=== PATIENT | male | born 1950 | race Caucasian/White ===

== ENCOUNTER 2021-11-26 10:48 | Outpatient (CLI) | payer MEDICARE, SELFPAY ==
--- NOTE | 2021-11-26 11:42 | XR_ITS ---
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 Findings: No fractures or dislocations are seen. Right hip shows a small acetabular spur. No narrowing, erosion , sclerosis or fragmentation of the right femoral head is seen.. The soft tissues are not remarkable. The adjacent pelvis is normal. There is calcification of the common femoral and superficial femoral artery saleh. XR/XR hip RT 2-3V wo/w pel* [id number] Impression: Minimal osteoarthritis of the right hip. Tonnis classification: grade 1: sclerosis of femoral head and acetabulum or sli ght joint space narrowing or slight lipping at joint margins
[2021-11-26 12:22] LABS: Hematocrit 50.4 % (42.0-52.0); Hemoglobin 16.6 g/dL (11.7-16.6); Mean Corpuscular HGB Conc 32.9 g/dL (30.0-36.0); Mean Corpuscular Hemoglobin 29.5 pg (28.0-34.0); Mean Corpuscular Volume 89.5 fl (80-94); Mean Platelet Volume 11.4 fL (7.4-10.4); Platelet Count 155 10^3/cmm (130-400); Red Blood Count 5.63 10^6/uL (4.1-5.3); Red Cell Distribution Width 14.3 % (12.1-15.1); White Blood Count 7.5 10^3/uL (4.0-10.0)
[2021-11-26 12:56] LABS: Absolute Eosinophils 0.1 10^3/cmm (0.0-0.7); Absolute Neutrophil 4.1 10^3/cmm (1.4-6.5); Band Neutrophils Absolute 0.1 10^3/cmm (0.0-1.2); Eosinophils 2 %; Lymphocytes 22 %; Lymphocytes Absolute 2.3 10^3/cmm (1.2-3.4); Monocytes Absolute 1.1 10^3/cmm (0.1-0.6); Platelet Estimate Normal (Normal); Segmented Neutrophils 53 %; Total Cells Counted 100 (0-100)
[2021-11-26 13:04] LABS: Alanine Aminotransferase 16 U/L (0-41); Albumin Level 4.2 g/dL (3.5-5.2); Alkaline Phosphatase 143 IU/L (40-130); Blood Urea Nitrogen 15 mg/dL (8-23); Calcium 8.5 mg/dL (8.5-10.5); Carbon Dioxide 24 mmol/L (22-29); Chloride 99 mmol/L (98-107); Chol HDL Ratio 1.87 mg/dL (1.0-5.00); Cholesterol 114 mg/dL (0-200); Globulin 3.6 g/dL (1.3-4.6); Glucose 171 mg/dL (65-115); HDL Cholesterol 61 mg/dL (60-100); LDL Cholesterol 50 (0-100); LDL Cholesterol Calculated 39 mg/dL (50-129); LDL HDL Ratio 0.64 RATIO (0.00-3.22); Osmolality Calculated 281 mOsm/kg (285-295); Sodium 133 mmol/L (136-145); Thyroid Stimulating Hormone 1.35 uIU/mL (0.27-4.20); Total Bilirubin 2.5 mg/dL (0.15-1.2); Total Protein 7.8 g/dL (6.6-8.7); Triglycerides 68 mg/dL (0-150)
[2021-11-26 13:13] LABS: Creatinine Urine, Random 31 mg/dL (39-259); Microalbumin Random Urine 2 ug/dL (0-20)
[2021-11-26 13:20] LABS: Anion Gap 14.4 (5-19); Potassium 4.4 mmol/L (3.5-5.1)
[2021-11-26 13:21] LABS: Aspartate Amino Transferase 27 U/L (0-40)
[2021-11-26 13:26] LABS: Microalbum Creatinine Ratio Ur 65 mg/dL (0-20)
[2021-11-26 15:26] LABS: Estmated Average Glucose 186; Hemoglobin A1C 8.1 % (4.0-6.0)
== END 2021-11-26 10:49 | disposition home or self-care (01) ==
PROVIDERS: PCP Nurse Practitioner Family; Visit Provider Nurse Practitioner Family
DX: I10 Essential (primary) hypertension (principal); E11.40 Type 2 diabetes mellitus with diabetic neuropathy, unspecified; M16.11 Unilateral primary osteoarthritis, right hip
CPT/HCPCS: 36415; 73502; 80053; 80061; 82044; 83036; 84439; 84443; 85007; 85027

== ENCOUNTER 2021-12-06 13:48 | Outpatient (CLI) | payer MEDICARE, SELFPAY ==
--- NOTE | 2021-12-06 13:59 | USCV_ITS ---
Taran Higuera Age: 71 Gender: M : 1950 Exam Date: 12/06/2021 14:35 Ordering Phys: Martha Norris NP Technologist: HEBER Exam Location: [facility] [place] Indication: CLADICATION Risk Factors: Previous Vascular Surgery: RIGHT LEFT BP: 126.0 / BP: 112.0/ 0 0 Waveform Velocity (cm/s) Velocity (cm/s) Waveform Triphasic 69.6 Iliac Prox 61.8 Triphasic Triphasic 80.7 Iliac Mid 61.8 Triphasic Triphasic Iliac Distal Triphasic 99.6 59.3 Triphasic 108.1 VERIFY REP 72.6 Triphasic Triphasic 85.4 SFA Prox 69.1 Triphasic Triphasic 82.3 SFA Mid 80.8 Biphasic Biphasic 85.4 SFA Dist 112.4 Biphasic Biphasic 61.9 POP 63.1 Biphasic Biphasic 61.1 MANAGER LANDSCAPE 61.0 Biphasic Biphasic 40.0 DPA 40.1 Biphasic 1.2 BRAYAN 1.0 FINDINGS Bilateral Ca++ seen Mild to moderate diffuse plaques in the iliac and femoral arteries bilaterally. Near normal Doppler waveforms bilaterally. Normal resting ABIs bilaterally. CONCLUSIONS Mild to moderate diffuse plaques in the iliac and femoral arteries bilaterally. No significant arterial obstruction, based on the above findings. No similar previous studies are available for comparison Dr Natasha Gonzalez MD [facility] (Electronically Signed) Final Date: 07 Dec 2021 21:44 S
== END 2021-12-06 13:49 | disposition home or self-care (01) ==
PROVIDERS: PCP Nurse Practitioner Family; Visit Provider Nurse Practitioner Family
DX: E11.59 Type 2 diabetes mellitus with other circulatory complications (principal)
CPT/HCPCS: 93925

== ENCOUNTER 2021-12-27 10:15 | Outpatient (CLI) | payer MEDICARE, SELFPAY ==
--- NOTE | 2021-12-27 10:45 | XR_ITS ---
WS: [id number] Exam: XR cervical spine min 6V [id number] Date/Time of Exam: 12/27/2021 10:45 AM Reason For Exam: CERVICAL PAIN No acute fracture or dislocation. There is straightening. Degenerative disc narrowing at C3-4, C5-6 a nd C6-7 with mild spondylosis. Facet DJD at all levels. The odontoid is intact. Slight narrowing of t he left neural foramen at C5-6 and C6-7. Slight narrowing of the C5-6 neural foramen on the right. Pr ominent bilateral carotid artery calcifications. XR/XR cervical spine min 6V [id number] IMPRESSION: 1. No fracture or malalignment. Straightening. 2. Degenerative changes as detailed above. 3. Prominent bilateral carotid artery calcifications.
== END 2021-12-27 10:16 | disposition home or self-care (01) ==
PROVIDERS: PCP Nurse Practitioner Family; Visit Provider Nurse Practitioner Family
DX: M54.2 Cervicalgia (principal); M47.812 Spondylosis without myelopathy or radiculopathy, cervical region; I65.23 Occlusion and stenosis of bilateral carotid arteries
CPT/HCPCS: 72052

== ENCOUNTER 2022-01-31 16:38 | Outpatient (CLI) | payer MEDICARE, SELFPAY ==
--- NOTE | 2022-01-31 17:00 | USR_ITS ---
PROCEDURE INFORMATION: Exam: US Duplex Bilateral Extracranial Arteries, Carotid Arteries Exam date and time: 01/31/2022 5:50 PM Age: 71 years old Clinical indication: Dizziness; Additional info: Calcification of both carotid arteries TECHNIQUE: Imaging protocol: Real-time Duplex ultrasound scan of the bilateral carotid and vertebral arteries combining mckeon scale, color Doppler and spectral waveform analysis. Bilateral exam. Exam focused on the carotid arteries. COMPARISON: CT Cervical Spine w cont [id number] 01/15/2016 10:56 AM FINDINGS: Right common carotid artery: [id number] diffuse intimal thickening. No occlusion or stenosis. Waveforms are normal. Right internal carotid artery: [id number] diffuse intimal thickening. There is a calcified plaque at the carotid bulb/proximal ICA measuring about 9 mm in length and 3 mm in thickness with peak velocity of 67/17 cm/s. No occlusion or stenosis. Waveforms are normal. Right ICA/CCA ratio: Within normal limits. Right external carotid artery: No stenosis in the origin. Right vertebral artery: Unremarkable. Antegrade flow. Left common carotid artery: Egcu-uh-[id number] diffuse intimal thickening. No occlusion or stenosis. Waveforms are normal. Left internal carotid artery: Moqv-ei-[id number] diffuse intimal thickening. Heterogeneous heavily calcified plaque at the right carotid bulb/proximal ICA measuring about 14 mm in length and 3 mm in thickness and peak velocities of up to 65/16 cm/s in the more distal left ICA. Extensive acoustic shadowing from calcification in the left bowel/ICA origin resulting in difficulty in Doppler assessment and velocity measurements however by grayscale plaque estimate, there is probable stenosis of 50% or greater. This is based on seen a series 9 No occlusion or stenosis. Waveforms are normal. Left ICA/CCA ratio: Within normal limits. Left external carotid artery: No stenosis in the origin. Left vertebral artery: Unremarkable. Antegrade flow. Other findings: Incidentally noted are frequent arrhythmias. US/CV carotid duplex BI* [id number] IMPRESSION: 1. Wvdp-jy-mlqavrgz diffuse intimal thickening and calcified bilateral plaques as described, associated with mild, less than 50% stenosis on the right. Extensive acoustic shadowing at the left bowel and proximal ICA limits Doppler velocity measurement however grayscale plate estimate suggest that stenosis is probably about 50% or greater.. Otherwise no obvious occlusion. Correlation with CTA or MRA should be considered. 2. Frequent arrhythmias is incidentally observed.. REFERENCES: SRU CRITERIA. The degree of internal carotid artery stenosis is based on criteria defined by the Society of Radiologists in Ultrasound (SRU). Normal is no stenosis. Mild is less than 50% stenosis. Moderate is 50-69% stenosis. Severe is greater than 69% stenosis to near occlusion. Near occlusion is a markedly narrowed lumen. Total occlusion is no detectable patent lumen.
== END 2022-01-31 16:39 | disposition home or self-care (01) ==
PROVIDERS: PCP Nurse Practitioner Family; Visit Provider Nurse Practitioner Family
DX: I65.23 Occlusion and stenosis of bilateral carotid arteries (principal)
CPT/HCPCS: 93880

== ENCOUNTER → 2022-04-04 12:15 | Outpatient (BNVA) | payer MEDICARE, SELFPAY | PROVIDERS: PCP Family Medicine; Visit Provider Family Medicine | DX: E11.9 Type 2 diabetes mellitus without complications (principal); I10 Essential (primary) hypertension; I73.9 Peripheral vascular disease, unspecified | CPT/HCPCS: 80053; 80061; 83036 ==

== ENCOUNTER 2022-07-30 18:59 | Emergency (ER) | payer MEDICARE, SELFPAY ==
[2022-07-30 19:05] VITALS: BP 150/92; PULSE 84; RESP 16; TEMP 36.7; O2SAT 96
--- NOTE | 2022-07-30 19:43 | W.ED.WOUNDLC ---
HPI - Wound/Laceration General: Chief Complaint: Wound/Laceration Stated Complaint: right leg infection Time Seen by Provider: 07/30/22 19:34 History of Present Illness: 72-year-old male patient comes in today with area a wound that is approximately 3 weeks old with signs of infection. Patient has already been through 1 round of Bactrim DS, was seen by primary care today and was started on clindamycin. Primary care recommended that if he seemed like it got worse he was to come into the emergency department. Patient appears chronically ill. Patient has a history of peripheral vascular disease, coronary artery disease, CHF, diabetes mellitus type 2, atrial flutter, chronic anticoagulation, and hyperlipidemia. Associated symptoms: Denies chills Review of Systems Const: Denies: chills Card: Denies: chest pain Resp: Reports: dyspnea (Chronic) Musc: Reports: extremity pain and extremity swelling Skin/Breast: Reports: erythema [facility] ED PFSH: Medical History (Updated 07/30/22 @ 20:54 by LONI Cline) Aortic stenosis Atrial fibrillation Atrial flutter Bilateral lower extremity edema CAD (coronary artery disease) Cardiac LV ejection fraction 30-35% Cellulitis of right lower leg CHF (congestive heart failure) Chronic anticoagulation Degenerative disc disease Diabetes mellitus HTN (hypertension) Hyperlipidemia Microalbuminuria due to type 2 diabetes mellitus Neuropathy PVD (peripheral vascular disease) Shortness of breath Statin intolerance Surgical History (Updated 07/28/22 @ 11:21 by Fabian Rodriguez MD) History of hand surgery (~2013) S/P arterial stent (~2002) S/P CABG (coronary artery bypass graft) (~2000) S/P hernia repair Family History Father Cancer Sister Cancer Brother Cancer Lung CA Mother COPD (chronic obstructive pulmonary disease) Social History (Updated 04/04/22 @ 12:50 by Mildred Grewal MD) Smoking and tobacco status: former smoker Alcohol intake: never Lives independently: Yes Household members: spouse Marital status: Physical Exam Const: COMMON NORMALS: alert HENMT: COMMON NORMALS: normocephalic HEAD & SCALP: normocephalic Neck/C-Spine: COMMON NORMALS: full ROM Resp: COMMON NORMALS: normal respiratory effort and clear to auscultation bilaterally AUSCULTATION: clear to auscultation bilaterally Cardio: COMMON NORMALS: regular rate RATE: regular rate RHYTHM: abnormal rhythm GI: COMMON NORMALS: Soft to palpation PALPATION: Yes Soft to palpation Extremity: RIGHT LOWER EXTREMITY: Yes lower leg (Dry lesion approximately 1 cm circular, with surrounding erythema) Right lower leg: Yes inspection, Yes palpation and Yes neurovascular exam Neuro: SENSORIUM/ORIENTATION: Yes alert Skin: LESIONS: lesion noted (Right lower leg with surrounding erythema and swelling) Course Vital Signs: Vital signs: Vital Signs Temperature 98.1 F 07/30/22 19:05 Pulse Rate 84 07/30/22 19:05 Respiratory Rate 16 07/30/22 19:05 Blood Pressure 150/92 07/30/22 19:05 Pulse Oximetry 96 07/30/22 19:05 Oxygen Delivery Me thod 07/30/22 19:05 MDM - Wound/Laceration Medical Decision Making 72-year-old male patient comes in today for complaints of redness and tenderness to the anterior right lower leg. On exam patient has some significant erythema that is distal to the lesion. Vital signs are normal. Differential diagnosis includes but not limited to cellulitis, DVT, stasis ulcer. Laboratory values were unremarkable. No signs of serious illness was noted. Patient was given 1 g of ceftriaxone and will continue with clindamycin. Recommend follow-up with primary care next week. Return to ED for worsening symptoms such as high fever, severe pain, or new concerns. Lab Data 07/30/22 20:00 07/30/22 20:00 Laboratory Results WBC 6.9 10^3/uL (4.0-10.0) 07/30/22 20:00 RBC 5.40 10^6/uL (4.1-5.3) H 07/30/22 20:00 Hgb 16.2 g/dL (11.7-16.6) 07/30/22 20:00 Hct 49.3 % (42.0-52.0) 07/30/22 20:00 MCV 91.3 fl (80-94) 07/30/22 20:00 MCH 30.0 pg (28.0-34.0) 07/30/22 20:00 MCHC 32.9 g/dL (30.0-36.0) 07/30/22 20:00 RDW 14.4 % (12.1-15.1) 07/30/22 20:00 Plt Count 156 10^3/cmm (130-400) 07/30/22 20:00 MPV 11.5 fL (7.4-10.4) H 07/30/22 20:00 Neut % (Auto) 51.5 % 07/30/22 20:00 Lymph % (Auto) 24.2 % 07/30/22 20:00 [place] % (Auto) 17.8 % 07/30/22 20:00 Eos % (Auto) 3.2 % 07/30/22 20:00 Baso % (Auto) 2.6 % 07/30/22 20:00 Neut # (Auto) 3.54 10^3/uL (1.8-7.7) 07/30/22 20:00 Lymph # (Auto) 1.7 10^3/uL (0.8-4.8) 07/30/22 20:00 [place] # (Auto) 1.2 10^3/uL (0.2-0.9) H 07/30/22 20:00 Eos # (Auto) 0.2 10^3/uL (0.0-0.8) 07/30/22 20:00 Baso # (Auto) 0.2 10^3/uL (0.0-0.1) H 07/30/22 20:00 Nucleated RBC % (auto) 0 % 07/30/22 20:00 Nucleated RBCs # 0.0 /100WBC 07/30/22 20:00 Sodium 133 mmol/L (136-145) L 07/30/22 20:00 Potassium 4.3 mmol/L (3.5-5.1) 07/30/22 20:00 Chloride 99 mmol/L (98-107) 07/30/22 20:00 Carbon Dioxide 26 mmol/L (22-29) 07/30/22 20:00 Anion Gap 12.3 (5-19) 07/30/22 20:00 BUN 20 mg/dL (8-23) 07/30/22 20:00 Creatinine 0.9 mg/dL (0.7-1.2) 07/30/22 20:00 GFR Calculation Not Reportable 07/30/22 20:00 Glucose 186 mg/dL (65-115) H 07/30/22 20:00 Calculated Osmolality 283 mOsm/kg (285-295) L 07/30/22 20:00 Lactic Acid 1.6 mmol/L (0.5-2.2) 07/30/22 20:00 Calcium 9.0 mg/dL (8.5-10.5) 07/30/22 20:00 Total Bilirubin 1.9 mg/dL (0.15-1.2) H 07/30/22 20:00 AST 31 U/L (0-40) 07/30/22 20:00 ALT 14 U/L (0-41) 07/30/22 20:00 Alkaline Phosphatase 161 U/L (40-130) H 07/30/22 20:00 C-Reactive Protein 5.2 mg/L (0.0-4.9) H 07/30/22 20:00 Total Protein 8.1 g/dL (6.6-8.7) 07/30/22 20:00 Albumin 4.1 g/dL (3.5-5.2) 07/30/22 20:00 Globulin 4.0 g/dL (1.3-4.6) 07/30/22 20:00 Discharge Plan Discharge Patient Disposition: Home Clinical Impression: Cellulitis of right lower leg, PVD (peripheral vascular disease) Condition: Stable Prescriptions: New hydrocodone-acetaminophen 5-325 mg tablet 1 tab PO Q8H PRN (Reason: pain (scale score 7-10)) Qty: 10 0RF No Action aspirin [Adult Low Dose Aspirin] 81 mg tablet,delayed release (DR/EC) 81 mg PO DAILY fluticasone propionate [Flonase Allergy Relief] 50 mcg/actuation spray,suspension 1 spray intranasal DAILY Rx Instructions: administer into each nostril acetaminophen 500 mg tablet 500 mg PO Q6H PRN cetirizine [Zyrtec] 10 mg tablet 10 mg PO DAILY PRN clindamycin HCl 300 mg capsule 300 mg PO Q8H 7 Days Qty: 21 0RF Eliquis 5 mg tablet 5 mg PO BID Qty: 180 0RF Repatha SureClick 140 mg/mL pen injector 140 mg SUBCUT .every 2 weeks Qty: 6 0RF glimepiride 4 mg tablet 4 mg PO DAILY Qty: 90 0RF hydrochlorothiazide 12.5 mg tablet 12.5 mg PO DAILY Qty: 90 0RF nitroglycerin [Nitrostat] 0.4 mg tablet, sublingual 0.4 mg sublingual Q5M PRN (Reason: chest pain) Qty: 25 3RF Rx Instructions: do not exceed 3 doses per episode hydrochlorothiazide 50 mg tablet 50 mg PO QAM Qty: 10 0RF Rx Instructions: Stop the 12.5 mg daily until off of the hydrochlorothiazide 50 mg daily potassium chloride 20 mEq tablet extended release 20 meq PO DAILY Qty: 10 0RF Rx Instructions: take with HCTZ 50 mg insulin glargine [Lantus U-100 Insulin] 100 unit/mL solution 10 unit SUBCUT ONCE Qty: 10 2RF metoprolol succinate 50 mg tablet extended release 24 hr See Rx Instructions .ROUTE .COMPLEX Qty: 90 0RF Dose Instruction: Take 1 tablet by mouth once daily Rx Instructions: Take 1 tablet by mouth once daily Discharge Orders: Discharge ED (Routine); Ordered 07/30/22 Ordered By: Shahriar Khanna Referrals: Mildred Grewal MD [Primary Care Provider] - Discharge Diet: Usual diet Discharge Activity: Increase activity as tolerated Patient Instructions: Cellulitis (ED) Activity Restrictions/Additional Instructions: Home and rest. Follow-up with primary care in 3 to 5 days. Take antibiotics as directed. Return to emergency department for severe pain, fever greater than 100.4, inability to hold fluids down, or new concerns. Coding Level of Care Code ED Fish Bailer for Devin Peoples Exam Comprehensive
[2022-07-30 20:14] LABS: Basophils # 0.2 10^3/uL (0.0-0.1); Basophils % 2.6 %; Eosinophils # 0.2 10^3/uL (0.0-0.8); Eosinophils % 3.2 %; Hematocrit 49.3 % (42.0-52.0); Hemoglobin 16.2 g/dL (11.7-16.6); Lymphocytes # 1.7 10^3/uL (0.8-4.8); Lymphocytes % 24.2 %; Mean Corpuscular HGB Conc 32.9 g/dL (30.0-36.0); Mean Corpuscular Volume 91.3 fl (80-94); Mean Platelet Volume 11.5 fL (7.4-10.4); Monocytes # 1.2 10^3/uL (0.2-0.9); Monocytes % 17.8 %; Neutrophils # 3.54 10^3/uL (1.8-7.7); Neutrophils % 51.5 %; Nucleated Red Blood Cells % 0 %; Platelet Count 156 10^3/cmm (130-400); Red Cell Distribution Width 14.4 % (12.1-15.1); White Blood Count 6.9 10^3/uL (4.0-10.0)
[2022-07-30 20:35] LABS: Alanine Aminotransferase 14 U/L (0-41); Albumin Level 4.1 g/dL (3.5-5.2); Alkaline Phosphatase 161 U/L (40-130); Anion Gap 12.3 (5-19); Aspartate Amino Transferase 31 U/L (0-40); Blood Urea Nitrogen 20 mg/dL (8-23); C Reactive Protein 5.2 mg/L (0.0-4.9); Carbon Dioxide 26 mmol/L (22-29); Chloride 99 mmol/L (98-107); Glucose 186 mg/dL (65-115); Lactic Sepsis W/Reflex 1.6 mmol/L (0.5-2.2); Osmolality Calculated 283 mOsm/kg (285-295); Potassium 4.3 mmol/L (3.5-5.1); Sodium 133 mmol/L (136-145); Total Bilirubin 1.9 mg/dL (0.15-1.2); Total Protein 8.1 g/dL (6.6-8.7)
[2022-07-30] MEDS: cefTRIAXone 1,000 MG in sodium chloride 0.9% (plus) 50 ML 100 MG IV (21:32)
[2022-07-30] MEDS: HYDROcodone-acetaminophen 5-325 mg Tablet 1 TAB PO (21:33)
[2022-07-30 21:41] VITALS: BP 94/66; PULSE 82; RESP 16; O2SAT 97
== END 2022-07-30 21:44 | disposition home or self-care (01) ==
PROVIDERS: Emergency Medicine; Emergency Provider Nurse Practitioner Family; PCP Family Medicine
DX: L03.115 Cellulitis of right lower limb (principal); I73.9 Peripheral vascular disease, unspecified; Z79.01 Long term (current) use of anticoagulants; Z79.84 Long term (current) use of oral hypoglycemic drugs; Z79.82 Long term (current) use of aspirin; Z79.4 Long term (current) use of insulin; Z87.891 Personal history of nicotine dependence; I25.10 Atherosclerotic heart disease of native coronary artery without angina pectoris; I11.0 Hypertensive heart disease with heart failure; I50.9 Heart failure, unspecified; E11.9 Type 2 diabetes mellitus without complications; E78.5 Hyperlipidemia, unspecified; Z95.1 Presence of aortocoronary bypass graft
CPT/HCPCS: 80053; 83605; 85025; 86140; 87040; 96374; 99284; J0696

== ENCOUNTER → 2022-08-19 10:46 | Outpatient (BNVA) | payer MEDICARE, SELFPAY | PROVIDERS: PCP Family Medicine; Visit Provider Podiatrist Foot & Ankle Surgery | DX: E11.8 Type 2 diabetes mellitus with unspecified complications (principal); I73.9 Peripheral vascular disease, unspecified; M20.41 Other hammer toe(s) (acquired), right foot; M20.42 Other hammer toe(s) (acquired), left foot; E11.42 Type 2 diabetes mellitus with diabetic polyneuropathy; L60.3 Nail dystrophy; M21.41 Flat foot [pes planus] (acquired), right foot; M21.42 Flat foot [pes planus] (acquired), left foot | CPT/HCPCS: 11721; 99204 ==

== ENCOUNTER → 2022-10-17 10:16 | Outpatient (BNVA) | payer MEDICARE, SELFPAY | PROVIDERS: PCP Family Medicine; Visit Provider Family Medicine | DX: R60.0 Localized edema (principal); I50.32 Chronic diastolic (congestive) heart failure; E11.9 Type 2 diabetes mellitus without complications; E78.5 Hyperlipidemia, unspecified; I10 Essential (primary) hypertension; I50.9 Heart failure, unspecified; E11.29 Type 2 diabetes mellitus with other diabetic kidney complication; R80.9 Proteinuria, unspecified; R21 Rash and other nonspecific skin eruption | CPT/HCPCS: 80053; 80061; 83036; 83880 ==

== ENCOUNTER → 2022-10-30 09:49 | Outpatient (BNVA) | payer MEDICARE, SELFPAY | PROVIDERS: PCP Family Medicine; Visit Provider Family Medicine | DX: R60.0 Localized edema (principal); I50.32 Chronic diastolic (congestive) heart failure; L03.90 Cellulitis, unspecified | CPT/HCPCS: 80053; 83880; 85025 ==

== ENCOUNTER 2022-11-03 10:02 | Emergency (ER) | payer MEDICARE, MEDICAID, SELFPAY ==
[2022-11-03 10:18] VITALS: BP 133/81; PULSE 82; RESP 16; TEMP 36.5; O2SAT 98; BMI 31.2
[2022-11-03 13:19] VITALS: BP 131/86; PULSE 79; RESP 18; O2SAT 97
--- NOTE | 2022-11-03 13:21 | PC.NURSE ---
rounded on pt. pedal pulses present. pitting edema noted to BLE. erythema noted to RLE.
[2022-11-03 14:27] LABS: Basophils # 0.3 10^3/uL (0.0-0.1); Basophils % 3.2 %; Eosinophils # 0.3 10^3/uL (0.0-0.8); Eosinophils % 3.6 %; Hematocrit 52.1 % (42.0-52.0); Lymphocytes % 23.8 %; Mean Corpuscular HGB Conc 32.6 g/dL (30.0-36.0); Mean Corpuscular Hemoglobin 29.5 pg (28.0-34.0); Mean Corpuscular Volume 90.5 fl (80-94); Mean Platelet Volume 11.3 fL (7.4-10.4); Monocytes # 1.4 10^3/uL (0.2-0.9); Monocytes % 16.6 %; Neutrophils # 4.41 10^3/uL (1.8-7.7); Neutrophils % 52.2 %; Nucleated Red Blood Cells % 0 %; Platelet Count 148 10^3/cmm (130-400); Red Blood Count 5.76 10^6/uL (4.1-5.3); Red Cell Distribution Width 14.6 % (12.1-15.1); White Blood Count 8.4 10^3/uL (4.0-10.0)
[2022-11-03 14:41] LABS: Lactic Sepsis W/Reflex 1.5 mmol/L (0.5-2.2)
[2022-11-03 14:52] LABS: Alanine Aminotransferase 17 U/L (0-41); Albumin Level 3.9 g/dL (3.5-5.2); Alkaline Phosphatase 152 U/L (40-130); Anion Gap 15.2 (5-19); Aspartate Amino Transferase 31 U/L (0-40); Blood Urea Nitrogen 23 mg/dL (8-23); Calcium 9.3 mg/dL (8.5-10.5); Carbon Dioxide 25 mmol/L (22-29); Chloride 95 mmol/L (98-107); Globulin 4.5 g/dL (1.3-4.6); Glucose 214 mg/dL (65-115); NT Pro B Type Natriuretic Pept 818 pg/mL (0-125); Osmolality Calculated 282 mOsm/kg (285-295); Potassium 4.2 mmol/L (3.5-5.1); Sodium 131 mmol/L (136-145); Total Bilirubin 2.4 mg/dL (0.15-1.2); Total Protein 8.4 g/dL (6.6-8.7)
--- NOTE | 2022-11-03 16:16 | ED_ITS ---
HPI - Extremity Problem General: Chief complaint: Extremity Injury, Lower Stated complaint: bilateral ankle problems, possible infection Time Seen by Provider: 11/03/22 15:25 Source: patient and family Mode of arrival: ambulatory Limitations: no limitations History of Present Illness: Patient presents emergency department today for evaluation treatment of continued right ankle and foot swelling with continued redness. Patient reports a chronic history of bilateral ankle and foot swelling but, was seen by his primary care recently for concerns of a spreading redness in the ankle and foot. Patient reports a throbbing/pressure pain in this area since it started. He denies any known injuries. Patient had 2+ pitting edema noted on the physical examination at that time and remains today. They did add furosemide to his hydrochlorothiazide to help with the extra fluid. Patient notes that he has had increased urination and has had occasional dizziness upon standing but has not had any issues with syncopal episodes. He continues to deny any shortness of breath or chest pains. Patient denies fevers. He was started on Keflex but, instructions indicate he is to take 500 mg twice a day. He has not noticed improvement of the redness. There is also mention of him being referred back to cardiology if he is not noticing improvement in the lower extremity swelling. Review of Systems General: Reports: 10 or more systems reviewed and unremarkable except in HPI and below Musc: Reports: extremity swelling and joint stiffness Skin/Breast: Reports: erythema PFSH ED PFSH: Medical History Aortic stenosis Atrial fibrillation Atrial flutter Bilateral lower extremity edema CAD (coronary artery disease) Cardiac LV ejection fraction 30-35% Cellulitis of right lower leg CHF (congestive heart failure) Chronic anticoagulation Degenerative disc disease Diabetes mellitus HTN (hypertension) Hyperlipidemia Microalbuminuria due to type 2 diabetes mellitus Neuropathy PVD (peripheral vascular disease) Shortness of breath Statin intolerance Surgical History History of hand surgery (~2013) S/P arterial stent (~2002) S/P CABG (coronary artery bypass graft) (~2000) S/P hernia repair Family History Father Cancer Sister Cancer Brother Cancer Lung CA Mother COPD (chronic obstructive pulmonary disease) Social History Smoking and tobacco status: former smoker Alcohol intake: never Lives independently: Yes Household members: spouse Marital status: Physical Exam Const: COMMON NORMALS: no acute distress, patient oriented x3 and alert HENMT: COMMON NORMALS: normocephalic, atraumatic and hearing grossly normal bilaterally HEAD & SCALP: normocephalic and atraumatic Eye: COMMON NORMALS: Equal, round and reactive pupils present, EOMs intact bilaterally and conjunctivae normal CONJUNCTIVA: Yes conjunctivae normal PUPIL: Yes Equal, round and reactive pupils present Neck/C-Spine: COMMON NORMALS: full ROM and no JVD Lymph: LYMPHATIC: no lymphadenopathy noted Resp: COMMON NORMALS: normal respiratory effort, No retractions and No use of accessory muscles Cardio: COMMON NORMALS: no JVD and regular rate RATE: regular rate Extremity: NARRATIVE EXTREMITY EXAM: Patient has 2+ pitting edema noted to the mid right bravo extending down to the ankle and the foot. Patient has dark erythema circumferentially starting at the distal right bravo affecting the ankle and the proximal portion of the foot. Patient still has mobility of the extremity but has pain on ambulation. Neuro: COMMON NORMALS: patient oriented x3 SENSORIUM/ORIENTATION: Yes alert Psych: COMMON NORMALS: mental status grossly normal, Normal thought process present, cooperative and normal affect THOUGHT PROCESS: Normal thought process present Skin: GENERAL SKIN EXAM: dry skin and erythema NAILS: yellow and thickened Course Vital Signs: Vital signs: Vital Signs Temperature 97.7 F 11/03/22 10:18 Pulse Rate 79 11/03/22 13:19 Respiratory Rate 18 11/03/22 13:19 Blood Pressure 131/86 11/03/22 13:19 Pulse Oximetry 97 11/03/22 13:19 Oxygen Delivery Me thod 11/03/22 13:19 MDM - Extremity (Nontraumatic) Medical Decision Making AndPatient presents today with continued lower extremity continued redness to the right ankle and foot. I do think this is a complication of several things including his diabetic neuropathy, type 2 diabetes, peripheral vascular disease, and CHF. Unfortunately, I do not think the Keflex is working well for him and I am going to switch him over to doxycycline. Lab work is generally unremarkable. He shows no signs of sepsis and BNP numbers are actually improved. We are also putting him in a compressive bandage to help with the swelling and encouraged him to keep his foot up and elevated for the next few days. He is to follow-up with his primary care doctor in the next 48 to 72 hours for a recheck of both the redness and the swelling however, strict return precautions were given to him regarding any change or worsening in his condition. Differential Diagnosis Likely gout, cellulitis, superficial thrombophlebitis and lower extremity edema Lab Data 11/03/22 14:15 11/03/22 14:15 Laboratory Results WBC 8.4 10^3/uL (4.0-10.0) 11/03/22 14:15 RBC 5.76 10^6/uL (4.1-5.3) H 11/03/22 14:15 Hgb 17.0 g/dL (11.7-16.6) H 11/03/22 14:15 Hct 52.1 % (42.0-52.0) H 11/03/22 14:15 MCV 90.5 fl (80-94) 11/03/22 14:15 MCH 29.5 pg (28.0-34.0) 11/03/22 14:15 MCHC 32.6 g/dL (30.0-36.0) 11/03/22 14:15 RDW 14.6 % (12.1-15.1) 11/03/22 14:15 Plt Count 148 10^3/cmm (130-400) 11/03/22 14:15 MPV 11.3 fL (7.4-10.4) H 11/03/22 14:15 Neut % (Auto) 52.2 % 11/03/22 14:15 Lymph % (Auto) 23.8 % 11/03/22 14:15 [place] % (Auto) 16.6 % 11/03/22 14:15 Eos % (Auto) 3.6 % 11/03/22 14:15 Baso % (Auto) 3.2 % 11/03/22 14:15 Neut # (Auto) 4.41 10^3/uL (1.8-7.7) 11/03/22 14:15 Lymph # (Auto) 2.0 10^3/uL (0.8-4.8) 11/03/22 14:15 [place] # (Auto) 1.4 10^3/uL (0.2-0.9) H 11/03/22 14:15 Eos # (Auto) 0.3 10^3/uL (0.0-0.8) 11/03/22 14:15 Baso # (Auto) 0.3 10^3/uL (0.0-0.1) H 11/03/22 14:15 Nucleated RBC % (auto) 0 % 11/03/22 14:15 Nucleated RBCs # 0.0 /100WBC 11/03/22 14:15 Sodium 131 mmol/L (136-145) L 11/03/22 14:15 Potassium 4.2 mmol/L (3.5-5.1) 11/03/22 14:15 Chloride 95 mmol/L (98-107) L 11/03/22 14:15 Carbon Dioxide 25 mmol/L (22-29) 11/03/22 14:15 Anion Gap 15.2 (5-19) 11/03/22 14:15 BUN 23 mg/dL (8-23) 11/03/22 14:15 Creatinine 0.8 mg/dL (0.7-1.2) 11/03/22 14:15 GFR Calculation Not Reportable 11/03/22 14:15 Glucose 214 mg/dL (65-115) H 11/03/22 14:15 Calculated Osmolality 282 mOsm/kg (285-295) L 11/03/22 14:15 Lactic Acid 1.5 mmol/L (0.5-2.2) 11/03/22 14:15 Calcium 9.3 mg/dL (8.5-10.5) 11/03/22 14:15 Total Bilirubin 2.4 mg/dL (0.15-1.2) H 11/03/22 14:15 AST 31 U/L (0-40) 11/03/22 14:15 ALT 17 U/L (0-41) 11/03/22 14:15 Alkaline Phosphatase 152 U/L (40-130) H 11/03/22 14:15 NT-Pro-B Natriuret Pep 818 pg/mL (0-125) H 11/03/22 14:15 Total Protein 8.4 g/dL (6.6-8.7) 11/03/22 14:15 Albumin 3.9 g/dL (3.5-5.2) 11/03/22 14:15 Globulin 4.5 g/dL (1.3-4.6) 11/03/22 14:15 Discharge Plan Discharge Patient Disposition: Home Clinical Impression: Pitting edema, Cellulitis Condition: Stable Prescriptions: New doxycycline hyclate 100 mg tablet 100 mg PO BID 10 Days Qty: 20 0RF No Action aspirin [Adult Low Dose Aspirin] 81 mg tablet,delayed release (DR/EC) 81 mg PO DAILY fluticasone propionate [Flonase Allergy Relief] 50 mcg/actuation spray,suspension 1 spray intranasal DAILY Rx Instructions: administer into each nostril acetaminophen 500 mg tablet 500 mg PO Q6H PRN cetirizine [Zyrtec] 10 mg tablet 10 mg PO DAILY PRN Eliquis 5 mg tablet 5 mg PO BID Qty: 180 0RF Repatha SureClick 140 mg/mL pen injector 140 mg SUBCUT .every 2 weeks Qty: 6 0RF glimepiride 4 mg tablet 4 mg PO DAILY Qty: 90 0RF nitroglycerin [Nitrostat] 0.4 mg tablet, sublingual 0.4 mg sublingual Q5M PRN (Reason: chest pain) Qty: 25 3RF Rx Instructions: do not exceed 3 doses per episode cephalexin 500 mg tablet 500 mg PO Q12H Qty: 14 0RF furosemide 40 mg tablet 40 mg PO DAILY Qty: 30 0RF potassium chloride 20 mEq tablet extended release 20 meq PO DAILY Qty: 30 0RF Rx Instructions: take with lasix gabapentin 600 mg tablet 600 mg PO BID Qty: 180 0RF insulin glargine [Lantus U-100 Insulin] 100 unit/mL solution 10 unit SUBCUT ONCE Qty: 10 2RF hydrochlorothiazide 12.5 mg tablet See Rx Instructions .ROUTE .COMPLEX Qty: 90 0RF Dose Instruction: Take 1 tablet by mouth once daily Rx Instructions: Take 1 tablet by mouth once daily metoprolol succinate 50 mg tablet extended release 24 hr See Rx Instructions .ROUTE .COMPLEX Qty: 90 1RF Dose Instruction: Take 1 tablet by mouth once daily Rx Instructions: Take 1 tablet by mouth once daily Discharge Orders: Discharge ED (Routine); Ordered 11/03/22 Ordered By: Adriana Mcmanus Referrals: Mildred Grewal MD [Primary Care Provider] - Discharge Diet: As Directed Discharge Activity: Limit activity as instructed Patient Instructions: Cellulitis (ED) Activity Restrictions/Additional Instructions: Lab work today is generally unremarkable. I see no signs of a systemic infection concerning for sepsis. Also, lab work to check acute exacerbation of your CHF shows you are actually having improved numbers from the last few weeks. Continue taking the furosemide and hydrochlorothiazide as prescribed. We are going to switch your antibiotic over to doxycycline. You may stop taking the cephalexin. I would like you to have a follow-up appoint with your primary care doctor in approximately 48 hours. You can discuss changing your diuretic dosing as it needs to be closely monitored since you are occasionally feeling lightheaded already. Also, you should notice improvement-though not full resolution, of the redness with your new antibiotics on board. We have wrapped your foot and ankle to give you some compression. I would like you to keep some compression on this area for the next several days. Is much as possible, keep your foot up and elevated. If for any reason you develop chest pain, shortness of breath, or develop fever/sudden worsening of any of your symptoms you need to be seen and reevaluated again sooner. Coding Level of Care Code ED Museum Specialist for Devin Peoples
== END 2022-11-03 16:35 | disposition home or self-care (01) ==
PROVIDERS: Emergency Medicine; Emergency Provider Physician Assistant; PCP Family Medicine
DX: R60.0 Localized edema (principal); L03.115 Cellulitis of right lower limb; Z79.82 Long term (current) use of aspirin; Z79.01 Long term (current) use of anticoagulants; Z79.84 Long term (current) use of oral hypoglycemic drugs; Z79.4 Long term (current) use of insulin; Z87.891 Personal history of nicotine dependence; Z95.1 Presence of aortocoronary bypass graft; I25.10 Atherosclerotic heart disease of native coronary artery without angina pectoris; I11.0 Hypertensive heart disease with heart failure; I50.9 Heart failure, unspecified; E11.9 Type 2 diabetes mellitus without complications; E78.5 Hyperlipidemia, unspecified
CPT/HCPCS: 36415; 80053; 83605; 83880; 85025; 99283

== ENCOUNTER → 2022-11-19 10:54 | Outpatient (BNVA) | payer MEDICARE, SELFPAY | PROVIDERS: PCP Family Medicine; Visit Provider Podiatrist Foot & Ankle Surgery | DX: I73.9 Peripheral vascular disease, unspecified (principal); M20.41 Other hammer toe(s) (acquired), right foot; M20.42 Other hammer toe(s) (acquired), left foot; E11.42 Type 2 diabetes mellitus with diabetic polyneuropathy; L60.3 Nail dystrophy; M21.41 Flat foot [pes planus] (acquired), right foot; M21.42 Flat foot [pes planus] (acquired), left foot; Z79.4 Long term (current) use of insulin | CPT/HCPCS: 11721 ==

== ENCOUNTER → 2023-02-17 12:51 | Outpatient (BNVA) | payer MEDICARE, SELFPAY | PROVIDERS: PCP Family Medicine; Visit Provider Podiatrist Foot & Ankle Surgery | DX: I73.9 Peripheral vascular disease, unspecified (principal); L60.3 Nail dystrophy; M20.41 Other hammer toe(s) (acquired), right foot; M20.42 Other hammer toe(s) (acquired), left foot; E11.42 Type 2 diabetes mellitus with diabetic polyneuropathy; M21.41 Flat foot [pes planus] (acquired), right foot; M21.42 Flat foot [pes planus] (acquired), left foot; I87.2 Venous insufficiency (chronic) (peripheral); S80.821A Blister (nonthermal), right lower leg, initial encounter; X58.XXXA Exposure to other specified factors, initial encounter | CPT/HCPCS: 11721; 29580 ==

== ENCOUNTER → 2023-02-19 15:45 | Outpatient (BNVA) | payer MEDICARE, SELFPAY | PROVIDERS: PCP Family Medicine; Visit Provider Podiatrist Foot & Ankle Surgery | DX: I73.9 Peripheral vascular disease, unspecified (principal); E11.622 Type 2 diabetes mellitus with other skin ulcer; L97.811 Non-pressure chronic ulcer of other part of right lower leg limited to breakdown of skin; M20.41 Other hammer toe(s) (acquired), right foot; M20.42 Other hammer toe(s) (acquired), left foot; E11.42 Type 2 diabetes mellitus with diabetic polyneuropathy; M21.41 Flat foot [pes planus] (acquired), right foot; M21.42 Flat foot [pes planus] (acquired), left foot; I87.2 Venous insufficiency (chronic) (peripheral); Z79.4 Long term (current) use of insulin | CPT/HCPCS: 99213 ==

== ENCOUNTER → 2023-02-25 08:41 | Outpatient (BNVA) | payer MEDICARE, SELFPAY | PROVIDERS: PCP Family Medicine; Visit Provider Nurse Practitioner Family | DX: E11.52 Type 2 diabetes mellitus with diabetic peripheral angiopathy with gangrene (principal); L97.812 Non-pressure chronic ulcer of other part of right lower leg with fat layer exposed | CPT/HCPCS: 97597; 99213; A6021; A6252 ==

== ENCOUNTER → 2023-02-27 08:20 | Outpatient (BNVA) | payer MEDICARE, SELFPAY | PROVIDERS: PCP Family Medicine; Visit Provider Thoracic Surgery (Cardiothoracic Vascular Surgery) | DX: E11.52 Type 2 diabetes mellitus with diabetic peripheral angiopathy with gangrene (principal); L97.812 Non-pressure chronic ulcer of other part of right lower leg with fat layer exposed | CPT/HCPCS: 29581; A6021; A6252 ==

== ENCOUNTER → 2023-03-04 10:01 | Outpatient (BNVA) | payer MEDICARE, SELFPAY | PROVIDERS: PCP Family Medicine; Visit Provider Thoracic Surgery (Cardiothoracic Vascular Surgery) | DX: E11.52 Type 2 diabetes mellitus with diabetic peripheral angiopathy with gangrene (principal); L97.812 Non-pressure chronic ulcer of other part of right lower leg with fat layer exposed | CPT/HCPCS: 97597; 97598; A6021; A6212 ==

== ENCOUNTER 2023-03-06 06:00 | Outpatient (CLI) | payer MEDICARE, MEDICAID, SELFPAY ==
--- NOTE | 2023-03-06 07:26 | USCV_ITS ---
LE Venous Duplex RIGHT Taran Higuera Age: 72 Gender: M : 1950 Exam Date: 03/06/2023 06:20 Ordering Phys: Shahriar Cazares MD (Andy) ([email or web address]) Technologist: HEBER [place] [facility] [place]: RLE PAIN AND WOUND HISTORY: Lower extremity pain. PROCEDURES: Venous duplex imaging was performed in only the right lower extremity. The following venous structures were evaluated: common femoral vein, profunda vein, proximal portion of the greater saphenous vein, superficial femoral vein, and the popliteal vein. In addition, the posterior tibial and peroneal trunk were evaluated. Serial compression, augmentation maneuvers, and spectral Doppler flow evaluation were performed. FINDINGS: Normal 2-D Doppler and augmentation and compressibility throughout the lower extremity venous structures. Additional imaging through the proximal calf veins also reveals no thrombus. Limited evaluation of the greater saphenous vein is patent with no thrombus. CONCLUSIONS No DVT right lower extremity. Dr. Minda Dolan DO (Electronically Signed) Final Date: 06 March 2023 08:05 S
== END 2023-03-06 06:01 | disposition home or self-care (01) ==
PROVIDERS: PCP Family Medicine; Visit Provider Thoracic Surgery (Cardiothoracic Vascular Surgery)
DX: I73.9 Peripheral vascular disease, unspecified (principal); M79.604 Pain in right leg
CPT/HCPCS: 93971; 97597; 97598; A6021; A6212

== ENCOUNTER → 2023-03-09 09:37 | Outpatient (BNVA) | payer MEDICARE, SELFPAY | PROVIDERS: PCP Family Medicine; Visit Provider Family Medicine | DX: R60.0 Localized edema (principal); I50.32 Chronic diastolic (congestive) heart failure; E11.9 Type 2 diabetes mellitus without complications; I48.3 Typical atrial flutter; I25.810 Atherosclerosis of coronary artery bypass graft(s) without angina pectoris; I10 Essential (primary) hypertension | CPT/HCPCS: 80053; 80061; 83036 ==

== ENCOUNTER → 2023-03-11 10:50 | Outpatient (BNVA) | payer MEDICARE, SELFPAY | PROVIDERS: PCP Family Medicine; Visit Provider Thoracic Surgery (Cardiothoracic Vascular Surgery) | DX: E11.52 Type 2 diabetes mellitus with diabetic peripheral angiopathy with gangrene (principal); L97.812 Non-pressure chronic ulcer of other part of right lower leg with fat layer exposed; Z09 Encounter for follow-up examination after completed treatment for conditions other than malignant neoplasm | CPT/HCPCS: 99212 ==

== ENCOUNTER 2023-03-17 09:52 | Outpatient (CLI) | payer MEDICARE, MEDICAID, SELFPAY ==
--- NOTE | 2023-03-17 10:15 | USCV_ITS ---
Taran Higuera Age: 72 Gender: M : 1950 Exam Date: 03/17/2023 10:24 Ordering Phys: Shahriar Cazares MD (Andy) ([email or web address] [place] Technologist: HEBER Exam Location: [facility] – [place] Indication: HISTORY: Lower extremity edema. PROCEDURES: Venous duplex imaging was performed in only the right lower extremity. The following venous structures were evaluated: common femoral vein, profunda vein, proximal portion of the greater saphenous vein, superficial femoral vein, and the popliteal vein. Serial compression, augmentation maneuvers, and spectral Doppler flow evaluation were performed. An evaluation for venous insufficiency was also completed. FINDINGS: No evidence of DVT seen in any vessel visualized at this time. The veins were found to be easily compressible with spontaneous blood flow. Non pulsatile flow pattern. Significant venous reflux of greater than 500 ms were noted at the right saphenofemoral junction. The reflux time was 2.76 seconds. Significant venous reflux also was noted at the proximal segment of the small saphenous vein on the right side. The reflux time was 2.77 seconds and the venous segment was 0.94 cm from the surface CONCLUSIONS 1. No evidence of DVT in the above-mentioned identifiable veins. 2. Significant venous reflux was noted at the right saphenofemoral junction, anterior depth of 1.96 cm from the surface 3. Significant venous reflux of greater than 500 ms was noted at the proximal segment of the small saphenous vein measuring 0.3 cm in diameter and at a depth of 0.74 cm. 4. The venous dimensions, reflux time and depth from the surface are as mentioned above 5. The left lower extremity was not examined Dr Natasha Gonzalez MD [facility] (Electronically Signed) Final Date: 17 March 2023 23:08 S
== END 2023-03-17 09:53 | disposition home or self-care (01) ==
PROVIDERS: PCP Family Medicine; Visit Provider Thoracic Surgery (Cardiothoracic Vascular Surgery)
DX: I73.9 Peripheral vascular disease, unspecified (principal)
CPT/HCPCS: 93971

== ENCOUNTER → 2023-04-27 09:10 | Outpatient (BNVA) | payer MEDICARE, MEDICAID, SELFPAY | PROVIDERS: PCP Family Medicine; Visit Provider Podiatrist Foot & Ankle Surgery | DX: I73.9 Peripheral vascular disease, unspecified; L60.3 Nail dystrophy; E11.8 Type 2 diabetes mellitus with unspecified complications; M20.41 Other hammer toe(s) (acquired), right foot; M20.42 Other hammer toe(s) (acquired), left foot; E11.42 Type 2 diabetes mellitus with diabetic polyneuropathy; M21.41 Flat foot [pes planus] (acquired), right foot; M21.42 Flat foot [pes planus] (acquired), left foot; I87.2 Venous insufficiency (chronic) (peripheral); M65.871 Other synovitis and tenosynovitis, right ankle and foot | CPT/HCPCS: 11721; 73610; 99213 ==

== ENCOUNTER → 2023-05-18 14:20 | Outpatient (BNVA) | payer MEDICARE, MEDICAID, SELFPAY | PROVIDERS: PCP Family Medicine; Visit Provider Family Medicine | DX: E11.9 Type 2 diabetes mellitus without complications (principal); N64.4 Mastodynia; I48.3 Typical atrial flutter; I25.810 Atherosclerosis of coronary artery bypass graft(s) without angina pectoris; I10 Essential (primary) hypertension | CPT/HCPCS: 83036 ==

== ENCOUNTER 2023-07-02 13:46 | Outpatient (CLI) | payer MEDICARE, MEDICAID, SELFPAY ==
--- NOTE | 2023-07-02 13:55 | MM_ITS ---
WS: [id number] BILATERAL 3D TOMOSYNTHESIS DIGITAL DIAGNOSTIC MAMMOGRAPHY WITH CAD CLINICAL INFORMATION: left breast pain HISTORY: LEFT breast pain COMPARISON: None. TECHNIQUE: Bilateral CC, MLO, and ML views. FINDINGS: Scattered fibroglandular densities bilaterally. Parenchymal tissue deep to both areola LEFT greater t remy RIGHT in the areas of the palpable markers. No other suspicious abnormalities. Ultrasound is pend ing. ULTRASOUND BREAST BILATERAL TECHNIQUE: Ultrasound bilateral breast focused area of concern. CLINICAL INFORMATION: left breast pain FINDINGS: No suspicious cystic or solid lesions. No lesions to target for biopsy. RIGHT BREAST: Ultrasound RIGHT areola. Shadowing hypoechoic subareolar tissue compatible with gynecom astia. LEFT BREAST: Ultrasound LEFT areola. Hypoechoic shadowing subareolar tissue compatible with gynecomas tia IMPRESSION: MM/[place] [id number] BI-RADS: 2-Benign FOLLOW UP: See Report
== END 2023-07-02 13:47 | disposition home or self-care (01) ==
LOC: RAD 13:46
PROVIDERS: PCP Family Medicine; Visit Provider Family Medicine
DX: N64.4 Mastodynia (principal)
CPT/HCPCS: 76642; 77062; G0279

== ENCOUNTER → 2023-08-04 09:19 | Outpatient (BNVA) | payer MEDICARE, SELFPAY | PROVIDERS: PCP Family Medicine; Visit Provider Podiatrist Foot & Ankle Surgery | DX: I73.9 Peripheral vascular disease, unspecified; L60.3 Nail dystrophy; M20.41 Other hammer toe(s) (acquired), right foot; M20.42 Other hammer toe(s) (acquired), left foot; E11.42 Type 2 diabetes mellitus with diabetic polyneuropathy; M21.41 Flat foot [pes planus] (acquired), right foot; M21.42 Flat foot [pes planus] (acquired), left foot; I87.2 Venous insufficiency (chronic) (peripheral); M65.871 Other synovitis and tenosynovitis, right ankle and foot | CPT/HCPCS: 11721; 73610; 99213 ==

== ENCOUNTER → 2024-01-06 07:52 | Outpatient (BNVA) | payer MEDICARE, SELFPAY | PROVIDERS: PCP Family Medicine; Visit Provider Family Medicine | DX: E11.9 Type 2 diabetes mellitus without complications (principal); R60.0 Localized edema; I50.32 Chronic diastolic (congestive) heart failure; N62 Hypertrophy of breast; Z79.899 Other long term (current) drug therapy | CPT/HCPCS: 80053; 80061; 83036; 84146; 84443; 85025 ==

== ENCOUNTER 2024-03-08 14:54 | Outpatient (CLI) | payer MEDICARE, SELFPAY ==
--- NOTE | 2024-03-08 14:45 | USCV_ITS ---
Taran Higuera Age: 73 Gender: M : 1950 Exam Date: 03/08/2024 15:08 Ordering Phys: Mildred Grewal MD Technologist: CT Exam Location: [facility] – [place] Indication: lt leg pain and swelling PROCEDURES: Venous duplex imaging was performed in only the left lower extremity. The following venous structures were evaluated: common femoral vein, profunda vein, proximal portion of the greater saphenous vein, superficial femoral vein, and the popliteal vein. In addition, the posterior tibial and peroneal trunk were evaluated. FINDINGS: Normal 2-D Doppler and augmentation and compressibility throughout the lower extremity venous structures. Additional imaging through the proximal calf veins also reveals no thrombus. Limited evaluation of the greater saphenous vein is patent with no thrombus. CONCLUSIONS No DVT left lower extremity. Dr. Minda Dolan DO (Electronically Signed) Final Date: 08 March 2024 15:52 S
== END 2024-03-08 14:55 | disposition home or self-care (01) ==
PROVIDERS: PCP Family Medicine; Visit Provider Family Medicine
DX: M79.89 Other specified soft tissue disorders (principal)
CPT/HCPCS: 93971

== ENCOUNTER → 2024-04-20 10:15 | Outpatient (BNVA) | payer MEDICARE, SELFPAY | PROVIDERS: PCP Family Medicine; Referring Provider Family Medicine; Visit Provider Internal Medicine | DX: E11.9 Type 2 diabetes mellitus without complications (principal); E78.5 Hyperlipidemia, unspecified; R79.89 Other specified abnormal findings of blood chemistry; N62 Hypertrophy of breast; I50.32 Chronic diastolic (congestive) heart failure; E11.29 Type 2 diabetes mellitus with other diabetic kidney complication; R80.9 Proteinuria, unspecified | CPT/HCPCS: 36415; 80053; 80061; 82044; 82670; 83001; 83002; 83036; 84146; 84403; 86376; 86800 ==

== ENCOUNTER 2024-05-05 13:29 | Emergency (ER) | payer MEDICARE, SELFPAY ==
[2024-05-05 13:50] VITALS: BP 115/68; PULSE 75; RESP 17; TEMP 36.7; O2SAT 96; BMI 32.5
--- NOTE | 2024-05-05 14:13 | ED_ITS ---
HPI - Extremity Problem 2 General: Chief complaint: Extremity Problem,Nontraumatic Stated complaint: swollen legs Time Seen by Provider: 05/05/24 14:13 History of Present Illness: 73-year-old male patient comes in today with bilateral lower extremity swelling. Patient also reports a base weight of 217 but now reports being up to 227 on his scales at home. Patient reports no increase shortness of breath or chest pain. Patient is on furosemide 40 mg twice a day, and hydrochlorothiazide 12- 1/2 mg twice a day. Patient's blood pressure is 115/68. Patient appears nontoxic. Patient with reports some significant swelling to lower extremities not allowing him to wear socks with his shoes due to the swelling and some abdominal distention. Related Data Home Medications Medication Instructions Recorded Confirmed acetaminophen 500 mg tablet 500 mg PO Q6H PRN 09/25/20 04/20/24 aspirin 81 mg tablet,delayed 81 mg PO DAILY 09/25/20 04/20/24 release (Adult Low Dose Aspirin) fluticasone propionate 50 1 spray intranasal DAILY 09/25/20 04/20/24 mcg/actuation nasal spray,suspension (Flonase Allergy Relief) Previous Rx's Medication Instructions Recorded insulin glargine 100 unit/mL 10 unit (0.1 mL) SUBCUT ONCE #10 mL 06/13/22 subcutaneous solution (Lantus U-100 Insulin) hydrochlorothiazide 12.5 mg tablet See Rx Instructions .Route 10/16/22 .COMPLEX #90 tabs gabapentin 600 mg tablet 600 mg PO BID #180 tabs 10/30/22 Diabetic Shoes with 3 Pairs of #1 ea 11/19/22 Inserts ketoconazole 2 % topical cream 1 applic topical DAILY #30 grams 11/21/22 mupirocin 2 % topical ointment 1 applic topical BID 2 weeks #22 02/19/23 grams blood-glucose meter (OneTouch #1 ea 02/27/23 Ultra2 Meter) cetirizine 10 mg tablet (Zyrtec) 10 mg PO DAILY PRN allergy 05/18/23 symptoms #30 tabs apixaban 5 mg tablet (Eliquis) 5 mg PO BID #180 tabs 01/06/24 dapagliflozin propanediol 5 mg 5 mg PO DAILY #30 tabs 01/06/24 tablet (Farxiga) evolocumab 140 mg/mL subcutaneous See Rx Instructions .Route 01/06/24 pen injector (Repleigh Thomasick) .COMPLEX #6 mL metoprolol succinate 25 mg 25 mg PO DAILY #90 tabs 01/06/24 tablet,extended release 24 hr hydrocodone 5 mg-acetaminophen 325 1 tab PO Q8H PRN pain 3 days #9 03/08/24 mg tablet tabs cephalexin 500 mg tablet 500 mg PO BID #14 tabs 03/10/24 nitroglycerin 0.4 mg sublingual See Rx Instructions .Route 03/24/24 tablet .COMPLEX #25 tabs blood sugar diagnostic (OneTouch #100 ea 03/29/24 Ultra Test strips) potassium chloride 20 mEq See Rx Instructions .Route 03/30/24 tablet,extended .COMPLEX #60 tabs release(part/cryst) (Klor-Con M) furosemide 40 mg tablet See Rx Instructions .Route 04/06/24 .COMPLEX #60 tabs sitagliptin phosphate 100 mg 100 mg PO DAILY #90 tabs 04/20/24 tablet (Januvia) cabergoline 0.5 mg tablet 0.25 mg (1/2 x 0.5 mg) PO Q7D 30 05/04/24 days #3 tabs Allergies Allergy/AdvReac Type Severity Reaction Status Date / Time atorvastatin [From Lipitor] Allergy Unknown Unknown Verified 04/20/24 07:45 diclofenac [From Arthrotec] Allergy Unknown Unknown Verified 04/20/24 07:45 misoprostol [From Arthrotec] Allergy Unknown Unknown Verified 04/20/24 07:45 pravastatin Allergy Unknown Unknown Verified 04/20/24 07:45 risedronate sodium Allergy Unknown Unknown Verified 04/20/24 07:45 [From Actonel] rosuvastatin [From Crestor] Allergy Unknown Unknown Verified 04/20/24 07:45 semaglutide [From Ozempic] Allergy Unknown Unknown Verified 04/20/24 07:45 fosinopril AdvReac Mild Cough Verified 04/20/24 07:45 lovastatin [From Mevacor] AdvReac Mild Myalgia Verified 04/20/24 07:45 Review of Systems 2 General: Reports: 10 or more systems reviewed and unremarkable except in HPI and below PFSH ED 2 PFSH: Medical History Cellulitis of right lower leg Aortic stenosis Neuropathy Bilateral lower extremity edema Hyperlipidemia Degenerative disc disease Statin intolerance Chronic anticoagulation Microalbuminuria due to type 2 diabetes mellitus Cardiac LV ejection fraction 30-35% Diabetes mellitus Atrial flutter Shortness of breath Atrial fibrillation CAD (coronary artery disease) HTN (hypertension) PVD (peripheral vascular disease) CHF (congestive heart failure) Surgical History S/P hernia repair S/P arterial stent (~2002) History of hand surgery (~2013) S/P CABG (coronary artery bypass graft) (~2000) Family History Father Cancer Sister Cancer Brother Cancer Lung CA Mother COPD (chronic obstructive pulmonary disease) Social History Smoking and tobacco/nicotine status: former use of tobacco/nicotine Alcohol intake: never Substance/Drug Use: never Lives independently: Yes Household members: spouse Marital status: Physical Exam 2 Const: COMMON NORMALS: alert HENMT: COMMON NORMALS: normocephalic HEAD & SCALP: normocephalic Neck/C-Spine: COMMON NORMALS: full ROM Resp: COMMON NORMALS: normal respiratory effort and clear to auscultation bilaterally AUSCULTATION: clear to auscultation bilaterally Cardio: COMMON NORMALS: regular rate RATE: regular rate HEART SOUNDS: M urmur heart sound present GI: COMMON NORMALS: Soft to palpation and non-tender PALPATION: Yes Soft to palpation Back/Pelvis: COMMON NORMALS: thoracic and lumbar spine normal to inspection Extremity: NARRATIVE EXTREMITY EXAM: +2 pitting bilateral lower extremity samantha ma Neuro: SENSORIUM/ORIENTATION: Yes alert Skin: NARRATIVE SKIN EXAM: Chronic skin color change bilateral lower legs Course 2 Vital Signs: Vital signs: Vital Signs Temperature 98.1 F 05/05/24 13:50 Pulse Rate 71 05/05/24 15:30 Respiratory Rate 18 05/05/24 15:30 Blood Pressure 140/76 05/05/24 15:30 Pulse Oximetry 97 05/05/24 15:30 Oxygen Delivery Me thod Room Air 05/05/24 15:30 MDM - Extremity (Nontraumatic) Medical Decision Making 73-year-old male patient comes in today for complaints of bilateral lower extremity swelling. Patient also reports 10 pound weight gain. Patient appears nontoxic. Patient appears in no acute distress. Patient is presently on Lasix 40 mg twice a day along with hydrochlorothiazide. Lung sounds are have some diminished air movement in the bases. Patient has a grade 2 pansystolic murmur. Vital signs are normal. Differential diagnosis exacerbation of CHF, lymphedema, and peripheral vascular disease. CBC and CMP were unremarkable. Patient's BNP was 600 which is better than the last 1 done which was 800. Chest x-ray showed no pulmonary congestion. Vital signs have been normal. Reviewed exam with Dr. Kenney who agreed with plan for 80 mg of furosemide IM and have him follow-up with primary care or cardiology. Discussed this with patient who agreed with plan. Lab Data 05/05/24 14:25 05/05/24 14:25 Radiology Impressions Chest X-Ray 05/05/24 14: IMPRESSION: 1. Mild cardiac enlargement. No acute process noted. Laboratory Results WBC 6.44 10^3/uL (3.29-11.43) 05/05/24 14:25 RBC 4.51 10^6/uL (3.85-5.65) 05/05/24 14:25 Hgb 13.60 g/dL (11.27-16.99) 05/05/24 14:25 Hct 41.4 % (37-53) 05/05/24 14:25 MCV 91.8 fl (82-101) 05/05/24 14:25 MCH 30.2 pg (27-33) 05/05/24 14:25 MCHC 32.9 g/dL (30-55) 05/05/24 14:25 RDW 15.0 % (12.1-15.1) 05/05/24 14:25 Plt Count 121 10^3/cmm (157-399) L 05/05/24 14:25 MPV 11.8 fL (7.4-10.4) H 05/05/24 14:25 Neut % (Auto) 58.8 % 05/05/24 14:25 Lymph % (Auto) 18.3 % 05/05/24 14:25 [place] % (Auto) 17.7 % 05/05/24 14:25 Eos % (Auto) 2.3 % 05/05/24 14:25 Baso % (Auto) 2.6 % 05/05/24 14:25 Neut # (Auto) 3.78 10^3/uL (1.8-7.7) 05/05/24 14:25 Lymph # (Auto) 1.2 10^3/uL (0.8-4.8) 05/05/24 14:25 [place] # (Auto) 1.1 10^3/uL (0.2-0.9) H 05/05/24 14:25 Eos # (Auto) 0.2 10^3/uL (0.0-0.8) 05/05/24 14:25 Baso # (Auto) 0.2 10^3/uL (0.0-0.1) H 05/05/24 14:25 Nucleated RBC % (auto) 0 % 05/05/24 14:25 Nucleated RBCs # 0.0 /100WBC 05/05/24 14:25 PT 19.70 SECONDS (12.1-14.9) H 05/05/24 14:25 INR 1.61 (0.8-1.2) H 05/05/24 14:25 Sodium 137 mmol/L (136-145) 05/05/24 14:25 Potassium 4.3 mmol/L (3.5-5.1) 05/05/24 14:25 Chloride 103 mmol/L (98-107) 05/05/24 14:25 Carbon Dioxide 26 mmol/L (22-29) 05/05/24 14:25 Anion Gap 12.3 (5-19) 05/05/24 14:25 BUN 22 mg/dL (8-23) 05/05/24 14:25 Creatinine 0.9 mg/dL (0.7-1.2) 05/05/24 14:25 GFR Calculation Not Reportable 05/05/24 14:25 Glucose 198 mg/dL (65-115) H 05/05/24 14:25 Calculated Osmolality 293 mOsm/kg (285-295) 05/05/24 14:25 Calcium 8.6 mg/dL (8.5-10.5) 05/05/24 14:25 Total Bilirubin 2.8 mg/dL (0.15-1.2) H 05/05/24 14:25 AST 30 U/L (0-40) 05/05/24 14:25 ALT 11 U/L (0-41) 05/05/24 14:25 Alkaline Phosphatase 197 U/L (40-130) H 05/05/24 14:25 NT-Pro-B Natriuret Pep 606 pg/mL (0-450) H 05/05/24 14:25 Total Protein 7.5 g/dL (6.6-8.7) 05/05/24 14:25 Albumin 3.6 g/dL (3.5-5.2) 05/05/24 14:25 Globulin 3.9 g/dL (1.3-4.6) 05/05/24 14:25 All radiology interpretation(s) finalized by discharge EKG Data EKG 1: I personally reviewed and interpreted this EKG as follows: EKG interpretation date: 05/05/24 EKG interpretation time: 15:53 Interpretation: EKG shows atrial fibrillation with a controlled rate at 70 bpm. There is 1 PVC noted on the EKG. No ST elevation or other abnormalities noted. Artifact is present on the EKG. Computer generated interpretation: Atrial fibrillation with aberrant conduction or ventricular premature complex, right bundle branch block, abnormal EKG, unconfirmed report. Discharge Plan Discharge Patient Disposition: Home Clinical Impression: CHF (congestive heart failure) Qualifiers: Heart failure type: diastolic Heart failure chronicity: chronic Qualified Code(s): I50.32 - Chronic diastolic (congestive) heart failure Condition: Stable Prescriptions: No Action aspirin [Adult Low Dose Aspirin] 81 mg tablet,delayed release (DR/EC) 81 mg PO DAILY fluticasone propionate [Flonase Allergy Relief] 50 mcg/actuation spray,suspension 1 spray intranasal DAILY Rx Instructions: administer into each nostril acetaminophen 500 mg tablet 500 mg PO Q6H PRN (DME) Diabetic Shoes with 3 Pairs of Inserts See Rx Instructions .Route .MEDSUPPLY Qty: 1 0RF Rx Instructions: As directed by HOME mupirocin 2 % ointment 1 applic topical BID 14 Days Qty: 22 2RF metoprolol succinate 25 mg tablet extended release 24 hr 25 mg PO DAILY Qty: 90 0RF Eliquis 5 mg tablet 5 mg PO BID Qty: 180 0RF dapagliflozin propanediol [Farxiga] 5 mg tablet 5 mg PO DAILY Qty: 30 0RF Repatha SureClick 140 mg/mL pen injector See Rx Instructions .ROUTE .COMPLEX Qty: 6 0RF Dose Instruction: INJECT 1 PEN SUBCUTANEOUSLY EVERY TWO WEEKS Rx Instructions: INJECT 1 PEN SUBCUTANEOUSLY EVERY TWO WEEKS gabapentin 600 mg tablet 600 mg PO BID Qty: 180 0RF ketoconazole 2 % cream 1 applic topical DAILY Qty: 30 0RF cetirizine [Zyrtec] 10 mg tablet 10 mg PO DAILY PRN (Reason: allergy symptoms) Qty: 30 0RF Januvia 100 mg tablet 100 mg PO DAILY Qty: 90 1RF insulin glargine [Lantus U-100 Insulin] 100 unit/mL solution 10 unit SUBCUT ONCE Qty: 10 2RF hydrochlorothiazide 12.5 mg tablet See Rx Instructions .ROUTE .COMPLEX Qty: 90 0RF Dose Instruction: Take 1 tablet by mouth once daily Rx Instructions: Take 1 tablet by mouth once daily (DME) blood-glucose meter [OneTouch Ultra2 Meter] [facility] [place] See Rx Instructions .Route Qty: 1 0RF Rx Instructions: As directed hydrocodone-acetaminophen 5-325 mg tablet 1 tab PO Q8H PRN (Reason: pain) 3 Days Qty: 9 0RF cephalexin 500 mg tablet 500 mg PO BID Qty: 14 0RF nitroglycerin 0.4 mg tablet, sublingual See Rx Instructions .ROUTE .COMPLEX Qty: 25 0RF Dose Instruction: DISSOLVE ONE TABLET UNDER THE TONGUE EVERY 5 MINUTES NEEDED FOR CHEST PAIN. DO NOT EXCEED A TOTAL OF 3 DOSES IN 15 MINUTES Rx Instructions: DISSOLVE ONE TABLET UNDER THE TONGUE EVERY 5 MINUTES NEEDED FOR CHEST PAIN. DO NOT EXCEED A TOTAL OF 3 DOSES IN 15 MINUTES (DME) OneTouch Ultra Test Strip See Rx Instructions .ROUTE .COMPLEX Qty: 100 0RF Dose Instruction: USE 1 TEST STRIP TO TEST BLOOD GLUCOSE ONCE DAILY AND NEEDED Rx Instructions: USE 1 TEST STRIP TO TEST BLOOD GLUCOSE ONCE DAILY AND NEEDED potassium chloride [Klor-Con M20] 20 mEq tablet,ER particles/crystals See Rx Instructions .ROUTE .COMPLEX Qty: 60 0RF Dose Instruction: Take 1 tablet by mouth twice daily Rx Instructions: Take 1 tablet by mouth twice daily furosemide 40 mg tablet See Rx Instructions .ROUTE .COMPLEX Qty: 60 0RF Dose Instruction: Take 1 tablet by mouth twice daily Rx Instructions: Take 1 tablet by mouth twice daily cabergoline 0.5 mg tablet 0.25 mg PO Q7D 30 Days Qty: 3 1RF Rx Instructions: Take 0.25 mg tablet every 7 days. Discharge Orders: Discharge ED (Routine); Ordered 05/05/24 Ordered By: Shahriar Khanna Referrals: Mildred Grewal MD [Primary Care Provider] - Discharge Diet: Usual diet Discharge Activity: Increase activity as tolerated Patient Instructions: Heart Failure (ED) Activity Restrictions/Additional Instructions: Home and rest. Activity as tolerated. Continue with routine medications as prescribed. We have given you an extra dose of furosemide through an injection which should increase urine output. Follow-up with primary care in 2 to 3 days for recheck. Return to ED for worsening symptoms such as chest pain, severe shortness of breath, or new concerns. Coding Level of Care Code ED Hand I Tube Bender for Devin Peoples
[2024-05-05 14:24] VITALS: BP 125/72; PULSE 70; O2SAT 97
--- NOTE | 2024-05-05 14:24 | ECG_ITS ---
[facility] Test Date: 2024-05-05 Pat Name: Taran Higuera Department: Room: Gender: Male Medical Support Specialist: : 1950 Requested By: Shahriar Corona Order Number: [id number] Spence MD: Narinder Pinon M.D. Measurements Intervals [place] Rate: 70 P: 0 [place]: 0 QRS: 83 QRSD: 154 T: -19 QT: 472 QTc: 511 Interpretive Statements ATRIAL FIBRILLATION WITH ABERRANT CONDUCTION OR VENTRICULAR PREMATURE COMPLEXES RIGHT BUNDLE BRANCH BLOCK [120+ ms QRS DURATION, UPRIGHT V1, 40+ ms S IN I/aVL/V4/V5/V6] No previous ECG available for comparison Electronically Signed On 05-05-2024 18:08:58 CDT by Narinder Pinon M.D. [id number]
--- NOTE | 2024-05-05 14:24 | XR_ITS ---
WS: [email or web address] Exam: XR chest 1V portable [id number] Date/Time of Exam: 05/05/2024 2:24 PM Reason For Exam: chf Comparison 11/25/2017. The lungs are hyperinflated and clear. Mild cardiac enlargement. No pleural effusions. The mediastinu m is normal in contour for technique. Status post CABG surgery. DJD of both shoulders. XR/XR chest 1V portable [id number] IMPRESSION: 1. Mild cardiac enlargement. No acute process noted.
[2024-05-05 15:06] LABS: Basophils # 0.2 10^3/uL (0.0-0.1); Basophils % 2.6 %; Eosinophils # 0.2 10^3/uL (0.0-0.8); Eosinophils % 2.3 %; Hematocrit 41.4 % (37-53); Lymphocytes # 1.2 10^3/uL (0.8-4.8); Lymphocytes % 18.3 %; Mean Corpuscular HGB Conc 32.9 g/dL (30-55); Mean Corpuscular Hemoglobin 30.2 pg (27-33); Mean Corpuscular Volume 91.8 fl (82-101); Mean Platelet Volume 11.8 fL (7.4-10.4); Monocytes # 1.1 10^3/uL (0.2-0.9); Monocytes % 17.7 %; Neutrophils # 3.78 10^3/uL (1.8-7.7); Neutrophils % 58.8 %; Nucleated Red Blood Cells % 0 %; Platelet Count 121 10^3/cmm (157-399); Red Blood Count 4.51 10^6/uL (3.85-5.65); White Blood Count 6.44 10^3/uL (3.29-11.43)
[2024-05-05 15:21] LABS: INR 1.61 (0.8-1.2)
[2024-05-05 15:30] VITALS: BP 140/76; PULSE 71; RESP 18; O2SAT 97
[2024-05-05 15:40] LABS: Alanine Aminotransferase 11 U/L (0-41); Albumin Level 3.6 g/dL (3.5-5.2); Alkaline Phosphatase 197 U/L (40-130); Anion Gap 12.3 (5-19); Aspartate Amino Transferase 30 U/L (0-40); Blood Urea Nitrogen 22 mg/dL (8-23); Calcium 8.6 mg/dL (8.5-10.5); Carbon Dioxide 26 mmol/L (22-29); Chloride 103 mmol/L (98-107); Creatinine Clr Calc Pharmacy 85.2483; Globulin 3.9 g/dL (1.3-4.6); Glucose 198 mg/dL (65-115); NT Pro B Type Natriuretic Pept 606 pg/mL (0-450); Osmolality Calculated 293 mOsm/kg (285-295); Potassium 4.3 mmol/L (3.5-5.1); Sodium 137 mmol/L (136-145); Total Bilirubin 2.8 mg/dL (0.15-1.2); Total Protein 7.5 g/dL (6.6-8.7)
[2024-05-05] MEDS: FUROsemide 10 mg/mL SDV 10mL 80 MG XX (16:07)
[2024-05-05 16:11] VITALS: BP 140/76; PULSE 71; O2SAT 97
== END 2024-05-05 16:11 | disposition home or self-care (01) ==
PROVIDERS: Emergency Medicine; Emergency Provider Nurse Practitioner Family; PCP Family Medicine
DX: I11.0 Hypertensive heart disease with heart failure (principal); I50.32 Chronic diastolic (congestive) heart failure; I48.91 Unspecified atrial fibrillation; I45.10 Unspecified right bundle-branch block; Z79.82 Long term (current) use of aspirin; Z79.01 Long term (current) use of anticoagulants; Z79.4 Long term (current) use of insulin; Z87.891 Personal history of nicotine dependence; Z95.1 Presence of aortocoronary bypass graft; E78.5 Hyperlipidemia, unspecified; E11.9 Type 2 diabetes mellitus without complications; I25.10 Atherosclerotic heart disease of native coronary artery without angina pectoris
CPT/HCPCS: 36415; 71045; 80053; 83880; 85025; 85610; 93005; 96374; 99285; J1940

== ENCOUNTER → 2024-05-27 12:44 | Outpatient (BNVA) | payer MEDICARE, SELFPAY | PROVIDERS: PCP Family Medicine; Visit Provider Family Medicine | DX: I50.32 Chronic diastolic (congestive) heart failure (principal) | CPT/HCPCS: 80053; 83880; 84146; 85025 ==

== ENCOUNTER 2024-06-22 13:47 | Emergency (ER) | payer MEDICARE, MEDICAID, SELFPAY ==
[2024-06-22] VITALS (11 sets, daily range): BP systolic 91–133; BP diastolic 52–87; PULSE 51–55; RESP 22; TEMP 36.4; O2SAT 96–100
--- NOTE | 2024-06-22 13:51 | XR_ITS ---
WS: [email or web address] Exam: XR chest 1V portable [id number] Date/Time of Exam: 06/22/2024 2:03 PM Reason For Exam: sob Comparison 05/05/2024. The lungs are hyperinflated and clear. Mild cardiac enlargement unchanged. No pleural effusion. Signs of previous CABG surgery. The mediastinum is normal in contour for technique. Moderate DJD of both s ilnee. XR/XR chest 1V portable [id number] IMPRESSION: 1. Pulmonary hyperinflation. No acute process. Mild stable cardiomegaly.
--- NOTE | 2024-06-22 13:51 | ECG_ITS ---
[facility] Test Date: 2024-06-22 Pat Name: Taran Higuera Department: Room: Gender: Male Hand Slitter: : 1950 Requested By: Syed Kenney Order Number: [id number] Reading MD: CHARLINE CHAUDHRY Measurements Intervals [place] Rate: 55 P: 0 [place]: 0 QRS: 87 QRSD: 150 T: 29 QT: 542 QTc: 519 Interpretive Statements ATRIAL FIBRILLATION WITH SLOW VENTRICULAR RESPONSE RIGHT BUNDLE BRANCH BLOCK [120+ ms QRS DURATION, UPRIGHT V1, 40+ ms S IN I/aVL/V4/V5/V6] Compared to ECG 05/05/2024 15:44:37 Ventricular premature complex(es) no longer present Aberrant conduction of supraventricular beat(s) no longer present Electronically Signed On 06-22-2024 17:19:25 MANAGEMENT PSYCHOLOGIST by CHARLINE CHAUDHRY [id number]
--- NOTE | 2024-06-22 15:15 | ED_ITS ---
Documented by User: Zachary Martinez, DO 06/24/24 05:52 HPI - SOB/Dyspnea 2 General: Chief Complaint: Shortness of Breath/Dyspnea Stated Complaint: fluid on legs, SOB Time Seen by Provider: 06/22/24 15:01 History of Present Illness: HPI Narrative: 73-year-old male presents emergency room with fluid in the legs complaining of shortness of breath. He is noticed increasing fluid and some fluid blisters that began draining and weeping. Denies chest pain no abdominal pain. Increasing orthopnea dyspnea with exertion. Recently had his diuretic changed from Lasix to Bumex. Associated symptoms: Reports orthopnea; Deny abdominal pain, chest pain or fever(s) Related Data Home Medications Medication Instructions Recorded Confirmed acetaminophen 500 mg tablet 500 mg PO Q6H PRN Pain 09/25/20 06/22/24 aspirin 81 mg tablet,delayed 81 mg PO DAILY 09/25/20 06/22/24 release (Adult Low Dose Aspirin) glimepiride 4 mg tablet 4 mg PO DAILY 06/21/24 06/22/24 potassium chloride 20 mEq 20 meq PO BID 06/22/24 06/22/24 tablet,extended release(part/cryst) (Klor-Con M) Previous Rx's Medication Instructions Recorded Diabetic Shoes with 3 Pairs of #1 ea 11/19/22 Inserts blood-glucose meter (OneTouch #1 ea 02/27/23 Ultra2 Meter) apixaban 5 mg tablet (Eliquis) 5 mg PO BID #180 tabs 01/06/24 metoprolol succinate 25 mg 25 mg PO DAILY #90 tabs 01/06/24 tablet,extended release 24 hr nitroglycerin 0.4 mg sublingual See Rx Instructions .Route 03/24/24 tablet .COMPLEX #25 tabs blood sugar diagnostic (OneTouch #100 ea 03/29/24 Ultra Test strips) cabergoline 0.5 mg tablet 0.25 mg (1/2 x 0.5 mg) PO Q7D 30 05/04/24 days #3 tabs evolocumab 140 mg/mL subcutaneous See Rx Instructions .Route 05/23/24 pen injector (Repatha SureClick) .COMPLEX #6 mL bumetanide 2 mg tablet 2 mg PO DAILY #30 tabs 06/20/24 Allergies Allergy/AdvReac Type Severity Reaction Status Date / Time atorvastatin [From Lipitor] Allergy Unknown Unknown Verified 05/27/24 11:54 diclofenac [From Arthrotec] Allergy Unknown Unknown Verified 05/27/24 11:54 misoprostol [From Arthrotec] Allergy Unknown Unknown Verified 05/27/24 11:54 pravastatin Allergy Unknown Unknown Verified 05/27/24 11:54 risedronate sodium Allergy Unknown Unknown Verified 05/27/24 11:54 [From Actonel] rosuvastatin [From Crestor] Allergy Unknown Unknown Verified 05/27/24 11:54 semaglutide [From Ozempic] Allergy Unknown Unknown Verified 05/27/24 11:54 fosinopril AdvReac Mild Cough Verified 05/27/24 11:54 lovastatin [From Mevacor] AdvReac Mild Myalgia Verified 05/27/24 11:54 Review of Systems 2 Const: Denies: fever(s) or chills Card: Reports: edema, swelling of feet/ankles, dyspnea on exertion and orthopnea; Denies: chest pain Resp: Reports: dyspnea GI: Denies: abdominal pain : Denies: dysuria, urinary frequency or urinary urgency Musc: Denies: neck pain or back pain Skin/Breast: Denies: rash PFSH ED 2 PFSH: Medical History Cellulitis of right lower leg Aortic stenosis Neuropathy Bilateral lower extremity edema Hyperlipidemia Degenerative disc disease Statin intolerance Chronic anticoagulation Microalbuminuria due to type 2 diabetes mellitus Cardiac LV ejection fraction 30-35% Diabetes mellitus Atrial flutter Shortness of breath Atrial fibrillation CAD (coronary artery disease) HTN (hypertension) PVD (peripheral vascular disease) CHF (congestive heart failure) Surgical History S/P hernia repair S/P arterial stent (~2002) History of hand surgery (~2013) S/P CABG (coronary artery bypass graft) (~2000) Family History Father Cancer Sister Cancer Brother Cancer Lung CA Mother COPD (chronic obstructive pulmonary disease) Social History Smoking and tobacco/nicotine status: former use of tobacco/nicotine Alcohol intake: never Substance/Drug Use: never Lives independently: Yes Household members: spouse Marital status: Physical Exam 2 Const: GENERAL APPEARANCE: cooperative ORIENTATION/CONSCIOUSNESS: Yes awake, Yes oriented to person, Yes oriented to place and Yes oriented to time HENMT: COMMON NORMALS: normocephalic, atraumatic and hearing grossly normal bilaterally HEAD & SCALP: normocephalic and atraumatic Resp: COMMON NORMALS: normal respiratory effort, No retractions, No use of accessory muscles and clear to auscultation bilaterally AUSCULTATION: clear to auscultation bilaterally Cardio: COMMON NORMALS: regular rate, regular rhythm and No murmurs present (Cardio) RATE: regular rate RHYTHM: regular rhythm GI: COMMON NORMALS: Soft to palpation and No hepatosplenomegaly present A USCULTATION: Yes normoactive bowel sounds PALPATION: Yes Soft to palpation, No Tenderness to palpation present (GI), No Guarding due to palpation present (GI) and Yes No hepatosplenomegaly present Extremity: OTHER: Significant discoloration from chronic venous stasis edema there are some blistering legs with some fluid drainage bilaterally. No signs of acute cellulitis. Neuro: SENSORIUM/ORIENTATION: Yes oriented to person, Yes oriented to place and Yes oriented to time Skin: COMMON NORMALS: no rashes or lesions noted GENERAL SKIN EXAM: no rashes or lesions noted Course 2 Vital Signs: Vital signs: Vital Signs Temperature 97.5 F L 06/22/24 13:57 Pulse Rate 52 L 06/22/24 20:10 Respiratory Rate 22 H 06/22/24 13:57 Blood Pressure 114/87 06/22/24 20:10 Pulse Oximetry 96 06/22/24 20:10 Oxygen Delivery Me thod Room Air 06/22/24 20:00 MDM - SOB/Dyspnea Medical Decision Making Care signed out to Dr. Tom at change of shift. See final notes for diagnosis and disposition. Care transferred over myself at shift change, waiting for lab work come back and chest x-ray, ultrasound, all of which was essentially negative. Bilirubin slightly elevated 2.9 over patient runs high, initial troponin was 31, 2-hour troponin was 28 for delta of approximately -3, BNP was 639, these results was discussed with the patient and family. Patient will go back on his Lasix as well as his Bumex for the next 5 days and see how he diuresis. Patient will follow-up with his PCP during the next 7 to 10 days for further evaluation. Lab Data 06/22/24 15:32 06/22/24 15:32 Labs/Radiology: Radiology Impressions Chest X-Ray 06/22/24 13:51 IMPRESSION: 1. Pulmonary hyperinflation. No acute process. Mild stable cardiomegaly. Venous Duplex 06/22/24 15:55 IMPRESSION: No sonographic evidence of deep venous thrombosis. Laboratory Results WBC 6.53 10^3/uL (3.29-11.43) 06/22/24 15:32 RBC 4.43 10^6/uL (3.85-5.65) 06/22/24 15:32 Hgb 13.10 g/dL (11.27-16.99) 06/22/24 15:32 Hct 40.2 % (37-53) 06/22/24 15:32 MCV 90.7 fl (82-101) 06/22/24 15:32 MCH 29.6 pg (27-33) 06/22/24 15:32 MCHC 32.6 g/dL (30-55) 06/22/24 15:32 RDW 14.3 % (12.1-15.1) 06/22/24 15:32 Plt Count 130 10^3/cmm (157-399) L 06/22/24 15:32 MPV 11.9 fL (7.4-10.4) H 06/22/24 15:32 Neut % (Auto) 54.1 % 06/22/24 15:32 Lymph % (Auto) 19.4 % 06/22/24 15:32 Holmes % (Auto) 21.4 % 06/22/24 15:32 Eos % (Auto) 2.3 % 06/22/24 15:32 Baso % (Auto) 2.5 % 06/22/24 15:32 Neut # (Auto) 3.53 10^3/uL (1.8-7.7) 06/22/24 15:32 Lymph # (Auto) 1.3 10^3/uL (0.8-4.8) 06/22/24 15:32 Holmes # (Auto) 1.4 10^3/uL (0.2-0.9) H 06/22/24 15:32 Eos # (Auto) 0.2 10^3/uL (0.0-0.8) 06/22/24 15:32 Baso # (Auto) 0.2 10^3/uL (0.0-0.1) H 06/22/24 15:32 Nucleated RBC % (auto) 0 % 06/22/24 15:32 Nucleated RBCs # 0.0 /100WBC 06/22/24 15:32 Sodium 134 mmol/L (136-145) L 06/22/24 15:32 Potassium 4.4 mmol/L (3.5-5.1) 06/22/24 15:32 Chloride 98 mmol/L (98-107) 06/22/24 15:32 Carbon Dioxide 27 mmol/L (22-29) 06/22/24 15:32 Anion Gap 13.4 (5-19) 06/22/24 15:32 BUN 32 mg/dL (8-23) H 06/22/24 15:32 Creatinine 1.1 mg/dL (0.7-1.2) 06/22/24 15:32 GFR Calculation Not Reportable 06/22/24 15:32 Glucose 167 mg/dL (65-115) H 06/22/24 15:32 Calculated Osmolality 289 mOsm/kg (285-295) 06/22/24 15:32 Calcium 8.7 mg/dL (8.5-10.5) 06/22/24 15:32 Total Bilirubin 2.9 mg/dL (0.15-1.2) H 06/22/24 15:32 AST 32 U/L (0-40) 06/22/24 15:32 ALT 13 U/L (0-41) 06/22/24 15:32 Alkaline Phosphatase 183 U/L (40-130) H 06/22/24 15:32 Troponin T Baseline 31 ng/L (0-15) H 06/22/24 15:32 Troponin T 120 Minute 28.58 ng/L (0-15) H 06/22/24 18:10 Delta Troponin T -2.42 ABS# (0-10) L 06/22/24 18:10 NT-Pro-B Natriuret Pep 639 pg/mL (0-450) H 11/20/24 15:32 Total Protein 7.9 g/dL (6.6-8.7) 06/22/24 15:32 Albumin 3.5 g/dL (3.5-5.2) 06/22/24 15:32 Globulin 4.4 g/dL (1.3-4.6) 06/22/24 15:32 Discharge Plan Discharge Patient Disposition: Home Clinical Impression: Edema Qualifiers: Edema type: localized Qualified Code(s): R60.0 - Localized edema Condition: Stable Prescriptions: No Action aspirin [Adult Low Dose Aspirin] 81 mg tablet,delayed release (DR/EC) 81 mg PO DAILY acetaminophen 500 mg tablet 500 mg PO Q6H PRN (Reason: Pain) (DME) Diabetic Shoes with 3 Pairs of Inserts See Rx Instructions .Route .MEDSUPPLY Qty: 1 0RF Rx Instructions: As directed by HOME metoprolol succinate 25 mg tablet extended release 24 hr 25 mg PO DAILY Qty: 90 0RF Eliquis 5 mg tablet 5 mg PO BID Qty: 180 0RF (DME) blood-glucose meter [OneTouch Ultra2 Meter] [facility] See Rx Instructions .Route Qty: 1 0RF Rx Instructions: As directed nitroglycerin 0.4 mg tablet, sublingual See Rx Instructions .ROUTE .COMPLEX Qty: 25 0RF Dose Instruction: DISSOLVE ONE TABLET UNDER THE TONGUE EVERY 5 MINUTES NEEDED FOR CHEST PAIN. DO NOT EXCEED A TOTAL OF 3 DOSES IN 15 MINUTES Rx Instructions: DISSOLVE ONE TABLET UNDER THE TONGUE EVERY 5 MINUTES NEEDED FOR CHEST PAIN. DO NOT EXCEED A TOTAL OF 3 DOSES IN 15 MINUTES (DME) OneTouch Ultra Test Strip See Rx Instructions .ROUTE .COMPLEX Qty: 100 0RF Dose Instruction: USE 1 TEST STRIP TO TEST BLOOD GLUCOSE ONCE DAILY AND NEEDED Rx Instructions: USE 1 TEST STRIP TO TEST BLOOD GLUCOSE ONCE DAILY AND NEEDED cabergoline 0.5 mg tablet 0.25 mg PO Q7D 30 Days Qty: 3 1RF Rx Instructions: Take 0.25 mg tablet every 7 days. Repatha SureClick 140 mg/mL pen injector See Rx Instructions .ROUTE .COMPLEX Qty: 6 0RF Dose Instruction: INJECT 1 PEN SUBCUTANEOUSLY EVERY TWO WEEKS Rx Instructions: INJECT 1 PEN SUBCUTANEOUSLY EVERY TWO WEEKS bumetanide 2 mg tablet 2 mg PO DAILY Qty: 30 0RF glimepiride 4 mg tablet 4 mg PO DAILY potassium chloride [Klor-Con M20] 20 mEq tablet,ER particles/crystals 20 meq PO BID Discharge Orders: Discharge ED (Routine); Ordered 06/22/24 Ordered By: Domenico Tom Referrals: Mildred Grewal MD [Primary Care Provider] - 1 week Patient Instructions: Dependent Edema Activity Restrictions/Additional Instructions: Please restart your Lasix at 1 pill a day along with the Bumex. Please reevaluate your swelling after 3 days. If your swelling is improved continue the Lasix and Bumex combination for a total of 5 days. If your swelling has not improved please increase the Lasix to 2 pills a day along with the Bumex for a total of 5 days. Please follow-up with your family practice physician within the next 7 to 10 days for further evaluation treatment and possible medicine changes. 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 [employer] Documented by User: Domenico Tom DO 06/23/24 00:02 HPI - SOB/Dyspnea 2 General: Chief Complaint: Shortness of Breath/Dyspnea Stated Complaint: fluid on legs, SOB Time Seen by Provider: 06/22/24 15:01 Related Data Home Medications Medication Instructions Recorded Confirmed acetaminophen 500 mg tablet 500 mg PO Q6H PRN Pain 09/25/20 06/22/24 aspirin 81 mg tablet,delayed 81 mg PO DAILY 09/25/20 06/22/24 release (Adult Low Dose Aspirin) glimepiride 4 mg tablet 4 mg PO DAILY 06/21/24 06/22/24 potassium chloride 20 mEq 20 meq PO BID 06/22/24 06/22/24 tablet,extended release(part/cryst) (Klor-Con M) Previous Rx's Medication Instructions Recorded Diabetic Shoes with 3 Pairs of #1 ea 11/19/22 Inserts blood-glucose meter (OneTouch #1 ea 02/27/23 Ultra2 Meter) apixaban 5 mg tablet (Eliquis) 5 mg PO BID #180 tabs 01/06/24 metoprolol succinate 25 mg 25 mg PO DAILY #90 tabs 01/06/24 tablet,extended release 24 hr nitroglycerin 0.4 mg sublingual See Rx Instructions .Route 03/24/24 tablet .COMPLEX #25 tabs blood sugar diagnostic (OneTouch #100 ea 03/29/24 Ultra Test strips) cabergoline 0.5 mg tablet 0.25 mg (1/2 x 0.5 mg) PO Q7D 30 05/04/24 days #3 tabs evolocumab 140 mg/mL subcutaneous See Rx Instructions .Route 05/23/24 pen injector (Repatha [employer]) .COMPLEX #6 mL bumetanide 2 mg tablet 2 mg PO DAILY #30 tabs 06/20/24 Allergies Allergy/AdvReac Type Severity Reaction Status Date / Time atorvastatin [From Lipitor] Allergy Unknown Unknown Verified 05/27/24 11:54 diclofenac [From Arthrotec] Allergy Unknown Unknown Verified 05/27/24 11:54 misoprostol [From Arthrotec] Allergy Unknown Unknown Verified 05/27/24 11:54 pravastatin Allergy Unknown Unknown Verified 05/27/24 11:54 risedronate sodium Allergy Unknown Unknown Verified 05/27/24 11:54 [From Actonel] rosuvastatin [From Crestor] Allergy Unknown Unknown Verified 05/27/24 11:54 semaglutide [From Ozempic] Allergy Unknown Unknown Verified 05/27/24 11:54 fosinopril AdvReac Mild Cough Verified 05/27/24 11:54 lovastatin [From Mevacor] AdvReac Mild Myalgia Verified 05/27/24 11:54 PFS ED 2 PFSH: Medical History Cellulitis of right lower leg Aortic stenosis Neuropathy Bilateral lower extremity edema Hyperlipidemia Degenerative disc disease Statin intolerance Chronic anticoagulation Microalbuminuria due to type 2 diabetes mellitus Cardiac LV ejection fraction 30-35% Diabetes mellitus Atrial flutter Shortness of breath Atrial fibrillation CAD (coronary artery disease) HTN (hypertension) PVD (peripheral vascular disease) CHF (congestive heart failure) Surgical History S/P hernia repair S/P arterial stent (~2002) History of hand surgery (~2013) S/P CABG (coronary artery bypass graft) (~2000) Family History Father Cancer Sister Cancer Brother Cancer Lung CA Mother COPD (chronic obstructive pulmonary disease) Social History Smoking and tobacco/nicotine status: former use of tobacco/nicotine Alcohol intake: never Substance/Drug Use: never Lives independently: Yes Household members: spouse Marital status: Course 2 Vital Signs: Vital signs: Vital Signs Temperature 97.5 F L 06/22/24 13:57 Pulse Rate 52 L 06/22/24 20:10 Respiratory Rate 22 H 06/22/24 13:57 Blood Pressure 114/87 06/22/24 20:10 Pulse Oximetry 96 06/22/24 20:10 Oxygen Delivery Me thod Room Air 06/22/24 20:00 MDM - SOB/Dyspnea Medical Decision Making Care transferred over myself at shift change, waiting for lab work come back and chest x-ray, ultrasound, all of which was essentially negative. Bilirubin slightly elevated 2.9 over patient runs high, initial troponin was 31, 2-hour troponin was 28 for delta of approximately -3, BNP was 639, these results was discussed with the patient and family. Patient will go back on his Lasix as well as his Bumex for the next 5 days and see how he diuresis. Patient will follow-up with his PCP during the next 7 to 10 days for further evaluation. Lab Data 06/22/24 15:32 06/22/24 15:32 Labs/Radiology: Radiology Impressions Chest X-Ray 06/22/24 13:51 IMPRESSION: 1. Pulmonary hyperinflation. No acute process. Mild stable cardiomegaly. Venous Duplex 06/22/24 15:55 IMPRESSION: No sonographic evidence of deep venous thrombosis. Laboratory Results WBC 6.53 10^3/uL (3.29-11.43) 06/22/24 15:32 RBC 4.43 10^6/uL (3.85-5.65) 06/22/24 15:32 Hgb 13.10 g/dL (11.27-16.99) 06/22/24 15:32 Hct 40.2 % (37-53) 06/22/24 15:32 MCV 90.7 fl (82-101) 06/22/24 15:32 MCH 29.6 pg (27-33) 06/22/24 15:32 MCHC 32.6 g/dL (30-55) 06/22/24 15:32 RDW 14.3 % (12.1-15.1) 06/22/24 15:32 Plt Count 130 10^3/cmm (157-399) L 06/22/24 15:32 MPV 11.9 fL (7.4-10.4) H 06/22/24 15:32 Neut % (Auto) 54.1 % 06/22/24 15:32 Lymph % (Auto) 19.4 % 06/22/24 15:32 Holmes % (Auto) 21.4 % 06/22/24 15:32 Eos % (Auto) 2.3 % 06/22/24 15:32 Baso % (Auto) 2.5 % 06/22/24 15:32 Neut # (Auto) 3.53 10^3/uL (1.8-7.7) 06/22/24 15:32 Lymph # (Auto) 1.3 10^3/uL (0.8-4.8) 06/22/24 15:32 Holmes # (Auto) 1.4 10^3/uL (0.2-0.9) H 06/22/24 15:32 Eos # (Auto) 0.2 10^3/uL (0.0-0.8) 06/22/24 15:32 Baso # (Auto) 0.2 10^3/uL (0.0-0.1) H 06/22/24 15:32 Nucleated RBC % (auto) 0 % 06/22/24 15:32 Nucleated RBCs # 0.0 /100WBC 06/22/24 15:32 Sodium 134 mmol/L (136-145) L 06/22/24 15:32 Potassium 4.4 mmol/L (3.5-5.1) 06/22/24 15:32 Chloride 98 mmol/L (98-107) 06/22/24 15:32 Carbon Dioxide 27 mmol/L (22-29) 06/22/24 15:32 Anion Gap 13.4 (5-19) 06/22/24 15:32 BUN 32 mg/dL (8-23) H 06/22/24 15:32 Creatinine 1.1 mg/dL (0.7-1.2) 06/22/24 15:32 GFR Calculation Not Reportable 06/22/24 15:32 Glucose 167 mg/dL (65-115) H 06/22/24 15:32 Calculated Osmolality 289 mOsm/kg (285-295) 06/22/24 15:32 Calcium 8.7 mg/dL (8.5-10.5) 06/22/24 15:32 Total Bilirubin 2.9 mg/dL (0.15-1.2) H 06/22/24 15:32 AST 32 U/L (0-40) 06/22/24 15:32 ALT 13 U/L (0-41) 06/22/24 15:32 Alkaline Phosphatase 183 U/L (40-130) H 06/22/24 15:32 Troponin T Baseline 31 ng/L (0-15) H 06/22/24 15:32 Troponin T 120 Minute 28.58 ng/L (0-15) H 06/22/24 18:10 Delta Troponin T -2.42 ABS# (0-10) L 06/22/24 18:10 NT-Pro-B Natriuret Pep 639 pg/mL (0-450) H 06/22/24 15:32 Total Protein 7.9 g/dL (6.6-8.7) 06/22/24 15:32 Albumin 3.5 g/dL (3.5-5.2) 06/22/24 15:32 Globulin 4.4 g/dL (1.3-4.6) 06/22/24 15:32 All radiology interpretation(s) finalized by discharge Discharge Plan Discharge Patient Disposition: Home Clinical Impression: Edema Qualifiers: Edema type: localized Qualified Code(s): R60.0 - Localized edema Condition: Stable Prescriptions: No Action aspirin [Adult Low Dose Aspirin] 81 mg tablet,delayed release (DR/EC) 81 mg PO DAILY acetaminophen 500 mg tablet 500 mg PO Q6H PRN (Reason: Pain) (DME) Diabetic Shoes with 3 Pairs of Inserts See Rx Instructions .Route .MEDSUPPLY Qty: 1 0RF Rx Instructions: As directed by HOME metoprolol succinate 25 mg tablet extended release 24 hr 25 mg PO DAILY Qty: 90 0RF Eliquis 5 mg tablet 5 mg PO BID Qty: 180 0RF (DME) blood-glucose meter [OneTouch Ultra2 Meter] [facility] [place] See Rx Instructions .Route Qty: 1 0RF Rx Instructions: As directed nitroglycerin 0.4 mg tablet, sublingual See Rx Instructions .ROUTE .COMPLEX Qty: 25 0RF Dose Instruction: DISSOLVE ONE TABLET UNDER THE TONGUE EVERY 5 MINUTES NEEDED FOR CHEST PAIN. DO NOT EXCEED A TOTAL OF 3 DOSES IN 15 MINUTES Rx Instructions: DISSOLVE ONE TABLET UNDER THE TONGUE EVERY 5 MINUTES NEEDED FOR CHEST PAIN. DO NOT EXCEED A TOTAL OF 3 DOSES IN 15 MINUTES (DME) OneTouch Ultra Test Strip See Rx Instructions .ROUTE .COMPLEX Qty: 100 0RF Dose Instruction: USE 1 TEST STRIP TO TEST BLOOD GLUCOSE ONCE DAILY AND NEEDED Rx Instructions: USE 1 TEST STRIP TO TEST BLOOD GLUCOSE ONCE DAILY AND NEEDED cabergoline 0.5 mg tablet 0.25 mg PO Q7D 30 Days Qty: 3 1RF Rx Instructions: Take 0.25 mg tablet every 7 days. Repatha SureClick 140 mg/mL pen injector See Rx Instructions .ROUTE .COMPLEX Qty: 6 0RF Dose Instruction: INJECT 1 PEN SUBCUTANEOUSLY EVERY TWO WEEKS Rx Instructions: INJECT 1 PEN SUBCUTANEOUSLY EVERY TWO WEEKS bumetanide 2 mg tablet 2 mg PO DAILY Qty: 30 0RF glimepiride 4 mg tablet 4 mg PO DAILY potassium chloride [Klor-Con M20] 20 mEq tablet,ER particles/crystals 20 meq PO BID Discharge Orders: Discharge ED (Routine); Ordered 06/22/24 Ordered By: Domenico Tom Referrals: Mildred Grewal MD [Primary Care Provider] - 1 week Patient Instructions: Dependent Edema Activity Restrictions/Additional Instructions: Please restart your Lasix at 1 pill a day along with the Bumex. Please reevaluate your swelling after 3 days. If your swelling is improved continue the Lasix and Bumex combination for a total of 5 days. If your swelling has not improved please increase the Lasix to 2 pills a day along with the Bumex for a total of 5 days. Please follow-up with your family practice physician within the next 7 to 10 days for further evaluation treatment and possible medicine changes. 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
[2024-06-22 15:45] LABS: Basophils # 0.2 10^3/uL (0.0-0.1); Basophils % 2.5 %; Eosinophils # 0.2 10^3/uL (0.0-0.8); Eosinophils % 2.3 %; Hematocrit 40.2 % (37-53); Lymphocytes # 1.3 10^3/uL (0.8-4.8); Lymphocytes % 19.4 %; Mean Corpuscular HGB Conc 32.6 g/dL (30-55); Mean Corpuscular Hemoglobin 29.6 pg (27-33); Mean Corpuscular Volume 90.7 fl (82-101); Mean Platelet Volume 11.9 fL (7.4-10.4); Monocytes # 1.4 10^3/uL (0.2-0.9); Monocytes % 21.4 %; Neutrophils # 3.53 10^3/uL (1.8-7.7); Neutrophils % 54.1 %; Nucleated Red Blood Cells % 0 %; Platelet Count 130 10^3/cmm (157-399); Red Blood Count 4.43 10^6/uL (3.85-5.65); Red Cell Distribution Width 14.3 % (12.1-15.1); White Blood Count 6.53 10^3/uL (3.29-11.43)
--- NOTE | 2024-06-22 15:55 | USR_ITS ---
PROCEDURE INFORMATION: Exam: US Duplex Lower Extremity Veins, Bilateral Exam date and time: 06/22/2024 4:07 PM Age: 73 years old Clinical indication: Edema, localized and swelling (edema) of limb; Lower extremity, bilateral; Prior surgery; Surgery date: 6+ months; Surgery type: Left le gsv removed below knee to mid thigh; Additional info: Leg swelling TECHNIQUE: Imaging protocol: Real-time duplex ultrasound of the bilateral extremities with 2-D mckeon scale, color Doppler flow and spectral waveform analysis including responses to compression and other maneuvers (when performed) with image documentation. Complete exam focused on the lower extremity veins. COMPARISON: US renal BI* [id number] 11/18/2017 3:41 PM FINDINGS: Right deep veins: Unremarkable. The common femoral, femoral, proximal profunda femoral and popliteal veins are patent without thrombus. Normal Doppler waveforms. Normal compressibility and/or augmentation response. Left deep veins: Unremarkable. The common femoral, femoral, proximal profunda femoral and popliteal veins are patent without thrombus. Normal Doppler waveforms. Normal compressibility and/or augmentation response. Superficial veins: Greater saphenous veins at the saphenofemoral junctions are patent bilaterally without thrombus. Soft tissues: Unremarkable. US/[place] [id number] IMPRESSION: No sonographic evidence of deep venous thrombosis.
[2024-06-22 16:06] LABS: Alanine Aminotransferase 13 U/L (0-41); Albumin Level 3.5 g/dL (3.5-5.2); Alkaline Phosphatase 183 U/L (40-130); Anion Gap 13.4 (5-19); Aspartate Amino Transferase 32 U/L (0-40); Blood Urea Nitrogen 32 mg/dL (8-23); Calcium 8.7 mg/dL (8.5-10.5); Carbon Dioxide 27 mmol/L (22-29); Chloride 98 mmol/L (98-107); Creatinine Clr Calc Pharmacy 69.1531; Globulin 4.4 g/dL (1.3-4.6); Glucose 167 mg/dL (65-115); NT Pro B Type Natriuretic Pept 639 pg/mL (0-450); Osmolality Calculated 289 mOsm/kg (285-295); Potassium 4.4 mmol/L (3.5-5.1); Sodium 134 mmol/L (136-145); Total Bilirubin 2.9 mg/dL (0.15-1.2); Total Protein 7.9 g/dL (6.6-8.7)
[2024-06-22 16:55] LABS: Troponin(5th) Baseline 31 ng/L (0-15)
[2024-06-22 18:39] LABS: Troponin 5 2HR 28.58 ng/L (0-15)
[2024-06-22] MEDS: FUROsemide 10 mg/mL SDV 4mL 40 MG IVP (18:40)
[2024-06-22 18:46] LABS: Troponin 5 2HR Delta -2.42 ABS# (0-10)
== END 2024-06-22 20:12 | disposition home or self-care (01) ==
PROVIDERS: Emergency Medicine; Family Medicine; Emergency Provider Emergency Medicine; PCP Family Medicine
DX: R60.0 Localized edema (principal); Z79.01 Long term (current) use of anticoagulants; Z79.82 Long term (current) use of aspirin; Z87.891 Personal history of nicotine dependence; E11.9 Type 2 diabetes mellitus without complications; I11.0 Hypertensive heart disease with heart failure; I50.9 Heart failure, unspecified; I25.10 Atherosclerotic heart disease of native coronary artery without angina pectoris; E78.5 Hyperlipidemia, unspecified
CPT/HCPCS: 36415; 71045; 80053; 83880; 84484; 85025; 93005; 93970; 96374; 99285; J1940

== ENCOUNTER → 2024-07-06 12:45 | Outpatient (BNVA) | payer MEDICARE, MEDICAID, SELFPAY | PROVIDERS: PCP Family Medicine; Visit Provider Internal Medicine Cardiovascular Disease | DX: R07.9 Chest pain, unspecified (principal) | CPT/HCPCS: 93005 ==

== ENCOUNTER 2024-07-06 15:03 | Inpatient (IN) | payer MEDICARE, MEDICAID, SELFPAY ==
[2024-07-06 15:37] VITALS: BMI 32.6
[2024-07-06 17:36] LABS: Alanine Aminotransferase 12 U/L (0-41); Albumin Level 3.4 g/dL (3.5-5.2); Alkaline Phosphatase 166 U/L (40-130); Anion Gap 12.7 (5-19); Aspartate Amino Transferase 30 U/L (0-40); Blood Urea Nitrogen 35 mg/dL (8-23); Calcium 8.5 mg/dL (8.5-10.5); Carbon Dioxide 29 mmol/L (22-29); Chloride 96 mmol/L (98-107); Creatinine Clr Calc Pharmacy 64.0069; Globulin 4.3 g/dL (1.3-4.6); Glucose 178 mg/dL (65-115); Osmolality Calculated 290 mOsm/kg (285-295); Potassium 3.7 mmol/L (3.5-5.1); Sodium 134 mmol/L (136-145); Total Bilirubin 2.9 mg/dL (0.15-1.2); Total Protein 7.7 g/dL (6.6-8.7)
[2024-07-06] MEDS: FUROsemide 10 mg/mL SDV 10mL 60 MG IVP (18:35)
[2024-07-06] MEDS: metOLazone 5 MG Tablet 2.5 MG PO (18:35)
[2024-07-07] VITALS (122 sets, daily range): BP systolic 83–142; BP diastolic 48–93; PULSE 51–108; RESP 11–25; TEMP 36.8–37.1; O2SAT 78–100
--- NOTE | 2024-07-07 07:44 | P.HP_ITS ---
Providers/Chief Complaint 2 Admitting Physician: Anson Gambino MD Primary Care Provider: Mildred Grewal MD Chief Complaint: CHS and Unstable Angina History of Present Illness Taran Higuera is a 73 year old male past medical history significant for coronary artery disease systolic heart failure severe LV dysfunction with ejection fraction documented at 30 to 35% diabetes mellitus history of atrial flutter presented to my clinic not able to breathe or sit. Patient appeared to be full of fluid with abdominal distention and lower extremity edema and has told me that he has been suffering from shortness of breath PND orthopnea and chest pain on even mild exertion he has been taking nitroglycerin. He is managed at home with Bumex which is not working at all. He thinks he cannot stay like this. He has been to emergency room and he was discharged after increasing his diuretic dose. He definitely is not able to lay flat on the bed. He has increased abdominal girth with 2+ edema with scrotal swelling. Medications/Allergies Home Medications Medication Instructions Recorded Confirmed Last Taken Type acetaminophen 500 mg tablet 500 mg PO Q6H PRN Pain 09/25/20 07/06/24 07/06/24 02:00 History aspirin 81 mg tablet,delayed 81 mg PO DAILY 09/25/20 07/06/24 07/06/24 08:00 History release (Adult Low Dose Aspirin) Diabetic Shoes with 3 Pairs of #1 ea 11/19/22 07/07/24 Unknown Rx Inserts blood-glucose meter (OneTouch #1 ea 02/27/23 07/06/24 Unknown Rx Ultra2 Meter) apixaban 5 mg tablet (Eliquis) 5 mg PO BID #180 tabs 01/06/24 07/06/24 07/06/24 08:00 Rx metoprolol succinate 25 mg 25 mg PO DAILY #90 tabs 01/06/24 07/06/24 07/06/24 08:00 Rx tablet,extended release 24 hr nitroglycerin 0.4 mg sublingual See Rx Instructions .Route 03/24/24 07/06/24 07/06/24 12:25 Rx tablet .COMPLEX #25 tabs blood sugar diagnostic (OneTouch #100 ea 03/29/24 07/06/24 Unknown Rx Ultra Test strips) cabergoline 0.5 mg tablet 0.25 mg (1/2 x 0.5 mg) PO Q7D 30 05/04/24 07/06/24 07/02/24 08:00 Rx days #3 tabs evolocumab 140 mg/mL subcutaneous See Rx Instructions .Route 05/23/24 07/06/24 06/25/24 08:00 Rx pen injector (Mare Boogie) .COMPLEX #6 mL bumetanide 2 mg tablet 2 mg PO DAILY #30 tabs 06/20/24 07/06/24 07/06/24 08:00 Rx glimepiride 4 mg tablet 4 mg PO DAILY 06/21/24 07/06/24 07/06/24 08:00 History potassium chloride 20 mEq 20 meq PO BID 06/22/24 07/06/24 07/05/24 21:00 History tablet,extended release(part/cryst) (Klor-Con M) furosemide 40 mg tablet 40 mg PO DAILY 07/06/24 07/06/24 07/05/24 21:00 History Allergies Allergy/AdvReac Type Severity Reaction Status Date / Time atorvastatin [From Lipitor] Allergy Unknown Unknown Verified 07/06/24 12:38 diclofenac [From Arthrotec] Allergy Unknown Unknown Verified 07/06/24 12:38 misoprostol [From Arthrotec] Allergy Unknown Unknown Verified 07/06/24 12:38 pravastatin Allergy Unknown Unknown Verified 07/06/24 12:38 risedronate sodium Allergy Unknown Unknown Verified 07/06/24 12:38 [From Actonel] rosuvastatin [From Crestor] Allergy Unknown Unknown Verified 07/06/24 12:38 semaglutide [From Ozempic] Allergy Unknown Unknown Verified 07/06/24 12:38 fosinopril AdvReac Mild Cough Verified 07/06/24 12:38 lovastatin [From Mevacor] AdvReac Mild Myalgia Verified 07/06/24 12:38 PFSH Acute 2 PFSH: Medical History Cellulitis of right lower leg Aortic stenosis Neuropathy Bilateral lower extremity edema Hyperlipidemia Degenerative disc disease Statin intolerance Chronic anticoagulation Microalbuminuria due to type 2 diabetes mellitus Cardiac LV ejection fraction 30-35% Diabetes mellitus Atrial flutter Shortness of breath Atrial fibrillation CAD (coronary artery disease) HTN (hypertension) PVD (peripheral vascular disease) CHF (congestive heart failure) Surgical History S/P hernia repair S/P arterial stent (~2002) History of hand surgery (~2013) S/P CABG (coronary artery bypass graft) (~2000) Family History Father Cancer Sister Cancer Brother Cancer Lung CA Mother COPD (chronic obstructive pulmonary disease) Social History Smoking and tobacco/nicotine status: former use of tobacco/nicotine Alcohol intake: never Substance/Drug Use: never Lives independently: Yes Household members: spouse Marital status: Vitals/I&O/Wt Last Vital Signs Temp 98.2 F 07/07/24 00:05 Pulse 54 L 07/07/24 07:15 Resp 13 07/07/24 07:15 BP 89/58 07/07/24 07:15 Pulse Ox 95 07/07/24 07:15 O2 Del Method Room Air 07/06/24 15:37 07/06/24 07/07/24 07/07/24 22:59 06:59 14:59 Intake Total 960 / 960 120 / 1080 Output Total 1000 / 1000 1600 / 2600 Balance -40 / -40 -1480 / -1520 Weight last 48 hrs Weight 225 lb Weight 227 lb 8.273 oz Weight 227 lb 8.273 oz Physical Exam 2 Const: OTHER: GENERAL: Patient is alert, awake and oriented x3. HEART: Regular S1 and S2. No murmur, rub or gallop. Abdomen distended with abdominal wall edema no tenderness LUNGS: Inspiratory crackles bilateral. CENTRAL NERVOUS SYSTEM: Grossly nonfocal. GENERAL: Patient is alert, awake and oriented x3. EXTREMITIES: Lower extremities with 2+ abdominal and lower extremity edema bilaterally. Data 07/06/24 17:03 A&P Assessment and plan (1) CHF (congestive heart failure), NYHA class IV: Patient appeared to be in decompensated systolic heart failure. He cannot be managed at home as it has been tried in the near past. He is getting worse and almost every day he is experiencing chest pain at rest and upon mild exertion. Oral diuretics help. Working most likely due to gut edema. We therefore we will directly admit the patient as an inpatient for IV diuresis optimization of medicine, we will reassess left ventricle ejection fraction with echocardiogram. I will start patient on IV Lasix 60 mg twice daily along with 2.5 mg of metolazone twice a day. Goal is 1-1.5 L negative per 24 hours. Electrolyte will be assessed and replenished Qualifiers: Congestive heart failure chronicity: acute on chronic Congestive heart failure type: systolic Qualified Code(s): I50.23 - Acute on chronic systolic (congestive) heart failure (2) Chest pain: Patient has history of coronary artery disease, no with worsening of shortness of breath chest pain upon mild exertion would like to rule him out for acute coronary syndrome/angina and obstructive lesion, once diuresed and euvolemic may will assess with stress test versus left heart cath depending upon his clinical assessment. Echo will be obtained to assess LV function. EKG will be obtained. Qualifiers: Chest pain type: precordial pain Qualified Code(s): R07.2 - Precordial pain (3) HTN (hypertension): Blood pressure is on the lower side. Will hold antihypertensive medicine. Qualifiers: Hypertension type: essential hypertension Qualified Code(s): I10 - Essential (primary) hypertension (4) Atrial flutter: Patient has history of atrial flutter. Will obtain EKG appeared to be rate controlled. Will discontinue apixaban and switch him to Lovenox for now. Qualifiers: Atrial flutter type: typical Qualified Code(s): I48.3 - Typical atrial flutter Plan As above Attestations 2 Medical Necessity Statement*: I am expecting his stay to cross more than 2 midnights. Coding Level of Care Code Acute Code for [facility] Fwd Diagnoses Acute on chronic systolic congestive heart failure, NYHA class 4 I50.23 Congestive heart failure chronicity: acute on chronic Congestive heart failure type: systolic Precordial pain R07.2 Chest pain type: precordial pain Essential hypertension I10 Hypertension type: essential hypertension Typical atrial flutter I48.3 Atrial flutter type: typical
[2024-07-07] MEDS: FUROsemide 10 mg/mL SDV 10mL 60 MG IVP ×2 (08:12→17:05)
--- NOTE | 2024-07-07 08:14 | USCV_ITS ---
Taran Higuera Age: 73 Gender: M : 1950 Exam Date: 07/07/2024 09:36 Ordering Phys: Anson Gambino MD ([email or web address]) Technologist: [place] [facility] [place]: chf BP: 100 / 56 HR: 61 Rhythm: Sinus Technical Quality: Adequate MEASUREMENTS (Male / Female) Normal Values 2D ECHO LVOT Diameter 2.0 cm LV Ejection Fraction MOD 4C 43.8 % LV Ejection Fraction MOD 2C 49.6 % LV Ejection Fraction 2C AL 51.6 % LA Diameter 5.7 cm RA Systolic Volume 4C AL 182.0 ml RA Systolic Volume 4C MOD 180.6 ml LA Sys Volume AL 122.1 cm cubed LA Sys Volume Index AL 52.7 cm cubed/m squared Aorta at Sinotubular Diameter 2.3 cm M-MODE LA Ao Ratio MM 2.3 AV Cusp Separation MM 1.0 cm DOPPLER AV Peak Velocity 296.0 cm/s LVOT Peak Velocity 84.0 cm/s AV Area Cont Eq vti 0.9 cm squared AV Area Cont Eq pk 0.9 cm squared MV Peak Velocity 107.0 cm/s MV Area PHT 3.4 cm squared Mitral E to A Ratio 71.0 TR Peak Velocity 178.5 cm/s TR Peak Gradient 12.7 mmHg TR Mean Velocity 116.0 cm/s TR Mean Gradient 6.2 mmHg TR Velocity Time Integral 43.5 cm TV Peak E Velocity 93.0 cm/s PV Peak Velocity 88.5 cm/s FINDINGS Left Ventricle Normal left ventricular size, moderately decreased left ventricular systolic function. Left ventricular ejection fraction is estimated at 40 %. Global hypokinesis with falttening of septum,flattened septum in systole consistent with right ventricle pressure overload. Flattened septum in diastole consistent with right ventricle volume overload. Right Ventricle Normal right ventricular size. Right Atrium Severely increased right atrial size. Left Atrium Moderately increased left atrial size. Mitral Valve Mildly thickened mitral valve. No mitral valve stenosis. Mild mitral valve regurgitation. Aortic Valve Moderate to severe aortic valve calcification. Moderate aortic valve stenosis, mean gradient 18.4 mmHg, STEVEN 0.88 cm squared. Mild aortic valve regurgitation. Tricuspid Valve Severe tricuspid valve regurgitation. Pulmonic Valve Pulmonic valve not well visualized. Pericardium Normal pericardium without effusion. Aorta Normal ascending aorta dimension. IVC Dilated IVC. CONCLUSIONS Normal left ventricular size, moderately decreased left ventricular systolic function. Left ventricular ejection fraction is estimated at 40 %. Global hypokinesis with falttening of septum,flattened septum in systole consistent with right ventricle pressure overload. Flattened septum in diastole consistent with right ventricle volume overload. Severely increased right atrial size. Moderately increased left atrial size. Mildly thickened mitral valve. No mitral valve stenosis. Mild mitral valve regurgitation. Moderate to severe aortic valve calcification. Moderate aortic valve stenosis, mean gradient 18.4 mmHg, STEVEN 0.88 cm squared. Mild aortic valve regurgitation. Severe tricuspid valve regurgitation. There is no pericardial effusion. Right atrial pressure is around 20 mm of mercury. Anson Gambino MD (Electronically Signed) Final Date: 10 July 2024 22:54 S
[2024-07-07] MEDS: metOLazone 5 MG Tablet 2.5 MG PO ×2 (08:15→17:04)
[2024-07-07] MEDS: aspirin 81 mg EC Tablet PO (08:19)
--- NOTE | 2024-07-07 10:02 | ECG_ITS ---
[facility] Test Date: 2024-07-07 Pat Name: Taran Higuera Department: Room: [facility]05 Gender: Male Regulatory Affairs Intern: : 1950 Requested By: Anson Gambino Order Number: [id number] Bebe MD: Narinder Pinon M.D. Measurements Intervals [place] Rate: 54 P: 55 TN: 144 QRS: 102 QRSD: 164 T: -35 QT: 547 QTc: 519 Interpretive Statements ATRIAL FLUTTER WITH SLOW VENTRICULAR RATE RIGHT BUNDLE BRANCH BLOCK [120+ ms QRS DURATION, UPRIGHT V1, 40+ ms S IN I/aVL/V4/V5/V6] Compared to ECG 07/06/2024 12:47:59 Right-axis deviation now present Ectopic atrial rhythm no longer present First degree AV block no longer present Left posterior fascicular block no longer present Myocardial infarct finding no longer present Electronically Signed On 07-07-2024 14:47:46 MARITIME OFFICER by Narinder Pinon M.D. [id number]
[2024-07-07] MEDS: potassium chloride ER 20 mEq Tablet PO ×2 (17:04→18:40)
--- NOTE | 2024-07-07 18:19 | P.PN_ITS ---
Subjective 2 Subjective: Feeling better diuresed adequately overnight Vitals/I&O/Wt Last Vital Signs Temp 98.2 F 07/07/24 00:05 Pulse 76 07/07/24 18:00 Resp 19 H 07/07/24 18:00 BP 142/70 07/07/24 18:00 Pulse Ox 96 07/07/24 18:00 O2 Del Method Room Air 07/06/24 15:37 07/07/24 07/07/24 07/07/24 06:59 14:59 22:59 Intake Total 120 / 1080 360 / 360 Output Total 1600 / 2600 1250 / 1250 Balance -1480 / -1520 -890 / -890 Weight last 48 hrs Weight 225 lb Weight 227 lb 8.273 oz Weight 227 lb 8.273 oz Physical Exam 2 Const: OTHER: GENERAL: Patient is alert, awake and oriented x3. HEART: Regular S1 and S2. No murmur, rub or gallop. Abdomen distended with abdominal wall edema no tenderness LUNGS: Inspiratory crackles bilateral. CENTRAL NERVOUS SYSTEM: Grossly nonfocal. GENERAL: Patient is alert, awake and oriented x3. EXTREMITIES: Lower extremities with 2+ abdominal and lower extremity edema bilaterally. Data 07/06/24 17:03 A&P Assessment and plan (1) CHF (congestive heart failure), NYHA class IV: Patient appeared to be in decompensated systolic heart failure. He cannot be managed at home as it has been tried in the near past. He is getting worse and almost every day he is experiencing chest pain at rest and upon mild exertion. Oral diuretics help. Working most likely due to gut edema. We therefore we will directly admit the patient as an inpatient for IV diuresis optimization of medicine, we will reassess left ventricle ejection fraction with echocardiogram. I will start patient on IV Lasix 60 mg twice daily along with 2.5 mg of metolazone twice a day. Goal is 1-1.5 L negative per 24 hours. Electrolyte will be assessed and replenished On today's visit dated 07/07/2024 patient feeling better he has diuresed adequately overnight I will continue current IV Lasix. Echocardiogram will be obtained to assess LV function. Further plan be advised as per progress the patient Qualifiers: Congestive heart failure type: systolic Congestive heart failure chronicity: acute on chronic Qualified Code(s): I50.23 - Acute on chronic systolic (congestive) heart failure (2) Chest pain: Patient has history of coronary artery disease, no with worsening of shortness of breath chest pain upon mild exertion would like to rule him out for acute coronary syndrome/angina and obstructive lesion, once diuresed and euvolemic may will assess with stress test versus left heart cath depending upon his clinical assessment. Echo will be obtained to assess LV function. EKG will be obtained. On today's visit dated 07/07/2024 patient is not complaining of chest pain anymore continue IV diuresis. May will ask for stress test if not ruled in for ACS. Qualifiers: Chest pain type: precordial pain Qualified Code(s): R07.2 - Precordial pain (3) HTN (hypertension): Blood pressure is on the lower side. Will hold antihypertensive medicine. Qualifiers: Hypertension type: essential hypertension Qualified Code(s): I10 - Essential (primary) hypertension (4) Atrial flutter: Discontinue apixaban switch to Lovenox Qualifiers: Atrial flutter type: typical Qualified Code(s): I48.3 - Typical atrial flutter Plan As above Attestations 2 Medical Necessity Statement*: I am expecting his stay to cross more than 2 midnight Coding Level of Care Code Acute Code for [facility] Fwd Diagnoses Acute on chronic systolic congestive heart failure, NYHA class 4 I50.23 Congestive heart failure type: systolic Congestive heart failure chronicity: acute on chronic Precordial pain R07.2 Chest pain type: precordial pain Essential hypertension I10 Hypertension type: essential hypertension Typical atrial flutter I48.3 Atrial flutter type: typical
[2024-07-07] MEDS: enoxaparin 100 mg/mL Syringe SUBCUT (18:40)
[2024-07-08] VITALS (24 sets, daily range): BP systolic 89–122; BP diastolic 53–74; PULSE 53–78; RESP 5–34; TEMP 36.3–36.8; O2SAT 92–97
[2024-07-08] MEDS: enoxaparin 100 mg/mL Syringe SUBCUT ×2 (06:42→18:11)
[2024-07-08] MEDS: metOLazone 5 MG Tablet 2.5 MG PO ×2 (08:19→18:11)
[2024-07-08] MEDS: potassium chloride ER 20 mEq Tablet 40 MEQ PO ×2 (08:19→18:10)
[2024-07-08] MEDS: aspirin 81 mg EC Tablet PO (08:19)
[2024-07-08] MEDS: FUROsemide 10 mg/mL SDV 10mL 60 MG IVP ×2 (08:24→18:11)
--- NOTE | 2024-07-08 14:02 | P.PN_ITS ---
Documented by User: Maren Reid NP 07/08/24 14:10 Subjective 2 Subjective: Patient is doing well this morning. Still has some lower extremity edema but this is improved. Has lost 6 pounds overnight. He has good urine output. He is down over 2 L. Medications: Reviewed: Yes Vitals/I&O/Wt Last Vital Signs Temp 97.7 F 07/08/24 12:00 Pulse 77 07/08/24 13:00 Resp 22 H 07/08/24 13:00 BP 109/65 07/08/24 10:00 Pulse Ox 94 07/08/24 13:00 O2 Del Method Room Air 07/08/24 12:00 07/07/24 07/08/24 07/08/24 22:59 06:59 14:59 Intake Total 580 / 940 290 / 1230 360 / 360 Output Total 1350 / 2600 1250 / 3850 1375 / 1375 Balance -770 / -1660 -960 / -2620 -1015 / -1015 Weight last 48 hrs Weight 219 lb 12.814 oz Weight 225 lb Weight 227 lb 8.273 oz Weight 227 lb 8.273 oz Physical Exam 2 Narrative: General: No apparent distress, healthy appearing, well nourished HENMT: normoceophalic Neck: No carotid bruit bilaterally Muskuloskeletal: Full ROM Lymphatic: 1+ edema bilaterally Respiratory: Normal respiratory effort, clear to auscultation bilaterally throughout all lung lacey, no use of accessory muscles Cardio: No JVD, regular rate, regular rhythm, S1 S2 normal, systolic murmur 3/6 aortic space, peripheral pulses 2+ throughout GI: Normal to inspection, nondistended, improved from yesterday Extremities: Full ROM, normal, normal capillary refill, no cyanosis, 1+ edema bilaterally all the way up to his waistline Neuro: Alert and oriented x4, no focal motor deficits Psych: Affect normal, denies suicidal ideation, mental status grossly normal Skin: No rashes or lesions noted, no wounds Data 07/08/24 14:15 07/08/24 14:15 A&P Assessment and plan (1) CHF (congestive heart failure), NYHA class IV: Patient appeared to be in decompensated systolic heart failure but has improved significantly. He has lost over 6 pounds in 1 day. No chest pain at this time. Will recheck labs today. Lungs are clear but still has edema that has improved. Will continue diuresis at this time. He has had almost 3 L out over 24 hours. Will decrease current IV dosage to once daily. Echo has been done. Will see what this shows. Qualifiers: Congestive heart failure chronicity: acute on chronic Congestive heart failure type: systolic Qualified Code(s): I50.23 - Acute on chronic systolic (congestive) heart failure (2) Chest pain: Patient has history of coronary artery disease, now with worsening of shortness of breath chest pain upon mild exertion would like to rule him out for acute coronary syndrome/angina and obstructive lesion, once diuresed and euvolemic may will assess with stress test versus left heart cath depending upon his clinical assessment. Echo will be reviewed. Will order troponin series. Qualifiers: Chest pain type: precordial pain Qualified Code(s): R07.2 - Precordial pain (3) HTN (hypertension): Blood pressure is on the lower side. Will hold antihypertensive medicine. Qualifiers: Hypertension type: essential hypertension Qualified Code(s): I10 - Essential (primary) hypertension (4) Atrial flutter: Discontinue apixaban switch to Lovenox Qualifiers: Atrial flutter type: typical Qualified Code(s): I48.3 - Typical atrial flutter Plan As above Attestations 2 Medical Necessity Statement*: I am expecting his stay to cross more than 2 midnight due to CHF exacerbation with unstable angina Coding Level of Care Code Acute Code for [facility] Fwd Diagnoses Acute on chronic systolic congestive heart failure, NYHA class 4 I50.23 Congestive heart failure chronicity: acute on chronic Congestive heart failure type: systolic Precordial pain R07.2 Chest pain type: precordial pain Essential hypertension I10 Hypertension type: essential hypertension Typical atrial flutter I48.3 Atrial flutter type: typical Documented by User: Anson Gambino MD 07/08/24 23:05 Subjective 2 Subjective: Patient was evaluated and cared for in conjunction with an advanced practice practitioner. I personally examined the patient and reviewed the chart and all pertinent data including imaging, telemetry, and laboratory results. I discussed the patient in detail with the advanced practice practitioner. Please see their note for complete H&P testing result and agreed upon plan of care for the patient. Overall feeling much better Heart rate and is under control Diuresing well GENERAL: Patient is alert, awake and oriented x3. HEART: Regular S1 and S2. No murmur, rub or gallop. LUNGS: Clear to auscultate bilaterally. Abdomen: Soft nontender nondistended abdominal edema has improved CENTRAL NERVOUS SYSTEM: Grossly nonfocal. EXTREMITIES: Lower extremities with 1+ edema bilaterally. Acute decompensated CHF systolic Coronary artery disease Plan Continue IV diuresis Continue electrolyte balance Echocardiogram to follow Once euvolemic will rule out ischemia Start guideline medical therapy and optimize it for heart failure Patient is doing well this morning. Still has some lower extremity edema but this is improved. Has lost 6 pounds overnight. He has good urine output. He is down over 2 L. Data 07/08/24 14:15 07/08/24 14:15 A&P Assessment and plan (1) CHF (congestive heart failure), NYHA class IV: Qualifiers: Congestive heart failure chronicity: acute on chronic Congestive heart failure type: systolic Qualified Code(s): I50.23 - Acute on chronic systolic (congestive) heart failure (2) Chest pain: Qualifiers: Chest pain type: precordial pain Qualified Code(s): R07.2 - Precordial pain (3) HTN (hypertension): Qualifiers: Hypertension type: essential hypertension Qualified Code(s): I10 - Essential (primary) hypertension (4) Atrial flutter: Qualifiers: Atrial flutter type: typical Qualified Code(s): I48.3 - Typical atrial flutter Coding Level of Care Code Acute Code for [facility] Diagnoses Acute on chronic systolic congestive heart failure, NYHA class 4 I50.23 Congestive heart failure chronicity: acute on chronic Congestive heart failure type: systolic Precordial pain R07.2 Chest pain type: precordial pain Essential hypertension I10 Hypertension type: essential hypertension Typical atrial flutter I48.3 Atrial flutter type: typical
[2024-07-08 14:29] LABS: Basophils # 0.1 10^3/uL (0.0-0.1); Basophils % 2.1 %; Eosinophils # 0.1 10^3/uL (0.0-0.8); Eosinophils % 1.7 %; Hematocrit 36.6 % (37-53); Lymphocytes # 1.2 10^3/uL (0.8-4.8); Lymphocytes % 18.2 %; Mean Corpuscular HGB Conc 33.3 g/dL (30-55); Mean Corpuscular Hemoglobin 29.3 pg (27-33); Mean Corpuscular Volume 87.8 fl (82-101); Mean Platelet Volume 11.6 fL (7.4-10.4); Monocytes # 1.4 10^3/uL (0.2-0.9); Monocytes % 20.5 %; Neutrophils % 57.2 %; Nucleated Red Blood Cells % 0 %; Platelet Count 133 10^3/cmm (157-399); Red Blood Count 4.17 10^6/uL (3.85-5.65); Red Cell Distribution Width 14.1 % (12.1-15.1); White Blood Count 6.64 10^3/uL (3.29-11.43)
--- NOTE | 2024-07-08 14:36 | PC.SOCIAL ---
IMM Updated Updated pt on IMM. No questions voiced. Provided pt a copy. Initialed, dated, & timed a copy & placed in chart.
[2024-07-08 14:53] LABS: Blood Urea Nitrogen 37 mg/dL (8-23); Calcium 9.2 mg/dL (8.5-10.5); Carbon Dioxide 29 mmol/L (22-29); Chloride 90 mmol/L (98-107); Creatinine Clr Calc Pharmacy 62.9537; Glucose 291 mg/dL (65-115); NT Pro B Type Natriuretic Pept 575 pg/mL (0-450); Osmolality Calculated 289 mOsm/kg (285-295); Sodium 130 mmol/L (136-145)
[2024-07-08 15:07] LABS: Troponin(5th) Baseline 36 ng/L (0-15)
--- NOTE | 2024-07-08 16:08 | ECG_ITS ---
[facility]24[facility]08 Pat Name: Taran Higuera Department: Room: ICU05 Gender: Male Mental Health Program Director: : 1950 Requested By: Maren Reid Order Number: [id number] Reading MD: CHARLINE CHAUDHRY Measurements Intervals [place] Rate: 77 P: 59 MO: 304 QRS: 85 QRSD: 166 T: -14 QT: 471 QTc: 534 Interpretive Statements SINUS RHYTHM WITH FIRST DEGREE AV BLOCK RIGHT BUNDLE BRANCH BLOCK [120+ ms QRS DURATION, UPRIGHT V1, 40+ ms S IN I/aVL/V4/V5/V6] Compared to ECG 07/08/2024 16:43:04 First degree AV block now present Atrial fibrillation no longer present T-wave abnormality no longer present Possible ischemia no longer present Electronically Signed On 07-11-2024 16:17:34 ACADEMIC VICE PRESIDENT by CHARLINE CHAUDHRY [id number]
[2024-07-08 16:38] LABS: Troponin 5 2HR 33.76 ng/L (0-15)
[2024-07-08 16:39] LABS: Troponin 5 2HR Delta -2.24 ABS# (0-10)
--- NOTE | 2024-07-08 16:43 | ECG_ITS ---
[facility] Test Date: 2024-07-08 Pat Name: Taran Higuera Department: Room: [facility]05 Gender: Male Feather Mixer: : 1950 Requested By: Maren Reid Order Number: [id number] Bebe MD: Natasha Gonzalez M.D. Measurements Intervals [place] Rate: 70 P: 0 LA: 0 QRS: 89 QRSD: 162 T: 0 QT: 486 QTc: 525 Interpretive Statements ATRIAL FIBRILLATION RIGHT BUNDLE BRANCH BLOCK [120+ ms QRS DURATION, UPRIGHT V1, 40+ ms S IN I/aVL/V4/V5/V6] MODERATE T-WAVE ABNORMALITY, CONSIDER LATERAL ISCHEMIA [-0.1+ mV T-WAVE IN I/aVL/V5/V6] Compared to ECG 07/07/2024 10:02:57 T-wave abnormality now present Possible ischemia now present Atrial flutter no longer present Electronically Signed On 07-08-2024 16:51:41 PACKAGE WRAPPER by Natasha Gonzalez M.D. [id number]
--- NOTE | 2024-07-08 19:09 | PC.NURSE ---
SHift SUmmary: Uneventful shift. Patietn rested in bed throgughout the day, but was frequently up to use the restroom. total urine output during day shift wile in ICU: 2,125mL. Transferred to CSU near end of shift. Belongings sent wiht patient included a cellphone, glasses, dentures, shirt, pants, shoes, and a personal bag.
[2024-07-08 20:27] LABS: Troponin 5 6HR 32.53 ng/L (0-15)
[2024-07-08 20:30] LABS: Troponin 5 6HR Delta -3.47 ng/L (0-12)
[2024-07-09] VITALS (7 sets, daily range): BP systolic 97–108; BP diastolic 55–70; PULSE 63–78; RESP 15–24; TEMP 36.6–36.9; O2SAT 94–96
[2024-07-09 02:53] LABS: Basophils # 0.2 10^3/uL (0.0-0.1); Basophils % 2.6 %; Eosinophils # 0.2 10^3/uL (0.0-0.8); Eosinophils % 2.2 %; Hematocrit 35.9 % (37-53); Lymphocytes # 1.5 10^3/uL (0.8-4.8); Lymphocytes % 21.7 %; Mean Corpuscular HGB Conc 32.9 g/dL (30-55); Mean Corpuscular Hemoglobin 29.1 pg (27-33); Mean Corpuscular Volume 88.4 fl (82-101); Monocytes # 1.5 10^3/uL (0.2-0.9); Monocytes % 21.6 %; Neutrophils # 3.51 10^3/uL (1.8-7.7); Neutrophils % 51.6 %; Nucleated Red Blood Cells % 0 %; Platelet Count 103 10^3/cmm (157-399); Red Blood Count 4.06 10^6/uL (3.85-5.65); Red Cell Distribution Width 14.1 % (12.1-15.1); White Blood Count 6.81 10^3/uL (3.29-11.43)
[2024-07-09 03:13] LABS: Anion Gap 11.8 (5-19); Blood Urea Nitrogen 35 mg/dL (8-23); Calcium 9.1 mg/dL (8.5-10.5); Carbon Dioxide 32 mmol/L (22-29); Chloride 91 mmol/L (98-107); Creatinine Clr Calc Pharmacy 68.6768; Glucose 160 mg/dL (65-115); Osmolality Calculated 283 mOsm/kg (285-295); Potassium 3.8 mmol/L (3.5-5.1); Sodium 131 mmol/L (136-145)
[2024-07-09] MEDS: enoxaparin 100 mg/mL Syringe SUBCUT ×2 (06:56→16:47)
[2024-07-09] MEDS: potassium chloride ER 20 mEq Tablet 40 MEQ PO ×2 (09:24→16:47)
[2024-07-09] MEDS: FUROsemide 10 mg/mL SDV 10mL 60 MG IVP ×2 (09:24→16:46)
[2024-07-09] MEDS: metOLazone 5 MG Tablet 2.5 MG PO ×2 (09:24→16:47)
[2024-07-09] MEDS: aspirin 81 mg EC Tablet PO (09:24)
[2024-07-09] MEDS: polyethylene glycol 3350 Pkt 17 gm PO (13:33)
--- NOTE | 2024-07-09 19:24 | P.PN_ITS ---
Subjective 2 Subjective: Overnight no event continues to diurese well, shortness of breath has improved stable abdominal girth and lower extremity edema persist Medications: Reviewed: Yes Vitals/I&O/Wt Last Vital Signs Temp 98.0 F 07/09/24 16:00 Pulse 78 07/09/24 16:00 Resp 24 H 07/09/24 16:00 BP 98/70 07/09/24 16:00 Pulse Ox 95 07/09/24 16:00 O2 Del Method Room Air 07/09/24 16:00 07/09/24 07/09/24 07/09/24 06:59 14:59 22:59 Intake Total 200 / 1000 480 / 480 480 / 960 Output Total 1600 / 5075 1725 / 1725 925 / 2650 Balance -1400 / -4075 -1245 / -1245 -445 / -1690 Weight last 48 hrs Weight 210 lb 11.2 oz Weight 219 lb 12.814 oz Weight 219 lb 12.814 oz Physical Exam 2 Const: OTHER: GENERAL: Patient is alert, awake and oriented x3. HEART: Regular S1 and S2. No murmur, rub or gallop. Lungs decreased breath sound Abdomen mildly distended but improving CENTRAL NERVOUS SYSTEM: Grossly nonfocal. GENERAL: Patient is alert, awake and oriented x3. EXTREMITIES: Lower extremities with 1+ abdominal and lower extremity edema bilaterally. Data 07/09/24 01:45 07/09/24 01:45 A&P Assessment and plan (1) CHF (congestive heart failure), NYHA class IV: Continues to diurese well, continue IV Lasix and potassium chloride replacement Qualifiers: Congestive heart failure type: systolic Congestive heart failure chronicity: acute on chronic Qualified Code(s): I50.23 - Acute on chronic systolic (congestive) heart failure (2) Chest pain: Denies any chest pain, will ask for echocardiogram to assess LV function and wall motion abnormality Qualifiers: Chest pain type: precordial pain Qualified Code(s): R07.2 - Precordial pain (3) HTN (hypertension): Remains on the lower side Qualifiers: Hypertension type: essential hypertension Qualified Code(s): I10 - Essential (primary) hypertension (4) Atrial flutter: Continue anticoagulation heart rate is under control Qualifiers: Atrial flutter type: typical Qualified Code(s): I48.3 - Typical atrial flutter Plan As above Attestations 2 Medical Necessity Statement*: Require continuation hospitalization for IV diuresis and optimization of medicine. Coding Level of Care Code Acute Code for [facility] Diagnoses Acute on chronic systolic congestive heart failure, NYHA class 4 I50.23 Congestive heart failure type: systolic Congestive heart failure chronicity: acute on chronic Precordial pain R07.2 Chest pain type: precordial pain Essential hypertension I10 Hypertension type: essential hypertension Typical atrial flutter I48.3 Atrial flutter type: typical
[2024-07-10] VITALS (9 sets, daily range): BP systolic 97–134; BP diastolic 56–75; PULSE 76–80; RESP 15–22; TEMP 36.1–36.7; O2SAT 95–96
[2024-07-10] MEDS: enoxaparin 100 mg/mL Syringe SUBCUT ×2 (05:44→18:06)
[2024-07-10] MEDS: polyethylene glycol 3350 Pkt 17 gm PO (08:25)
[2024-07-10] MEDS: metOLazone 5 MG Tablet 2.5 MG PO ×2 (08:27→18:07)
[2024-07-10] MEDS: aspirin 81 mg EC Tablet PO (08:27)
[2024-07-10] MEDS: potassium chloride ER 20 mEq Tablet 40 MEQ PO ×3 (08:28→18:12)
[2024-07-10] MEDS: FUROsemide 10 mg/mL SDV 10mL 60 MG IVP ×2 (08:28→18:06)
--- NOTE | 2024-07-10 10:31 | ECG_ITS ---
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1950 Requested By: Anson Gambino Order Number: [id number] Reading MD: ANSON GAMBINO Measurements Intervals [place] Rate: 78 P: 263 AL: 311 QRS: 95 QRSD: 162 T: -46 QT: 482 QTc: 552 Interpretive Statements ECTOPIC ATRIAL RHYTHM WITH FIRST DEGREE AV BLOCK RIGHT BUNDLE BRANCH BLOCK [120+ ms QRS DURATION, UPRIGHT V1, 40+ ms S IN I/aVL/V4/V5/V6] MODERATE T-WAVE ABNORMALITY, CONSIDER LATERAL ISCHEMIA [-0.1+ mV T-WAVE IN I/aVL/V5/V6] MODERATE T-WAVE ABNORMALITY, CONSIDER INFERIOR ISCHEMIA [-0.1+ mV T-WAVE IN II/aVF] Compared to ECG 07/08/2024 18:10:20 Ectopic atrial rhythm now present T-wave abnormality now present Possible ischemia now present Sinus rhythm no longer present Electronically Signed On 07-11-2024 16:09:53 ASSEMBLY LINE ROBOT OPERATOR by ANSON GAMBINO [id number]
[2024-07-10] MEDS: nitroglycerin 0.4 mg sublingual Tablet SUBLINGUAL (10:39)
--- NOTE | 2024-07-10 19:48 | P.PN_ITS ---
Subjective 2 Subjective: Continues to diurese well had episode of chest pain upon mild exertion. Ejection fraction around 45% with moderate tricuspid regurgitation on echocardiogram. Medications: Reviewed: Yes Vitals/I&O/Wt Last Vital Signs Temp 96.9 F L 07/10/24 16:00 Pulse 78 07/10/24 16:00 Resp 20 H 07/10/24 16:00 BP 134/70 07/10/24 16:00 Pulse Ox 96 07/10/24 16:00 O2 Del Method Room Air 07/10/24 16:00 07/10/24 07/10/24 07/10/24 06:59 14:59 22:59 Intake Total 400 / 1360 720 / 720 Output Total 300 / 4250 1300 / 1300 1020 / 2320 Balance 100 / -2890 -580 / -580 -1020 / -1600 Weight last 48 hrs Weight 206 lb 8 oz Weight 210 lb 11.2 oz Weight 219 lb 12.814 oz Physical Exam 2 Const: OTHER: GENERAL: Patient is alert, awake and oriented x3. HEART: Regular S1 and S2. No murmur, rub or gallop. Lungs decreased breath sound Abdomen mildly distended but improving CENTRAL NERVOUS SYSTEM: Grossly nonfocal. GENERAL: Patient is alert, awake and oriented x3. EXTREMITIES: Lower extremities with 1+ abdominal and lower extremity edema bilaterally. Data 07/09/24 01:45 07/09/24 01:45 A&P Assessment and plan (1) CHF (congestive heart failure), NYHA class IV: Continue current regimen continue to diurese with goal of 1 to 1.5 L negative, still more room further diuresis continue to replenish potassium continue IV Lasix and potassium chloride p.o. Qualifiers: Congestive heart failure type: systolic Congestive heart failure chronicity: acute on chronic Qualified Code(s): I50.23 - Acute on chronic systolic (congestive) heart failure (2) Chest pain: Patient has underlying coronary artery disease chest pain along with LV dysfunction may need to be further explored with left heart catheterization once euvolemic we will proceed with left heart catheterization most likely he will be ready by Thursday. Qualifiers: Chest pain type: precordial pain Qualified Code(s): R07.2 - Precordial pain (3) HTN (hypertension): Well-controlled continue meds Qualifiers: Hypertension type: essential hypertension Qualified Code(s): I10 - Essential (primary) hypertension (4) Atrial flutter: Continue anticoagulation heart rate is under control Qualifiers: Atrial flutter type: typical Qualified Code(s): I48.3 - Typical atrial flutter Plan As above Attestations 2 Medical Necessity Statement*: Patient require continuation of hospitalization for evaluation and care Coding Level of Care Code Acute Code for [facility] Fwd Diagnoses Acute on chronic systolic congestive heart failure, NYHA class 4 I50.23 Congestive heart failure type: systolic Congestive heart failure chronicity: acute on chronic Precordial pain R07.2 Chest pain type: precordial pain Essential hypertension I10 Hypertension type: essential hypertension Typical atrial flutter I48.3 Atrial flutter type: typical
[2024-07-11] VITALS (8 sets, daily range): BP systolic 100–123; BP diastolic 58–66; PULSE 78–80; RESP 16–20; TEMP 36.5–37.2; O2SAT 94–96
--- NOTE | 2024-07-11 00:13 | PC.NURSE ---
nurse called in to room to address bruising on his stomach. pt has been receiving shot for dvt prophylaxis, educated pt on side effects. marked bruise to show am nurse and to address with physician in am.
[2024-07-11] MEDS: enoxaparin 100 mg/mL Syringe SUBCUT ×2 (05:53→17:35)
[2024-07-11] MEDS: polyethylene glycol 3350 Pkt 17 gm PO (08:24)
[2024-07-11] MEDS: potassium chloride ER 20 mEq Tablet 40 MEQ PO ×2 (08:25→17:34)
[2024-07-11] MEDS: metOLazone 5 MG Tablet 2.5 MG PO ×2 (08:25→17:34)
[2024-07-11] MEDS: aspirin 81 mg EC Tablet PO (08:25)
[2024-07-11] MEDS: FUROsemide 10 mg/mL SDV 10mL 60 MG IVP (08:25)
--- NOTE | 2024-07-11 10:21 | P.PN_ITS ---
<Statement entered by Anson Gambino MD - 07/11/24 22:25> Patient was evaluated and cared for in conjunction with an advanced practice practitioner. I personally examined the patient and reviewed the chart and all pertinent data including imaging, telemetry, and laboratory results. I discussed the patient in detail with the advanced practice practitioner. Please see their note for complete H&P testing result and agreed upon plan of care for the patient. Subjective 2 Subjective: Patient doing well this morning. Vital signs are stable. He has had a little over 1700 negative balance over 24 hours. Continues to diurese well. He states he is feeling much better. Edema is much improved. Denies any episodes of chest pain Medications: Reviewed: Yes Vitals/I&O/Wt Last Vital Signs Temp 98.1 F 07/11/24 07:16 Pulse 79 07/11/24 07:16 Resp 20 H 07/11/24 07:16 BP 118/66 07/11/24 07:16 Pulse Ox 96 07/11/24 07:16 O2 Del Method Room Air 07/11/24 07:16 07/10/24 07/11/24 07/11/24 22:59 06:59 14:59 Intake Total 350 / 1070 360 / 360 Output Total 1020 / 2320 1425 / 3745 Balance -1020 / -1600 -1075 / -2675 360 / 360 Weight last 48 hrs Weight 203 lb 3.2 oz Weight 206 lb 8 oz Physical Exam 2 Narrative: General: No apparent distress, healthy appearing, well nourished Neck: No carotid bruit bilaterally Muskuloskeletal: Full ROM Lymphatic: no lymphedema noted Respiratory: Normal respiratory effort, clear to auscultation bilaterally throughout all lung lacey, no use of accessory muscles Cardio: No JVD, regular rate, regular rhythm, S1 S2 normal, no murmurs, peripheral pulses 2+ throughout GI: Normal to inspection, nondistended Extremities: Full ROM, normal, normal capillary refill, no cyanosis, trace edema bilaterally Neuro: Alert and oriented x4, no focal motor deficits Psych: Affect normal, denies suicidal ideation, mental status grossly normal Skin: No rashes or lesions noted, no wounds Data 07/09/24 01:45 07/09/24 01:45 A&P Assessment and plan (1) CHF (congestive heart failure), NYHA class IV: Continue current regimen continue to diurese with goal of 1 to 1.5 L negative, we will need to get labs for today to check creatinine and electrolytes. Patient appears euvolemic at this time. Qualifiers: Congestive heart failure type: systolic Congestive heart failure chronicity: acute on chronic Qualified Code(s): I50.23 - Acute on chronic systolic (congestive) heart failure (2) Chest pain: Patient has underlying coronary artery disease chest pain along with LV dysfunction may need to be further explored with left heart catheterization. Plan on doing this tomorrow. Qualifiers: Chest pain type: precordial pain Qualified Code(s): R07.2 - Precordial pain (3) HTN (hypertension): Well-controlled continue meds Qualifiers: Hypertension type: essential hypertension Qualified Code(s): I10 - Essential (primary) hypertension (4) Atrial flutter: Co continue therapeutic Lovenox dose, rate currently well-controlled and patient asymptomatic Qualifiers: Atrial flutter type: typical Qualified Code(s): I48.3 - Typical atrial flutter Plan As above Attestations 2 Medical Necessity Statement*: I am expecting his stay to cross more than 2 midnight due to CHF exacerbation with unstable angina Coding Level of Care Code Acute Code for [facility] Fwd Diagnoses Acute on chronic systolic congestive heart failure, NYHA class 4 I50.23 Congestive heart failure type: systolic Congestive heart failure chronicity: acute on chronic Precordial pain R07.2 Chest pain type: precordial pain Essential hypertension I10 Hypertension type: essential hypertension Typical atrial flutter I48.3 Atrial flutter type: typical
--- NOTE | 2024-07-11 10:40 | PC.SOCIAL ---
IMM Update pg 2 of IMM updated and reviewed w/ patient. Copy provided and copy dated, initialed and placed in chart.
[2024-07-11 11:27] LABS: Blood Urea Nitrogen 29 mg/dL (8-23); Calcium 9.2 mg/dL (8.5-10.5); Carbon Dioxide 34 mmol/L (22-29); Chloride 84 mmol/L (98-107); Creatinine Clr Calc Pharmacy 79.6721; Glucose 320 mg/dL (65-115); Osmolality Calculated 282 mOsm/kg (285-295); Sodium 127 mmol/L (136-145)
[2024-07-11] MEDS: FUROsemide 40 mg Tablet PO (17:34)
[2024-07-12] VITALS (53 sets, daily range): BP systolic 85–121; BP diastolic 50–77; PULSE 78–94; RESP 12–26; TEMP 36.5–37; O2SAT 92–96
[2024-07-12 03:13] LABS: Basophils # 0.2 10^3/uL (0.0-0.1); Basophils % 2.6 %; Eosinophils # 0.1 10^3/uL (0.0-0.8); Eosinophils % 2.2 %; Hematocrit 38.7 % (37-53); Lymphocytes # 1.5 10^3/uL (0.8-4.8); Lymphocytes % 22.7 %; Mean Corpuscular HGB Conc 33.6 g/dL (30-55); Mean Corpuscular Hemoglobin 29.3 pg (27-33); Mean Corpuscular Volume 87.2 fl (82-101); Mean Platelet Volume 11.3 fL (7.4-10.4); Monocytes # 1.4 10^3/uL (0.2-0.9); Monocytes % 22.3 %; Neutrophils # 3.22 10^3/uL (1.8-7.7); Neutrophils % 49.7 %; Nucleated Red Blood Cells % 0 %; Platelet Count 144 10^3/cmm (157-399); Red Blood Count 4.44 10^6/uL (3.85-5.65); Red Cell Distribution Width 13.9 % (12.1-15.1); White Blood Count 6.47 10^3/uL (3.29-11.43)
[2024-07-12 03:29] LABS: Anion Gap 12.7 (5-19); Blood Urea Nitrogen 29 mg/dL (8-23); Calcium 9.4 mg/dL (8.5-10.5); Carbon Dioxide 34 mmol/L (22-29); Chloride 88 mmol/L (98-107); Creatinine Clr Calc Pharmacy 59.7541; Glucose 234 mg/dL (65-115); Osmolality Calculated 283 mOsm/kg (285-295); Potassium 4.7 mmol/L (3.5-5.1); Sodium 130 mmol/L (136-145)
[2024-07-12] MEDS: sodium chloride 0.9% 1,000 ML 50 ML IV (06:16)
[2024-07-12] MEDS: aspirin 325 mg Tablet PO (06:16)
[2024-07-12] MEDS: diphenhydrAMINE 50 mg Capsule PO (06:17)
--- NOTE | 2024-07-12 06:42 | XACV_ITS ---
Exam Room: 2 Ht: 178 cm Wt: 91 kg BSA: 2.14 m2 Gender: Male : 1950 Any Known Allergies: Other Exam Priority: Routine Procedure(s): Procedure Description: Diagnostic procedure Procedure Description: PCI procedure Procedure Description: Left Heart Catheterization Procedure Description: Venous Graft Catheterization Procedure Description: RITCHIE Graft Catheterization Procedure Description: Drug Eluting Coronary Stent Procedure Description: PTCA Procedure Description: Miscellaneous Procedure Description: ACT Procedure Description: Coronary Angiography Maki MA; Diagnostic Cath Status: Elective Diagnostic Findings * Left Main: severe 90% stenosis, KENN: 3 flow. * Proximal Left Anterior Descending: severe 90% stenosis, KENN: 3 flow. * Mid Left Anterior Descending: total occlusion, KENN: 0 flow. * Distal Left Anterior Descending: severe 90% stenosis, chronic total occlusion, moderately calcified, moderate proximal segment tortuosity, KNEN: 2 flow, high/c lesion. * Left Internal Mammary Artery to Distal Left Anterior Descending graft: patent. * Proximal Right Coronary Artery: total occlusion, KENN: 0 flow. * Proximal Circumflex: total occlusion, KENN: 3 flow. * Ascending Aorta to Ramus graft: total occlusion, KENN: 0 flow. * Ascending Aorta to 1st Diagonal graft: total occlusion, KENN: 0 flow. * First Obtuse Marginal Branch Segment: severe 90% stenosis, KENN: 3 flow. * Ascending Aorta to First Obtuse Marginal Branch Segment graft: patent. * Four grafts visualized. * Coronary angiography shows right dominance. PCI Indication: New Onset Angina <= 2 months Interventional Findings * Distal Left Anterior Descendin% stenosis treated with a Balloon, Drug Eluting Stent, and Balloon. 0% residual stenosis, KENN: 3 flow. Successful intervention. Conclusions 1. There is total occlusion coronary artery disease with four vessel disease. 2. Four coronary grafts visualized: two grafts patent, and two grafts occluded. 3. Patient has prior CABG. 4. Distal Left Anterior Descending was treated with a Balloon, Drug Eluting Stent, and Balloon. Recommendations * Continue current medical management and risk factor modification. * 1-Return to inpatient for close monitoring and routine cath care 2-Risk factor modification for secondary prevention 3-Statin with LDL goal <70 mg/dl, aspirin 81 mg life-long 4-Patient was pre-loaded with 180mg of Brillinta. Continue Brillinta 90mg p.o. twice daily for at least one year. We will assess at the end of one year again to continue it further or not 5-Continue and optimize guideline medical therapy for heart failure # LV dysfunction 6-Follow up with Dr. Gambino in four weeks and with your PCP in one week. Diagnostic RX Recommendation: PCI w/o planned CABG Pressures Phase:Rest AO : 98 / 48 ( 66 ) @ 7:57:00 AM 88 / 41 ( 59 ) @ 8:50:00 AM 89 / 40 ( 60 ) @ 8:50:00 AM 89 / 41 ( 57 ) @ 8:56:00 AM 128 / 60 ( 85 ) @ 9:09:00 AM 103 / 51 ( 67 ) @ 9:23:00 AM LV : 117 / -8 / 6 @ 8:50:00 AM 116 / -8 / 6 @ 8:50:00 AM Valves Phase:DefaultPhase AV : 29.0 @ 9:51:29 AM 29.0 @ 9:51:29 AM AV Mean Gradient: 22.0 @ 9:51:29 AM Clinical Evaluation EBL: 5mL-10mL Procedural Details Procedure Consent Obtained. Admit Source: In Patient. Pre-Procedure Time Out. Identified patient by full name and date of as verbalized by the patient/guarantor. Does the consent match the physician's order: Yes. Accurate & Complete Informed Consent: Yes. Inpatient/Outpatient History & Physical on Chart: Yes. If H&P is completed, is and addenduem needed: No; If yes, is the addendum complete: N/A. Visualize and Verify Site with Patient/Guarantor: N/A. Relevant Radiology Images available: N/A. The risks, benefits, and alternatives of sedation and/or procedure were discussed by physician. The patient agrees to continue. Procedure started. [facility] Clinical Fraility Score: 3: Managing Well. Sponge Maker Indications: LV Dysfunction, Worsening Angina. Chest Pain Symptom Assessment: Typical Angina Symptoms. Correct patient, site and procedure confirmed by cath team. Current diagnosis: Unstable angina. PERRLA. Strong, equal hand compacting machine operator/tender bilaterally. Lungs clear x 5 lobes. IV Site on Arrival: 20 gauge in the right forearm. IV Fluids: 0.9% NaCl at KVO. 0 mL infused prior to cardiac catheterization technician. Pre Procedural Pulses: bilateral radial was 1+. Pre Procedural Pulses: bilateral dorsalis pedis was Doppled. Pre Procedural Pulses: bilateral posterior tibial was Doppled. Oxygen started at 2liters/min via nasal canula. bilateral groins was prepped with chloroprep then draped in the usual sterile fashion. Baseline sample Acquired. HR: 91 BPM. Physician notified. Physician arrived. Physician scrubbed in. Immediate Pre-Procedure Time Out. Correct Patient: Yes; Correct Procedure: Yes; Correct Site: Yes; Correct Patient Position: Yes; Correct Supplies: Yes; Dried Flammable Prep: Yes; Blood Products Available: No. Lidocaine 1% infiltrated to the right groin. Arterial access obtained with micropuncture set. A 5 grenadian JL4 catheter in over wire. Multiple views taken of left coronary artery. Catheter removed over the standard wire. A 5 grenadian JR4 catheter in over wire. View taken of right coronary artery. SVG to OM occluded. SVG's to OM visualized and patent. SVG to RCA occluded. Glidewire in through catheter. catheter repositioned. glidewire out. RITCHIE to LAD visualized. Add inventory: Co-captain/airline pilot, Endoflator. Physician scrubbed out and updated family. Dr. Gambino scrubbed in to perform intervention. AP pads applied. Catheter removed over the standard wire. A 5 grenadian Angled Pig catheter in over wire. Catheter removed over the standard wire. standard wire out. A 5 grenadian JR4 catheter in over the standard wire. Standard wire out. Glidewire in through catheter. Wire out. EDP Sample taken: LV 117/-9,6; HR: 79 BPM; SpO2: 99%. Pullback taken: LV 116/-9,6; AO 88/41(59); Mean: 22mmHg, Peak to Peak: 29mmHg, SEP: 22sec/min; HR: 79 BPM; SpO2: 99%. Catheter removed over the standard wire. 6 grenadian IM guide catheter was inserted over the wire. Glidewire in through guide catheter. Catheter repositioned, glidewire out. Runthrough guidewire was advanced through the guide catheter through RITCHIE graft to lesion in the mid LAD. Balloon inserted to lesion in the mid LAD. Inflation number : 1 A MDT NC EUPHORA RX [id number] BALLOON was prepped and advanced across the RITCHIE -> Mid LAD , then inflated to 12 PIPER for 0:14 seconds. Inflation number: 2 The MDT NC EUPHORA RX [id number] BALLOON was reinflated across the RITCHIE -> Mid LAD, to 14 PIPER for 0:13 seconds. Inflation number: 3 The MDT NC EUPHORA RX [id number] BALLOON was reinflated across the RITCHIE -> Mid LAD, to 18 PIPER for 0:14 seconds. Balloon out. Results checked. ACT drawn. Results out of range high results. Therapeutic limits - pre-heparin administration 90-150 seconds and monitoring heparin during a vascular procedure >250 seconds. 6fr guideliner catheter in over runthrough wire. Results checked. Stent inserted to lesion in the mid LAD. Inflation Number : 4 A MDT R ELLIOT 2.5X26 YUMIKO -Lot Number# [id number] EXP 03-25-26 was prepped and advanced across the RITCHIE -> Mid LAD. The stent was deployed at 16 PIPER for 0:21 seconds. Stent balloon out over wire. Balloon inserted to lesion in the mid LAD. Inflation number : 5 A MDT NC EUPHORA RX 3.14H12CP BALLOON was prepped and advanced across the RITCHIE -> Mid LAD , then inflated to 12 PIPER for 0:13 seconds. Inflation number: 6 The MDT NC EUPHORA RX 3.39B14SE BALLOON was reinflated across the RITCHIE -> Mid LAD, to 14 PIPER for 0:11 seconds. Inflation number: 7 The MDT NC EUPHORA RX 3.26L00XQ BALLOON was reinflated across the RITCHIE -> Mid LAD, to 16 PIPER for 0:13 seconds. Inflation number: 8 The MDT NC EUPHORA RX 3.41K31BV BALLOON was reinflated across the RITCHIE -> Mid LAD, to 16 PIPER for 0:15 seconds. Inflation number: 9 The MDT NC EUPHORA RX 3.45Q71XQ BALLOON was reinflated across the RITCHIE -> Mid LAD, to 14 PIPER for 0:09 seconds. Inflation number: 10 The MDT NC EUPHORA RX 3.51L76NM BALLOON was reinflated across the RITCHIE -> Mid LAD, to 16 PIPER for 0:12 seconds. Inflation number: 11 The MDT NC EUPHORA RX 3.64Z66SW BALLOON was reinflated across the RITCHIE -> Mid LAD, to 18 PIEPR for 0:15 seconds. Balloon out. Results checked. Guideliner out. Runthrough wire out. ACT drawn. Results out of range high results. Therapeutic limits - pre-heparin administration 90-150 seconds and monitoring heparin during a vascular procedure >250 seconds. Guide catheter out. A Right femoral angiogram was performed to determine safe placement of closure device. Post Procedure: Pulses reassessed and unchanged. PERRLA. Strong, equal hand compacting machine operator/tender bilaterally. No VTE prophylaxis required. A Suture was successful obtaining hemostatsis at the Right Femoral artery insertion site. Sheath(s) sutured into position with 2-0 silk and sterile 4x4's and Op-site applied over the site. No oozing or signs and symptoms of hematoma noted. Arterial sheath flushed and connected to tranducer and pressure bag with heparinized saline. Medication's Wasted: Lidocaine 1% = 10 mL. Medication's Wasted: Nitro = 49.8 mg. Medication's Wasted: Other = Fentanyl 75mcg. Total IV fluids: 50 mL. Post-op diagnosis: Stent to mid LAD for severe ISR to mid LAD. Complications: None. Estimated blood loss: 5mL-10mL. ACT drawn. Results - out of range high results. Therapeutic limits - pre-heparin administration 90-150 seconds and monitoring heparin during a vascular procedure >250 seconds. Responsiveness - Normal response to verbal stimuli; alert and oriented, PERRLA. Airway - Unaffected, no intervention required; spontaneous ventilation. Circulation: W/N/L, pulses unchanged. Nausea/Vomiting: No. Procedure completed. Patient transferred by bed to 1st floor. Vital chart was stopped. Access Site Site: Right Femoral artery Sheath Size: 6 Fr Hemostasis Method: Suture Hemostasis Success: Successful Procedure Medications Start: 7:42 AM Stop: 7:42 AM Medication: Versed Amount: 1 mg Route: I.V. Start: 7:42 AM Stop: 7:42 AM Medication: Fentanyl Amount: 25 mcg Route: I.V. Start: 7:48 AM Stop: 7:48 AM Medication: Versed Amount: 1 mg Route: I.V. Start: 8:22 AM Stop: 8:22 AM Medication: Versed Amount: 1 mg Route: I.V. Start: 8:53 AM Stop: 8:53 AM Medication: Heparin Amount: 7000 units Route: I.V. Start: 9:03 AM Stop: 9:03 AM Medication: Aggrastat 12.5 mg/250 mL Amount: 46 ml Route: I.V. bolus Start: 9:18 AM Stop: 9:18 AM Medication: Heparin Amount: 2000 units Route: I.V. Start: 9:18 AM Stop: 9:18 AM Medication: Versed Amount: 1 mg Route: I.V. Start: 9:23 AM Stop: 9:23 AM Medication: Nitrogylcerin Amount: 200 mcg Route: I.C. Start: 9:28 AM Stop: 9:28 AM Medication: Aggrastat 12.5 mg/250 mL Amount: 16.6 ml/hr Route: I.V. bolus Start: 9:28 AM Stop: 9:28 AM Medication: Brilinta Amount: 180 mg Route: P.O. I, the attending physician, have reviewed and verified all procedure medications. Yes, all medications given per verbal order History/Risk Factors Hypertension: Yes Dyslipidemia: No Peripheral Arterial Disease (PAD): No Myocardial Infarction (IL): No Obesity: Yes Renal Disease: No Prior Interventions PCI: No CABG: Yes Valve Surgery: No Report Signatures Finalized by Anson Gambino MD on 07/17/2024 06:50 PM
--- NOTE | 2024-07-12 07:43 | W.PM.OPSUD ---
Surgery/Procedure H&P Update DATE OF PROCEDURE: July 12, 2024 DATE H&P PERFORMED: 07/07/24 H&P UPDATE INFORMATION: I have reviewed H&P completed within last 30 days, I have examined patient prior to procedure and No changes to prior documentation PREOP DIAGNOSIS: Unstable angina/worsening of heart failure/LV dysfunction PLANNED PROCEDURE: Operation Date: 07/12/24 07:00 Proposed Procedures p Cardiac Catheterization(Left) - Narinder Pinon M.D PATIENT REASSESSED PRIOR TO SEDATION, WITH NO CHANGE NOTED: Yes PHYSICAL EXAM: alert, oriented x 3, clear to auscultation bilaterally, regular rate & rhythm and operative site marked AIRWAY EVAL/ANESTHESIA PLAN: ASA II, Risks, benefits & alternatives of sedation and/or procedure discussed and Patient agrees to continue as planned
--- NOTE | 2024-07-12 07:43 | PC.NURSE ---
Patient left CSU to environmental laboratory technician at 0715.
--- NOTE | 2024-07-12 10:20 | PC.NURSE ---
Patient transferred from blood bank laboratory technologist to U at 0950, with right groin sheath and agrastat running. Agrastat will run until 1100.
[2024-07-12] MEDS: metOLazone 5 MG Tablet 2.5 MG PO ×2 (11:58→17:39)
[2024-07-12] MEDS: FUROsemide 40 mg Tablet PO ×2 (11:59→17:39)
[2024-07-12] MEDS: aspirin 81 mg EC Tablet PO (11:59)
[2024-07-12] MEDS: potassium chloride ER 20 mEq Tablet 40 MEQ PO ×2 (11:59→17:39)
[2024-07-12 12:34] LABS: Partial Thromboplastin Time > 250.0 SECONDS (23.9-36.7)
--- NOTE | 2024-07-12 16:00 | P.PN_ITS ---
Documented by User: Maren Reid NP 07/12/24 16:02 Subjective 2 Subjective: Patient seen with Dr. Gambino still slightly sedated did discuss with family he received a stent to the mid LAD just distal to previously mid LAD RCA is chronically occluded saphenous vein graft to ramus is closed radial to diagonal is closed saphenous vein graft to OM is open. He is doing well post cath. Medications: Reviewed: Yes Vitals/I&O/Wt Last Vital Signs Temp 98.6 F 07/12/24 03:56 Pulse 79 07/12/24 10:29 Resp 14 07/12/24 09:35 BP 98/58 07/12/24 10:29 Pulse Ox 96 07/12/24 03:56 O2 Del Method Room Air 07/12/24 03:56 07/12/24 07/12/24 07/12/24 06:59 14:59 22:59 Intake Total 360 / 360 Output Total 900 / 2700 950 / 950 Balance -900 / -1780 -590 / -590 Weight last 48 hrs Weight 201 lb 6.4 oz Weight 203 lb 3.2 oz Physical Exam 2 Narrative: Appears well. No acute distress noted Data 07/13/24 02:56 07/13/24 02:56 A&P Assessment and plan (1) CHF (congestive heart failure), NYHA class IV: Continue current regimen. Qualifiers: Congestive heart failure chronicity: acute on chronic Congestive heart failure type: systolic Qualified Code(s): I50.23 - Acute on chronic systolic (congestive) heart failure (2) Chest pain: As stated above patient had a stent placed in the mid LAD just distal to the RITCHIE to LAD Qualifiers: Chest pain type: precordial pain Qualified Code(s): R07.2 - Precordial pain (3) HTN (hypertension): Well-controlled continue meds Qualifiers: Hypertension type: essential hypertension Qualified Code(s): I10 - Essential (primary) hypertension (4) Atrial flutter: Co continue therapeutic Lovenox dose, rate currently well-controlled and patient asymptomatic. Will restart on Eliquis tomorrow. Qualifiers: Atrial flutter type: typical Qualified Code(s): I48.3 - Typical atrial flutter Plan As above Attestations 2 Medical Necessity Statement*: I am expecting his stay to cross more than 2 midnight due to CHF exacerbation with unstable angina Coding Level of Care Code Acute Code for Chg Fwd Diagnoses Acute on chronic systolic congestive heart failure, NYHA class 4 I50.23 Congestive heart failure chronicity: acute on chronic Congestive heart failure type: systolic Precordial pain R07.2 Chest pain type: precordial pain Essential hypertension I10 Hypertension type: essential hypertension Typical atrial flutter I48.3 Atrial flutter type: typical Documented by User: Anson Gambino MD 07/13/24 08:29 Subjective 2 Subjective: Patient was evaluated and cared for in conjunction with an advanced practice practitioner. I personally examined the patient and reviewed the chart and all pertinent data including imaging, telemetry, and laboratory results. I discussed the patient in detail with the advanced practice practitioner. Please see their note for complete H&P testing result and agreed upon plan of care for the patient. 74-year-old male with worsening of heart failure unstable angina LV dysfunction was admitted to the hospital. He was diuresed effectively over next few days. Yesterday he underwent left heart catheterization after achieving euvolemia. He has a history of coronary artery bypass 20 years ago. He was noted to have patent RITCHIE to LAD however distal to the insertion of RITCHIE there was high-grade severe in-stent restenosis 90% which was the culprit lesion it was treated with balloon angioplasty followed by drug-eluting stent placement with excellent angiographic result and achievement of KENN-3 flow. Patient tolerated procedure well and he was transferred back to the room. 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 He was also noted to have patent saphenous venous graft to obtuse marginal. 2 other graft most likely radial to obtuse marginal or diagonal were chronically occluded, I will try to get his records which were not able to obtain. He was noted to have chronically occluded RCA as well. Physical Exam 2 Const: OTHER: GENERAL: Patient appeared to be little sleepy but able to communicate with me denies any chest pain. He was alert awake oriented x 3 HEART: Regular S1 and S2. No murmur, rub or gallop. LUNGS: Clear to auscultate bilaterally. CENTRAL NERVOUS SYSTEM: Grossly nonfocal. EXTREMITIES: Lower extremities with out edema bilaterally. Right groin looks good no hematoma Data 07/13/24 02:56 07/13/24 02:56 A&P Assessment and plan (1) CHF (congestive heart failure), NYHA class IV: Patient is euvolemic. Will switch patient to p.o. Lasix. Will start him on Entresto Qualifiers: Congestive heart failure chronicity: acute on chronic Congestive heart failure type: systolic Qualified Code(s): I50.23 - Acute on chronic systolic (congestive) heart failure (2) Chest pain: Status post PCI to mid LAD with drug-eluting stent for severe in-stent restenosis through left internal mammary artery graft. Continue dual antiplatelet therapy for at least 1 year. Qualifiers: Chest pain type: precordial pain Qualified Code(s): R07.2 - Precordial pain (3) HTN (hypertension): Qualifiers: Hypertension type: essential hypertension Qualified Code(s): I10 - Essential (primary) hypertension (4) Atrial flutter: Qualifiers: Atrial flutter type: typical Qualified Code(s): I48.3 - Typical atrial flutter Attestations 2 Medical Necessity Statement*: Patient will continue his admission for optimization of medicine and post cath PCI care Coding Level of Care Code Acute Code for Chg Fwd Diagnoses Acute on chronic systolic congestive heart failure, NYHA class 4 I50.23 Congestive heart failure chronicity: acute on chronic Congestive heart failure type: systolic Precordial pain R07.2 Chest pain type: precordial pain Essential hypertension I10 Hypertension type: essential hypertension Typical atrial flutter I48.3 Atrial flutter type: typical
[2024-07-12 16:54] LABS: Partial Thromboplastin Time 64.4 SECONDS (23.9-36.7)
[2024-07-12] MEDS: ticagrelor 90 mg Tablet PO (17:39)
[2024-07-12 19:24] LABS: Partial Thromboplastin Time 52.7 SECONDS (23.9-36.7)
[2024-07-12] MEDS: fentaNYL 50 mcg/mL INJ 2mL IVP (21:01)
--- NOTE | 2024-07-12 21:50 | PC.NURSE ---
Patients right groin sheath assessed according to protocol. Patient right groin sheath pulled at 2115. Site oozing during manual pressure until 21:22, after which pressure was held for 20min. No further oozing noted, no hematoma present. Dry dressing applied and PATIENT WAS INFORMED THAT HE IS TO REMAIN ON BEDREST FOR 6HOURS. Patient had no complaints at this time.
[2024-07-13] VITALS (27 sets, daily range): BP systolic 94–120; BP diastolic 51–76; PULSE 74–96; RESP 10–23; TEMP 36.4–36.7; O2SAT 90–100
--- NOTE | 2024-07-13 00:50 | PC.NURSE ---
Patient was noted to have some drainage on dressing during site checks. Drainage spot continued to expand so manual pressure was held again for 15min after which oozing appeared to stop, no new drainage noted on site checks after 23:00. New dressing was applied at 00:50.
--- NOTE | 2024-07-13 02:51 | ECG_ITS ---
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 Measurements Intervals [place] Rate: 101 P: 0 WV: 0 QRS: 88 QRSD: 161 T: -19 QT: 397 QTc: 515 Interpretive Statements ATRIAL FIBRILLATION WITH RAPID VENTRICULAR RESPONSE WITH ABERRANT CONDUCTION OR VENTRICULAR PREMATURE COMPLEXES RIGHT BUNDLE BRANCH BLOCK [120+ ms QRS DURATION, UPRIGHT V1, 40+ ms S IN I/aVL/V4/V5/V6] ST DEVIATION AND MODERATE T-WAVE ABNORMALITY, CONSIDER ANTEROLATERAL ISCHEMIA [-0.1+ mV T-WAVE IN V3-V6] Compared to ECG 07/10/2024 10:31:17 Ventricular premature complex(es) now present Aberrant conduction of supraventricular beat(s) now present T-wave abnormality still present Possible ischemia still present Electronically Signed On 07-15-2024 22:04:56 COMMERCIAL SALES REPRESENTATIVE by Narinder Pinon M.D. [id number]
[2024-07-13] MEDS: HYDROcodone-acetaminophen 5-325 mg Tablet 1 TAB PO (02:59)
[2024-07-13] MEDS: nitroglycerin 0.4 mg sublingual Tablet SUBLINGUAL ×3 (03:01→22:32)
--- NOTE | 2024-07-13 03:35 | PC.NURSE ---
Patient woke up to use urinal and states he started having chest pain at 02:45, sternal 8/10. Nurse obtained EKG and administered prn nitro sublingual and norco. After 15 min the chest pain started to subside and was gone ater 1/2 hr. The patient was advised to alert nurse immediately if chest pain returned. right groin site remains dry and intact.
[2024-07-13 03:56] LABS: Basophils # 0.2 10^3/uL (0.0-0.1); Basophils % 2.3 %; Eosinophils # 0.1 10^3/uL (0.0-0.8); Hematocrit 39.2 % (37-53); Lymphocytes # 1.8 10^3/uL (0.8-4.8); Lymphocytes % 20.5 %; Mean Corpuscular HGB Conc 32.9 g/dL (30-55); Mean Corpuscular Hemoglobin 29.1 pg (27-33); Mean Corpuscular Volume 88.5 fl (82-101); Mean Platelet Volume 11.7 fL (7.4-10.4); Monocytes # 2.3 10^3/uL (0.2-0.9); Monocytes % 25.9 %; Neutrophils # 4.39 10^3/uL (1.8-7.7); Neutrophils % 50.1 %; Nucleated Red Blood Cells % 0 %; Platelet Count 155 10^3/cmm (157-399); Red Blood Count 4.43 10^6/uL (3.85-5.65); Red Cell Distribution Width 14.1 % (12.1-15.1); White Blood Count 8.77 10^3/uL (3.29-11.43)
--- NOTE | 2024-07-13 03:59 | NPU.GN ---
Cardiac Stepdown Group Topic: General Mood of Group
[2024-07-13 04:19] LABS: Anion Gap 15.3 (5-19); Blood Urea Nitrogen 44 mg/dL (8-23); Calcium 9.2 mg/dL (8.5-10.5); Carbon Dioxide 31 mmol/L (22-29); Chloride 90 mmol/L (98-107); Creatinine Clr Calc Pharmacy 64.9225; Glucose 255 mg/dL (65-115); Osmolality Calculated 294 mOsm/kg (285-295); Potassium 4.3 mmol/L (3.5-5.1); Sodium 132 mmol/L (136-145)
--- NOTE | 2024-07-13 06:08 | PC.NURSE ---
Called and spoke with just to make him aware of patients episode of CP last night. Patient also has complaint of some mild angina this morning, 2/10 chest discomfort after getting OOB to have his bed changed. Chest discomfort relieved with rest. No new orders at this time.
[2024-07-13] MEDS: potassium chloride ER 20 mEq Tablet 40 MEQ PO ×2 (07:24→18:08)
[2024-07-13] MEDS: metOLazone 5 MG Tablet 2.5 MG PO ×2 (07:24→18:08)
[2024-07-13] MEDS: polyethylene glycol 3350 Pkt 17 gm PO (07:24)
[2024-07-13] MEDS: FUROsemide 40 mg Tablet PO ×2 (07:25→18:08)
[2024-07-13] MEDS: ticagrelor 90 mg Tablet PO ×2 (07:25→18:08)
[2024-07-13] MEDS: aspirin 81 mg EC Tablet PO (07:25)
--- NOTE | 2024-07-13 08:29 | P.PCN_ITS ---
Procedure Note: Date of procedure: 07/12/24 Pre-procedure diagnosis: Unstable angina worsening of heart failure history of CABG Post-procedure diagnosis: same Procedure: Status post PCI to mid LAD through RITCHIE for high-grade severe in-stent restenosis of previously placed stent with excellent angiographic result and confucianism of KENN-3 flow. Patient was also noted to have patent previously placed saphenous venous graft to OM. SVG to OM 2 or ramus intermedius is chronically occluded. Radial artery to possible diagonal chronically occluded please note that we do not have operative note from 24 years ago we will try to obtain. Full report to follow Plan: Continue dual antiplatelet therapy in the form of Brilinta and aspirin continue statin we will optimize guideline medical therapy for heart failure. Coding Level of Care Code Acute Code for Devin Peoples
--- NOTE | 2024-07-13 08:53 | PC.NURSE ---
Patient c/o chest pain 8. nitro given.
--- NOTE | 2024-07-13 09:01 | ECG_ITS ---
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 Measurements Intervals [place] Rate: 97 P: 0 IA: 0 QRS: 83 QRSD: 158 T: -13 QT: 427 QTc: 544 Interpretive Statements ATRIAL FIBRILLATION RIGHT BUNDLE BRANCH BLOCK [120+ ms QRS DURATION, UPRIGHT V1, 40+ ms S IN I/aVL/V4/V5/V6] INFERIOR MYOCARDIAL INFARCTION , PROBABLY OLD [40+ ms Q WAVE AND/OR ST/T ABNORMALITY IN II/aVF] ST DEVIATION AND MODERATE T-WAVE ABNORMALITY, CONSIDER ANTEROLATERAL ISCHEMIA [-0.1+ mV T-WAVE IN V3-V6] Compared to ECG 07/13/2024 02:53:12 Myocardial infarct finding now present Ventricular premature complex(es) no longer present T-wave abnormality still present Possible ischemia still present Electronically Signed On 07-15-2024 22:04:02 LOCOMOTIVE SWITCH OPERATOR by Narinder Pinon M.D. [id number]
--- NOTE | 2024-07-13 09:17 | XR_ITS ---
WS: [id number] Exam: XR chest 1V portable [id number] Date/Time of Exam: 07/13/2024 9:47 AM Reason For Exam: Chest pain Comparison 06/22/2024. Lungs are hyperinflated and clear. Mild cardiac enlargement unchanged. No pleural effusions. The medi astinum is normal in contour for technique. Signs of previous CABG surgery. Bony structures are intac t. XR/XR chest 1V portable 95000 IMPRESSION: 1. Pulmonary hyperinflation. No acute process noted.
[2024-07-13] MEDS: metoprolol succinate ER (24 HR) 25 mg Tablet 12.5 MG PO (09:43)
[2024-07-13 09:50] LABS: Cholesterol 106 mg/dL (0-200); HDL Cholesterol 39 mg/dL (60-100); Magnesium 2.1 mg/dL (1.7-2.3); Triglycerides 69 mg/dL (0-150)
[2024-07-13 09:51] LABS: Chol HDL Ratio 2.72 mg/dL (1.0-5.00); LDL Cholesterol Calculated 53 mg/dL (50-129); LDL HDL Ratio 1.36 RATIO (0.00-3.22)
--- NOTE | 2024-07-13 11:54 | PC.SOCIAL ---
IMM Update Pg. 2 of IMM updated. Initialed, dated, and timed, copy provided at bedside.
[2024-07-13] MEDS: magnesium hydroxide 30 mL UDC PO (12:56)
--- NOTE | 2024-07-13 14:30 | P.PN_ITS ---
<Statement entered by Anson Gambino MD - 07/14/24 08:00> Patient was evaluated and cared for in conjunction with an advanced practice practitioner. I personally examined the patient and reviewed the chart and all pertinent data including imaging, telemetry, and laboratory results. I discussed the patient in detail with the advanced practice practitioner. Please see their note for complete H&P testing result and agreed upon plan of care for the patient. Patient had mild chest pain with questionable anxiety GENERAL: Patient is alert, awake and oriented x3. HEART: Regular S1 and S2. No murmur, rub or gallop. LUNGS: Clear to auscultate bilaterally. CENTRAL NERVOUS SYSTEM: Grossly nonfocal. EXTREMITIES: Lower extremities with out edema bilaterally. Assessment and plan LV dysfunction Unstable angina Acute on chronic decompensated systolic heart failure Patient is status post PCI to mid LAD stent through RITCHIE, he has chronically occluded saphenous venous graft to either ramus intermedius or obtuse marginal 1 anatomy is not known no notes available, occluded arterial graft to unknown artery. RCA is chronically occluded Continue dual antiplatelet therapy Optimize guideline medical therapy for heart failure Switch to p.o. Lasix Possible discharge tomorrow Subjective 2 Subjective: Patient had some chest pressure this morning. He stated that he has had it throughout the night. He states it is not a pain but more of a pressure at the center of his chest. He states this is a 5 out of 10 on severity. Denies aggravating or relieving factors. Vital signs are stable except for he is still tachycardic with A-fib. This could be contributing to his chest pressure. He states he feels like he has some anxiety from time to time as well. EKG showed no acute changes patient is in A-fib rates above 100 but not in RVR. Medications: Reviewed: Yes Vitals/I&O/Wt Last Vital Signs Temp 97.5 F L 07/13/24 10:52 Pulse 94 07/13/24 10:52 Resp 20 H 07/13/24 10:52 BP 120/58 07/13/24 10:52 Pulse Ox 92 07/13/24 10:52 O2 Del Method Room Air 07/13/24 10:52 07/12/24 07/13/24 07/13/24 22:59 06:59 14:59 Intake Total 1200 / 1560 120 / 120 Output Total 800 / 1750 935 / 2685 Balance -800 / -1390 265 / -1125 120 / 120 Weight last 48 hrs Weight 201 lb 6.4 oz Weight 201 lb 6.4 oz Physical Exam 2 Narrative: Patient states he has chest pressure that is constant Const: OTHER: GENERAL: Patient appeared to be little sleepy but able to communicate with me denies any chest pain. He was alert awake oriented x 3 HEART: Regular S1 and S2. No murmur, rub or gallop. LUNGS: Clear to auscultate bilaterally. CENTRAL NERVOUS SYSTEM: Grossly nonfocal. EXTREMITIES: Lower extremities with out edema bilaterally. Right groin looks good no hematoma Data 07/13/24 02:56 07/13/24 02:56 A&P Assessment and plan (1) CHF (congestive heart failure), NYHA class IV: Patient has slight crackles, Continue PO lasix with metolazone. Will start him on Entresto. Will watch pressures Qualifiers: Congestive heart failure chronicity: acute on chronic Congestive heart failure type: systolic Qualified Code(s): I50.23 - Acute on chronic systolic (congestive) heart failure (2) Chest pain: Status post PCI to mid LAD with drug-eluting stent for severe in-stent restenosis through left internal mammary artery graft. Continue dual antiplatelet therapy with aspirin and Brilinta. We will add Eliquis. He will have triple therapy for 7 days. After the 7 days we will switch him to Brilinta and Eliquis. After 1 year patient will go back on Eliquis and aspirin. Qualifiers: Chest pain type: precordial pain Qualified Code(s): R07.2 - Precordial pain (3) HTN (hypertension): Well-controlled continue meds Qualifiers: Hypertension type: essential hypertension Qualified Code(s): I10 - Essential (primary) hypertension (4) Atrial flutter: Will restart Eliquis. Rate slightly under controlled. Will add metoprolol 12.5 Qualifiers: Atrial flutter type: typical Qualified Code(s): I48.3 - Typical atrial flutter Plan As above Attestations 2 Medical Necessity Statement*: Patient will continue his admission for optimization of medicine and post cath PCI care Coding Level of Care Code Acute Code for [facility] Fwd Diagnoses Acute on chronic systolic congestive heart failure, NYHA class 4 I50.23 Congestive heart failure chronicity: acute on chronic Congestive heart failure type: systolic Precordial pain R07.2 Chest pain type: precordial pain Essential hypertension I10 Hypertension type: essential hypertension Typical atrial flutter I48.3 Atrial flutter type: typical
--- NOTE | 2024-07-13 15:27 | PC.NURSE ---
Patient refused suppository earlier. Patient reports having several small BMs since received MOM as ordered and documented. Maren Reid NP was notified.
[2024-07-13] MEDS: sacubitril/valsartan 24-26 mg Tablet 1 EACH PO (18:08)
[2024-07-13] MEDS: apixaban 5 mg Tablet PO (20:14)
[2024-07-14] VITALS (54 sets, daily range): BP systolic 59–145; BP diastolic 38–63; PULSE 73–105; RESP 3–34; TEMP 36.6–36.8; O2SAT 95–96
--- NOTE | 2024-07-14 02:00 | PC.NURSE ---
pt bp low. physcian called and received orders for 500ml bolus.
[2024-07-14] MEDS: sodium chloride 0.9% 500 ML 999 ML IV (02:33)
[2024-07-14 04:10] LABS: Basophils # 0.2 10^3/uL (0.0-0.1); Basophils % 1.8 %; Eosinophils # 0.2 10^3/uL (0.0-0.8); Eosinophils % 2.3 %; Hematocrit 35.1 % (37-53); Lymphocytes # 1.1 10^3/uL (0.8-4.8); Lymphocytes % 12.9 %; Mean Corpuscular HGB Conc 33.6 g/dL (30-55); Mean Corpuscular Hemoglobin 29.4 pg (27-33); Mean Corpuscular Volume 87.5 fl (82-101); Mean Platelet Volume 10.8 fL (7.4-10.4); Monocytes # 1.7 10^3/uL (0.2-0.9); Monocytes % 19.2 %; Neutrophils # 5.48 10^3/uL (1.8-7.7); Neutrophils % 63.5 %; Nucleated Red Blood Cells % 0 %; Platelet Count 133 10^3/cmm (157-399); Red Blood Count 4.01 10^6/uL (3.85-5.65); Red Cell Distribution Width 14.2 % (12.1-15.1); White Blood Count 8.65 10^3/uL (3.29-11.43)
--- NOTE | 2024-07-14 04:17 | PC.NURSE ---
bp still low even after bolus of 500mls. called physician and received new orders for ns.
[2024-07-14] MEDS: sodium chloride 0.9% 1,000 ML 100 ML IV ×2 (04:26→15:04)
[2024-07-14 04:40] LABS: Anion Gap 13.1 (5-19); Blood Urea Nitrogen 52 mg/dL (8-23); Calcium 8.6 mg/dL (8.5-10.5); Carbon Dioxide 31 mmol/L (22-29); Chloride 89 mmol/L (98-107); Creatinine Clr Calc Pharmacy 51.0105; Glucose 231 mg/dL (65-115); Osmolality Calculated 289 mOsm/kg (285-295); Potassium 4.1 mmol/L (3.5-5.1); Sodium 129 mmol/L (136-145)
[2024-07-14] MEDS: pantoprazole DR 40 mg Tablet PO (10:07)
[2024-07-14] MEDS: potassium chloride ER 20 mEq Tablet 40 MEQ PO ×2 (10:08→17:36)
[2024-07-14] MEDS: polyethylene glycol 3350 Pkt 17 gm PO (10:08)
[2024-07-14] MEDS: ticagrelor 90 mg Tablet PO ×2 (10:08→17:40)
[2024-07-14] MEDS: aspirin 81 mg EC Tablet PO (10:08)
[2024-07-14] MEDS: apixaban 5 mg Tablet PO ×2 (10:09→20:12)
--- NOTE | 2024-07-14 10:15 | P.PN_ITS ---
Subjective 2 Subjective: Patient had hypotension last night. Currently getting a fluid bolus blood pressures have improved. Will hold blood pressure medication including Lasix and metolazone this morning as well as Entresto. He denies any chest pain at this time. That has resolved. Medications: Reviewed: Yes Vitals/I&O/Wt Last Vital Signs Temp 98.3 F 07/14/24 08:00 Pulse 80 07/14/24 08:00 Resp 20 H 07/14/24 08:00 BP 84/52 07/14/24 08:00 Pulse Ox 96 07/14/24 08:00 O2 Del Method Room Air 07/14/24 08:00 07/13/24 07/14/24 07/14/24 22:59 06:59 14:59 Intake Total 590 / 1070 700 / 1770 360 / 360 Output Total 900 / 900 350 / 1250 750 / 750 Balance -310 / 170 350 / 520 -390 / -390 Weight last 48 hrs Weight 201 lb 6.4 oz Weight 201 lb 6.4 oz Physical Exam 2 Narrative: General: No apparent distress, healthy appearing, well nourished HENMT: normoceophalic Eye: PERRL Neck: No carotid bruit bilaterally Muskuloskeletal: Full ROM Lymphatic: no lymphedema noted Respiratory: Normal respiratory effort, clear throughout except for fine crackles bilateral lower lobes, no use of accessory muscles Cardio: No JVD, regular rate, regular rhythm, S1 S2 normal, no murmurs, peripheral pulses 2+ throughout GI: Normal to inspection, nondistended Extremities: Full ROM, normal, normal capillary refill, no cyanosis or edema Neuro: Alert and oriented x4, no focal motor deficits Psych: Affect normal, denies suicidal ideation, mental status grossly normal Skin: Cath site clean dry intact no evidence of hematoma Data 07/14/24 03:59 07/14/24 03:59 A&P Assessment and plan (1) CHF (congestive heart failure), NYHA class IV: Patient has slight crackles, overall euvolemic. Creatinine at 1.4 will hold on diuretics at this time. Will hold Entresto and blood pressure medications this morning. May restart metoprolol if blood pressure improves. Patient is actually sinus rhythm now heart rate controlled. Qualifiers: Congestive heart failure type: systolic Congestive heart failure chronicity: acute on chronic Qualified Code(s): I50.23 - Acute on chronic systolic (congestive) heart failure (2) Chest pain: Status post PCI to mid LAD with drug-eluting stent for severe in-stent restenosis through left internal mammary artery graft. Continue dual antiplatelet therapy with aspirin and Brilinta. We will add Eliquis. He will have triple therapy for 7 days. After the 7 days we will switch him to Brilinta and Eliquis. After 1 year patient will go back on Eliquis and aspirin. Chest pain resolved. Qualifiers: Chest pain type: precordial pain Qualified Code(s): R07.2 - Precordial pain (3) HTN (hypertension): Well-controlled continue meds Qualifiers: Hypertension type: essential hypertension Qualified Code(s): I10 - Essential (primary) hypertension (4) Atrial flutter: Will restart Eliquis. Rate now controlled sinus rhythm. Holding morning dose of metoprolol at this time due to hypotension. Qualifiers: Atrial flutter type: typical Qualified Code(s): I48.3 - Typical atrial flutter Plan As above Attestations 2 Medical Necessity Statement*: Patient will continue his admission for optimization of medicine and post cath PCI care Coding Level of Care Code Acute Code for [facility] Fwd Diagnoses Acute on chronic systolic congestive heart failure, NYHA class 4 I50.23 Congestive heart failure type: systolic Congestive heart failure chronicity: acute on chronic Precordial pain R07.2 Chest pain type: precordial pain Essential hypertension I10 Hypertension type: essential hypertension Typical atrial flutter I48.3 Atrial flutter type: typical
--- NOTE | 2024-07-14 11:48 | PC.NURSE ---
Patients blood pressure has continued to be hypotensive. Maps in the 50's to 60's throughout the night. Manual BP of 70/48. Dr. Gambino and Maren Reid notified. Received orders to start patient on Levophed gtt. Nurse will continue to monitor. Patient is awake, alert, and oriented at this time.
[2024-07-14] MEDS: norepinephrine 4 MG/250 ML BAG 7.5 MG IV (11:55)
--- NOTE | 2024-07-14 16:08 | PC.NURSE ---
Report called to [facility], aware of transfer and is waiting in ICU waiting room. Patient is stable upon departure to ICU.
[2024-07-14 16:24] LABS: Bilirubin Urine Negative (Negative); Blood Urine Negative (Negative); Glucose Urine UA 2+ (Normal); Ketones Urine Negative (Negative); Leukocyte Esterase Urine Negative (Negative); Nitrate Urine Negative (Negative); Protein Urine Negative (Negative); Specific Gravity, Urine 1.019 (1.005-1.030); Urine Appearance Clear (CLEAR); Urine Color Yellow (Yellow); pH Urine 7.5 (5-7)
[2024-07-14 16:34] LABS: Add Urine Microscopic? YES; Bacteria Urine None Seen /hpf; Hyaline Casts Urine 3.71 /lpf; RBC Urine 0-2 /hpf (0-2); Squamous Epithelial Cell Urine 0-5 /hpf (0-5); WBC Urine 0-5 /hpf (0-5)
[2024-07-14 17:36] LABS: Glucose Point of Care 302 mg/dL (70-110)
[2024-07-14] MEDS: insulin lispro 100 unit/1 mL SUBCUT ×2 (17:36→20:12)
[2024-07-14 17:42] LABS: Basophils # 0.2 10^3/uL (0.0-0.1); Basophils % 2.1 %; Eosinophils # 0.2 10^3/uL (0.0-0.8); Eosinophils % 2.5 %; Hematocrit 37.8 % (37-53); Lymphocytes # 1.7 10^3/uL (0.8-4.8); Lymphocytes % 17.8 %; Mean Corpuscular HGB Conc 33.3 g/dL (30-55); Mean Corpuscular Hemoglobin 28.8 pg (27-33); Mean Corpuscular Volume 86.5 fl (82-101); Mean Platelet Volume 11.3 fL (7.4-10.4); Monocytes # 1.8 10^3/uL (0.2-0.9); Monocytes % 18.2 %; Neutrophils # 5.72 10^3/uL (1.8-7.7); Nucleated Red Blood Cells % 0 %; Platelet Count 171 10^3/cmm (157-399); Red Blood Count 4.37 10^6/uL (3.85-5.65); Red Cell Distribution Width 14.2 % (12.1-15.1); White Blood Count 9.68 10^3/uL (3.29-11.43)
[2024-07-14 18:11] LABS: Anion Gap 13.5 (5-19); Blood Urea Nitrogen 48 mg/dL (8-23); Calcium 8.7 mg/dL (8.5-10.5); Carbon Dioxide 27 mmol/L (22-29); Chloride 92 mmol/L (98-107); Creatinine Clr Calc Pharmacy 71.4148; Glucose 302 mg/dL (65-115); Osmolality Calculated 290 mOsm/kg (285-295); Potassium 4.5 mmol/L (3.5-5.1); Sodium 128 mmol/L (136-145)
[2024-07-14 20:31] LABS: Glucose Point of Care 305 mg/dL (70-110)
[2024-07-14] MEDS: norepinephrine 4 MG/250 ML BAG 22.5 MG IV (22:00)
[2024-07-15] VITALS (90 sets, daily range): BP systolic 61–126; BP diastolic 41–82; PULSE 60–108; RESP 5–37; TEMP 36.3–36.7; O2SAT 94–98
[2024-07-15] MEDS: sodium chloride 0.9% 1,000 ML 100 ML IV ×2 (00:45→21:00)
[2024-07-15 03:23] LABS: Basophils # 0.2 10^3/uL (0.0-0.1); Basophils % 1.6 %; Eosinophils # 0.3 10^3/uL (0.0-0.8); Eosinophils % 2.4 %; Hematocrit 36.7 % (37-53); Lymphocytes # 1.3 10^3/uL (0.8-4.8); Lymphocytes % 11.6 %; Mean Corpuscular HGB Conc 32.7 g/dL (30-55); Mean Corpuscular Hemoglobin 28.7 pg (27-33); Mean Corpuscular Volume 87.8 fl (82-101); Mean Platelet Volume 11.7 fL (7.4-10.4); Monocytes # 2.1 10^3/uL (0.2-0.9); Monocytes % 18.7 %; Neutrophils % 65.2 %; Nucleated Red Blood Cells % 0 %; Platelet Count 149 10^3/cmm (157-399); Red Blood Count 4.18 10^6/uL (3.85-5.65); Red Cell Distribution Width 14.2 % (12.1-15.1); White Blood Count 11.04 10^3/uL (3.29-11.43)
[2024-07-15 03:53] LABS: Anion Gap 12.4 (5-19); Blood Urea Nitrogen 41 mg/dL (8-23); Carbon Dioxide 27 mmol/L (22-29); Chloride 97 mmol/L (98-107); Creatinine Clr Calc Pharmacy 71.4148; Glucose 191 mg/dL (65-115); Osmolality Calculated 289 mOsm/kg (285-295); Potassium 4.4 mmol/L (3.5-5.1); Sodium 132 mmol/L (136-145)
[2024-07-15 08:30] LABS: Glucose Point of Care 210 mg/dL (70-110)
[2024-07-15] MEDS: insulin lispro 100 unit/1 mL SUBCUT ×4 (08:40→20:49)
[2024-07-15] MEDS: potassium chloride ER 20 mEq Tablet 40 MEQ PO ×2 (08:41→18:43)
[2024-07-15] MEDS: apixaban 5 mg Tablet PO ×2 (08:41→20:49)
[2024-07-15] MEDS: polyethylene glycol 3350 Pkt 17 gm PO (08:41)
[2024-07-15] MEDS: aspirin 81 mg EC Tablet PO (08:41)
[2024-07-15] MEDS: pantoprazole DR 40 mg Tablet PO (08:41)
[2024-07-15] MEDS: ticagrelor 90 mg Tablet PO ×2 (08:41→18:43)
[2024-07-15 11:25] LABS: Glucose Point of Care 320 mg/dL (70-110)
--- NOTE | 2024-07-15 14:20 | PC.SOCIAL ---
IMM Update pg 2 of IMM Updated and reviewed w/ patient. Copy provided. Copy dated, initialed and placed in chart.
[2024-07-15 18:09] LABS: Glucose Point of Care 249 mg/dL (70-110)
--- NOTE | 2024-07-15 18:44 | ECG_ITS ---
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 Measurements Intervals [place] Rate: 100 P: -77 WV: 188 QRS: 79 QRSD: 165 T: -50 QT: 404 QTc: 523 Interpretive Statements ECTOPIC ATRIAL TACHYCARDIA WITH FREQUENT SUPRAVENTRICULAR PREMATURE COMPLEXES IN A BIGEMINAL PATTERN RIGHT BUNDLE BRANCH BLOCK [120+ ms QRS DURATION, UPRIGHT V1, 40+ ms S IN I/aVL/V4/V5/V6] ST DEVIATION AND MARKED T-WAVE ABNORMALITY, CONSIDER ANTEROLATERAL ISCHEMIA [-0.5+ mV T-WAVE IN I/aVL/V3-V6] Compared to ECG 07/13/2024 09:01:42 Atrial fibrillation no longer present Myocardial infarct finding no longer present T-wave abnormality still present Possible ischemia still present Electronically Signed On 07-15-2024 21:54:23 CRANE ASSEMBLER by Narinder Pinon M.D. [id number]
[2024-07-15] MEDS: nitroglycerin 0.4 mg sublingual Tablet SUBLINGUAL (18:50)
--- NOTE | 2024-07-15 18:55 | PC.NURSE ---
C/O chest pain, EKG performed, prn nitro per OCT, Dr. Tom came to bedside added metoprolol per oct
[2024-07-15] MEDS: metoprolol succinate ER (24 HR) 25 mg Tablet 12.5 MG PO (19:19)
--- NOTE | 2024-07-15 20:07 | P.PN_ITS ---
Subjective 2 Subjective: Blood pressure has improved off Levophed, had episode of chest pain this morning when going to the bathroom heart rate has been creeping up it appeared to me that patient has premature atrial contraction and atrial tachycardia Medications: Reviewed: Yes Vitals/I&O/Wt Last Vital Signs Temp 97.4 F L 07/15/24 04:00 Pulse 96 07/15/24 18:00 Resp 17 07/15/24 18:00 BP 111/53 07/15/24 18:00 Pulse Ox 97 07/15/24 17:00 O2 Del Method Room Air 07/15/24 04:00 07/15/24 07/15/24 07/15/24 06:59 14:59 22:59 Intake Total 1235.375 / 3205.375 420 / 420 250 / 670 Output Total 1101 / 2501 1000 / 1000 Balance 134.375 / 704.375 420 / 420 -750 / -330 Weight last 48 hrs Weight 202 lb 13.204 oz Weight 201 lb 6.4 oz Physical Exam 2 Const: COMMON NORMALS: alert OTHER: GENERAL: Patient is alert, awake and oriented x3. HEART: Regular S1 and S2. No murmur, rub or gallop. LUNGS: Clear to auscultate bilaterally. CENTRAL NERVOUS SYSTEM: Grossly nonfocal. EXTREMITIES: Lower extremities with out edema bilaterally. Resp: COMMON NORMALS: clear to auscultation bilaterally AUSCULTATION: clear to auscultation bilaterally Neuro: SENSORIUM/ORIENTATION: Yes alert Urinary Catheter Management: Ramirse: Cath Placed During This Visit: yes Reason for Continuing Indwelling Catheter: Accurate Measurement of Urinary Output in Critically Ill Patients Urinary Catheter Date of Insertion: 07/14/24 Urinary Catheter Time of Insertion: 15:30 Data 07/15/24 02:20 07/15/24 02:20 A&P Assessment and plan (1) CHF (congestive heart failure), NYHA class IV: Patient has slight crackles, overall euvolemic. Creatinine at 1.4 will hold on diuretics at this time. Will hold Entresto and blood pressure medications this morning. May restart metoprolol if blood pressure improves. Patient is actually sinus rhythm now heart rate controlled. Qualifiers: Congestive heart failure type: systolic Congestive heart failure chronicity: acute on chronic Qualified Code(s): I50.23 - Acute on chronic systolic (congestive) heart failure (2) Chest pain: Patient had episode of chest pain this morning. Will start back on the metoprolol as it is possible patient has been feeling chest pressure when he goes into atrial flutter or tachycardia. Will bring back metoprolol however if he continues to have may chest pains may will take him back to the [facility] on Thursday morning for second look angiogram since he continues to have off-and-on chest pain. Will start back on metoprolol 12.5 mg continue aspirin statin beta- paula and Brilinta Qualifiers: Chest pain type: precordial pain Qualified Code(s): R07.2 - Precordial pain (3) HTN (hypertension): Remains on the lower side but improving Qualifiers: Hypertension type: essential hypertension Qualified Code(s): I10 - Essential (primary) hypertension (4) Atrial flutter: Continue Eliquis at [facility] Qualifiers: Atrial flutter type: typical Qualified Code(s): I48.3 - Typical atrial flutter Plan As above Attestations 2 Medical Necessity Statement*: Patient remains hypotensive continues to have off-and-on chest pain. Patient required optimization of medicine for which he need to stay in the hospital Coding Level [facility] Diagn[facility] Acute on chronic systolic congestive heart failure, NYHA class 4 I50.23 Congestive heart failure type: systolic Congestive heart failure chronicity: acute on chronic Precordial pain R07.2 Chest pain type: precordial pain Essential hypertension I10 Hypertension type: essential hypertension Typical atrial flutter I48.3 Atrial flutter type: typical
[2024-07-15 20:42] LABS: Glucose Point of Care 319 mg/dL (70-110)
[2024-07-16] VITALS (37 sets, daily range): BP systolic 77–113; BP diastolic 41–66; PULSE 71–78; RESP 9–20; TEMP 36.1–36.6
[2024-07-16] MEDS: sodium chloride 0.9% 1,000 ML 100 ML IV ×2 (06:41→17:45)
[2024-07-16 08:09] LABS: Glucose Point of Care 153 mg/dL (70-110)
[2024-07-16] MEDS: polyethylene glycol 3350 Pkt 17 gm PO (08:17)
[2024-07-16] MEDS: insulin lispro 100 unit/1 mL SUBCUT ×4 (08:17→20:19)
[2024-07-16] MEDS: aspirin 81 mg EC Tablet PO (08:18)
[2024-07-16] MEDS: pantoprazole DR 40 mg Tablet PO (08:18)
[2024-07-16] MEDS: metoprolol succinate ER (24 HR) 25 mg Tablet 12.5 MG PO (08:18)
[2024-07-16] MEDS: apixaban 5 mg Tablet PO ×2 (08:18→20:19)
[2024-07-16] MEDS: potassium chloride ER 20 mEq Tablet 40 MEQ PO ×2 (08:18→17:43)
[2024-07-16] MEDS: ticagrelor 90 mg Tablet PO ×2 (08:18→17:43)
[2024-07-16 11:29] LABS: Glucose Point of Care 248 mg/dL (70-110)
--- NOTE | 2024-07-16 16:43 | P.PN_ITS ---
Subjective 2 Subjective: Remained stable but blood pressure still is on the lower side. Patient was started on beta-paula last night since then no more chest pain heart rate into the 70s blood pressure around 90s Medications: Reviewed: Yes Vitals/I&O/Wt Last Vital Signs Temp 97.0 F L 07/16/24 04:00 Pulse 74 07/16/24 16:00 Resp 13 07/16/24 16:00 BP 94/55 07/16/24 16:00 Pulse Ox 97 07/15/24 17:00 O2 Del Method Room Air 07/15/24 04:00 07/16/24 07/16/24 07/16/24 06:59 14:59 22:59 Intake Total 968.333 / 2878.333 200 / 200 Output Total 650 / 2100 Balance 318.333 / 778.333 200 / 200 Weight last 48 hrs Weight 206 lb 2.115 oz Weight 202 lb 13.204 oz Physical Exam 2 Const: COMMON NORMALS: alert OTHER: GENERAL: Patient is alert, awake and oriented x3. HEART: Regular S1 and S2. No murmur, rub or gallop. LUNGS: Clear to auscultate bilaterally. CENTRAL NERVOUS SYSTEM: Grossly nonfocal. EXTREMITIES: Lower extremities with out edema bilaterally. Resp: COMMON NORMALS: clear to auscultation bilaterally AUSCULTATION: clear to auscultation bilaterally Neuro: SENSORIUM/ORIENTATION: Yes alert Urinary Catheter Management: Ramires: Cath Placed During This Visit: yes Reason for Continuing Indwelling Catheter: Accurate Measurement of Urinary Output in Critically Ill Patients Urinary Catheter Date of Insertion: 07/14/24 Urinary Catheter Time of Insertion: 15:30 Data 07/15/24 02:20 07/15/24 02:20 A&P Assessment and plan (1) CHF (congestive heart failure), NYHA class IV: Remained euvolemic, continue to monitor. Hold diuretics because of hypotension, holding guideline medical therapy since patient was not tolerating Entresto Qualifiers: Congestive heart failure type: systolic Congestive heart failure chronicity: acute on chronic Qualified Code(s): I50.23 - Acute on chronic systolic (congestive) heart failure (2) Chest pain: Patient had episode of chest pain this morning. Will start back on the metoprolol as it is possible patient has been feeling chest pressure when he goes into atrial flutter or tachycardia. Will bring back metoprolol however if he continues to have may chest pains may will take him back to the [facility] on Thursday morning for second look angiogram since he continues to have off-and-on chest pain. Will start back on metoprolol 12.5 mg continue aspirin statin beta- paula and Brilinta. Today's visit dated 07/16/2024 patient denies chest pain since metoprolol was started continue metoprolol. Continue to monitor continue dual antiplatelet therapy. Qualifiers: Chest pain type: precordial pain Qualified Code(s): R07.2 - Precordial pain (3) HTN (hypertension): Remains hypotensive, continue to hold Entresto and diuretic Qualifiers: Hypertension type: essential hypertension Qualified Code(s): I10 - Essential (primary) hypertension (4) Atrial flutter: Continue Eliquis and metoprolol Qualifiers: Atrial flutter type: typical Qualified Code(s): I48.3 - Typical atrial flutter Plan As above Attestations 2 Medical Necessity Statement*: Require continuation of hospitalization for above defined care. Coding Level of Care Code Acute Code for [facility] Diagnoses Acute on chronic systolic congestive heart failure, NYHA class 4 I50.23 Congestive heart failure type: systolic Congestive heart failure chronicity: acute on chronic Precordial pain R07.2 Chest pain type: precordial pain Essential hypertension I10 Hypertension type: essential hypertension Typical atrial flutter I48.3 Atrial flutter type: typical
[2024-07-16 17:29] LABS: Glucose Point of Care 183 mg/dL (70-110)
--- NOTE | 2024-07-16 18:18 | PC.NURSE ---
Foly removed per v.o. from Dr. Tom, plan to monitor over weekend due to softer bps
[2024-07-16 20:18] LABS: Glucose Point of Care 218 mg/dL (70-110)
[2024-07-17] VITALS (24 sets, daily range): BP systolic 88–118; BP diastolic 50–65; PULSE 0–82; RESP 9–19; TEMP 36.2–36.7; O2SAT 98–100
[2024-07-17] MEDS: sodium chloride 0.9% 1,000 ML 100 ML IV (03:45)
[2024-07-17 08:21] LABS: Glucose Point of Care 145 mg/dL (70-110)
[2024-07-17] MEDS: insulin lispro 100 unit/1 mL SUBCUT ×4 (08:22→20:30)
[2024-07-17] MEDS: pantoprazole DR 40 mg Tablet PO (08:51)
[2024-07-17] MEDS: aspirin 81 mg EC Tablet PO (08:51)
[2024-07-17] MEDS: ticagrelor 90 mg Tablet PO ×2 (08:51→17:20)
[2024-07-17] MEDS: potassium chloride ER 20 mEq Tablet 40 MEQ PO ×2 (08:51→17:20)
[2024-07-17] MEDS: metoprolol succinate ER (24 HR) 25 mg Tablet 12.5 MG PO (08:51)
[2024-07-17] MEDS: apixaban 5 mg Tablet PO ×2 (08:53→20:28)
[2024-07-17 11:14] LABS: Glucose Point of Care 280 mg/dL (70-110)
[2024-07-17 17:05] LABS: Glucose Point of Care 206 mg/dL (70-110)
--- NOTE | 2024-07-17 17:17 | P.PN_ITS ---
Subjective 2 Subjective: Blood pressure remained on the lower side but he is off the Levophed. Denies any chest pain heart rate remains under control. Medications: Reviewed: Yes Vitals/I&O/Wt Last Vital Signs Temp 97.4 F L 07/17/24 04:00 Pulse 77 07/17/24 12:00 Resp 15 07/17/24 09:00 BP 91/54 07/17/24 11:00 Pulse Ox 97 07/15/24 17:00 O2 Del Method Room Air 07/15/24 04:00 07/17/24 07/17/24 07/17/24 06:59 14:59 22:59 Intake Total 1120 / 2840 650 / 650 Output Total 2 / 802 Balance 1118 / 2038 650 / 650 Weight last 48 hrs Weight 92 lb 8 oz Weight 206 lb 2.115 oz Physical Exam 2 Const: COMMON NORMALS: alert OTHER: GENERAL: Patient is alert, awake and oriented x3. HEART: Regular S1 and S2. No murmur, rub or gallop. LUNGS: Clear to auscultate bilaterally. CENTRAL NERVOUS SYSTEM: Grossly nonfocal. EXTREMITIES: Lower extremities with out edema bilaterally. Resp: COMMON NORMALS: clear to auscultation bilaterally AUSCULTATION: clear to auscultation bilaterally Neuro: SENSORIUM/ORIENTATION: Yes alert Urinary Catheter Management: Ramires: Cath Placed During This Visit: yes Reason for Continuing Indwelling Catheter: Accurate Measurement of Urinary Output in Critically Ill Patients Urinary Catheter Date of Insertion: 07/14/24 Urinary Catheter Time of Insertion: 15:30 Data 07/15/24 02:20 07/15/24 02:20 A&P Assessment and plan (1) CHF (congestive heart failure), NYHA class IV: Remained euvolemic, continue to monitor. Hold diuretics because of hypotension, holding guideline medical therapy since patient was not tolerating Entresto. On today's visit dated 07/17/2024 patient blood pressure remains on the lower side therefore we will keep on holding Entresto keep on holding diuretics since he is euvolemic and making good urine Qualifiers: Congestive heart failure type: systolic Congestive heart failure chronicity: acute on chronic Qualified Code(s): I50.23 - Acute on chronic systolic (congestive) heart failure (2) Chest pain: Patient had episode of chest pain this morning. Will start back on the metoprolol as it is possible patient has been feeling chest pressure when he goes into atrial flutter or tachycardia. Will bring back metoprolol however if he continues to have may chest pains may will take him back to the [facility] on Thursday morning for second look angiogram since he continues to have off-and-on chest pain. Will start back on metoprolol 12.5 mg continue aspirin statin beta- paula and Brilinta. Today's visit dated 07/16/2024 patient denies chest pain since metoprolol was started continue metoprolol. Continue to monitor continue dual antiplatelet therapy. On today's visit dated 07/17/2024 patient denies any more chest pain continue dual antiplatelet. Continue beta-paula Qualifiers: Chest pain type: precordial pain Qualified Code(s): R07.2 - Precordial pain (3) HTN (hypertension): Remains hypotensive, continue to hold Entresto and diuretic Patient was hypotensive I will add midodrine Qualifiers: Hypertension type: essential hypertension Qualified Code(s): I10 - Essential (primary) hypertension (4) Atrial flutter: Will continue beta-paula Qualifiers: Atrial flutter type: typical Qualified Code(s): I48.3 - Typical atrial flutter Plan As above Attestations 2 Medical Necessity Statement*: Patient can move out of the unit after Levophed add midodrine. Patient remains hypotensive requiring continuation of hospitalization for optimization of medicine and guideline medical therapy for heart failure Coding Level of Care Code Acute Code for [facility] Diagnoses Acute on chronic systolic congestive heart failure, NYHA class 4 I50.23 Congestive heart failure type: systolic Congestive heart failure chronicity: acute on chronic Precordial pain R07.2 Chest pain type: precordial pain Essential hypertension I10 Hypertension type: essential hypertension Typical atrial flutter I48.3 Atrial flutter type: typical
[2024-07-17] MEDS: midodrine 5 mg TABLET 10 MG PO (20:28)
[2024-07-17 21:15] LABS: Glucose Point of Care 214 mg/dL (70-110)
[2024-07-18] VITALS (39 sets, daily range): BP systolic 83–122; BP diastolic 41–84; PULSE 59–125; RESP 10–25; TEMP 36.8–38.3; O2SAT 91–100; BMI 29.9
[2024-07-18] MEDS: sodium chloride 0.9% 1,000 ML 100 ML IV ×2 (02:47→21:43)
[2024-07-18 06:43] LABS: Glucose Point of Care 208 mg/dL (70-110)
[2024-07-18 07:53] LABS: Glucose Point of Care 197 mg/dL (70-110)
[2024-07-18 07:56] LABS: Glucose Point of Care 205 mg/dL (70-110)
[2024-07-18] MEDS: insulin lispro 100 unit/1 mL SUBCUT ×4 (08:29→21:23)
[2024-07-18] MEDS: potassium chloride ER 20 mEq Tablet 40 MEQ PO (08:30)
[2024-07-18] MEDS: polyethylene glycol 3350 Pkt 17 gm PO (08:30)
[2024-07-18] MEDS: ticagrelor 90 mg Tablet PO (08:30)
[2024-07-18] MEDS: aspirin 81 mg EC Tablet PO (08:30)
[2024-07-18] MEDS: pantoprazole DR 40 mg Tablet PO (08:30)
[2024-07-18] MEDS: midodrine 5 mg TABLET 10 MG PO (08:30)
--- NOTE | 2024-07-18 08:33 | PC.NURSE ---
Patient AO to self, responses are slow and delayed, weaker motor function, very foul smelling urine, Dr. Tom came to bedside and is to consult hospitalist
--- NOTE | 2024-07-18 08:35 | XRR_ITS ---
PROCEDURE INFORMATION: Exam: XR Chest Exam date and time: 07/18/2024 8:58 AM Age: 74 years old Clinical indication: Fever; Prior surgery; Surgery date: 6+ months; Surgery type: Open heart TECHNIQUE: Imaging protocol: Radiologic exam of the chest. Views: 1 view. COMPARISON: CR XR chest 1V portable [id number] 07/13/2024 9:50 AM FINDINGS: Lungs: Unremarkable. No consolidation. Pleural spaces: Unremarkable. No pleural effusion. No pneumothorax. Heart/Mediastinum: The heart is enlarged. Sternal wires are present from prior cardiac surgery. Is calcified plaque involving the aorta. Bones/joints: Unremarkable. XR/XR chest 1V portable [id number] IMPRESSION: 1. Cardiomegaly.
[2024-07-18] MEDS: apixaban 5 mg Tablet PO (08:37)
[2024-07-18 08:39] LABS: Bilirubin Urine Negative (Negative); Blood Urine 3+ (Negative); Glucose Urine UA Negative (Normal); Ketones Urine Negative (Negative); Leukocyte Esterase Urine 1+ (Negative); Nitrate Urine Positive (Negative); Protein Urine Trace (Negative); Specific Gravity, Urine 1.018 (1.005-1.030); Urine Appearance Cloudy (CLEAR)
[2024-07-18 08:39] LABS: Alanine Aminotransferase 18 U/L (0-41); Albumin Level 2.9 g/dL (3.5-5.2); Alkaline Phosphatase 143 U/L (40-130); Anion Gap 16.4 (5-19); Aspartate Amino Transferase 33 U/L (0-40); Blood Urea Nitrogen 28 mg/dL (8-23); Calcium 8.3 mg/dL (8.5-10.5); Carbon Dioxide 19 mmol/L (22-29); Chloride 102 mmol/L (98-107); Creatinine Clr Calc Pharmacy 65.9394; Globulin 3.7 g/dL (1.3-4.6); Glucose 222 mg/dL (65-115); Osmolality Calculated 288 mOsm/kg (285-295); Potassium 4.4 mmol/L (3.5-5.1); Sodium 133 mmol/L (136-145); Total Bilirubin 3.4 mg/dL (0.15-1.2); Total Protein 6.6 g/dL (6.6-8.7)
[2024-07-18] MEDS: metoprolol succinate ER (24 HR) 25 mg Tablet 12.5 MG PO (08:40)
[2024-07-18 08:43] LABS: Hematocrit 33.7 % (37-53); Mean Corpuscular HGB Conc 32.9 g/dL (30-55); Mean Corpuscular Hemoglobin 29.4 pg (27-33); Mean Corpuscular Volume 89.2 fl (82-101); Mean Platelet Volume 11.9 fL (7.4-10.4); Platelet Count 150 10^3/cmm (157-399); Red Blood Count 3.78 10^6/uL (3.85-5.65); Red Cell Distribution Width 15.1 % (12.1-15.1); White Blood Count 15.71 10^3/uL (3.29-11.43)
[2024-07-18 08:44] LABS: Add Urine Microscopic? YES; Bacteria Urine EXCEEDS /hpf; Hyaline Casts Urine 28.53 /lpf; Squamous Epithelial Cell Urine 0-5 /hpf (0-5); WBC Urine 21-50 /hpf (0-5)
[2024-07-18 08:51] LABS: Absolute Eosinophils 0.3 10^3/cmm (0.0-0.7); Absolute Segmented Neutrophil 11.9 10/cmm (1.6-7.1); Eosinophils 2 %; Lymphocytes 10 %; Monocytes Absolute 1.7 10^3/cmm (0.1-0.6); Segmented Neutrophils 76 %; Total Cells Counted 100 (0-100)
[2024-07-18 08:52] LABS: Absolute Neutrophil 11.9 10^3/cmm (1.4-6.5); Lymphocytes Absolute 1.6 10^3/cmm (1.2-3.4); Platelet Estimate Normal (Normal)
[2024-07-18 09:24] LABS: Add Urine Culture? Yes; UA Slide Review UA Slide Review Perf; Urine Color Orange (Yellow)
[2024-07-18] MEDS: cefTRIAXone 1,000 mg SDV 1000 MG IVP (09:43)
--- NOTE | 2024-07-18 10:09 | ECG_ITS ---
[facility] Test Date: 2024-07-18 Pat Name: Taran Higuera Department: Room: ICU03 Gender: Male [employer]: : 1950 Requested By: Yvan Wiggins Order Number: [id number] Bebe MD: Natasha Gonzalez M.D. Measurements Intervals [place] Rate: 106 P: -80 IL: 180 QRS: 84 QRSD: 171 T: -69 QT: 333 QTc: 443 Interpretive Statements ECTOPIC ATRIAL TACHYCARDIA WITH FREQUENT SUPRAVENTRICULAR PREMATURE COMPLEXES IN A BIGEMINAL PATTERN RIGHT BUNDLE BRANCH BLOCK [120+ ms QRS DURATION, UPRIGHT V1, 40+ ms S IN I/aVL/V4/V5/V6] MARKED ST DEPRESSION, CONSIDER SUBENDOCARDIAL INJURY [0.2+ mV ST DEPRESSION] ACUTE PR Compared to ECG 07/15/2024 18:46:59 ST (T wave) deviation now present T-wave abnormality no longer present Possible ischemia no longer present Electronically Signed On 07-18-2024 19:33:12 STAFF INTERNIST OFFICE BASED ONLY by Natasha Gonzalez M.D. [email or web address]
--- NOTE | 2024-07-18 10:24 | P.CONIM_ITS ---
Providers/Reason For Consult 2 Consulting Physician/Specialty*: Yvan Gudino MD, hospitalist Reason for Consult*: Possible infection Requesting Physician: Dr. Gambino Attending Physician: Anson Gambino MD Primary Care Provider: Mildred Grewal MD History of Present Illness History of Present Illness Taran Higuera is a 74 year old male who presented as an admission on July 07 with atrial flutter. He has a history of cardiomyopathy, ischemic with a previous EF of 30 to 35%, diabetes mellitus, neuropathy, aortic stenosis, DJD, hyperlipidemia with statin intolerance, peripheral vascular disease among other problems. He was diuresed. Once he was compensated on July 12 he underwent an angiogram. He received a mid LAD stent. This was addressed through his [facility]ITCHIE. In the last several days he has had some lower blood pressures, that required Levophed. This is improved but he still has some tachycardia, now temperature of 100.2, and concern of UTI. He is confused this morning, and there is concern of delirium. Nurse relates they had to cath him this morning for urinalysis. He has had midodrine added, for blood pressure support. He did not tolerate Entresto when it was tried for his CHF. Review of Systems 2 General: Reports: 10 or more systems reviewed and unremarkable except in HPI and below Medications/Allergies Home Medications Medication Instructions Recorded Confirmed Last Taken Type acetaminophen 500 mg tablet 500 mg PO Q6H PRN Pain 09/25/20 07/06/24 07/06/24 02:00 History aspirin 81 mg tablet,delayed 81 mg PO DAILY 09/25/20 07/06/24 07/06/24 08:00 History release (Adult Low Dose Aspirin) Diabetic Shoes with 3 Pairs of #1 ea 11/19/22 07/07/24 Unknown Rx Inserts blood-glucose meter (OneTouch #1 ea 02/27/23 07/06/24 Unknown Rx Ultra2 Meter) apixaban 5 mg tablet (Eliquis) 5 mg PO BID #180 tabs 01/06/24 07/06/24 07/06/24 08:00 Rx metoprolol succinate 25 mg 25 mg PO DAILY #90 tabs 01/06/24 07/06/24 07/06/24 08:00 Rx tablet,extended release 24 hr nitroglycerin 0.4 mg sublingual See Rx Instructions .Route 03/24/24 07/06/24 07/06/24 12:25 Rx tablet .COMPLEX #25 tabs blood sugar diagnostic (OneTouch #100 ea 03/29/24 07/06/24 Unknown Rx Ultra Test strips) cabergoline 0.5 mg tablet 0.25 mg (1/2 x 0.5 mg) PO Q7D 30 05/04/24 07/06/24 07/02/24 08:00 Rx days #3 tabs evolocumab 140 mg/mL subcutaneous See Rx Instructions .Route 05/23/24 07/06/24 06/25/24 08:00 Rx pen injector (Mare [place]ogie) .COMPLEX #6 mL bumetanide 2 mg tablet 2 mg PO DAILY #30 tabs 06/20/24 07/06/24 07/06/24 08:00 Rx glimepiride 4 mg tablet 4 mg PO DAILY 06/21/24 07/06/24 07/06/24 08:00 History potassium chloride 20 mEq 20 meq PO BID 06/22/24 07/06/24 07/05/24 21:00 History tablet,extended release(part/cryst) (Klor-Con M) furosemide 40 mg tablet 40 mg PO DAILY 07/06/24 07/06/24 07/05/24 21:00 History Allergies Allergy/AdvReac Type Severity Reaction Status Date / Time atorvastatin [From Lipitor] Allergy Unknown Unknown Verified 07/06/24 12:38 diclofenac [From Arthrotec] Allergy Unknown Unknown Verified 07/06/24 12:38 misoprostol [From Arthrotec] Allergy Unknown Unknown Verified 07/06/24 12:38 pravastatin Allergy Unknown Unknown Verified 07/06/24 12:38 risedronate sodium Allergy Unknown Unknown Verified 07/06/24 12:38 [From Actonel] rosuvastatin [From Crestor] Allergy Unknown Unknown Verified 07/06/24 12:38 semaglutide [From Ozempic] Allergy Unknown Unknown Verified 07/06/24 12:38 fosinopril AdvReac Mild Cough Verified 07/06/24 12:38 lovastatin [From Mevacor] AdvReac Mild Myalgia Verified 07/06/24 12:38 Current Medications Generic Name Dose Route Start Last Admin Trade Name Freq PRN Reason Stop Dose Admin Apixaban 5 mg 07/13/24 21:00 07/18/24 08:37 Apixaban 5 Mg Tablet PO 5 mg BID@0900,2100 [place] Administration Aspirin 81 mg 07/07/24 09:00 07/18/24 08:30 Aspirin 81 Mg Ec Tablet PO 81 mg DAILY [place] Administration Ceftriaxone Sodium 1,000 mg 07/18/24 09:45 07/18/24 09:43 Ceftriaxone 1,000 Mg Sdv IVP 1,000 mg Q24H [place] Administration Protocol Sodium Chloride 1,000 mls @ 100 mls/hr 07/14/24 04:15 07/18/24 08:30 Sodium Chloride 0.9% IV Not Given .Q10H [place] Norepinephrine Bitartrate 4 mg in 250 mls @ 0 mls/hr 07/14/24 11:45 07/15/24 06:46 Levophed IV 1 mcg/min .Q0M [place] 3.75 mls/hr Titration Protocol Per Protocol Insulin Human Lispro 0 unit 07/14/24 18:00 07/18/24 08:29 Insulin Lispro 100 Unit/1 Ml SUBCUT 4 unit WM&BEDTIME [place] Administration Protocol Magnesium Hydroxide 30 ml 07/12/24 09:35 07/13/24 12:56 Magnesium Hydroxide 30 Ml Udc PO 30 ml DAILY PRN Administration CONSTIPATION Metoprolol Succinate 12.5 mg 07/15/24 18:54 07/18/24 08:40 Metoprolol Succinate Er (24 Hr) 25 Mg Tablet PO 12.5 mg DAILY [place] Administration Midodrine 10 mg 07/17/24 21:00 07/18/24 08:30 Midodrine 5 Mg Tablet PO 10 mg TID [place] Administration Nitroglycerin 0.4 mg 07/07/24 08:15 07/15/24 18:50 Nitroglycerin 0.4 Mg Sublingual Tablet SUBLINGUAL 0.4 mg PRN PRN Administration CHEST PAIN Pantoprazole Sodium 40 mg 07/14/24 09:00 07/18/24 08:[address] 40 Mg Tablet PO 40 mg DAILY [place] Administration Polyethylene Glycol 17 gm 07/09/24 13:25 07/18/24 08:30 Polyethylene Glycol 3350 Pkt 17 Gm PO 17 gm DAILY [place] Administration Potassium Chloride 40 meq 07/08/24 09:00 07/18/24 08:30 Potassium Chloride Er 20 Meq Tablet PO 40 meq BID [place] Administration Ticagrelor 90 mg 07/12/24 18:00 07/18/24 08:30 Ticagrelor 90 Mg Tablet PO 90 mg BID [place] Administration PFSH Acute 2 PFSH: Medical History Cellulitis of right lower leg Aortic stenosis Neuropathy Bilateral lower extremity edema Hyperlipidemia Degenerative disc disease Statin intolerance Chronic anticoagulation Microalbuminuria due to type 2 diabetes mellitus Cardiac LV ejection fraction 30-35% Diabetes mellitus Atrial flutter Shortness of breath Atrial fibrillation CAD (coronary artery disease) HTN (hypertension) PVD (peripheral vascular disease) CHF (congestive heart failure) Surgical History S/P hernia repair S/P arterial stent (~2002) History of hand surgery (~2013) S/P CABG (coronary artery bypass graft) (~2000) Family History Father Cancer Sister Cancer Brother Cancer Lung CA Mother COPD (chronic obstructive pulmonary disease) Social History Smoking and tobacco/nicotine status: former use of tobacco/nicotine Alcohol intake: never Substance/Drug Use: never Lives independently: Yes Household members: spouse Marital status: Vitals/I&O/Wt Last Vital Signs Temp 101 F H 07/18/24 08:36 Pulse 118 H 07/18/24 08:00 Resp 25 H 07/18/24 08:00 BP 102/58 07/18/24 08:00 Pulse Ox 91 07/18/24 08:00 O2 Del Method Room Air 07/18/24 04:00 07/17/24 07/18/24 07/18/24 22:59 06:59 14:59 Intake Total 500 / 1150 800 / 1950 Output Total 200 / 200 Balance 500 / 1150 600 / 1750 Weight last 48 hrs Weight 94.5 kg Weight 41.957 kg Physical Exam 2 Narrative: General Exam is a conversive confused white male who will follow some directions. HEENT: Oropharynx clear Neck is supple Cardiovascular tachycardic, irregularly irregular, with a 2/6 systolic murmur Lungs clear Abdomen is soft nontender exam deferred Extremities show venous stasis changes, difficult to feel pulses, cap refill less than 2 seconds Neuro no obvious focal deficits Skin venous stasis changes as noted above, some excoriations in his lower extremities. Urinary Catheter Management: Ramires: Cath Placed During This Visit: yes Reason for Continuing Indwelling Catheter: Accurate Measurement of Urinary Output in Critically Ill Patients Urinary Catheter Date of Insertion: 07/14/24 Urinary Catheter Time of Insertion: 15:30 Data 07/18/24 07:52 07/18/24 07:52 Other Labs: LFTs are normal with the exception of his bilirubin which is 2.9. This has been elevated in the past. Alk phos is also 143. Urinalysis shows positive nitrates 1+ leukocyte esterase 21-50 white blood cells Chest x-ray which I reviewed, demonstrates previous coronary artery disease with bypass grafting, no acute infiltrate I have ordered a blood culture EKG demonstrates atrial tachycardia with occasional skipped beat. Some ST depression. Right bundle. A&P Assessment and plan (1) Delirium: Patient has evidence of acute delirium With temperature elevation, elevated white blood cell count, abnormal urinalysis this is likely secondary to UTI Initiate Rocephin 1 g IV every 24 hours, see below Monitor for improvement Secondary to low platelets, elevated INR in the past we will go ahead and check an ammonia level, and an INR currently. Cannot completely rule out cirrhosis Doubt CO2 retention Monitor closely for improvement. If this does not improve consider CT head noncontrast Check TSH, B12, folate (2) UTI (urinary tract infection): Patient with evidence of UTI as above Rocephin 1 g IV every 24 hours Blood and urine cultures Renal ultrasound, rule out obstruction as he has a small amount of blood in his urine. This will also check for urinary retention. (3) Ischemic cardiomyopathy: Followed by cardiology, recent procedure Plan Multiple other medical problems as outlined in his past medical history. Thank you for this consultation, we will continue to follow Diagnoses Delirium R41.0 UTI (urinary tract infection) N39.0 Ischemic cardiomyopathy I25.5 Time Spent (min) 54
--- NOTE | 2024-07-18 10:34 | US_ITS ---
WS: [id number] Complete ABDOMINAL ULTRASOUND HISTORY: UTI. Elevated Bili. Low plt COMPARISON: 02/24/2023, Liver: 15.4 cm in length. Normal size liver with coarse echotexture. No mass identified. Surface of t he liver is irregular suggesting cirrhosis. No intrahepatic duct dilatation. Portal Vein: Normal hepatopetal flow with monophasic waveform. Gallbladder: Well-distended gallbladder with cholelithiasis. Numerous stones in the gallbladder. CBD: 0.2 cm Pancreas: Completely obscured by bowel gas. Right kidney: 11.6 cm x 4.8 x 6.8 cm. Cortex:1.1 cm. Normal size and echogenicity. No hydronephrosis or mass. Left kidney: 12.3 cm x 5.4 cm x 5.5 cm. Cortex: 1.1 cm. Normal size and echogenicity. No hydronephrosis or mass. Spleen: 11.4 cm. Normal size and echogenicity. Aorta and IVC: Unremarkable abdominal aorta and IVC. US/US abdomen complete* [id number] Impression: 1. Cholelithiasis without evidence for acute cholecystitis by imaging. 2. Coarse hepatic echotexture. Suspect cirrhosis. 3. No bile duct dilatation. 4. No renal obstruction.
--- NOTE | 2024-07-18 11:16 | ECG_ITS ---
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 Measurements Intervals [place] Rate: 125 P: 0 CA: 0 QRS: 87 QRSD: 166 T: -32 QT: 281 QTc: 406 Interpretive Statements ATRIAL FIBRILLATION WITH RAPID VENTRICULAR RESPONSE RIGHT BUNDLE BRANCH BLOCK [120+ ms QRS DURATION, UPRIGHT V1, 40+ ms S IN I/aVL/V4/V5/V6] MARKED ST DEPRESSION, CONSIDER SUBENDOCARDIAL INJURY [0.2+ mV ST DEPRESSION] ACUTE RI Compared to ECG 07/18/2024 10:09:32 No significant changes Electronically Signed On 07-18-2024 19:33:25 [employer] by Natasha Gonzalez M.D. [id number]
[2024-07-18] MEDS: haloperidol inj 5 mg/mL INJ 1 mL IM (11:17)
[2024-07-18 11:35] LABS: Glucose Point of Care 182 mg/dL (70-110)
[2024-07-18 11:38] LABS: Ammonia 109 umol/L (16-60)
[2024-07-18 11:38] LABS: Folate Level 7.5 ng/mL (4.5-32.2)
[2024-07-18 11:39] LABS: Vitamin B12 1070 pg/mL (232-1245)
[2024-07-18 11:40] LABS: INR 1.94 (0.8-1.2)
[2024-07-18 11:49] LABS: Troponin(5th) Baseline 124 ng/L (0-15)
--- NOTE | 2024-07-18 11:49 | PC.NURSE ---
patient became very uncooperative, not staying in bed and not directable. increased ST depression noticed on monitor patient diaphoretic, STEMI alert called. Terese Orta gave to for Hall, Dr. 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
[2024-07-18] MEDS: amiodarone 150 MG/100 ML PREMIX 400 MG IV (11:53)
[2024-07-18] MEDS: haloperidol inj 5 mg/mL INJ 1 mL (11:53)
[2024-07-18] MEDS: norepinephrine 4 MG/250 ML BAG 30 MG IV (12:00)
--- NOTE | 2024-07-18 12:14 | W.PM.OPSUD ---
Surgery/Procedure H&P Update DATE OF PROCEDURE: July 18, 2024 DATE H&P PERFORMED: 07/07/24 H&P UPDATE INFORMATION: I have reviewed H&P completed within last 30 days, I have examined patient prior to procedure and Changes to prior documentation as noted here CHANGES TO PREVIOUS DOCUMENTATION: Patient was admitted for CHF exacerbation and chest pain. He was diuresed and taken to the cardiac cath lab technologist and undewent PCI to the mid LAD just distal to his RITCHIE to LAD graft which was found patent. He was doing ok post cath, but developed UTI causing confustion. He now has EKG changes consistent with ST depression in V1-V6. Patient was taken for emergent heart cath due to worsening EKG changes. Tropoinin increased at 124. Consent was obtained from the family due to patient confusion. He may require anesthesia. Dr. Gambino evaluated patient with me as well and has updated the family of risk and benefits. They agree to proceed. PREOP DIAGNOSIS: Unstable angina/worsening of heart failure/LV dysfunction PRIMARY INDICATION FOR PROCEDURE: EKG changes, possible STEMI PLANNED PROCEDURE: Operation Date: 07/12/24 07:00 Proposed Procedures p Cardiac Catheterization(Left) - Narinder Pinon M.D
--- NOTE | 2024-07-18 12:50 | PM.PROC ---
Procedure Note: Date of procedure: 07/18/24 Pre-procedure diagnosis: Dynamic EKG changes with confusion Post-procedure diagnosis: other (Patent LAD stent, no other significant stenosis) Procedure: Patient was taken for left heart catheterization due to dynamic EKG changes and confusion thought to be acute coronary syndrome: RITCHIE to LAD showed patent previously placed mid LAD stent. RCA was nondominant no significant stenosis, radial artery graft to obtuse marginal was patent. Patient has known chronically occluded saphenous venous graft to diagonal and possible ramus. As compared to the prior left heart cath when patient had placed stent in the mid LAD for high-grade in-stent restenosis that stent remains patent at there is no new significant disease responsible for his etiology of confusion. Performing Provider: Anson Gambino Estimated blood loss (mL): 0 Complications: None Coding Level of Care Code Acute Code for Chg Fwd
--- NOTE | 2024-07-18 12:53 | PM.PN ---
Subjective Subjective: Patient appeared to be agitated and confused. Twelve-lead EKG was consistent with A-fib and fast heart rate with anterolateral ST depression question whether it is ischemic versus repolarization abnormality since patient has stent to LAD and because of the fact he is confused it took the patient to the Associate Embalmer/Funeral Director, he has patent previously placed mid LAD stent no new other stenosis more than what is described in my previous cath report few days ago was noted. Most likely etiology for confusion is metabolic. Medicine has been consulted appreciate consultation. Medications: Reviewed: Yes Vitals/I&O/Wt Last Vital Signs Temp 101 F H 07/18/24 08:36 Pulse 117 H 07/18/24 11:00 Resp 14 07/18/24 11:00 BP 94/80 07/18/24 12:00 Pulse Ox 98 07/18/24 11:00 O2 Del Method Room Air 07/18/24 04:00 07/17/24 07/18/24 07/18/24 22:59 06:59 14:59 Intake Total 500 / 1150 800 / 1950 Output Total 200 / 200 Balance 500 / 1150 600 / 1750 Weight last 48 hrs Weight 208 lb 5.389 oz Weight 92 lb 8 oz Physical Exam Const: COMMON NORMALS: alert OTHER: GENERAL: Patient is agitated and confused. HEART: Irregularly irregular S1 and S2. No murmur, rub or gallop. LUNGS: Clear to auscultate bilaterally. CENTRAL NERVOUS SYSTEM: Grossly nonfocal. EXTREMITIES: Lower extremities with out edema bilaterally. Resp: COMMON NORMALS: clear to auscultation bilaterally AUSCULTATION: clear to auscultation bilaterally Neuro: SENSORIUM/ORIENTATION: Yes alert Urinary Catheter Management: Ramires: Cath Placed During This Visit: yes Reason for Continuing Indwelling Catheter: Accurate Measurement of Urinary Output in Critically Ill Patients Urinary Catheter Date of Insertion: 07/14/24 Urinary Catheter Time of Insertion: 15:30 Data 07/18/24 07:52 07/18/24 07:52 Micro: Microbiology 07/18/24 11:02 Blood Culture - Preliminary Blood SPECIMEN COLLECTED 07/18/24 11:02 Blood Culture - Preliminary Blood SPECIMEN COLLECTED A&P Assessment and plan (1) CHF (congestive heart failure), NYHA class IV: Remained euvolemic, continue to monitor. Hold diuretics because of hypotension, holding guideline medical therapy since patient was not tolerating Entresto. On today's visit dated 07/17/2024 patient blood pressure remains on the lower side therefore we will keep on holding Entresto keep on holding diuretics since he is euvolemic and making good urine Qualifiers: Congestive heart failure type: systolic Congestive heart failure chronicity: acute on chronic Qualified Code(s): I50.23 - Acute on chronic systolic (congestive) heart failure (2) Chest pain: Recent stent to mid LAD continue dual antiplatelet therapy in the form of aspirin and Brilinta. Hold Eliquis for now due to high INR. Qualifiers: Chest pain type: precordial pain Qualified Code(s): R07.2 - Precordial pain (3) HTN (hypertension): Patient remains hypotensive agree with Levophed Qualifiers: Hypertension type: essential hypertension Qualified Code(s): I10 - Essential (primary) hypertension (4) Atrial flutter: Will start patient on amiodarone to control the heart rate Qualifiers: Atrial flutter type: typical Qualified Code(s): I48.3 - Typical atrial flutter (5) Mental status alteration: Possible metabolic encephalopathy after discussing with Dr. Gudino who is more concerned about liver failure status versus UTI sepsis. Rule out for acute coronary syndrome or active ischemia with left heart cath. Awaiting further results. Medicine on board. Family has been discussed in detail regarding patient treatment. Continue antibiotics. Hold anticoagulation due to high INR Plan As above Attestations Medical Necessity Statement*: Patient require continuation hospitalization in the ICU for above defined care. Coding Level of Care Code Acute Code for [facility] Fwd Diagnoses Acute on chronic systolic congestive heart failure, NYHA class 4 I50.23 Congestive heart failure type: systolic Congestive heart failure chronicity: acute on chronic Precordial pain R07.2 Chest pain type: precordial pain Essential hypertension I10 Hypertension type: essential hypertension Typical atrial flutter I48.3 Atrial flutter type: typical Mental status alteration R41.82
--- NOTE | 2024-07-18 13:03 | PC.NURSE ---
back from labor standards director
[2024-07-18 13:09] LABS: Glucose Point of Care 227 mg/dL (70-110)
[2024-07-18] MEDS: dexmedeTOMIDine 0.9 % NaCL 400 MCG/100 ML PREMIX IV (13:30)
[2024-07-18 13:38] LABS: Hepatitis A Antibody IgM Non-Reactive (Nonreactive); Hepatitis B Core IgM Non-Reactive (Nonreactive); Hepatitis B Surface Antigen Non-Reactive (Nonreactive); Hepatitis C Virus Antibody Non-Reactive (Nonreactive)
--- NOTE | 2024-07-18 13:51 | PM.MISC ---
Miscellaneous Note Note: Called to help with sedation for cardiac cath for noncooperative patient with STEMI. Unable to obtain history and physical prior to anesthesia due to emergent status
--- NOTE | 2024-07-18 13:53 | ANE.PACU2 ---
Inpatient post-anesthesia follow up: Airway intact: Yes Vital signs: Temperature 101 F Pulse Rate 117 Respiratory Rate 14 Blood Pressure [Le ft Arm] 98/58 Blood Pressure 94/80 Pulse Oximetry 98 Oxygen Delivery Me thod Room Air Oxygen Flow Rate Fraction of Inspir ed Oxygen Hydration adequate: Yes Nausea and vomiting: No Pain level: 1 Mental status: Baseline
[2024-07-18 14:06] LABS: Troponin 5 2HR 249.4 ng/L (0-15); Troponin 5 2HR Delta 125.4 ABS# (0-10)
--- NOTE | 2024-07-18 16:20 | ECG_ITS ---
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 Measurements Intervals [place] Rate: 70 P: -75 CT: 204 QRS: 82 QRSD: 147 T: 100 QT: 462 QTc: 501 Interpretive Statements ECTOPIC ATRIAL RHYTHM RIGHT BUNDLE BRANCH BLOCK [120+ ms QRS DURATION, UPRIGHT V1, 40+ ms S IN I/aVL/V4/V5/V6] MODERATE T-WAVE ABNORMALITY, CONSIDER LATERAL ISCHEMIA [-0.1+ mV T-WAVE IN I/aVL/V5/V6] Compared to ECG 07/18/2024 11:16:50 Ectopic atrial rhythm now present.T-wave abnormality now present Possible ischemia now present .Atrial fibrillation no longer present ST (T wave) deviation no longer present Electronically Signed On 07-18-2024 19:33:52 [employer] CONTROL COORDINATOR by Natasha Gonzalez M.D. [id number]
[2024-07-18] MEDS: norepinephrine 4 MG/250 ML BAG 60 MG IV (17:30)
[2024-07-18 17:47] LABS: Glucose Point of Care 256 mg/dL (70-110)
--- NOTE | 2024-07-18 17:56 | PC.NURSE ---
having to go up on levo to maintain bp, patient groans with stimulation and not following commands, received orders from Dr. Gudino see orders
[2024-07-18 18:51] LABS: Basophils # 0.2 10^3/uL (0.0-0.1); Basophils % 0.8 %; Eosinophils % 0.1 %; Hematocrit 34.4 % (37-53); Lymphocytes # 1.6 10^3/uL (0.8-4.8); Lymphocytes % 5.8 %; Mean Corpuscular HGB Conc 31.4 g/dL (30-55); Mean Corpuscular Hemoglobin 29.3 pg (27-33); Mean Corpuscular Volume 93.5 fl (82-101); Mean Platelet Volume 12.1 fL (7.4-10.4); Monocytes # 3.9 10^3/uL (0.2-0.9); Monocytes % 14.1 %; Neutrophils # 21.81 10^3/uL (1.8-7.7); Neutrophils % 78.4 %; Nucleated Red Blood Cells % 0 %; Platelet Count 171 10^3/cmm (157-399); Red Blood Count 3.68 10^6/uL (3.85-5.65); Red Cell Distribution Width 15.6 % (12.1-15.1); White Blood Count 27.83 10^3/uL (3.29-11.43)
[2024-07-18 19:18] LABS: Troponin 5 6HR 687.2 ng/L (0-15); Troponin 5 6HR Delta 563.2 ng/L (0-12)
[2024-07-18 19:22] LABS: Alanine Aminotransferase 18 U/L (0-41); Albumin Level 2.8 g/dL (3.5-5.2); Alkaline Phosphatase 126 U/L (40-130); Anion Gap 21.9 (5-19); Aspartate Amino Transferase 53 U/L (0-40); Blood Urea Nitrogen 36 mg/dL (8-23); Calcium 8.4 mg/dL (8.5-10.5); Carbon Dioxide 17 mmol/L (22-29); Chloride 103 mmol/L (98-107); Creatinine Clr Calc Pharmacy 72.5333; Globulin 3.9 g/dL (1.3-4.6); Glucose 217 mg/dL (65-115); Osmolality Calculated 299 mOsm/kg (285-295); Potassium 4.9 mmol/L (3.5-5.1); Sodium 137 mmol/L (136-145); Total Bilirubin 2.8 mg/dL (0.15-1.2); Total Protein 6.7 g/dL (6.6-8.7)
--- NOTE | 2024-07-18 19:49 | PC.NURSE ---
Precedex: Precedex running @0.2 mcg/kg/hr on arrival to shift @1844, MAR edited to reflect this.
--- NOTE | 2024-07-18 20:00 | PC.NURSE ---
Restraints: Restraints not on at this time, pt is resting with eyes closed.
--- NOTE | 2024-07-18 20:09 | PC.NURSE ---
Physician Notification: Called Dr. Gambino @1910 to notify of L. groin site oozing, current vitals, reached max dose on Levophed, and Amio stopped on dayshi. New order to give 500ml Fluid Bolus NOW, continue NS @100ml/hr, and call back post fluid bolus. 500ml fluid bolus given from bag at bedside. Dr. Gambino called @ approximately 2004 to update post IV fluid bolus. New order for vasopressin to be started if MAP is less than 60. Dr. Gambino made aware that all medications are going in peripheral IVs- Dr. Tom wants to hold off on central line at this time.
--- NOTE | 2024-07-18 20:22 | PC.NURSE ---
IV Fluids: NS running @100ml/hr on arrival to shift @1845, MAR edited to reflect this. Approximately 700 ml in NS bag.
--- NOTE | 2024-07-18 20:41 | PC.NURSE ---
L. Hand IV: 18G in L. Hand present on arrival to shift, insertion time unknown.
[2024-07-18] MEDS: norepinephrine 4 MG/250 ML BAG 75 MG IV (20:52)
[2024-07-18 21:15] LABS: Glucose Point of Care 234 mg/dL (70-110)
--- NOTE | 2024-07-18 21:26 | PHA.VACGOAL ---
Vancomycin Goal - Goal Vancomycin Goal:: 15-20 mg/L Vancomycin Indication:: Other - Therapy Current therapy:: Pip/Tazo, Other Antibiotic (RIFAXIMIN) Day of therpy:: Day 1 of [] Actual body weight (kg): 208 lb 5.389 oz - Data Labs: WBC 27.83 10^3/uL (3.29-11.43) H 07/18/24 18:35 Corrected WBC Cancelled 07/18/24 07:52 RBC 3.68 10^6/uL (3.85-5.65) L 07/18/24 18:35 Hgb 10.80 g/dL (11.27-16.99) L 07/18/24 18:35 Hct 34.4 % (37-53) L 07/18/24 18:35 MCV 93.5 fl (82-101) 07/18/24 18:35 MCH 29.3 pg (27-33) 07/18/24 18:35 MCHC 31.4 g/dL (30-55) 07/18/24 18:35 RDW 15.6 % (12.1-15.1) H 07/18/24 18:35 Sodium 137 mmol/L (136-145) 07/18/24 18:35 Potassium 4.9 mmol/L (3.5-5.1) 07/18/24 18:35 Chloride 103 mmol/L (98-107) 07/18/24 18:35 Carbon Dioxide 17 mmol/L (22-29) L 07/18/24 18:35 Anion Gap 21.9 (5-19) H 07/18/24 18:35 BUN 36 mg/dL (8-23) H 07/18/24 18:35 Creatinine 1.0 mg/dL (0.7-1.2) 07/18/24 18:35 GFR Calculation Not Reportable 07/18/24 18:35 Laboratory Tests 07/18/24 18:35 WBC 27.83 H Treatment plan:: new consult Regimen:: LOADING DOSE OF 3g X1 PER DOSING PROTOCOL MAINTENANCE DOSE OF 1250 MG Q12H Follow up:: WILL CONTINUE TO MONITOR AND FOLLOW UP DAILY
[2024-07-18] MEDS: vancomycin 3,000 MG/600 ML PIGGYBACK 200 MG IV (21:35)
[2024-07-18] MEDS: piperacillin-tazobactam 3.375 GM in sodium chloride 0.9% (plus) 50 ML IV (21:38)
--- NOTE | 2024-07-18 23:17 | PC.NURSE ---
PO Medications: Due to AMS and lethargy pt is unable to take Lactulose 30gm and Midodrine 10mg scheduled for 2099, Dr. Diaz made aware @2099 dose non-admin.
[2024-07-19] VITALS (91 sets, daily range): BP systolic 80–129; BP diastolic 44–74; PULSE 55–80; RESP 10–37; TEMP 36.3–36.8; O2SAT 79–100
[2024-07-19] MEDS: norepinephrine 4 MG/250 ML BAG 63.75 MG IV (00:20)
--- NOTE | 2024-07-19 00:28 | PC.NURSE ---
Restless/Agitation: Pt awoke at approximately 0020, attempting to get out of bed, not following safety instructions. Extremely restless and agitated. Pt will not answer any orientation questions but says 'yeah' when his name is called. Precedex restated- see 'JAYME' for titrations.
[2024-07-19 03:32] LABS: Basophils # 0.2 10^3/uL (0.0-0.1); Basophils % 1.1 %; Eosinophils # 0.1 10^3/uL (0.0-0.8); Eosinophils % 0.6 %; Hematocrit 29.7 % (37-53); Lymphocytes # 1.2 10^3/uL (0.8-4.8); Lymphocytes % 5.9 %; Mean Corpuscular HGB Conc 32.7 g/dL (30-55); Mean Corpuscular Hemoglobin 29.8 pg (27-33); Mean Corpuscular Volume 91.1 fl (82-101); Mean Platelet Volume 12.1 fL (7.4-10.4); Monocytes % 14.6 %; Neutrophils # 15.98 10^3/uL (1.8-7.7); Neutrophils % 76.9 %; Nucleated Red Blood Cells % 0 %; Platelet Count 154 10^3/cmm (157-399); Red Blood Count 3.26 10^6/uL (3.85-5.65); Red Cell Distribution Width 15.4 % (12.1-15.1); White Blood Count 20.75 10^3/uL (3.29-11.43)
[2024-07-19 03:49] LABS: Ammonia 69 umol/L (16-60)
[2024-07-19 04:01] LABS: Alanine Aminotransferase 18 U/L (0-41); Albumin Level 2.5 g/dL (3.5-5.2); Alkaline Phosphatase 112 U/L (40-130); Anion Gap 16.1 (5-19); Aspartate Amino Transferase 64 U/L (0-40); Blood Urea Nitrogen 32 mg/dL (8-23); Calcium 7.7 mg/dL (8.5-10.5); Carbon Dioxide 17 mmol/L (22-29); Chloride 108 mmol/L (98-107); Creatinine Clr Calc Pharmacy 72.5333; Globulin 3.2 g/dL (1.3-4.6); Glucose 214 mg/dL (65-115); Magnesium 1.7 mg/dL (1.7-2.3); Osmolality Calculated 297 mOsm/kg (285-295); Potassium 4.1 mmol/L (3.5-5.1); Sodium 137 mmol/L (136-145); Total Bilirubin 2.5 mg/dL (0.15-1.2); Total Protein 5.7 g/dL (6.6-8.7)
[2024-07-19] MEDS: norepinephrine 4 MG/250 ML BAG 60 MG IV (04:44)
[2024-07-19] MEDS: piperacillin-tazobactam 3.375 GM in sodium chloride 0.9% (plus) 50 ML IV ×3 (04:47→20:51)
[2024-07-19] MEDS: sodium chloride 0.9% 1,000 ML 100 ML IV ×2 (07:37→19:04)
[2024-07-19 08:20] LABS: Glucose Point of Care 215 mg/dL (70-110)
[2024-07-19] MEDS: aspirin 81 mg EC Tablet PO (08:29)
[2024-07-19] MEDS: lactulose oral liq 20 gm/30 mL UDC 30 GM PO (08:29)
[2024-07-19] MEDS: pantoprazole DR 40 mg Tablet PO (08:29)
[2024-07-19] MEDS: insulin lispro 100 unit/1 mL SUBCUT ×4 (08:29→20:57)
[2024-07-19] MEDS: midodrine 5 mg TABLET 10 MG PO ×3 (08:30→20:47)
[2024-07-19] MEDS: potassium chloride ER 20 mEq Tablet 40 MEQ PO (08:30)
[2024-07-19] MEDS: polyethylene glycol 3350 Pkt 17 gm PO (08:30)
[2024-07-19] MEDS: metoprolol succinate ER (24 HR) 25 mg Tablet 12.5 MG PO (08:30)
[2024-07-19] MEDS: ticagrelor 90 mg Tablet PO ×2 (08:30→17:24)
[2024-07-19] MEDS: rifaximin 200 mg Tablet 600 MG PO ×2 (08:30→17:23)
--- NOTE | 2024-07-19 08:41 | P.PN_ITS ---
Subjective 2 Subjective: Conversive this morning. Denies chest pain. Much more interactive. Medications: Reviewed: Yes Vitals/I&O/Wt Last Vital Signs Temp 97.4 F L 07/19/24 04:42 Pulse 77 07/19/24 06:15 Resp 21 H 07/19/24 06:15 BP 98/65 07/19/24 06:15 Pulse Ox 99 07/19/24 06:15 O2 Del Method Room Air 07/19/24 06:15 07/18/24 07/19/24 07/19/24 22:59 06:59 14:59 Intake Total 1895.522 / 2064.317 2015.794 / 4080.111 90 / 90 Output Total 800 / 800 875 / 1675 Balance 1095.522 / 1261.944 9649.794 / 2405.111 90 / 90 Weight last 48 hrs Weight 97.795 kg Weight 94.5 kg Physical Exam 2 Narrative: General Exam much more interactive, follows directions, asked some appropriate questions Neck is supple Cardiovascular regular rate and rhythm, 2/6 systolic murmur Lungs clear Abdomen is soft nontender exam Ramires noted Extremities show venous stasis changes, difficult to feel pulses, cap refill less than 2 seconds Neuro no obvious focal deficits Urinary Catheter Management: Ramires: Cath Placed During This Visit: yes Reason for Continuing Indwelling Catheter: Accurate Measurement of Urinary Output in Critically Ill Patients Urinary Catheter Date of Insertion: 07/14/24 Urinary Catheter Time of Insertion: 15:30 Data 07/19/24 03:00 07/19/24 03:00 Micro: Microbiology 07/18/24 11:02 Blood Culture - Preliminary Blood SPECIMEN COLLECTED 07/18/24 11:02 Blood Culture - Preliminary Blood SPECIMEN COLLECTED A&P Assessment and plan (1) Delirium: Patient has evidence of acute delirium With temperature elevation, elevated white blood cell count, abnormal urinalysis this is likely secondary to UTI versus hepatic encephalopathy Secondary to continued fevers, reevaluation, antibiotics expanded to vancomycin and Zosyn yesterday afternoon He appears to be improving Secondary to low platelets, elevated INR in the past ammonia level was checked. This was elevated. INR was elevated. Hepatic ultrasound demonstrated likely cirrhosis. Lactulose, rifaximin initiated. CT head was ordered, but with clinical improvement not needed. Order was discontinued. B12 and folate were normal (2) UTI (urinary tract infection): Patient with evidence of UTI as above Continue Zosyn, vancomycin Blood and urine cultures pending Renal ultrasound, no evidence of obstruction (3) Ischemic cardiomyopathy: Followed by cardiology, recent procedure with drug-eluting stent. Placed on Brilinta. Plan Atrial fibrillation, currently on amiodarone Hypotension. Had been placed on midodrine. Likely multifactorial from infection, as well as significant cardiomyopathy. Multiple other medical problems as outlined in his past medical history. Thank you for this consultation, we will continue to follow Attestations 2 Medical Necessity Statement*: Needs continued hospital stay for IV antibiotics related to UTI, close follow-up of encephalopathy. Diagnoses Delirium R41.0 UTI (urinary tract infection) N39.0 Ischemic cardiomyopathy I25.5 Time Spent (min) 21
[2024-07-19] MEDS: norepinephrine 4 MG/250 ML BAG 37.5 MG IV (09:05)
[2024-07-19] MEDS: vancomycin 1,250 MG/250 ML PIGGYBACK 166.67 MG IV (10:45)
[2024-07-19] MEDS: pantoprazole 40 mg SDV IVP ×2 (10:46→20:49)
[2024-07-19 11:29] LABS: Glucose Point of Care 232 mg/dL (70-110)
[2024-07-19] MEDS: acetaminophen 500 mg Tablet PO ×2 (11:41→20:59)
--- NOTE | 2024-07-19 12:29 | P.PN_ITS ---
Subjective 2 Subjective: Patient is improved today. White cell count has improved. Patient is alert and oriented x 4 this morning. He is still on a Levophed drip but we are trying to titrate this down. Will hold metoprolol until Levophed is off. Heart rate is controlled. Abdominal ultrasound showed patient does have probable ascites. Ammonia level is down after lactulose was given. Medications: Reviewed: Yes Vitals/I&O/Wt Last Vital Signs Temp 97.4 F L 07/19/24 04:42 Pulse 78 07/19/24 10:30 Resp 15 07/19/24 11:00 BP 129/66 07/19/24 11:00 Pulse Ox 99 07/19/24 11:00 O2 Del Method Room Air 07/19/24 11:00 07/18/24 07/19/24 07/19/24 22:59 06:59 14:59 Intake Total 1895.522 / 2064.317 2015.794 / 4080.111 291.125 / 291.125 Output Total 800 / 800 875 / 1675 Balance 1095.522 / 9197.974 2334.794 / 2405.111 291.125 / 291.125 Weight last 48 hrs Weight 215 lb 9.6 oz Weight 208 lb 5.389 oz Physical Exam 2 Narrative: General: No apparent distress, healthy appearing, well nourished HENMT: normoceophalic Eye: PERRL Muskuloskeletal: Full ROM Lymphatic: no lymphedema noted Respiratory: Normal respiratory effort, clear throughout except for fine crackles bilateral lower lobes, no use of accessory muscles Cardio: No JVD, regular rate, regular rhythm, S1 S2 normal, no murmurs, peripheral pulses 2+ radial palpated bilaterally GI: Normal to inspection, nondistended Extremities: Full ROM, normal, normal capillary refill, no cyanosis or edema Neuro: Alert and oriented x4, no focal motor deficits Psych: Affect normal, denies suicidal ideation, mental status grossly normal Skin: Cath site clean dry intact no evidence of hematoma Urinary Catheter Management: Ramires: Cath Placed During This Visit: yes Reason for Continuing Indwelling Catheter: Accurate Measurement of Urinary Output in Critically Ill Patients Urinary Catheter Date of Insertion: 07/14/24 Urinary Catheter Time of Insertion: 15:30 Data 07/19/24 03:00 07/19/24 03:00 Micro: Microbiology 07/18/24 11:02 Blood Culture - Preliminary Blood NEGATIVE TO DATE 07/18/24 11:02 Blood Culture - Preliminary Blood NEGATIVE TO DATE 07/19/24 09:44 Occult Blood (FIT) - Final Stool - Stool Aspirate 07/18/24 08:10 Urine Culture - Preliminary Urine,Clean Catch Gram Negative Rods A&P Assessment and plan (1) CHF (congestive heart failure), NYHA class IV: Qualifiers: Congestive heart failure type: systolic Congestive heart failure chronicity: acute on chronic Qualified Code(s): I50.23 - Acute on chronic systolic (congestive) heart failure (2) Chest pain: Qualifiers: Chest pain type: precordial pain Qualified Code(s): R07.2 - Precordial pain (3) HTN (hypertension): Qualifiers: Hypertension type: essential hypertension Qualified Code(s): I10 - Essential (primary) hypertension (4) Atrial flutter: Qualifiers: Atrial flutter type: typical Qualified Code(s): I48.3 - Typical atrial flutter (5) Mental status alteration: Plan Heart cath yesterday showed stent is still patent in the mid LAD. Blood pressure is coming up. Will continue to try to wean off Levophed drip. Hold beta-paula for now until this is weaned off may reconsider starting it in the near future. Patient had some dark-colored stools and getting an occult blood. Will hold Eliquis for now. Rate is controlled. Oxygen saturation 99% on room air. Labs are stable. Ammonia is down. We appreciate hospitalist assistance in the care of this patient. Attestations 2 Medical Necessity Statement*: Patient require continuation hospitalization in the ICU for above defined care. Coding Level of Care Code Acute Code for Chg Fwd Diagnoses Acute on chronic systolic congestive heart failure, NYHA class 4 I50.23 Congestive heart failure type: systolic Congestive heart failure chronicity: acute on chronic Precordial pain R07.2 Chest pain type: precordial pain Essential hypertension I10 Hypertension type: essential hypertension Typical atrial flutter I48.3 Atrial flutter type: typical Mental status alteration R41.82
[2024-07-19] MEDS: oxyCODONE 5 mg IR Tab/Cap PO (13:59)
[2024-07-19 17:02] LABS: Glucose Point of Care 154 mg/dL (70-110)
[2024-07-19] MEDS: vancomycin 1,250 MG/250 ML PIGGYBACK 166 MG IV (21:00)
[2024-07-19 21:27] LABS: Glucose Point of Care 229 mg/dL (70-110)
[2024-07-20] VITALS (33 sets, daily range): BP systolic 85–145; BP diastolic 44–76; PULSE 59–89; RESP 12–26; TEMP 36.4–36.9; O2SAT 95–100
[2024-07-20] MEDS: sodium chloride 0.9% 1,000 ML 100 ML IV (05:02)
[2024-07-20] MEDS: piperacillin-tazobactam 3.375 GM in sodium chloride 0.9% (plus) 50 ML IV (05:18)
[2024-07-20 05:28] LABS: Basophils # 0.2 10^3/uL (0.0-0.1); Basophils % 1.9 %; Eosinophils # 0.3 10^3/uL (0.0-0.8); Eosinophils % 2.7 %; Hematocrit 28.8 % (37-53); Lymphocytes # 0.9 10^3/uL (0.8-4.8); Lymphocytes % 9.8 %; Mean Corpuscular HGB Conc 32.3 g/dL (30-55); Mean Corpuscular Hemoglobin 30.5 pg (27-33); Mean Corpuscular Volume 94.4 fl (82-101); Monocytes # 1.3 10^3/uL (0.2-0.9); Monocytes % 14.3 %; Neutrophils # 6.59 10^3/uL (1.8-7.7); Neutrophils % 70.3 %; Nucleated Red Blood Cells % 0 %; Platelet Count 130 10^3/cmm (157-399); Red Blood Count 3.05 10^6/uL (3.85-5.65); Red Cell Distribution Width 15.8 % (12.1-15.1); White Blood Count 9.37 10^3/uL (3.29-11.43)
[2024-07-20 05:48] LABS: INR 1.81 (0.8-1.2)
[2024-07-20 05:56] LABS: Alanine Aminotransferase 20 U/L (0-41); Albumin Level 2.7 g/dL (3.5-5.2); Alkaline Phosphatase 117 U/L (40-130); Anion Gap 15.9 (5-19); Aspartate Amino Transferase 60 U/L (0-40); Blood Urea Nitrogen 32 mg/dL (8-23); Carbon Dioxide 17 mmol/L (22-29); Chloride 108 mmol/L (98-107); Creatinine Clr Calc Pharmacy 73.7049; Globulin 3.4 g/dL (1.3-4.6); Glucose 128 mg/dL (65-115); Magnesium 1.7 mg/dL (1.7-2.3); Osmolality Calculated 293 mOsm/kg (285-295); Potassium 3.9 mmol/L (3.5-5.1); Sodium 137 mmol/L (136-145); Total Bilirubin 2.9 mg/dL (0.15-1.2); Total Protein 6.1 g/dL (6.6-8.7)
[2024-07-20 08:12] LABS: Glucose Point of Care 137 mg/dL (70-110)
[2024-07-20] MEDS: ticagrelor 90 mg Tablet PO ×2 (08:16→17:50)
[2024-07-20] MEDS: acetaminophen 500 mg Tablet PO (08:16)
[2024-07-20] MEDS: lactulose oral liq 20 gm/30 mL UDC PO (08:16)
[2024-07-20] MEDS: aspirin 81 mg EC Tablet PO (08:16)
[2024-07-20] MEDS: midodrine 5 mg TABLET 10 MG PO ×3 (08:16→20:05)
[2024-07-20] MEDS: polyethylene glycol 3350 Pkt 17 gm PO (08:17)
[2024-07-20] MEDS: rifaximin 200 mg Tablet 600 MG PO ×2 (08:44→17:50)
[2024-07-20] MEDS: vancomycin 1,250 MG/250 ML PIGGYBACK 166 MG IV (10:28)
[2024-07-20] MEDS: pantoprazole 40 mg SDV IVP ×2 (10:29→21:28)
--- NOTE | 2024-07-20 11:05 | P.PN_ITS ---
Subjective 2 Subjective: Patient is awake alert, responsive, reports he does not feel confused. No significant discomfort currently. Now off norepinephrine. Medications: Reviewed: Yes Vitals/I&O/Wt Last Vital Signs Temp 97.5 F L 07/20/24 08:00 Pulse 89 07/20/24 10:00 Resp 24 H 07/20/24 10:00 BP 129/68 07/20/24 10:00 Pulse Ox 95 07/20/24 10:00 O2 Del Method Room Air 07/20/24 08:00 07/19/24 07/20/24 07/20/24 22:59 06:59 14:59 Intake Total 1835.208 / 2528.083 781.667 / 3309.750 1115.767 / 1115.767 Output Total 350 / 850 600 / 1450 Balance 1485.208 / 1678.083 181.667 / 5013.485 9834.767 / 1115.767 Weight last 48 hrs Weight 97.795 kg Physical Exam 2 Narrative: General Exam much more interactive, follows directions, asked some appropriate questions Neck is supple Cardiovascular regular rate and rhythm, 2/6 systolic murmur Lungs clear Abdomen is soft nontender exam Ramires noted Extremities show venous stasis changes, difficult to feel pulses, cap refill less than 2 seconds Neuro no obvious focal deficits Urinary Catheter Management: Ramires: Cath Placed During This Visit: yes Reason for Continuing Indwelling Catheter: Accurate Measurement of Urinary Output in Critically Ill Patients Urinary Catheter Date of Insertion: 07/14/24 Urinary Catheter Time of Insertion: 15:30 Data 07/20/24 04:35 07/20/24 04:35 Micro: Microbiology 07/18/24 08:10 Urine Culture - Final Urine,Clean Catch Escherichia coli 07/18/24 11:02 Blood Culture - Preliminary Blood NEGATIVE TO DATE 07/18/24 11:02 Blood Culture - Preliminary Blood NEGATIVE TO DATE 07/19/24 09:44 Occult Blood (FIT) - Final Stool - Stool Aspirate A&P Assessment and plan (1) Delirium: Patient has evidence of acute delirium With temperature elevation, elevated white blood cell count, abnormal urinalysis this is likely secondary to UTI versus hepatic encephalopathy Secondary to continued fevers, reevaluation, antibiotics expanded to vancomycin and Zosyn yesterday afternoon He is now significantly improved Secondary to low platelets, elevated INR in the past ammonia level was checked. This was elevated. INR was elevated. Hepatic ultrasound demonstrated likely cirrhosis. Lactulose, rifaximin initiated. At this point we will continue lactulose and rifaximin B12 and folate were normal Delirium is resolved (2) UTI (urinary tract infection): Patient with evidence of UTI as above Urine culture demonstrates E. coli, sensitive to ceftriaxone. Discontinue vancomycin and Zosyn and initiate ceftriaxone Blood culture negative to date Renal ultrasound, no evidence of obstruction (3) Ischemic cardiomyopathy: Followed by cardiology, recent procedure with drug-eluting stent. Placed on Brilinta. Plan Heme positive stool. Patient has been on a significant amount of anticoagulants, under a significant amount of stress. Protonix IV was ordered. Will hold off on endoscopy currently as hemoglobin is stable. Would continue medical treatment at this time. Atrial fibrillation, off amiodarone and now on beta-paula with good control of heart rate. Infection was likely driving rapid ventricular rate. Hypotension. Had been placed on midodrine. Likely multifactorial from infection, as well as significant cardiomyopathy. Now off pressors. May transfer to first floor Multiple other medical problems as outlined in his past medical history. Thank you for this consultation, we will continue to follow Attestations 2 Medical Necessity Statement*: As per primary Diagnoses Delirium R41.0 UTI (urinary tract infection) N39.0 Ischemic cardiomyopathy I25.5 Time Spent (min) 31
[2024-07-20] MEDS: cefTRIAXone 1,000 mg SDV 1000 MG IVP (11:11)
[2024-07-20 11:19] LABS: Glucose Point of Care 262 mg/dL (70-110)
--- NOTE | 2024-07-20 11:45 | P.PN_ITS ---
Subjective 2 Subjective: Overall patient has much improved. Mentation is good. Alert and oriented x 4. No signs of fluid overload. Patient is now off of Levophed drip. Medications: Reviewed: Yes Vitals/I&O/Wt Last Vital Signs Temp 97.5 F L 07/20/24 08:00 Pulse 89 07/20/24 10:00 Resp 24 H 07/20/24 10:00 BP 129/68 07/20/24 10:00 Pulse Ox 95 07/20/24 10:00 O2 Del Method Room Air 07/20/24 08:00 07/19/24 07/20/24 07/20/24 22:59 06:59 14:59 Intake Total 1835.208 / 2528.083 781.667 / 3309.750 1115.767 / 1115.767 Output Total 350 / 850 600 / 1450 Balance 1485.208 / 1678.083 181.667 / 6850.775 8240.767 / 1115.767 Weight last 48 hrs Weight 215 lb 9.6 oz Physical Exam 2 Narrative: General: No apparent distress, healthy appearing, well nourished HENMT: normoceophalic Eye: PERRL Muskuloskeletal: Full ROM Respiratory: Normal respiratory effort, clear throughout except for fine crackles bilateral lower lobes, no use of accessory muscles Cardio: No JVD, regular rate, regular rhythm, S1 S2 normal, no murmurs, peripheral pulses 2+ radial palpated bilaterally GI: Normal to inspection, nondistended Extremities: Full ROM, normal, normal capillary refill, no cyanosis, trace edema bilateral lower extremities Neuro: Alert and oriented x4, no focal motor deficits Psych: Affect normal, denies suicidal ideation, mental status grossly normal Skin: Cath site left groin clean dry intact no evidence of hematoma Urinary Catheter Management: Ramires: Cath Placed During This Visit: yes Reason for Continuing Indwelling Catheter: Accurate Measurement of Urinary Output in Critically Ill Patients Urinary Catheter Date of Insertion: 07/14/24 Urinary Catheter Time of Insertion: 15:30 Data 07/20/24 04:35 07/20/24 04:35 Micro: Microbiology 07/18/24 08:10 Urine Culture - Final Urine,Clean Catch Escherichia coli 07/18/24 11:02 Blood Culture - Preliminary Blood NEGATIVE TO DATE 07/18/24 11:02 Blood Culture - Preliminary Blood NEGATIVE TO DATE 07/19/24 09:44 Occult Blood (FIT) - Final Stool - Stool Aspirate A&P Assessment and plan (1) CHF (congestive heart failure), NYHA class IV: Qualifiers: Congestive heart failure type: systolic Congestive heart failure chronicity: acute on chronic Qualified Code(s): I50.23 - Acute on chronic systolic (congestive) heart failure (2) Chest pain: Qualifiers: Chest pain type: precordial pain Qualified Code(s): R07.2 - Precordial pain (3) HTN (hypertension): Qualifiers: Hypertension type: essential hypertension Qualified Code(s): I10 - Essential (primary) hypertension (4) Atrial flutter: Qualifiers: Atrial flutter type: typical Qualified Code(s): I48.3 - Typical atrial flutter (5) Mental status alteration: Plan Ammonia continues to decline. Patient continues to improve. He is currently off of his Levophed drip. Will go ahead and restart low-dose beta-paula and see how patient does. Part of his hypotension could have been from his infection. Discussed this case with Dr. Gudino and the plan is to move patient to stepdown. Will restart Eliquis and give Brilinta. Hold aspirin for now. Will hold off on oral amiodarone due to possible liver cirrhosis with elevated liver functions. Rate has been controlled. Will see how he does with metoprolol 12.5. We appreciate Dr. Gudino's assistance in the care of this very pleasant 74-year-old gentleman. Attestations 2 Medical Necessity Statement*: Patient require continuation hospitalization in the ICU for above defined care. Coding Level of Care Code Acute Code for Chg Fwd Diagnoses Acute on chronic systolic congestive heart failure, NYHA class 4 I50.23 Congestive heart failure type: systolic Congestive heart failure chronicity: acute on chronic Precordial pain R07.2 Chest pain type: precordial pain Essential hypertension I10 Hypertension type: essential hypertension Typical atrial flutter I48.3 Atrial flutter type: typical Mental status alteration R41.82
[2024-07-20] MEDS: insulin lispro 100 unit/1 mL SUBCUT ×3 (12:21→20:15)
[2024-07-20] MEDS: metoprolol succinate ER (24 HR) 25 mg Tablet 12.5 MG PO (13:27)
--- NOTE | 2024-07-20 13:29 | PC.NURSE ---
Notified Maren Reid APRN of patients increased shortness of breath with minimal to no exertion. Lungs clear, SR with rate in the 80s noted on traffic monitor specialist, blood pressure wnl O2 saturation 97-99% on room air. MOUNTER HAND reports that patient has been newly started on brilinta and shortness of breath is a common side effect. She will monitor this for a few days and if it does not improve it may need to be changed to plavix.
[2024-07-20 17:07] LABS: Glucose Point of Care 172 mg/dL (70-110)
[2024-07-20 20:20] LABS: Glucose Point of Care 205 mg/dL (70-110)
[2024-07-21] VITALS (21 sets, daily range): BP systolic 92–144; BP diastolic 47–80; PULSE 68–83; RESP 11–26; TEMP 36.4–36.6; O2SAT 95–100; BMI 29.4
[2024-07-21 04:32] LABS: Basophils # 0.1 10^3/uL (0.0-0.1); Basophils % 1.7 %; Eosinophils # 0.2 10^3/uL (0.0-0.8); Eosinophils % 2.3 %; Hematocrit 29.1 % (37-53); Lymphocytes # 0.8 10^3/uL (0.8-4.8); Lymphocytes % 9.6 %; Mean Corpuscular Hemoglobin 29.2 pg (27-33); Mean Corpuscular Volume 91.5 fl (82-101); Mean Platelet Volume 11.6 fL (7.4-10.4); Monocytes # 1.3 10^3/uL (0.2-0.9); Monocytes % 17.1 %; Neutrophils # 5.29 10^3/uL (1.8-7.7); Nucleated Red Blood Cells % 0 %; Platelet Count 141 10^3/cmm (157-399); Red Blood Count 3.18 10^6/uL (3.85-5.65); Red Cell Distribution Width 15.7 % (12.1-15.1); White Blood Count 7.78 10^3/uL (3.29-11.43)
[2024-07-21 04:51] LABS: Alanine Aminotransferase 21 U/L (0-41); Albumin Level 2.7 g/dL (3.5-5.2); Alkaline Phosphatase 116 U/L (40-130); Anion Gap 10.7 (5-19); Aspartate Amino Transferase 49 U/L (0-40); Blood Urea Nitrogen 30 mg/dL (8-23); Calcium 8.2 mg/dL (8.5-10.5); Carbon Dioxide 20 mmol/L (22-29); Chloride 106 mmol/L (98-107); Creatinine Clr Calc Pharmacy 56.6961; Globulin 3.8 g/dL (1.3-4.6); Glucose 158 mg/dL (65-115); Osmolality Calculated 285 mOsm/kg (285-295); Potassium 3.7 mmol/L (3.5-5.1); Sodium 133 mmol/L (136-145); Total Bilirubin 2.4 mg/dL (0.15-1.2); Total Protein 6.5 g/dL (6.6-8.7)
--- NOTE | 2024-07-21 08:56 | P.PN_ITS ---
Subjective 2 Subjective: Feels pretty good this morning. No significant discomfort. Breathing okay. We discussed removing his catheter. Medications: Reviewed: Yes Vitals/I&O/Wt Last Vital Signs Temp 97.8 F 07/21/24 04:31 Pulse 74 07/21/24 06:00 Resp 12 07/21/24 06:00 BP 96/56 07/21/24 06:00 Pulse Ox 97 07/21/24 06:00 O2 Del Method Room Air 07/21/24 06:00 07/20/24 07/21/24 07/21/24 22:59 06:59 14:59 Intake Total 500 / 2570.767 Output Total 475 / 475 500 / 975 Balance 25 / 2095.767 -500 / 1595.767 Physical Exam 2 Narrative: General Exam no distress, alert and oriented Neck is supple Cardiovascular regular rate and rhythm, 2/6 systolic murmur Lungs clear Abdomen is soft nontender exam Ramires noted Extremities no cyanosis or clubbing Urinary Catheter Management: Ramires: Cath Placed During This Visit: yes Reason for Continuing Indwelling Catheter: Accurate Measurement of Urinary Output in Critically Ill Patients Urinary Catheter Date of Insertion: 07/14/24 Urinary Catheter Time of Insertion: 15:30 Data 07/21/24 03:45 07/21/24 03:45 Micro: Microbiology 07/18/24 08:10 Urine Culture - Final Urine,Clean Catch Escherichia coli A&P Assessment and plan (1) Delirium: This appears to have resolved This was likely attributed to UTI and underlying cirrhosis with hepatic encephalopathy Urinalysis grew E. coli sensitive to ceftriaxone patient was changed to that yesterday Secondary to low platelets, elevated INR in the past ammonia level was checked. This was elevated. INR was elevated. Hepatic ultrasound demonstrated likely cirrhosis. Lactulose, rifaximin initiated. At this point we will continue lactulose and rifaximin. Lactulose should be continued on discharge. B12 and folate were normal (2) UTI (urinary tract infection): Patient with evidence of UTI as above Urine culture demonstrates E. coli, sensitive to ceftriaxone. Discontinue vancomycin and Zosyn and continue ceftriaxone Blood culture negative to date Renal ultrasound, no evidence of obstruction Discontinue Ramires Bladder scan as needed (3) Ischemic cardiomyopathy: Followed by cardiology, recent procedure with drug-eluting stent. Placed on Brilinta. Plan Heme positive stool. Patient has been on a significant amount of anticoagulants, under a significant amount of stress. Protonix IV was ordered. Will hold off on endoscopy currently as hemoglobin is stable. Will change Protonix to p.o. at this time would continue medical treatment at this time. Atrial fibrillation, off amiodarone and now on beta-paula with good control of heart rate. Infection was likely driving rapid ventricular rate. Now in sinus rhythm Hypotension. Had been placed on midodrine. Likely multifactorial from infection, as well as significant cardiomyopathy. Now off pressors. May transfer to first floor Multiple other medical problems as outlined in his past medical history. Thank you for this consultation, we will continue to follow Attestations 2 Medical Necessity Statement*: As per primary Diagnoses Delirium R41.0 UTI (urinary tract infection) N39.0 Ischemic cardiomyopathy I25.5 Time Spent (min) 24
[2024-07-21] MEDS: midodrine 5 mg TABLET 10 MG PO ×2 (09:10→16:35)
[2024-07-21] MEDS: polyethylene glycol 3350 Pkt 17 gm PO (09:10)
[2024-07-21] MEDS: lactulose oral liq 20 gm/30 mL UDC PO (09:10)
[2024-07-21] MEDS: metoprolol succinate ER (24 HR) 25 mg Tablet 12.5 MG PO (09:11)
[2024-07-21] MEDS: rifaximin 200 mg Tablet 600 MG PO (09:11)
[2024-07-21] MEDS: ticagrelor 90 mg Tablet PO (09:12)
[2024-07-21 09:23] LABS: Glucose Point of Care 182 mg/dL (70-110)
[2024-07-21] MEDS: insulin lispro 100 unit/1 mL SUBCUT ×2 (09:35→11:52)
[2024-07-21] MEDS: pantoprazole DR 40 mg Tablet PO (09:49)
[2024-07-21 11:07] LABS: Glucose Point of Care 187 mg/dL (70-110)
[2024-07-21] MEDS: cefTRIAXone 1,000 mg SDV 1000 MG IVP (11:52)
[2024-07-21] MEDS: FUROsemide 20 mg Tablet PO (16:35)
--- NOTE | 2024-07-21 16:50 | PC.NURSE ---
Discharge Note Patient discharged to home via wheelchair accompanied by & sons. Discharge instructions reviewed with patient and b2b outside sales representative. All prescriptions sent to patient preferred pharmacy. Belongings returned to patient upon discharge. Upon discharge patient is alert/oriented x4 on room air.
--- NOTE | 2024-07-21 19:56 | PM.DCS ---
Discharge Providers Date of Admission: 07/06/24 15:03 Date of Discharge: July 21, 2024 Attending Provider at Admission: Anson Gambino MD Attending Provider at Discharge: Anson Gambino MD Consults: Dr. Gudino Primary Care Provider: Mildred Grewal MD Diagnoses at Discharge Discharge Diagnosis (1) Delirium: Status: Acute (2) UTI (urinary tract infection): Status: Acute Qualifiers: Urinary tract infection type: site unspecified (3) Ischemic cardiomyopathy: Status: Acute Reason for Visit Reason for Visit: CHS and Unstable Angina Hospital Course Hospital Course Patient was admitted from cardiology office due to ongoing chest pain, shortness of breath, orthopnea, and severe fluid overload. He was diuresed for several days. Once euvolemic, he was taken to the medical laboratory technician and underwent stenting of the distal LAD just distal to previous RITCHIE to LAD bypass. Only 2 of the 4 bypass grafts were open. The other to the OM. All other vessels chronically occluded. We attempted to place the patient on Entresto post cath, and he developed hypotension. He also had EKG changes including ST depression in the V leads and was taken back to the medical laboratory technician in which the previously placed stent was found to be patent. He developed a UTI as well. He was found to have elevated ammonia levels with underlying liver cirrhosis. He developed acute encepalopthy. He was placed on levophed, lactulose, and fluids and abx for uti. Patient recovered well and normal mentation returned. He developed some anemia w/o evidence of active bleeding, although his occult stool was positive. He converted to sinus rhythm, and eliquis was held due to anemia as well as positive occult blood. He was restarted on his beta paula with oral lasix. He was able to get around well. Patient was very eager to get home. Physical Exam Narrative: General: No apparent distress, healthy appearing, well nourished HENMT: normoceophalic Eye: PERRL Muskuloskeletal: Full ROM Respiratory: Normal respiratory effort, clear throughout except for fine crackles bilateral lower lobes, no use of accessory muscles Cardio: No JVD, regular rate, regular rhythm, S1 S2 normal, no murmurs, peripheral pulses 2+ radial palpated bilaterally GI: Normal to inspection, nondistended Extremities: Full ROM, normal, normal capillary refill, no cyanosis, 1+ edema bilateral lower extremities Neuro: Alert and oriented x4, no focal motor deficits Psych: Affect normal, denies suicidal ideation, mental status grossly normal Skin: Cath site left groin clean dry intact no evidence of hematoma Urinary Catheter Management: Ramires: Cath Placed During This Visit: yes, but has since been removed by the nurse Reason for Continuing Indwelling Catheter: Not indwelling catheter Urinary Catheter Date of Insertion: 07/14/24 Urinary Catheter Time of Insertion: 15:30 Date Urinary Catheter Removed: 07/21/24 Time Urinary Catheter Discontinued: 08:53 Discharge Data Studies Completed and Pending Completed Studies During Hospitalization Category Date Time Status [employer] request for service Routine Exams 07/12/24 06:42 Completed XR chest 1V portable [id number] Routine Exams 07/18/24 08:35 Completed XR chest 1V portable [id number] Stat Exams 07/13/24 09:17 Completed CV. echo complete* [id number] Routine Ultrasound 07/07/24 08:14 Completed US abdomen complete* [id number] Routine Ultrasound 07/18/24 10:34 Completed Pending at discharge Category Date Time Status [employer] request for service Routine Exams 07/18/24 11:38 Taken Blood Culture Stat Lab 07/18/24 11:02 Results Radiology Impressions Chest X-Ray 07/18/24 08:35 IMPRESSION: 1. Cardiomegaly. Abdomen Ultrasound 07/18/24 10:34 Impression: 1. Cholelithiasis without evidence for acute cholecystitis by imaging. 2. Coarse hepatic echotexture. Suspect cirrhosis. 3. No bile duct dilatation. 4. No renal obstruction. Laboratory Results WBC 7.78 10^3/uL (3.29-11.43) 07/21/24 03:45 Corrected WBC Cancelled 07/18/24 07:52 RBC 3.18 10^6/uL (3.85-5.65) L 07/21/24 03:45 Hgb 9.30 g/dL (11.27-16.99) L 07/21/24 03:45 Hct 29.1 % (37-53) L 07/21/24 03:45 MCV 91.5 fl (82-101) 07/21/24 03:45 MCH 29.2 pg (27-33) 07/21/24 03:45 MCHC 32.0 g/dL (30-55) 07/21/24 03:45 RDW 15.7 % (12.1-15.1) H 07/21/24 03:45 Plt Count 141 10^3/cmm (157-399) L 07/21/24 03:45 MPV 11.6 fL (7.4-10.4) H 07/21/24 03:45 Neut % (Auto) 68.0 % 07/21/24 03:45 Lymph % (Auto) 9.6 % 07/21/24 03:45 Worth % (Auto) 17.1 % 07/21/24 03:45 Eos % (Auto) 2.3 % 07/21/24 03:45 Baso % (Auto) 1.7 % 07/21/24 03:45 Neut # (Auto) 5.29 10^3/uL (1.8-7.7) 07/21/24 03:45 Lymph # (Auto) 0.8 10^3/uL (0.8-4.8) 07/21/24 03:45 Worth # (Auto) 1.3 10^3/uL (0.2-0.9) H 07/21/24 03:45 Eos # (Auto) 0.2 10^3/uL (0.0-0.8) 07/21/24 03:45 Baso # (Auto) 0.1 10^3/uL (0.0-0.1) 07/21/24 03:45 Nucleated RBC % (auto) 0 % 07/21/24 03:45 Total Counted 100 (0-100) 07/18/24 07:52 Total Counted Cancelled 07/18/24 07:52 Atypical Lymphs % 0.0 % (0-5) 07/18/24 07:52 Atypical Lymphs % Cancelled 07/18/24 07:52 Absolute Neutrophils 11.9 10^3/cmm (1.4-6.5) H 07/18/24 07:52 Absolute Neutrophils Cancelled 07/18/24 07:52 Segmented Neutrophils 76 % 07/18/24 07:52 Segmented Neutrophils Cancelled 07/18/24 07:52 Band Neutrophils 0.0 % 07/18/24 07:52 Band Neutrophils Cancelled 07/18/24 07:52 Absolute Lymphocytes 1.6 10^3/cmm (1.2-3.4) 07/18/24 07:52 Absolute Lymphocytes Cancelled 07/18/24 07:52 Lymphocytes (Manual) 10 % 07/18/24 07:52 Lymphocytes (Manual) Cancelled 07/18/24 07:52 Monocytes (Manual) 11.0 % 07/18/24 07:52 Monocytes (Manual) Cancelled 07/18/24 07:52 Absolute Monocytes 1.7 10^3/cmm (0.1-0.6) H 07/18/24 07:52 Absolute Monocytes Cancelled 07/18/24 07:52 Eosinophils (Manual) 2 % 07/18/24 07:52 Eosinophils (Manual) Cancelled 07/18/24 07:52 Absolute Eosinophils 0.3 10^3/cmm (0.0-0.7) 07/18/24 07:52 Absolute Eosinophils Cancelled 07/18/24 07:52 Basophils (Manual) 0.0 % 07/18/24 07:52 Basophils (Manual) Cancelled 07/18/24 07:52 Absolute Basophils 0.0 10^3/cmm (0.0-0.2) 07/18/24 07:52 Absolute Basophils Cancelled 07/18/24 07:52 Metamyelocytes 1.0 % 07/18/24 07:52 Metamyelocytes Cancelled 07/18/24 07:52 Myelocytes Cancelled 07/18/24 07:52 Promyelocytes Cancelled 07/18/24 07:52 Nucleated RBCs Cancelled 07/18/24 07:52 Nucleated RBCs # 0.0 /100WBC 07/21/24 03:45 Pathologist Review Cancelled 07/18/24 07:52 Hypersegmented Polys Cancelled 07/18/24 07:52 Blast Cells Cancelled 07/18/24 07:52 Smudge Cells Cancelled 07/18/24 07:52 Toxic Granulation Cancelled 07/18/24 07:52 Toxic Vacuolation Cancelled 07/18/24 07:52 Dohle Bodies Cancelled 07/18/24 07:52 Fifi Rods Cancelled 07/18/24 07:52 Platelet Estimate Cancelled 07/18/24 07:52 Platelet Estimate Normal (Normal) 07/18/24 07:52 Giant Platelets Cancelled 07/18/24 07:52 Polychromasia Cancelled 07/18/24 07:52 Hypochromasia Cancelled 07/18/24 07:52 Poikilocytosis Cancelled 07/18/24 07:52 Basophilic Stippling Cancelled 07/18/24 07:52 Anisocytosis Cancelled 07/18/24 07:52 Microcytosis Cancelled 07/18/24 07:52 Macrocytosis Cancelled 07/18/24 07:52 Spherocytes Cancelled 07/18/24 07:52 Sickle Cells Cancelled 07/18/24 07:52 Target Cells Cancelled 07/18/24 07:52 Tear Drop Cells Cancelled 07/18/24 07:52 Ovalocytes Cancelled 07/18/24 07:52 Stomatocytes Cancelled 07/18/24 07:52 Helmet Cells Cancelled 07/18/24 07:52 [place] Bodies Cancelled 07/18/24 07:52 Erika Cells Cancelled 07/18/24 07:52 Crenated Cell Cancelled 07/18/24 07:52 Acanthocytes (Spur) Cancelled 07/18/24 07:52 Rouleaux Cancelled 07/18/24 07:52 Schistocytes Cancelled 07/18/24 07:52 RBC Morph Comment Cancelled 07/18/24 07:52 PT 21.60 SECONDS (12.1-14.9) H 07/20/24 04:35 INR 1.81 (0.8-1.2) H 07/20/24 04:35 APTT 52.7 SECONDS (23.9-36.7) H 07/12/24 18:25 Sodium 133 mmol/L (136-145) L 07/21/24 03:45 Potassium 3.7 mmol/L (3.5-5.1) 07/21/24 03:45 Chloride 106 mmol/L (98-107) 07/21/24 03:45 Carbon Dioxide 20 mmol/L (22-29) L 07/21/24 03:45 Anion Gap 10.7 (5-19) 07/21/24 03:45 BUN 30 mg/dL (8-23) H 07/21/24 03:45 Creatinine 1.3 mg/dL (0.7-1.2) H 07/21/24 03:45 GFR Calculation Not Reportable 07/21/24 03:45 Glucose 158 mg/dL (65-115) H 07/21/24 03:45 POC Glucose 187 mg/dL (70-110) H 07/21/24 10:58 Calculated Osmolality 285 mOsm/kg (285-295) 07/21/24 03:45 Calcium 8.2 mg/dL (8.5-10.5) L 07/21/24 03:45 Magnesium 1.7 mg/dL (1.7-2.3) 07/20/24 04:35 Total Bilirubin 2.4 mg/dL (0.15-1.2) H 07/21/24 03:45 AST 49 U/L (0-40) H 07/21/24 03:45 ALT 21 U/L (0-41) 07/21/24 03:45 Alkaline Phosphatase 116 U/L (40-130) 07/21/24 03:45 Ammonia 69 umol/L (16-60) H 07/19/24 03:00 Troponin T Baseline 124 ng/L (0-15) H* 07/18/24 11:02 Troponin T 120 Minute 249.4 ng/L (0-15) H 07/18/24 13:36 Delta Troponin T 125.4 ABS# (0-10) H* 07/18/24 13:36 Troponin T Hi Sens 6Hr 687.2 ng/L (0-15) H 07/18/24 18:35 Troponin T Hi Sens 6Hr Delta 563.2 ng/L (0-12) H* 07/18/24 18:35 NT-Pro-B Natriuret Pep 575 pg/mL (0-450) H 07/08/24 14:15 Total Protein 6.5 g/dL (6.6-8.7) L 07/21/24 03:45 Albumin 2.7 g/dL (3.5-5.2) L 07/21/24 03:45 Globulin 3.8 g/dL (1.3-4.6) 07/21/24 03:45 Triglycerides 69 mg/dL (0-150) 07/13/24 02:56 Cholesterol 106 mg/dL (0-200) 07/13/24 02:56 LDL Cholesterol, Calc 53 mg/dL (50-129) 07/13/24 02:56 HDL Cholesterol 39 mg/dL (60-100) L 07/13/24 02:56 LDL/HDL Ratio 1.36 RATIO (0.00-3.22) 07/13/24 02:56 Cholesterol/HDL Ratio 2.72 mg/dL (1.0-5.00) 07/13/24 02:56 Vitamin B12 1070 pg/mL (232-1245) 07/18/24 07:52 Folate 7.5 ng/mL (4.5-32.2) 07/18/24 07:52 TSH 1.00 uIU/mL (0.27-4.20) 07/18/24 07:52 Urine Color [place] (Yellow) A 07/18/24 08:10 Urine Appearance Cloudy (CLEAR) A 07/18/24 08:10 Urine pH 5.0 (5-7) 07/18/24 08:10 Ur Specific [place] 1.018 (1.005-1.030) 07/18/24 08:10 Urine Protein Trace (Negative) A 07/18/24 08:10 Urine Glucose (UA) Negative (Normal) 07/18/24 08:10 Urine Ketones Negative (Negative) 07/18/24 08:10 Urine Blood 3+ (Negative) A 07/18/24 08:10 Urine Nitrate Positive (Negative) A 07/18/24 08:10 Urine Bilirubin Negative (Negative) 07/18/24 08:10 Urine Urobilinogen 1.0 mg/dL (Negative) 07/18/24 08:10 Ur Leukocyte Esterase 1+ (Negative) A 07/18/24 08:10 Urine RBC 6-10 /hpf (0-2) 07/18/24 08:10 Urine WBC 21-50 /hpf (0-5) H 07/18/24 08:10 Ur Squamous Epith Cells 0-5 /hpf (0-5) 07/18/24 08:10 Amorphous Sediment Not Reportable 07/18/24 08:10 Urine Bacteria Exceeds /hpf (NONE) 07/18/24 08:10 Hyaline Casts 28.53 /lpf 07/18/24 08:10 Hepatitis A IgM Ab Non-reactive (Nonreactive) 07/18/24 07:52 Hep Bs Antigen Non-reactive (Nonreactive) 07/18/24 07:52 Hep B Core IgM Ab Non-reactive (Nonreactive) 07/18/24 07:52 Hepatitis C Antibody Non-reactive (Nonreactive) 07/18/24 07:52 Procedures Performed Left heart catheterizationx2 with balloon angioplasty and stenting of the distal LAD Vitals Last Vital Signs Temp 97.6 F 07/21/24 16:19 Pulse 81 07/21/24 16:19 Resp 18 07/21/24 16:19 BP 110/65 07/21/24 16:19 Pulse Ox 99 07/21/24 16:19 O2 Del Method Room Air 07/21/24 09:57 Discharge Plan Discharge Patient Disposition: Home Condition: Stable Prescriptions: New pantoprazole 40 mg Tablet,Delayed Release (Dr/Ec) 40 mg PO BID Qty: 60 0RF lactulose 20 gram/30 mL Solution 20 g PO Q12H Qty: 180 0RF cefdinir 300 mg capsule 300 mg PO BID Qty: 14 0RF canagliflozin 100 mg tablet 100 mg PO DAILY Qty: 30 0RF furosemide 20 mg Tablet 20 mg PO BID@08,16 30 Days Qty: 60 1RF Rx Instructions: Weigh daily in the morning. If you gain 3 pounds in 1 day or 5 pounds in 1 week, take extra tablet in the morning midodrine 5 mg Tablet 10 mg PO TID 30 Days Qty: 180 0RF potassium chloride [Klor-Con 10] 10 mEq Tablet Extended Release 10 meq PO BID 30 Days Qty: 60 0RF metoprolol succinate 25 mg Tablet Extended Release 24 Hr 12.5 mg PO DAILY 30 Days Qty: 30 0RF Brilinta 90 mg Tablet 90 mg PO BID 90 Days Qty: 180 0RF Continued aspirin [Adult Low Dose Aspirin] 81 mg tablet,delayed release (DR/EC) 81 mg PO DAILY acetaminophen 500 mg tablet 500 mg PO Q6H PRN (Reason: Pain) nitroglycerin 0.4 mg tablet, sublingual See Rx Instructions .ROUTE .COMPLEX Qty: 25 0RF Dose Instruction: DISSOLVE ONE TABLET UNDER THE TONGUE EVERY 5 MINUTES NEEDED FOR CHEST PAIN. DO NOT EXCEED A TOTAL OF 3 DOSES IN 15 MINUTES Rx Instructions: DISSOLVE ONE TABLET UNDER THE TONGUE EVERY 5 MINUTES NEEDED FOR CHEST PAIN. DO NOT EXCEED A TOTAL OF 3 DOSES IN 15 MINUTES cabergoline 0.5 mg tablet 0.25 mg PO Q7D 30 Days Qty: 3 1RF Rx Instructions: Take 0.25 mg tablet every 7 days. Repatha SureClick 140 mg/mL pen injector See Rx Instructions .ROUTE .COMPLEX Qty: 6 0RF Dose Instruction: INJECT 1 PEN SUBCUTANEOUSLY EVERY TWO WEEKS Rx Instructions: INJECT 1 PEN SUBCUTANEOUSLY EVERY TWO WEEKS Discontinued metoprolol succinate 25 mg tablet extended release 24 hr 25 mg PO DAILY Qty: 90 0RF Eliquis 5 mg tablet 5 mg PO BID Qty: 180 0RF furosemide 40 mg tablet 40 mg PO DAILY bumetanide 2 mg tablet 2 mg PO DAILY Qty: 30 0RF glimepiride 4 mg tablet 4 mg PO DAILY potassium chloride [Klor-Con M20] 20 mEq tablet,ER particles/crystals 20 meq PO BID No Action (DME) Diabetic Shoes with 3 Pairs of Inserts See Rx Instructions .Route .MEDSUPPLY Qty: 1 0RF Rx Instructions: As directed by HOME (DME) blood-glucose meter [OneTouch Ultra2 Meter] [facility] [place] See Rx Instructions .Route Qty: 1 0RF Rx Instructions: As directed (DME) OneTouch Ultra Test Strip See Rx Instructions .ROUTE .COMPLEX Qty: 100 0RF Dose Instruction: USE 1 TEST STRIP TO TEST BLOOD GLUCOSE ONCE DAILY AND NEEDED Rx Instructions: USE 1 TEST STRIP TO TEST BLOOD GLUCOSE ONCE DAILY AND NEEDED Discharge Orders: Discharge Order (Routine); Ordered 07/21/24 Ordered By: Maren Reid Other Ambulatory Orders: DME: Esteban (Order) Location: None Selected Ordered By: Yvan Gudino Referrals: Maren Reid, SELAM [Nurse Practitioner] - 07/25/24 1:00 pm (Thursday07/25/2024) Mildred Grewal MD [Primary Care Provider] - 08/09/24 11:20 am (BMP and CBC on follow-up Close follow-up of anemia, may need referral for EGD. Heme positive stool in the hospital Discusse cirrhosis with your physician. ) Naveed Holliday MD [Physician] - 07/28/24 11:30 am Discharge Diet: Advance as tolerated and As Directed Discharge Activity: Resume usual activity and Increase activity as tolerated Patient Instructions: Metoprolol (By mouth) (Lopressor, Toprol XL), Furosemide (By mouth) (Lasix), Lactulose (By mouth) (Konstuloz, Enuloz, Generlac, Kristaloz, Laktuloz), Midodrine (By mouth), Cefdinir (By mouth) (Omnicef), Pantoprazole (By mouth) (Protonix), Pantoprazole (By mouth), Ticagrelor (By mouth) (Brilinta), Canagliflozin (By mouth) (Invokana), Heart Failure (DC), Coronary Angioplasty (DC), Restrictive Cardiomyopathy (DC), Urinary Tract Infection in Older Adults (DC), CHF Stoplight, Opioid Safety Activity Restrictions/Additional Instructions: Take all medicine as prescribed Keep follow-up with your primary care provider You may need a look in your stomach secondary to blood noted in your stool during your hospital stay. Avoid all anti-inflammatories. Do not take your glimepiride, Invokana was initiated for your diabetes which should have benefit with your heart disease and current heart function Take antibiotic as prescribed. There is concern you have cirrhosis. Discussed with your primary care provider. Please take the lactulose twice daily. Plan of Treatment: Plan of treatment is for patient to go home on low dose BB, abx for UTI. Patient will need to be started on Entresto in the future when bp can tolerate this. Optomize GDMT. Patient will continue Brilinta for now. Will hold Eliquis at this time due to positive occult blood. Will see patient in the clinic Thursday and reevaluate at that time. Patient will most likely need GI workup in the future. He has been educated to weight daily in the morning same time every day. Take extra lasix pill with weight gain of 3 pounds in 1 day or 5 pounds in 1 week. He was educated on 2 gram sodium heart failure diet as well. Discharge Attestations Time Spent in Discharge Care*: greater than 30 min Quality Metrics Clinical Quality Measures [ No reported AMI, CVA or VTE this stay] Coding Level of Care Code Acute Code for Chg Fwd Diagnoses Delirium R41.0 UTI (urinary tract infection) N39.0 Urinary tract infection type: site unspecified Ischemic cardiomyopathy I25.5
== END 2024-07-21 16:49 | disposition home or self-care (01) | DRG 321 ==
LOC: ICU 07-07 10:30 → CSU 07-08 18:16 → ICU 07-14 16:06
PROVIDERS: Internal Medicine; Nurse Practitioner Family; Admitting Provider Internal Medicine Cardiovascular Disease; PCP Family Medicine; Visit Provider Internal Medicine Cardiovascular Disease
PROC: 027034Z Dilation of Coronary Artery, One Artery with Drug-eluting Intraluminal Device, Percutaneous Approach (ICD-10-PCS; principal; 2024-07-12 07:00)
PROC: 027034Z Dilation of Coronary Artery, One Artery with Drug-eluting Intraluminal Device, Percutaneous Approach (ICD-10-PCS; 2024-07-12 07:00)
PROC: 4A023N7 Measurement of Cardiac Sampling and Pressure, Left Heart, Percutaneous Approach (ICD-10-PCS; principal; 2024-07-18 11:45)
DX: T82.857A Stenosis of other cardiac prosthetic devices, implants and grafts, initial encounter (principal); G93.41 Metabolic encephalopathy; I50.23 Acute on chronic systolic (congestive) heart failure; I25.700 Atherosclerosis of coronary artery bypass graft(s), unspecified, with unstable angina pectoris; N39.0 Urinary tract infection, site not specified; I48.3 Typical atrial flutter; Y83.2 Surgical operation with anastomosis, bypass or graft as the cause of abnormal reaction of the patient, or of later complication, without mention of misadventure at the time of the procedure; B96.20 Unspecified Escherichia coli [E. coli] as the cause of diseases classified elsewhere; I25.5 Ischemic cardiomyopathy; I95.9 Hypotension, unspecified; K74.60 Unspecified cirrhosis of liver; D64.9 Anemia, unspecified; R19.5 Other fecal abnormalities; I11.0 Hypertensive heart disease with heart failure; E11.51 Type 2 diabetes mellitus with diabetic peripheral angiopathy without gangrene; I48.91 Unspecified atrial fibrillation; E78.5 Hyperlipidemia, unspecified; I07.1 Rheumatic tricuspid insufficiency; Z95.1 Presence of aortocoronary bypass graft; Z87.891 Personal history of nicotine dependence; Z79.82 Long term (current) use of aspirin; Z79.01 Long term (current) use of anticoagulants; Z79.84 Long term (current) use of oral hypoglycemic drugs
CPT/HCPCS: 12345; 36415; 36416; 51702; 71045; 76700; 80048; 80053; 80061; 80074; 81001; 82140; 82274; 82607; 82746; 82962; 83735; 83880; 84443; 84484; 85007; 85025; 85027; 85347; 85610; 85730; 87040; 87077; 87086; 87186; 93005; 93306; 93459; 96372; 96374; 96375; 96376; 97116; 97162; 99152; 99153; C1725; C1760; C1769; C1874; C1887; C1894; C9604; G0269; J0283; J0696; J1630; J1644; J1650; J1815; J1940; J2250; J2371; J2470; J2543; J2704; J3010; J3370; J3490; J7030; J7040; Q0163; Q9967

== ENCOUNTER 2024-07-25 14:38 | Inpatient (IN) | payer MEDICARE, MEDICAID, SELFPAY ==
[2024-07-25] VITALS (8 sets, daily range): BP systolic 92–109; BP diastolic 52–74; PULSE 73–78; RESP 20; TEMP 36.3; O2SAT 97–100
--- NOTE | 2024-07-25 14:58 | ECG_ITS ---
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 Measurements Intervals [place] Rate: 75 P: -52 PA: 203 QRS: 115 QRSD: 174 T: 88 QT: 496 QTc: 556 Interpretive Statements ECTOPIC ATRIAL RHYTHM RIGHT BUNDLE BRANCH BLOCK [120+ ms QRS DURATION, UPRIGHT V1, 40+ ms S IN I/aVL/V4/V5/V6] LEFT POSTERIOR FASCICULAR BLOCK [QRS AXIS > 109, INFERIOR Q] MODERATE T-WAVE ABNORMALITY, CONSIDER LATERAL ISCHEMIA [-0.1+ mV T-WAVE IN I/aVL/V5/V6] Compared to ECG 07/18/2024 16:12:01 Left posterior fascicular block now present Myocardial infarct finding now present T-wave abnormality still present Possible ischemia still present Electronically Signed On 07-25-2024 19:56:24 B[employer]ER [employer]ER by Narinder Pinon M.D. [id number]
--- NOTE | 2024-07-25 15:02 | XRR_ITS ---
PROCEDURE INFORMATION: Exam: XR Chest Exam date and time: 07/25/2024 3:14 PM Age: 74 years old Clinical indication: Dyspnea; Prior surgery; Surgery date: 6+ months; Surgery type: Open heart; Additional info: Shortness of breath, fluid build up TECHNIQUE: Imaging protocol: Radiologic exam of the chest. Views: 1 view. COMPARISON: CR XR chest 1V portable [id number] 07/18/2024 8:58 AM FINDINGS: Lungs: Emphysematous changes. Pleural spaces: Trace bilateral pleural effusions. Heart/Mediastinum: Cardiomegaly. Bones/joints: Sternotomy wires. XR/XR chest 1V portable [id number] IMPRESSION: 1. Cardiomegaly. 2. Emphysematous changes. 3. Trace bilateral pleural effusions.
--- NOTE | 2024-07-25 15:33 | ED_ITS ---
HPI - SOB/Dyspnea 2 General: Chief Complaint: Shortness of Breath/Dyspnea Stated Complaint: chf, fluid overload, & penileabrasion Time Seen by Provider: 07/25/24 15:23 History of Present Illness: HPI Narrative: 74-year-old man with a history of garrison ry artery disease and recent admission status post angioplasty and stenting of the distal LAD past the RITCHIE to LAD. He is sent to the emergency room with decompensated heart failure exacerbation from cardiology clinic today. He says he is having orthopnea. Were swelling. Swelling on his abdominal wall. Exertional dyspnea. No chest pain. No abdominal pain. No nausea or vomiting. No altered mental status. He says he has been very thirsty. Blood pressure soft on presentation. Related Data Home Medications Medication Instructions Recorded Confirmed acetaminophen 500 mg tablet 500 mg PO Q6H PRN Pain 09/25/20 07/25/24 aspirin 81 mg tablet,delayed 81 mg PO DAILY 09/25/20 07/25/24 release (Adult Low Dose Aspirin) canagliflozin 100 mg tablet 100 mg PO DAILY 07/25/24 07/25/24 (Invokana) Previous Rx's Medication Instructions Recorded Diabetic Shoes with 3 Pairs of #1 ea 11/19/22 Inserts blood-glucose meter (OneTouch #1 ea 02/27/23 Ultra2 Meter) nitroglycerin 0.4 mg sublingual See Rx Instructions .Route 03/24/24 tablet .COMPLEX #25 tabs blood sugar diagnostic (OneTouch #100 ea 03/29/24 Ultra Test strips) cabergoline 0.5 mg tablet 0.25 mg (1/2 x 0.5 mg) PO Q7D 30 05/04/24 days #3 tabs evolocumab 140 mg/mL subcutaneous See Rx Instructions .Route 05/23/24 pen injector (Mare Boogie) .COMPLEX #6 mL cefdinir 300 mg capsule 300 mg PO BID #14 caps 07/21/24 furosemide 20 mg tablet 20 mg PO BID@08,16 30 days #60 tabs 07/21/24 lactulose 20 gram/30 mL oral 20 g (30 mL) PO Q12H #180 mL 07/21/24 solution metoprolol succinate 25 mg 12.5 mg (1/2 x 25 mg) PO DAILY 30 07/21/24 tablet,extended release 24 hr days #30 tabs midodrine 5 mg tablet 10 mg (2 x 5 mg) PO TID 30 days 07/21/24 #180 tabs pantoprazole 40 mg tablet,delayed 40 mg PO BID #60 tabs 07/21/24 release potassium chloride 10 mEq 10 meq PO BID 30 days #60 tabs 07/21/24 tablet,extended release (Klor-Con) ticagrelor 90 mg tablet (Brilinta) 90 mg PO BID 90 days #180 tabs 07/21/24 Allergies Allergy/AdvReac Type Severity Reaction Status Date / Time atorvastatin [From Lipitor] Allergy Unknown Unknown Verified 07/25/24 14:56 diclofenac [From Arthrotec] Allergy Unknown Unknown Verified 07/25/24 14:56 misoprostol [From Arthrotec] Allergy Unknown Unknown Verified 07/25/24 14:56 pravastatin Allergy Unknown Unknown Verified 07/25/24 14:56 risedronate sodium Allergy Unknown Unknown Verified 07/25/24 14:56 [From Actonel] rosuvastatin [From Crestor] Allergy Unknown Unknown Verified 07/25/24 14:56 semaglutide [From Ozempic] Allergy Unknown Unknown Verified 07/25/24 14:56 fosinopril AdvReac Mild Cough Verified 07/25/24 14:56 lovastatin [From Mevacor] AdvReac Mild Myalgia Verified 07/25/24 14:56 Review of Systems 2 Narrative: Constitutional symptoms: Negative except as documented in HPI. Skin symptoms: Negative except as documented in HPI. Eye symptoms: Negative except as documented in HPI. ENMT symptoms: Negative except as documented in HPI. Respiratory symptoms: Negative except as documented in HPI. Cardiovascular symptoms: Negative except as documented in HPI. Gastrointestinal symptoms: Negative except as documented in HPI. Genitourinary symptoms: Negative except as documented in HPI. Musculoskeletal symptoms: Negative except as documented in HPI. Neurologic symptoms: Negative except as documented in HPI. Psychiatric symptoms: Negative except as documented in HPI. Endocrine symptoms: Negative except as documented in HPI. PFSH ED 2 PFSH: Medical History Cellulitis of right lower leg Aortic stenosis Neuropathy Bilateral lower extremity edema Hyperlipidemia Degenerative disc disease Statin intolerance Chronic anticoagulation Microalbuminuria due to type 2 diabetes mellitus Cardiac LV ejection fraction 30-35% Diabetes mellitus Atrial flutter Shortness of breath Atrial fibrillation CAD (coronary artery disease) HTN (hypertension) PVD (peripheral vascular disease) CHF (congestive heart failure) Surgical History S/P hernia repair S/P arterial stent (~2002) History of hand surgery (~2013) S/P CABG (coronary artery bypass graft) (~2000) Family History Father Cancer Sister Cancer Brother Cancer Lung CA Mother COPD (chronic obstructive pulmonary disease) Social History Smoking and tobacco/nicotine status: former use of tobacco/nicotine Alcohol intake: never Substance/Drug Use: never Lives independently: Yes Household members: spouse Marital status: Physical Exam 2 Narrative: EXAM NARRATIVE: General: Alert, no acute distress. Skin: Warm, dry. Head: Normocephalic, atraumatic. Neck: Supple, trachea midline. Eye: Extraocular movements are intact. Ears, nose, mouth and throat: mucosa moist. Cardiovascular: Regular, Normal peripheral perfusion. 2+ pitting edema. Legs thighs and abdominal wall. Respiratory: Lungs are clear to auscultation, respirations are non-labored, breath sounds are equal, Symmetrical chest wall expansion. Gastrointestinal: Soft, Nontender, Non distended Musculoskeletal: Normal ROM, no deformity. Neurological: Alert and oriented, No focal neurological deficit observed. Psychiatric: Cooperative, appropriate mood & affect. Course 2 Vital Signs: Vital signs: Vital Signs Temperature 97.4 F L 07/25/24 14:49 Pulse Rate 76 07/25/24 18:19 Respiratory Rate 20 H 07/25/24 15:41 Blood Pressure 92/61 07/25/24 18:19 Pulse Oximetry 97 07/25/24 18:19 Oxygen Delivery Me thod Room Air 07/25/24 18:19 MDM - SOB/Dyspnea Medical Decision Making Differential diagnosis for patient with shortness of breath includes but is not limited to and based on the above HPI, review of systems and physical exam: Pneumonia. Bronchitis. Asthma or COPD with acute exacerbation. Acute coronary syndrome / [place]. Pulmonary embolism. Anxiety. Congestive heart failure. Viral infections including influenza and Covid-19. Atrial fibrillation. Anxiety. Pleural effusion. Pneumothorax. Orders placed to evaluate differential diagnosis based on the above differential, HPI and physical exam EKG: Time 1458. Rate 75. Ectopic atrial rhythm versus atrial flutter/fibrillation. Nonspecific ST changes, no ectopy, right bundle branch block, This was reviewed and interpreted by myself the ER physician at 1501. Chest x-ray: Cardiomegaly, emphysematous changes bilateral pleural effusions. This was reviewed and interpreted by myself the emergency room physician. I also reviewed the radiology report. Lab Review: Laboratory results were reviewed and interpreted by myself the emergency room physician. No leukocytosis. Stable anemia from last visit. BUN and creatinine remain elevated over his baseline at 38 and 1.3. Initial troponin is over 600. proBNP is elevated significantly over his baseline. He is usually 3-500 and today he is 2500. I reviewed the patient's medical record. Reexamination: Patient remains fairly stable. No oxygen requirements. Blood pressure soft but is always soft. No altered mental status. No focal motor deficits. Consultation: I spoke with Dr. Gonzalez who is on-call for cardiology. He recommends continuing Brilinta and aspirin. With no chest pain symptoms at this time hold on heparin. Consultation: I spoke with Dr. Do who is on-call for the hospitalist service who agrees to admission to the cardiac stepdown unit. Assessment and plan: Congestive heart failure exacerbation Elevated troponin ?40 mg IV Lasix in the emergency room -I discussed the patient with the hospitalist on-call who is admitting the patient. - Discussed findings and plan with patient. Answered any questions. - All laboratory values were reviewed and interpreted personally by myself, the ER physician - All imaging was reviewed and interpreted personally by myself, the ER physician. - Evaluation and treatment of this problem were appropriate in the emergency setting Lab Data 07/25/24 16:05 07/25/24 16:05 Labs/Radiology: Radiology Impressions Chest X-Ray 07/25/24 15:02 IMPRESSION: 1. Cardiomegaly. 2. Emphysematous changes. 3. Trace bilateral pleural effusions. Laboratory Results WBC 5.84 10^3/uL (3.29-11.43) 07/25/24 16:05 RBC 3.43 10^6/uL (3.85-5.65) L 07/25/24 16:05 Hgb 9.90 g/dL (11.27-16.99) L 07/25/24 16:05 Hct 30.3 % (37-53) L 07/25/24 16:05 MCV 88.3 fl (82-101) 07/25/24 16:05 MCH 28.9 pg (27-33) 07/25/24 16:05 MCHC 32.7 g/dL (30-55) 07/25/24 16:05 RDW 15.4 % (12.1-15.1) H 07/25/24 16:05 Plt Count 166 10^3/cmm (157-399) 07/25/24 16:05 MPV 11.6 fL (7.4-10.4) H 07/25/24 16:05 Lymph % (Auto) Not Reportable 07/25/24 16:05 [place] % (Auto) Not Reportable 07/25/24 16:05 Lymph # (Auto) Not Reportable 07/25/24 16:05 [place] # (Auto) Not Reportable 07/25/24 16:05 Total Counted 100 (0-100) 07/25/24 16:05 Atypical Lymphs % 0.0 % (0-5) 07/25/24 16:05 Absolute Neutrophils 4.2 10^3/cmm (1.4-6.5) 07/25/24 16:05 Segmented Neutrophils 70 % 07/25/24 16:05 Band Neutrophils 2.0 % 07/25/24 16:05 Absolute Lymphocytes 0.7 10^3/cmm (1.2-3.4) L 07/25/24 16:05 Lymphocytes (Manual) 12 % 07/25/24 16:05 Monocytes (Manual) 13.0 % 07/25/24 16:05 Absolute Monocytes 0.8 10^3/cmm (0.1-0.6) H 07/25/24 16:05 Eosinophils (Manual) 0 % 07/25/24 16:05 Absolute Eosinophils 0.0 10^3/cmm (0.0-0.7) 07/25/24 16:05 Basophils (Manual) 0.0 % 07/25/24 16:05 Absolute Basophils 0.0 10^3/cmm (0.0-0.2) 07/25/24 16:05 Metamyelocytes 1.0 % 07/25/24 16:05 Myelocytes 2.0 % 07/25/24 16:05 Platelet Estimate Normal (Normal) 07/25/24 16:05 Sodium 130 mmol/L (136-145) L 07/25/24 16:05 Potassium 4.4 mmol/L (3.5-5.1) 07/25/24 16:05 Chloride 97 mmol/L (98-107) L 07/25/24 16:05 Carbon Dioxide 21 mmol/L (22-29) L 07/25/24 16:05 Anion Gap 16.4 (5-19) 07/25/24 16:05 BUN 38 mg/dL (8-23) H 07/25/24 16:05 Creatinine 1.3 mg/dL (0.7-1.2) H 07/25/24 16:05 GFR Calculation Not Reportable 07/25/24 16:05 Glucose 170 mg/dL (65-115) H 07/25/24 16:05 Calculated Osmolality 283 mOsm/kg (285-295) L 07/25/24 16:05 Lactic Acid 2.2 mmol/L (0.5-2.2) 07/25/24 16:05 Calcium 8.3 mg/dL (8.5-10.5) L 07/25/24 16:05 Total Bilirubin 3.1 mg/dL (0.15-1.2) H 07/25/24 16:05 GGT 106 U/L (8-61) H 07/25/24 18:24 AST 49 U/L (0-40) H 07/25/24 16:05 ALT 23 U/L (0-41) 07/25/24 16:05 Alkaline Phosphatase 161 U/L (40-130) H 07/25/24 16:05 Troponin T Baseline 643 ng/L (0-15) H* 07/25/24 16:05 Troponin T 120 Minute 660.1 ng/L (0-15) H 07/25/24 18:24 Delta Troponin T 17.1 ABS# (0-10) H* 07/25/24 18:24 C-Reactive Protein 23.2 mg/L (0.0-4.9) H 07/25/24 18:24 NT-Pro-B Natriuret Pep 2346 pg/mL (0-450) H 07/25/24 16:05 Total Protein 7.2 g/dL (6.6-8.7) 07/25/24 16:05 Albumin 3.3 g/dL (3.5-5.2) L 07/25/24 16:05 Globulin 3.9 g/dL (1.3-4.6) 07/25/24 16:05 Lipase 91 U/L (13-60) H 07/25/24 18:24 Ethyl Alcohol < 10 mg/dL (0-10) 07/25/24 18:24 All radiology interpretation(s) finalized by discharge Discharge Plan Discharge Patient Disposition: Admitted As Inpatient Admit Provider: Gerardo Ennis Clinical Impression: Acute exacerbation of congestive heart failure, Elevated troponin Condition: Stable Coding Level of Care Code ED Program Associate for Devin Peoples
[2024-07-25 16:16] LABS: Hematocrit 30.3 % (37-53); Mean Corpuscular HGB Conc 32.7 g/dL (30-55); Mean Corpuscular Hemoglobin 28.9 pg (27-33); Mean Corpuscular Volume 88.3 fl (82-101); Mean Platelet Volume 11.6 fL (7.4-10.4); Platelet Count 166 10^3/cmm (157-399); Red Blood Count 3.43 10^6/uL (3.85-5.65); Red Cell Distribution Width 15.4 % (12.1-15.1); White Blood Count 5.84 10^3/uL (3.29-11.43)
[2024-07-25 16:28] LABS: Slide Review Slide Review Perform
[2024-07-25 16:31] LABS: Absolute Segmented Neutrophil 4.1 10/cmm (1.6-7.1); Band Neutrophils Absolute 0.1 10^3/cmm (0.0-1.2); Lymphocytes 12 %; Monocytes Absolute 0.8 10^3/cmm (0.1-0.6); Segmented Neutrophils 70 %; Total Cells Counted 100 (0-100)
[2024-07-25 16:32] LABS: Absolute Neutrophil 4.2 10^3/cmm (1.4-6.5); Eosinophils 0 %; Lymphocytes Absolute 0.7 10^3/cmm (1.2-3.4); Platelet Estimate Normal (Normal)
[2024-07-25 16:36] LABS: Troponin(5th) Baseline 643 ng/L (0-15)
[2024-07-25 17:04] LABS: Alanine Aminotransferase 23 U/L (0-41); Albumin Level 3.3 g/dL (3.5-5.2); Alkaline Phosphatase 161 U/L (40-130); Anion Gap 16.4 (5-19); Aspartate Amino Transferase 49 U/L (0-40); Blood Urea Nitrogen 38 mg/dL (8-23); Calcium 8.3 mg/dL (8.5-10.5); Carbon Dioxide 21 mmol/L (22-29); Chloride 97 mmol/L (98-107); Globulin 3.9 g/dL (1.3-4.6); Glucose 170 mg/dL (65-115); NT Pro B Type Natriuretic Pept 2346 pg/mL (0-450); Osmolality Calculated 283 mOsm/kg (285-295); Potassium 4.4 mmol/L (3.5-5.1); Sodium 130 mmol/L (136-145); Total Bilirubin 3.1 mg/dL (0.15-1.2); Total Protein 7.2 g/dL (6.6-8.7)
--- NOTE | 2024-07-25 17:05 | ECG_ITS ---
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 Measurements Intervals [place] Rate: 75 P: 268 [place]: 311 QRS: 115 QRSD: 167 T: 127 QT: 475 QTc: 533 Interpretive Statements ECTOPIC ATRIAL RHYTHM WITH FIRST DEGREE AV BLOCK RIGHT BUNDLE BRANCH BLOCK [120+ ms QRS DURATION, UPRIGHT V1, 40+ ms S IN I/aVL/V4/V5/V6] LEFT POSTERIOR FASCICULAR BLOCK [QRS AXIS > 109, INFERIOR Q] ST DEVIATION AND MODERATE T-WAVE ABNORMALITY, CONSIDER LATERAL ISCHEMIA [-0.1+ mV T-WAVE IN I/aVL/V5/V6] Compared to ECG 07/25/2024 14:58:01 First degree AV block now present Myocardial infarct finding no longer present T-wave abnormality still present Possible ischemia still present Electronically Signed On 07-25-2024 20:25:12 [employer]TRIDGE ASSEMBLER by Narinder Pinon M.D. [id number]
[2024-07-25] MEDS: FUROsemide 10 mg/mL SDV 4mL 40 MG IVP (18:17)
--- NOTE | 2024-07-25 18:22 | CTR_ITS ---
PROCEDURE INFORMATION: Exam: CT Chest Without Contrast; Diagnostic Exam date and time: 07/25/2024 6:43 PM Age: 74 years old Clinical indication: Abdominal tenderness and bloating; Shortness of breath; Prior surgery; Surgery date: 6+ months; Surgery type: Open heart; Additional info: Swelling, pain, SOB TECHNIQUE: Imaging protocol: Diagnostic computed tomography of the chest without contrast. Radiation optimization: All CT scans at this facility use at least one of these dose optimization techniques: automated exposure control; mA and/or kV adjustment per patient size (includes targeted exams where dose is matched to clinical indication); or iterative reconstruction. COMPARISON: CR XR chest 1V portable [id number] 07/25/2024 3:14 PM RADIATION DOSE METRICS: Total DLP (mGy-cm): 1068.88 FINDINGS: Lungs: Dependent atelectasis in bilateral lung bases. Focal area of consolidation along the medial/posterior right lower lobe. Benign calcified granulomas in the left lung. Pleural spaces: Areas of nodularity with calcifications along the pleural surface in the right upper lobe. Trace left pleural effusion. Heart: Unremarkable. No cardiomegaly. No pericardial effusion. Coronary arteries: Multivessel coronary artery calcifications. Lymph nodes: Unremarkable. No enlarged lymph nodes. Vasculature: Moderate atherosclerotic aortic calcifications. No aortic aneurysm. Bones/joints: Post median sternotomy and CABG. Multilevel anterior osteophytes in the thoracic spine. No acute fracture. Soft tissues: Symmetric moderate bilateral gynecomastia. Other findings: Posterior pleural-based calcifications bilaterally. PROCEDURE INFORMATION: Exam: CT Abdomen And Pelvis Without Contrast Exam date and time: 07/25/2024 6:43 PM Age: 74 years old Clinical indication: Abdominal tenderness and bloating; Shortness of breath; Prior surgery; Surgery date: 6+ months; Surgery type: Open heart; Additional info: Swelling, pain, SOB TECHNIQUE: Imaging protocol: Computed tomography of the abdomen and pelvis without contrast. Radiation optimization: All CT scans at this facility use at least one of these dose optimization techniques: automated exposure control; mA and/or kV adjustment per patient size (includes targeted exams where dose is matched to clinical indication); or iterative reconstruction. COMPARISON: US renal BI* [id number] 11/18/2017 3:41 PM RADIATION DOSE METRICS: Total DLP (mGy-cm): 1068.88 FINDINGS: Liver: Normal. No mass. Gallbladder and biliary ducts: Cholelithiasis without CT evidence of acute cholecystitis. Mild pericholecystic fat stranding inferiorly. Pancreas: Peripancreatic fat stranding along the head and uncinate process. No ductal dilatation. Spleen: Normal. No splenomegaly. Adrenal glands: Normal. No mass. Kidneys and ureters: Normal. No hydronephrosis. Stomach and bowel: Unremarkable. No obstruction. No mucosal thickening. Appendix: No evidence of appendicitis. Intraperitoneal space: Unremarkable. No free air. No significant fluid collection. Vasculature: Moderate diffuse aortoiliac calcifications. No aortic aneurysm. Lymph nodes: Unremarkable. No enlarged lymph nodes. Urinary bladder: Unremarkable as visualized. Reproductive: Unremarkable as visualized. Bones/joints: Multilevel degenerative changes of the lumbar spine. Soft tissues: Diffuse anasarca. CT/[place] [id number] IMPRESSION: 1. Focal consolidation in the right lower lobe may represent atelectasis versus infiltrate. 2. Dependent atelectasis in bilateral lung bases. Trace left pleural effusion. 3. Pleural-based calcifications can be seen with asbestos exposure. 4. Post median sternotomy and CABG. IMPRESSION: 1. Peripancreatic fat stranding along the head and uncinate process. Correlate with lipase levels as findings can be seen with acute pancreatitis. 2. Cholelithiasis. Areas of mild pericholecystic fat stranding may be secondary to peripancreatic stranding, though acute cholecystitis not entirely excluded. This could be further assessed with right upper quadrant ultrasound if warranted. 3. Diffuse anasarca. 4. Additional ancillary findings as above.
--- NOTE | 2024-07-25 18:23 | P.HP_ITS ---
Providers/Chief Complaint 2 Primary Care Provider: Mildred Grewal MD Chief Complaint: chf, fluid overload, & penileabrasion History of Present Illness Taran Higuera is a 74 year old male with a past medical history of atrial flutter, underwent stenting to distal LAD just distal to previous RITCHIE to LAD bypass, only 2 of the 4 bypass grafts in open, aortic stenosis, type 2 diabetes mellitus, hypertension, hyperlipidemia, CHF, peripheral vascular disease who presents [facility] for shortness of breath, orthopnea, paroxysmal nocturnal dyspnea, cough, increased abdominal distention. Patient was seen, he is alert oriented x 3, following all commands, he reports since being discharged from the hospital he continued to have episodes of shortness of breath, increased lower extremity edema, orthopnea, paroxysmal nocturnal dyspnea, increased abdominal distention also reports a cough. He tells that the antibiotics made him feel nauseous so he did not take the cefdinir that he was prescribed. He denies any chest pain. He reports that his blood pressures are been soft since he got home, does feel lightheaded at times, denies passing out, he adamantly denies any recurrent chest pain, denies episodes of confusion reports generalized abdominal distention, abdominal fullness, Review of Systems 2 Const: Denies: fever(s) Card: Denies: chest pain Resp: Reports: dyspnea GI: Reports: abdominal pain : Denies: flank pain Medications/Allergies Home Medications Medication Instructions Recorded Confirmed Last Taken Type acetaminophen 500 mg tablet 500 mg PO Q6H PRN Pain 09/25/20 07/25/24 07/06/24 02:00 History aspirin 81 mg tablet,delayed 81 mg PO DAILY 09/25/20 07/25/24 07/06/24 08:00 History release (Adult Low Dose Aspirin) Diabetic Shoes with 3 Pairs of #1 ea 11/19/22 07/25/24 Unknown Rx Inserts blood-glucose meter (OneTouch #1 ea 02/27/23 07/25/24 Unknown Rx Ultra2 Meter) nitroglycerin 0.4 mg sublingual See Rx Instructions .Route 03/24/24 07/25/24 07/06/24 12:25 Rx tablet .COMPLEX #25 tabs blood sugar diagnostic (OneTouch #100 ea 03/29/24 07/25/24 Unknown Rx Ultra Test strips) cabergoline 0.5 mg tablet 0.25 mg (2 x 0.5 mg) PO Q7D 30 05/04/24 07/25/24 07/02/24 08:00 Rx days #3 tabs evolocumab 140 mg/mL subcutaneous See Rx Instructions .Route 05/23/24 07/25/24 06/25/24 08:00 Rx pen injector (Mare Boogie) .COMPLEX #6 mL cefdinir 300 mg capsule 300 mg PO BID #14 caps 07/21/24 07/25/24 Unknown Rx furosemide 20 mg tablet 20 mg PO BID@08,16 30 days #60 tabs 07/21/24 07/25/24 Unknown Rx lactulose 20 gram/30 mL oral 20 g (30 mL) PO Q12H #180 mL 07/21/24 07/25/24 Unknown Rx solution metoprolol succinate 25 mg 12.5 mg (1/2 x 25 mg) PO DAILY 30 07/21/24 07/25/24 Unknown Rx tablet,extended release 24 hr days #30 tabs midodrine 5 mg tablet 10 mg (2 x 5 mg) PO TID 30 days 07/21/24 07/25/24 Unknown Rx #180 tabs pantoprazole 40 mg tablet,delayed 40 mg PO BID #60 tabs 07/21/24 07/25/24 Unknown Rx release potassium chloride 10 mEq 10 meq PO BID 30 days #60 tabs 07/21/24 07/25/24 Unknown Rx tablet,extended release (Klor-Con) ticagrelor 90 mg tablet (Brilinta) 90 mg PO BID 90 days #180 tabs 07/21/24 07/25/24 Unknown Rx canagliflozin 100 mg tablet 100 mg PO DAILY 07/25/24 07/25/24 Unknown History (Invokana) Allergies Allergy/AdvReac Type Severity Reaction Status Date / Time atorvastatin [From Lipitor] Allergy Unknown Unknown Verified 07/25/24 14:56 diclofenac [From Arthrotec] Allergy Unknown Unknown Verified 07/25/24 14:56 misoprostol [From Arthrotec] Allergy Unknown Unknown Verified 07/25/24 14:56 pravastatin Allergy Unknown Unknown Verified 07/25/24 14:56 risedronate sodium Allergy Unknown Unknown Verified 07/25/24 14:56 [From Actonel] rosuvastatin [From Crestor] Allergy Unknown Unknown Verified 07/25/24 14:56 semaglutide [From Ozempic] Allergy Unknown Unknown Verified 07/25/24 14:56 fosinopril AdvReac Mild Cough Verified 07/25/24 14:56 lovastatin [From Mevacor] AdvReac Mild Myalgia Verified 07/25/24 14:56 PFSH Acute 2 PFSH: Medical History Cellulitis of right lower leg Aortic stenosis Neuropathy Bilateral lower extremity edema Hyperlipidemia Degenerative disc disease Statin intolerance Chronic anticoagulation Microalbuminuria due to type 2 diabetes mellitus Cardiac LV ejection fraction 30-35% Diabetes mellitus Atrial flutter Shortness of breath Atrial fibrillation CAD (coronary artery disease) HTN (hypertension) PVD (peripheral vascular disease) CHF (congestive heart failure) Surgical History S/P hernia repair S/P arterial stent (~2002) History of hand surgery (~2013) S/P CABG (coronary artery bypass graft) (~2000) Family History Father Cancer Sister Cancer Brother Cancer Lung CA Mother COPD (chronic obstructive pulmonary disease) Social History Smoking and tobacco/nicotine status: former use of tobacco/nicotine Alcohol intake: never Substance/Drug Use: never Lives independently: Yes Household members: spouse Marital status: Vitals/I&O/Wt Last Vital Signs Temp 97.4 F L 07/25/24 14:49 Pulse 76 07/25/24 18:19 Resp 20 H 07/25/24 15:41 BP 92/61 07/25/24 18:19 Pulse Ox 97 07/25/24 18:19 O2 Del Method Room Air 07/25/24 18:19 Weight last 48 hrs Weight 102.058 kg Physical Exam 2 Const: COMMON NORMALS: no acute distress and patient oriented x3 Eye: COMMON NORMALS: Equal, round and reactive pupils present Resp: COMMON NORMALS: normal respiratory effort, No retractions and No use of accessory muscles AUSCULTATION: crackles and wheezes Cardio: COMMON NORMALS: no JVD, regular rate, regular rhythm, S1 normal heart sound present and S2 normal heart sound present RHYTHM: regular rhythm H EART SOUNDS: S1 normal heart sound present and S2 normal heart sound present GI: COMMON NORMALS: Soft to palpation and non-tender OTHER: Abdomen is soft, distended, no guarding, no rebound, no rigidity, does have diffuse tenderness Extremity: NARRATIVE EXTREMITY EXAM: 1+ pitting edema Neuro: COMMON NORMALS: patient oriented x3, CN's II-XII intact bilaterally and moves all extremities Psych: COMMON NORMALS: mental status grossly normal Skin: NARRATIVE SKIN EXAM: Superficial skin bruising throughout the lower abdomen Data 07/25/24 16:05 07/25/24 16:05 A&P Assessment and plan (1) Acute exacerbation of CHF (congestive heart failure): (2) Acute anemia: (3) Hyponatremia: (4) Acute kidney injury: (5) Hyperbilirubinemia: (6) NSTEMI (non-ST elevated myocardial infarction): (7) Cardiac LV ejection fraction 30-35%: (8) CAD (coronary artery disease): Qualifiers: Coronary Disease-Associated Artery/Lesion type: bypass graft [place] vs. transplanted heart: [place] heart Associated angina: without angina Qualified Code(s): I25.810 - Atherosclerosis of coronary artery bypass graft(s) without angina pectoris (9) Diabetes mellitus: Plan Acute CHF exacerbation -Lasix 40 IV twice daily ? Place Ramires catheter ? Monitor creatinine, monitor potassium ? Midodrine 10 every 6 hours Shortness of breath, cough -CRP, Pro-Omid, CT of the chest -Blood cultures -Respiratory viral panel # NSTEMI -Recent history of cardiac catheterization Conclusions 1. There is total occlusion coronary artery disease with four vessel disease. 2. Four coronary grafts visualized: two grafts patent, and two grafts occluded. 3. Patient has prior CABG. 4. Distal Left Anterior Descending was treated with a Balloon, Drug Eluting Stent, and Balloon. There is no complaints of chest pain ? Plan ? Aspirin, Brilinta, will consider beta-paula ? Serial EKGs, serial troponins, telemetry monitoring ? Heparin drip Acute anemia ? History of Hemoccult positive stools ? Patient is on aspirin, Brilinta, heparin drip as above ? Monitor hemoglobin every 4 hours # Protonix, Carafate Hyperbilirubinemia # With evidence of liver cirrhosis ? Monitor ? Check ammonia levels Complaints of abdominal pain, abdominal distention ? Lipase, GGT, CT scan abdomen pelvis Full code ? Heparin drip for DVT prophylaxis Attestations 2 Medical Necessity Statement*: Patient requires hospitalization, inpatient, greater than 2 midnights, for CHF exacerbation, NSTEMI, hyponatremia, JAN, hyperbilirubinemia, acute anemia Diagnoses Acute exacerbation of CHF (congestive heart failure) I50.9 Acute anemia D64.9 Hyponatremia E87.1 Acute kidney injury N17.9 Hyperbilirubinemia E80.6 NSTEMI (non-ST elevated myocardial infarction) I21.4 Cardiac LV ejection fraction 30-35% R94.30 Coronary artery disease involving coronary bypass graft of [place] heart without angina pectoris I25.810 Coronary Disease-Associated Artery/Lesion type: bypass graft [place] vs. transplanted heart: [place] heart Associated angina: without angina Diabetes mellitus E11.9
[2024-07-25 18:59] LABS: Troponin 5 2HR 660.1 ng/L (0-15); Troponin 5 2HR Delta 17.1 ABS# (0-10)
[2024-07-25 19:00] LABS: C Reactive Protein 23.2 mg/L (0.0-4.9); Gamma Glutamyl Transferase 106 U/L (8-61); Lipase 91 U/L (13-60)
[2024-07-25 19:01] LABS: Lactic Sepsis W/Reflex 2.2 mmol/L (0.5-2.2)
[2024-07-25 19:02] LABS: Alcohol Level < 10 mg/dL (0-10)
[2024-07-25 19:07] LABS: Procalcitonin 0.76 ng/mL (0-0.5)
[2024-07-25 19:20] LABS: Hematocrit 31.4 % (37-53)
[2024-07-25 19:21] LABS: Reflex Lactate Order REFLEX LACTIC ORDERD
[2024-07-25 19:37] LABS: Ammonia 24 umol/L (16-60)
[2024-07-25 19:51] LABS: Covid PCR NEGATIVE (Negative); Influenza A POSITIVE (Negative); Influenza B NEGATIVE (Negative); Respiratory Syncytial Virus Ce NEGATIVE (Negative)
[2024-07-25 20:53] LABS: Glucose Point of Care 135 mg/dL (70-110)
[2024-07-25 21:01] LABS: Lactic Acid level (Lactate) 2.5 mmol/L (0.5-2.2)
[2024-07-25] MEDS: sucralfate 1 gm/10 mL Oral Liq UDC PO (21:01)
[2024-07-25] MEDS: cefTRIAXone 1,000 mg SDV 1000 MG IVP (21:01)
[2024-07-25] MEDS: lactulose oral liq 20 gm/30 mL UDC PO (21:01)
[2024-07-25] MEDS: heparin 5,000 unit/mL INJ 1 mL IVP (21:02)
[2024-07-25] MEDS: midodrine 5 mg TABLET 10 MG PO (21:02)
[2024-07-25] MEDS: pantoprazole 40 mg SDV IVP (21:02)
--- NOTE | 2024-07-25 21:05 | PM.CONSULT ---
Providers/Reason For Consult Consulting Physician/Specialty*: DARRON Gonzaelz MD/cardiology Reason for Consult*: Patient with recurrent decompensated heart failure/elevated troponin T Attending Physician: Gerardo Ennis MD Primary Care Provider: Mildred Grewal MD History of Present Illness History of Present Illness Taran Higuera is a 74 year old male is admitted to the hospital through the emergency room where he present with complaints of progressive shortness of breath, bilateral leg swelling and a cough. He was found to have features of biventricular failure. He is admitted to hospital for further evaluation and management. This patient was recently discharged in the hospital where he was admitted with decompensated heart failure. He is known to have atherosclerotic heart diseas, high blood pressure, dyslipidemia, severe tricuspid regurgitation, severe low gradient aortic valve stenosis, ischemic cardiomyopathy with an EF of 40%. He was admitted to hospital on 07/06/2024. After the diuresis, he was taken to the [facility] on 07/12/2024. He was found to have 2 of the 4 bypass grafts probably occluded. RITCHIE to the LAD and radial artery graft to the OM was found to be patent. Venous graft to the obtuse marginal and intermedius arteries fair for to be totally occluded. He had a PCI of the high-grade lesion in the distal LAD, distal to the anastomosis. During the post PCI phase, he had hypotension and some ischemic EKG changes. Repeat angiogram revealed patent stented area. Apparently he could not tolerate Entresto. He also developed some GI bleed for that reason, he was taken off the Eliquis. He also developed altered mental status and some features of hepatic encephalopathy while being in the hospital with elevated ammonia levels. He had a urosepsis as well. He was treated with IV vancomycin and Zosyn. Urine culture grew E. coli, sensitive to Zosyn. He was discharged home on cefdinir. Apparently, he had some type of intolerance to this medication. So he did not take the medication yesterday. He was taking all the other medications. He was discharged home on the in fairly stable condition. According the patient, he was not urinating much at home. His swelling started getting worse so also his shortness of breath and a dry cough. He was seen at the [facility] today for a follow-up. Because of the worsening symptoms, he was sent to the emergency room for evaluation. So he is currently admitted for further evaluation and management. Review of Systems Narrative: CONSTITUTIONAL: Generalized weakness/lethargy EYES: No blurring of vision or other visual disturbances lately. ENT: No hoarseness of voice, auditory disturbances or sore throat. CARDIOVASCULAR: As mentioned above. RESPIRATORY: Cough and shortness of breath as mentioned above GASTROINTESTINAL: No hematemesis or melena. GENITOURINARY: No dysuria or hematuria. INTEGUMENTARY: No skin rashes or history of skin cancer. NEURO: Recent encephalopathy as mentioned in PSYCHIATRIC: No history of psychosis or major depression. HEMATOLOGIC: Anemia and GI bleed. Discontinue the oral anticoagulant. ENDOCRINE: No history of polyuria or polydipsia. MUSCULOSKELETAL: No recent joint pain or swelling. ALLERGY/IMMUNOLOGY: As mentioned above. Medications/Allergies Home Medications Medication Instructions Recorded Confirmed Last Taken Type acetaminophen 500 mg tablet 500 mg PO Q6H PRN Pain 09/25/20 07/25/24 07/06/24 02:00 History aspirin 81 mg tablet,delayed 81 mg PO DAILY 09/25/20 07/25/24 07/06/24 08:00 History release (Adult Low Dose Aspirin) Diabetic Shoes with 3 Pairs of #1 ea 11/19/22 07/25/24 Unknown Rx Inserts blood-glucose meter (OneTouch #1 ea 02/27/23 07/25/24 Unknown Rx Ultra2 Meter) nitroglycerin 0.4 mg sublingual See Rx Instructions .Route 03/24/24 07/25/24 07/06/24 12:25 Rx tablet .COMPLEX #25 tabs blood sugar diagnostic (OneTouch #100 ea 03/29/24 07/25/24 Unknown Rx Ultra Test strips) cabergoline 0.5 mg tablet 0.25 mg (1/2 x 0.5 mg) PO Q7D 30 05/04/24 07/25/24 07/02/24 08:00 Rx days #3 tabs evolocumab 140 mg/mL subcutaneous See Rx Instructions .Route 05/23/24 07/25/24 06/25/24 08:00 Rx pen injector (Mare Boogie) .COMPLEX #6 mL cefdinir 300 mg capsule 300 mg PO BID #14 caps 07/21/24 07/25/24 Unknown Rx furosemide 20 mg tablet 20 mg PO BID@08,16 30 days #60 tabs 07/21/24 07/25/24 Unknown Rx lactulose 20 gram/30 mL oral 20 g (30 mL) PO Q12H #180 mL 07/21/24 07/25/24 Unknown Rx solution metoprolol succinate 25 mg 12.5 mg (1/2 x 25 mg) PO DAILY 30 07/21/24 07/25/24 Unknown Rx tablet,extended release 24 hr days #30 tabs midodrine 5 mg tablet 10 mg (2 x 5 mg) PO TID 30 days 07/21/24 07/25/24 Unknown Rx #180 tabs pantoprazole 40 mg tablet,delayed 40 mg PO BID #60 tabs 07/21/24 07/25/24 Unknown Rx release potassium chloride 10 mEq 10 meq PO BID 30 days #60 tabs 07/21/24 07/25/24 Unknown Rx tablet,extended release (Klor-Con) ticagrelor 90 mg tablet (Brilinta) 90 mg PO BID 90 days #180 tabs 07/21/24 07/25/24 Unknown Rx canagliflozin 100 mg tablet 100 mg PO DAILY 07/25/24 07/25/24 Unknown History (Invokana) Allergies Allergy/AdvReac Type Severity Reaction Status Date / Time atorvastatin [From Lipitor] Allergy Unknown Unknown Verified 07/25/24 14:56 diclofenac [From Arthrotec] Allergy Unknown Unknown Verified 07/25/24 14:56 misoprostol [From Arthrotec] Allergy Unknown Unknown Verified 07/25/24 14:56 pravastatin Allergy Unknown Unknown Verified 07/25/24 14:56 risedronate sodium Allergy Unknown Unknown Verified 07/25/24 14:56 [From Actonel] rosuvastatin [From Crestor] Allergy Unknown Unknown Verified 07/25/24 14:56 semaglutide [From Ozempic] Allergy Unknown Unknown Verified 07/25/24 14:56 fosinopril AdvReac Mild Cough Verified 07/25/24 14:56 lovastatin [From Mevacor] AdvReac Mild Myalgia Verified 07/25/24 14:56 PFSH Acute PFSH: Medical History Cellulitis of right lower leg Aortic stenosis Neuropathy Bilateral lower extremity edema Hyperlipidemia Degenerative disc disease Statin intolerance Chronic anticoagulation Microalbuminuria due to type 2 diabetes mellitus Cardiac LV ejection fraction 30-35% Diabetes mellitus Atrial flutter Shortness of breath Atrial fibrillation CAD (coronary artery disease) HTN (hypertension) PVD (peripheral vascular disease) CHF (congestive heart failure) Surgical History S/P hernia repair S/P arterial stent (~2002) History of hand surgery (~2013) S/P CABG (coronary artery bypass graft) (~2000) Family History Father Cancer Sister Cancer Brother Cancer Lung CA Mother COPD (chronic obstructive pulmonary disease) Social History Smoking and tobacco/nicotine status: former use of tobacco/nicotine Alcohol intake: never Substance/Drug Use: never Lives independently: Yes Household members: spouse Marital status: Vitals/I&O/Wt Last Vital Signs Temp 97.4 F L 07/25/24 14:49 Pulse 77 07/25/24 20:10 Resp 20 H 07/25/24 20:10 BP 103/67 07/25/24 20:10 Pulse Ox 98 07/25/24 20:10 O2 Del Method Room Air 07/25/24 20:11 Weight last 48 hrs Weight 227 lb 6.4 oz Weight 225 lb Physical Exam Narrative: GENERAL: The patient is alert and oriented times three. Not in any acute distress. HEENT: No significant pallor, icterus or lymphadenopathy.Oral cavity: There are no mucous membrane lesions. NECK: Trachea appears to be central. No masses noted. No JVD or thyromegaly appreciated. RESPIRATORY: Chest is symmetrical. No intercostals muscle retraction or any accessory muscle activation. There is no chest wall tenderness. Breath sounds are heard bilaterally. No rales or rhonchi heard. No evidence of any consolidation. BREASTS: Deferred. HEART: The heart sounds are normal. No S3 or S4. Ejection stock murmur grade 3 or 6 in the aortic area.. No pericardial rub ABDOMEN: Edema of the lower abdominal wall and also significant edema in the lumbar regions bilaterally : Deferred. RECTAL: Deferred. LYMPHATIC: No lymphadenopathy noted in the neck. EXTREMITIES: 2-3+ edema both lower extremities. Features of chronic venous stasis and healed venous ulcers. Small blisters were noted in the abdominal area on the right side MUSCULOSKELETAL: No acute joint deformities or swelling SKIN: There are no significant rashes or ecchymosis NEUROPSYCHIATRIC: The patient is alert and oriented x3. Appears to be in a good mood. No tremors or rigidity noted. Data 07/26/24 11:22 07/26/24 03:30 Other Labs: Laboratory Last Values WBC 5.84 10^3/uL (3.29-11.43) 07/25/24 16:05 RBC 3.43 10^6/uL (3.85-5.65) L 07/25/24 16:05 Hgb 10.20 g/dL (11.27-16.99) L 07/25/24 19:10 Hct 31.4 % (37-53) L 07/25/24 19:10 MCV 88.3 fl (82-101) 07/25/24 16:05 MCH 28.9 pg (27-33) 07/25/24 16:05 MCHC 32.7 g/dL (30-55) 07/25/24 16:05 RDW 15.4 % (12.1-15.1) H 07/25/24 16:05 Plt Count 166 10^3/cmm (157-399) 07/25/24 16:05 MPV 11.6 fL (7.4-10.4) H 07/25/24 16:05 Lymph % (Auto) Not Reportable 07/25/24 16:05 [place] % (Auto) Not Reportable 07/25/24 16:05 Lymph # (Auto) Not Reportable 07/25/24 16:05 [place] # (Auto) Not Reportable 07/25/24 16:05 Total Counted 100 (0-100) 07/25/24 16:05 Atypical Lymphs % 0.0 % (0-5) 07/25/24 16:05 Absolute Neutrophils 4.2 10^3/cmm (1.4-6.5) 07/25/24 16:05 Segmented Neutrophils 70 % 07/25/24 16:05 Band Neutrophils 2.0 % 07/25/24 16:05 Absolute Lymphocytes 0.7 10^3/cmm (1.2-3.4) L 07/25/24 16:05 Lymphocytes (Manual) 12 % 07/25/24 16:05 Monocytes (Manual) 13.0 % 07/25/24 16:05 Absolute Monocytes 0.8 10^3/cmm (0.1-0.6) H 07/25/24 16:05 Eosinophils (Manual) 0 % 07/25/24 16:05 Absolute Eosinophils 0.0 10^3/cmm (0.0-0.7) 07/25/24 16:05 Basophils (Manual) 0.0 % 07/25/24 16:05 Absolute Basophils 0.0 10^3/cmm (0.0-0.2) 07/25/24 16:05 Metamyelocytes 1.0 % 07/25/24 16:05 Myelocytes 2.0 % 07/25/24 16:05 Platelet Estimate Normal (Normal) 07/25/24 16:05 Sodium 130 mmol/L (136-145) L 07/25/24 16:05 Potassium 4.4 mmol/L (3.5-5.1) 07/25/24 16:05 Chloride 97 mmol/L (98-107) L 07/25/24 16:05 Carbon Dioxide 21 mmol/L (22-29) L 07/25/24 16:05 Anion Gap 16.4 (5-19) 07/25/24 16:05 BUN 38 mg/dL (8-23) H 07/25/24 16:05 Creatinine 1.3 mg/dL (0.7-1.2) H 07/25/24 16:05 GFR Calculation Not Reportable 07/25/24 16:05 Glucose 170 mg/dL (65-115) H 07/25/24 16:05 POC Glucose 135 mg/dL (70-110) H 07/25/24 20:35 Calculated Osmolality 283 mOsm/kg (285-295) L 07/25/24 16:05 Lactic Acid 2.2 mmol/L (0.5-2.2) 07/25/24 16:05 Lactic Acid (Sepsis) 2.5 mmol/L (0.5-2.2) H 07/25/24 20:34 Calcium 8.3 mg/dL (8.5-10.5) L 07/25/24 16:05 Total Bilirubin 3.1 mg/dL (0.15-1.2) H 07/25/24 16:05 GGT 106 U/L (8-61) H 07/25/24 18:24 AST 49 U/L (0-40) H 07/25/24 16:05 ALT 23 U/L (0-41) 07/25/24 16:05 Alkaline Phosphatase 161 U/L (40-130) H 07/25/24 16:05 Ammonia 24 umol/L (16-60) 07/25/24 19:10 Troponin T Baseline 643 ng/L (0-15) H* 07/25/24 16:05 Troponin T 120 Minute 660.1 ng/L (0-15) H 07/25/24 18:24 Delta Troponin T 17.1 ABS# (0-10) H* 07/25/24 18:24 C-Reactive Protein 23.2 mg/L (0.0-4.9) H 07/25/24 18:24 NT-Pro-B Natriuret Pep 2346 pg/mL (0-450) H 07/25/24 16:05 Total Protein 7.2 g/dL (6.6-8.7) 07/25/24 16:05 Albumin 3.3 g/dL (3.5-5.2) L 07/25/24 16:05 Globulin 3.9 g/dL (1.3-4.6) 07/25/24 16:05 Lipase 91 U/L (13-60) H 07/25/24 18:24 Procalcitonin 0.76 ng/mL (0-0.5) H 07/25/24 18:24 Ethyl Alcohol < 10 mg/dL (0-10) 07/25/24 18:24 Coronavirus (PCR) Negative (Negative) 07/25/24 18:36 Influenza A (PCR) Positive (Negative) 07/25/24 18:36 Influenza Type B (PCR) Negative (Negative) 07/25/24 18:36 RSV (PCR) Negative (Negative) 07/25/24 18:36 Other data: EKG from today Revealed atrial flutter with a high degree AV block. Diffuse nonspecific T wave changes in the anterolateral leads. Right bundle branch block pattern. The ST depressions have improved since the previous admission EKGs Echocardiogram from 07/07/2024 Normal left ventricular size, moderately decreased left ventricular systolic function. Left ventricular ejection fraction is estimated at 40 %. Global hypokinesis with falttening of septum,flattened septum in systole consistent with right ventricle pressure overload. Flattened septum in diastole consistent with right ventricle volume overload. Severely increased right atrial size. Moderately increased left atrial size. Mildly thickened mitral valve. No mitral valve stenosis. Mild mitral valve regurgitation. Moderate to severe aortic valve calcification. Moderate aortic valve stenosis, mean gradient 18.4 mmHg, STEVEN 0.88 cm squared. Mild aortic valve regurgitation. Severe tricuspid valve regurgitation. There is no pericardial effusion. Right atrial pressure is around 20 mm of mercury. Cardiac colorization on 07/12/2024 * Left Main: severe 90% stenosis, KENN: 3 flow. * Proximal Left Anterior Descending: severe 90% stenosis, KENN: 3 flow. * Mid Left Anterior Descending: total occlusion, KENN: 0 flow. * Distal Left Anterior Descending: severe 90% stenosis, chronic total occlusion, moderately calcified, moderate proximal segment tortuosity, KENN: 2 flow, high/c lesion. * Left Internal Mammary Artery to Distal Left Anterior Descending graft: patent. * Proximal Right Coronary Artery: total occlusion, KENN: 0 flow. * Proximal Circumflex: total occlusion, KENN: 3 flow. * Ascending Aorta to Ramus graft: total occlusion, KENN: 0 flow. * Ascending Aorta to 1st Diagonal graft: total occlusion, KENN: 0 flow. * First Obtuse Marginal Branch Segment: severe 90% stenosis, KENN: 3 flow. * Ascending Aorta to First Obtuse Marginal Branch Segment graft: patent. * Four grafts visualized. * Coronary angiography shows right dominance. A&P Assessment and plan (1) Acute exacerbation of congestive heart failure: Patient had an ejection fraction of 40% he also was found to have severe tricuspid regurgitation. Will start him on IV Lasix and will carefully monitor intake and output. Qualifiers: Heart failure type: combined systolic and diastolic Qualified Code(s): I50.43 - Acute on chronic combined systolic (congestive) and diastolic (congestive) heart failure (2) Ischemic cardiomyopathy: In view of the related low blood pressure, we may hold off on any afterload reducing agents at this time. (3) Elevated troponin: Could be from the recent intervention. We may do some serial troponins to evaluate the trend. (4) Acute kidney injury superimposed on chronic kidney disease: This need to be carefully monitored. (5) Blood loss anemia: The hemoglobin seems to be stable. Will be closely monitoring the H&H. (6) Atherosclerosis of coronary artery of [place] heart without angina pectoris: Patient is on Brilinta and baby aspirin. This may be continued for the time being. Qualifiers: Coronary Disease-Associated Artery/Lesion type: [place] artery Qualified Code(s): I25.10 - Atherosclerotic heart disease of [place] coronary artery without angina pectoris Plan Based on the clinical progress, further recommendations will be made. Thank you for the opportunity to evaluate this patient and make these recommendations Coding Level of Care Code 88401 Diagnoses Acute on chronic combined systolic and diastolic congestive heart failure I50.43 Heart failure type: combined systolic and diastolic Ischemic cardiomyopathy I25.5 Elevated troponin R79.89 Acute kidney injury superimposed on chronic kidney disease N17.9; N18.9 Blood loss anemia D50.0 Atherosclerosis of [place] coronary artery of [place] heart without angina pectoris I25.10 Coronary Disease-Associated Artery/Lesion type: [place] artery
[2024-07-25] MEDS: heparin drip 25,000 UNIT/500 ML PREMIX 29 UNIT IV (21:07)
[2024-07-25] MEDS: morphine 4 mg/mL SDV 1 mL 2 MG IVP (21:58)
--- NOTE | 2024-07-25 22:19 | ECG_ITS ---
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 Measurements Intervals [place] Rate: 77 P: 250 VA: 306 QRS: 82 QRSD: 168 T: 246 QT: 469 QTc: 531 Interpretive Statements ECTOPIC ATRIAL RHYTHM WITH FIRST DEGREE AV BLOCK WITH OCCASIONAL VENTRICULAR PREMATURE COMPLEXES RIGHT BUNDLE BRANCH BLOCK [120+ ms QRS DURATION, UPRIGHT V1, 40+ ms S IN I/aVL/V4/V5/V6] MODERATE T-WAVE ABNORMALITY, CONSIDER LATERAL ISCHEMIA [-0.1+ mV T-WAVE IN I/aVL/V5/V6] Compared to ECG 07/25/2024 17:05:35 Ventricular premature complex(es) now present Left posterior fascicular block no longer present T-wave abnormality still present Possible ischemia still present Electronically Signed On 07-26-2024 22:02:45 EXPLOSIVE OPERATOR BOMB by Natasha Gonzalez M.D. [email or web address]
[2024-07-25] MEDS: FUROsemide 10 mg/mL SDV 10mL 60 MG IVP (23:13)
[2024-07-25 23:16] LABS: Bilirubin Urine Negative (Negative); Blood Urine 1+ (Negative); Glucose Urine UA 2+ (Normal); Ketones Urine Negative (Negative); Leukocyte Esterase Urine Negative (Negative); Nitrate Urine Negative (Negative); Protein Urine Negative (Negative); Specific Gravity, Urine 1.008 (1.005-1.030); Urine Appearance Clear (CLEAR); Urine Color Yellow (Yellow); Urobilinogen Urine 0.2 mg/dL (Negative)
[2024-07-25 23:21] LABS: Add Urine Microscopic? YES; Bacteria Urine None Seen /hpf; Hyaline Casts Urine 1.21 /lpf; Squamous Epithelial Cell Urine 0-5 /hpf (0-5); WBC Urine 0-5 /hpf (0-5)
[2024-07-25 23:35] LABS: Troponin 5 6HR Delta -7.4 ng/L (0-12)
[2024-07-25 23:36] LABS: UA Slide Review UA Slide Review Perf
[2024-07-25 23:39] LABS: Troponin 5 6HR 635.6 ng/L (0-15)
[2024-07-26] VITALS (22 sets, daily range): BP systolic 80–103; BP diastolic 49–60; PULSE 67–106; RESP 15–25; TEMP 36.6–37.2; O2SAT 94–98
[2024-07-26] MEDS: sucralfate 1 gm/10 mL Oral Liq UDC PO ×4 (02:31→20:15)
[2024-07-26] MEDS: midodrine 5 mg TABLET 10 MG PO ×4 (02:31→20:15)
[2024-07-26 03:49] LABS: Basophils # 0.1 10^3/uL (0.0-0.1); Basophils % 2.4 %; Eosinophils # 0.2 10^3/uL (0.0-0.8); Hematocrit 27.5 % (37-53); Lymphocytes # 1.1 10^3/uL (0.8-4.8); Lymphocytes % 19.2 %; Mean Corpuscular HGB Conc 33.5 g/dL (30-55); Mean Corpuscular Hemoglobin 29.1 pg (27-33); Mean Platelet Volume 11.2 fL (7.4-10.4); Monocytes # 1.2 10^3/uL (0.2-0.9); Monocytes % 20.2 %; Neutrophils # 3.01 10^3/uL (1.8-7.7); Neutrophils % 52.6 %; Nucleated Red Blood Cells % 0 %; Platelet Count 170 10^3/cmm (157-399); Red Blood Count 3.16 10^6/uL (3.85-5.65); Red Cell Distribution Width 15.2 % (12.1-15.1); White Blood Count 5.73 10^3/uL (3.29-11.43)
[2024-07-26 04:18] LABS: Alanine Aminotransferase 20 U/L (0-41); Albumin Level 2.9 g/dL (3.5-5.2); Alkaline Phosphatase 148 U/L (40-130); Anion Gap 16.6 (5-19); Aspartate Amino Transferase 44 U/L (0-40); Blood Urea Nitrogen 36 mg/dL (8-23); Calcium 7.9 mg/dL (8.5-10.5); Carbon Dioxide 23 mmol/L (22-29); Chloride 96 mmol/L (98-107); Creatinine Clr Calc Pharmacy 50.4052; Globulin 3.7 g/dL (1.3-4.6); Glucose 192 mg/dL (65-115); Magnesium 2.2 mg/dL (1.7-2.3); Osmolality Calculated 288 mOsm/kg (285-295); Phosphorus 3.4 mg/dL (2.5-4.5); Potassium 3.6 mmol/L (3.5-5.1); Sodium 132 mmol/L (136-145); Total Bilirubin 2.9 mg/dL (0.15-1.2); Total Protein 6.6 g/dL (6.6-8.7)
[2024-07-26 04:22] LABS: Partial Thromboplastin Time > 250.0 SECONDS (23.9-36.7)
[2024-07-26 04:34] LABS: NT Pro B Type Natriuretic Pept 1941 pg/mL (0-450)
--- NOTE | 2024-07-26 05:33 | PC.NURSE ---
Contacted about low BP of 80/49, MD gave orders to administer 0800 dose of midodeine now at 0530. Also contacted MD about PTT result greater than 250, MD gave order to repeat PTT in 4 hours and pause infusion. All orders entered and carried out.
[2024-07-26 06:48] LABS: Glucose Point of Care 185 mg/dL (70-110)
[2024-07-26] MEDS: lactulose oral liq 20 gm/30 mL UDC PO ×2 (07:55→20:15)
[2024-07-26] MEDS: pantoprazole 40 mg SDV IVP ×2 (07:55→20:15)
[2024-07-26] MEDS: insulin lispro 100 unit/1 mL SUBCUT ×3 (07:55→17:13)
[2024-07-26] MEDS: aspirin 81 mg EC Tablet PO (07:56)
[2024-07-26] MEDS: potassium chloride ER 20 mEq Tablet PO ×2 (07:56→17:01)
[2024-07-26] MEDS: ticagrelor 90 mg Tablet PO ×2 (07:56→17:01)
[2024-07-26 08:08] LABS: Hematocrit 26.5 % (37-53)
[2024-07-26 09:42] LABS: Partial Thromboplastin Time 53.2 SECONDS (23.9-36.7)
--- NOTE | 2024-07-26 10:11 | PC.CHAP ---
Pastoral Care Encounter/Spiritual Assessment Type of Contact [] Declined rn l and d visit [] Patient/Family/Request visit [] Outpatient visit [] Follow-up visit [] Physician referral [] Code/Alert [] Routine visit [] Staff referral [] Actively dying [] Patient sleeping [] Family support [] [] Out of room [] Palliative care [] [] Receiving care in room [] Pre-surgical visit [] Trauma [] Long length of stay [] ICU visit [x] Other:Contact precautions. No visit. Relational/Emotional Strength [] Patient feels connected with others/family/visitors/staff [] Distress [] Loneliness/isolation [] Abandonment Spirituality of Patient [] Person of Heather [] Attends Buddhist of their Heather [] Believes in Prayer [] Reads Bible or Congregational materials [] There are Spiritual issues to be addressed Steel Burner Interventions [] Prayer [] Active listening [] Non-anxious presence [] Spiritual/emotional support [] Crisis/trauma care [] Spiritual counseling [] Bereavement support [] Provided bereavement packet [] Provided Bible/devotional materials [] Provided toy/stuffed animal, coloring book to patient or family member [] Provided Communion [] Anointing/[place] [] Salvation [] Completed spiritual assessment [] Other: Impact on Illness or Injury [] Angry [] Fearful [] Anxious [] Often cries [] Exhaustion [] Unable to work [] Unable to attend sabianist [] Unable to walk/stand [] Unable to read [] Unable to drive [] Unable to eat/drink [] Unable to sleep [] Unable to be with family [] Patient intubated [] Other: Summary Time spent with patient
--- NOTE | 2024-07-26 11:11 | PC.NURSE ---
Provided instruction regarding CHF to include diet modifications and fluid restrictions. Patient and daughter both verbalized complete understanding.
--- NOTE | 2024-07-26 11:33 | PC.NURSE ---
Patient is Congregational and is refusing blood products.
[2024-07-26 11:42] LABS: Glucose Point of Care 175 mg/dL (70-110)
[2024-07-26 11:44] LABS: Hematocrit 27.7 % (37-53)
--- NOTE | 2024-07-26 14:37 | P.PN_ITS ---
Subjective 2 Subjective: Patient was seen this morning, he is resting more comfortably, he tells me that his swelling is improving, no fevers, no chills, does have a cough Vitals/I&O/Wt Last Vital Signs Temp 98.0 F 07/26/24 11:10 Pulse 77 07/26/24 14:00 Resp 19 H 07/26/24 11:10 BP 93/56 07/26/24 11:10 Pulse Ox 98 07/26/24 11:10 O2 Del Method Room Air 07/26/24 11:10 07/25/24 07/26/24 07/26/24 22:59 06:59 14:59 Intake Total 701.367 / 701.367 600 / 600 Output Total 600 / 600 1600 / 2200 Balance -600 / -600 -898.633 / -1498.633 600 / 600 Weight last 48 hrs Weight 102.92 kg Weight 103.147 kg Weight 102.058 kg Physical Exam 2 Const: COMMON NORMALS: no acute distress and patient oriented x3 Resp: COMMON NORMALS: normal respiratory effort, No retractions and No use of accessory muscles OTHER: Crackles in all lung lacey Cardio: COMMON NORMALS: regular rate, regular rhythm, S1 normal heart sound present and S2 normal heart sound present RATE: regular rate RHYTHM: r egular rhythm HEART SOUNDS: S1 normal heart sound present and S2 normal heart sound present GI: COMMON NORMALS: Normal to inspection, nondistended, normoactive bowel sounds present and non-tender Extremity: NARRATIVE EXTREMITY EXAM: 1+ edema Neuro: COMMON NORMALS: patient oriented x3 Psych: COMMON NORMALS: mental status grossly normal Urinary Catheter Management: Ramires: Cath Placed During This Visit: yes Reason for Continuing Indwelling Catheter: Accurate Measurement of Urinary Output in Critically Ill Patients Urinary Catheter Date of Insertion: 07/25/24 Urinary Catheter Time of Insertion: 22:30 Data 07/26/24 11:22 07/26/24 03:30 Micro: Microbiology 07/25/24 21:32 Blood Culture - Preliminary Blood SPECIMEN COLLECTED 07/25/24 21:32 Blood Culture - Preliminary Blood SPECIMEN COLLECTED A&P Assessment and plan (1) Acute exacerbation of CHF (congestive heart failure): (2) Acute anemia: (3) Hyponatremia: (4) Acute kidney injury: (5) Hyperbilirubinemia: (6) NSTEMI (non-ST elevated myocardial infarction): (7) Cardiac LV ejection fraction 30-35%: (8) CAD (coronary artery disease): Qualifiers: Coronary Disease-Associated Artery/Lesion type: bypass graft [place] vs. transplanted heart: [place] heart Associated angina: without angina Qualified Code(s): I25.810 - Atherosclerosis of coronary artery bypass graft(s) without angina pectoris (9) Diabetes mellitus: Plan Acute CHF exacerbation -Lasix 40 IV twice daily ? Place Ramires catheter ? Monitor creatinine, monitor potassium ? Midodrine 10 every 6 hours Shortness of breath, cough secondary to pneumonia, -CT of the chest shows focal consolidation in the right lower lobe, with elevated CRP, Pro-Omid ? Highly suspicious for pneumonia ? Continue Rocephin ? Continue Zithromycin -Blood cultures # NSTEMI -Recent history of cardiac catheterization Conclusions 1. There is total occlusion coronary artery disease with four vessel disease. 2. Four coronary grafts visualized: two grafts patent, and two grafts occluded. 3. Patient has prior CABG. 4. Distal Left Anterior Descending was treated with a Balloon, Drug Eluting Stent, and Balloon. There is no complaints of chest pain ? Plan ? Aspirin, Brilinta, will consider beta-paula ? Serial EKGs, serial troponins, telemetry monitoring ? Heparin drip Acute anemia ? History of Hemoccult positive stools ? Patient is on aspirin, Brilinta, heparin drip as above ? Monitor hemoglobin # Protonix, Carafate Hyperbilirubinemia # With evidence of liver cirrhosis ? Monitor ? Check ammonia levels Complaints of abdominal pain, abdominal distention ? Lipase minimally elevated at 91, IMPRESSION: 1. Peripancreatic fat stranding along the head and uncinate process. Correlate with lipase levels as findings can be seen with acute pancreatitis. 2. Cholelithiasis. Areas of mild pericholecystic fat stranding may be secondary to peripancreatic stranding, though acute cholecystitis not entirely excluded. This could be further assessed with right upper quadrant ultrasound if warranted. 3. Diffuse anasarca. -Will monitor Full code ? Heparin drip for DVT prophylaxis Attestations 2 Medical Necessity Statement*: Patient requires hospitalization for acute CHF exacerbation, pneumonia, NSTEMI Diagnoses Acute exacerbation of CHF (congestive heart failure) I50.9 Acute anemia D64.9 Hyponatremia E87.1 Acute kidney injury N17.9 Hyperbilirubinemia E80.6 NSTEMI (non-ST elevated myocardial infarction) I21.4 Cardiac LV ejection fraction 30-35% R94.30 Coronary artery disease involving coronary bypass graft of [place] heart without angina pectoris I25.810 Coronary Disease-Associated Artery/Lesion type: bypass graft [place] vs. transplanted heart: [place] heart Associated angina: without angina Diabetes mellitus E11.9
[2024-07-26] MEDS: DOBUTamine drip 500 MG/250 ML PREMIX 7.7 MG IV (15:30)
[2024-07-26] MEDS: ipratropium-albuterol 3 mL Neb INHALATION ×2 (15:44→21:04)
[2024-07-26] MEDS: DOBUTamine drip 500 MG/250 ML PREMIX 15.5 MG IV (16:01)
--- NOTE | 2024-07-26 17:18 | P.PN_ITS ---
Subjective 2 Subjective: Patient is feeling little better. He had a total of 2200 of urine output since hospital admission. Seems to be responding to the Lasix. But he still has significant edema of the extremities and in the lower abdomen. No chest pain, fever, chills or cough. The shortness of breath is improving. No cough. Medications: Medication Review Details: Current Medications Acetaminophen (Acetaminophen 325 Mg Tablet) 650 mg PO Q6H PRN PRN Reason: Mild/Mod Pain Or Temp >/= 101 Albuterol/Ipratropium (Ipratropium-Albuterol 3 Ml Neb) 3 ml INHALATION Q4H.RESPIRATORY [place] Last Admin: 07/26/24 15:44 Dose: 3 ml Aspirin (Aspirin 81 Mg Ec Tablet) 81 mg PO DAILY [place] Last Admin: 07/26/24 07:56 Dose: 81 mg Budesonide (Budesonide 0.5 Mg/2 Ml Neb) 0.5 mg INHALATION BID.RESPIRATORY [place] Ceftriaxone Sodium (Ceftriaxone 1,000 Mg Sdv) 1,000 mg IVP Q24H [place]; Protocol Last Admin: 07/25/24 21:01 Dose: 1,000 mg Furosemide (Furosemide 10 Mg/Ml Sdv 10ml) 60 mg IVP Q8H [place] Last Admin: 07/25/24 23:13 Dose: 60 mg Glucagon (Glucagon 1 Mg/Ml Kit 1 Ml) 1 mg IM ONCE PRN; Protocol PRN Reason: Adult Acute Hypoglycemia Nursing Prot. Heparin Sodium (Porcine) (Heparin 5,000 Unit/Ml Inj 1 Ml) 0 unit IVP PRN PRN; Protocol PRN Reason: Heparin Weight Based Protocol -Subsequent Bolus Dextrose (D5w) 500 mls @ 0 mls/hr IV ONCE PRN; Protocol PRN Reason: Adult Acute Hypoglycemia Prot Dextrose (D10w) 125 mls @ 750 mls/hr IV PRN PRN; Protocol PRN Reason: Adult Acute Hypoglycemia Nursing Protocol Dextrose (D10w) 250 mls @ 1,000 mls/hr IV PRN PRN; Protocol PRN Reason: Adult Acute Hypoglycemia Nursing Protocol Heparin Sodium/Sodium Chloride (Heparin Drip) 25,000 unit in 500 mls @ 0 mls/hr IV CONT [place]; Protocol Last Titration: 07/26/24 10:50 Dose: 12.74 unit/kg/hr, 26 mls/hr Azithromycin 500 mg/ Sodium (Chloride) 250 mls @ 250 mls/hr IV Q24H [place]; Protocol Dobutamine HCl/Dextrose (Dobutamine Drip) 500 mg in 250 mls @ 15.438 mls/hr IV .[id number] [facility] Last Infusion: 07/26/24 16:02 Dose: 5.02 mcg/kg/min, 15.5 mls/hr Insulin Human Lispro (Insulin Lispro 100 Unit/1 Ml) 0 unit SUBCUT TIDWM [place]; Protocol Last Admin: 07/26/24 17:13 Dose: 4 unit Lactulose (Lactulose Oral Liq 20 Gm/30 Ml Udc) 20 gm PO Q12H [place] Last Admin: 07/26/24 07:55 Dose: 20 gm Midodrine (Midodrine 5 Mg Tablet) 10 mg PO Q6H [place] Last Admin: 07/26/24 13:33 Dose: 10 mg Morphine Sulfate (Morphine 4 Mg/Ml Sdv 1 Ml) 2 mg IVP Q4H PRN PRN Reason: SEVERE PAIN Last Admin: 07/25/24 21:58 Dose: 2 mg Ondansetron HCl (Ondansetron 2 Mg/Ml Sdv 2 Ml) 4 mg IVP Q8H PRN PRN Reason: vomiting, or N/V if npo Pantoprazole Sodium (Pantoprazole 40 Mg Sdv) 40 mg IVP Q12H [facility] Last Admin: 07/26/24 07:55 Dose: 40 mg Potassium Chloride (Potassium Chloride Er 20 Meq Tablet) 20 meq PO BID [facility] Last Admin: 07/26/24 17:01 Dose: 20 meq Sucralfate (Sucralfate 1 Gm/10 Ml Oral Liq Udc) 1 gm PO Q6H [place] Last Admin: 07/26/24 13:33 Dose: 1 gm Ticagrelor (Ticagrelor 90 Mg Tablet) 90 mg PO BID [facility] Last Admin: 07/26/24 17:01 Dose: 90 mg Vitals/I&O/Wt Last Vital Signs Temp 97.8 F 07/26/24 16:00 Pulse 79 07/26/24 16:00 Resp 15 07/26/24 16:00 BP 93/56 07/26/24 16:00 Pulse Ox 96 07/26/24 16:00 O2 Del Method Room Air 07/26/24 16:00 07/26/24 07/26/24 07/26/24 06:59 14:59 22:59 Intake Total 701.367 / 701.367 600 / 600 4.236 / 604.236 Output Total 1600 / 2200 Balance -898.633 / -1498.633 600 / 600 4.236 / 604.236 Weight last 48 hrs Weight 226 lb 14.4 oz Weight 227 lb 6.4 oz Weight 225 lb Physical Exam 2 Narrative: GENERAL: The patient is alert and oriented times three. Not in any acute distress. HEENT: No significant pallor, icterus or lymphadenopathy.Oral cavity: There are no mucous membrane lesions. NECK: Trachea appears to be central. No masses noted. No JVD or thyromegaly appreciated. RESPIRATORY: Chest is symmetrical. No intercostals muscle retraction or any accessory muscle activation. There is no chest wall tenderness. Breath sounds are heard bilaterally. No rales or rhonchi heard. No evidence of any consolidation. BREASTS: Deferred. HEART: The heart sounds are normal. No S3 or S4. Ejection stock murmur grade 3 or 6 in the aortic area.. No pericardial rub ABDOMEN: Edema of the lower abdominal wall and also significant edema in the lumbar regions bilaterally : Deferred. RECTAL: Deferred. LYMPHATIC: No lymphadenopathy noted in the neck. EXTREMITIES: 2-3+ edema both lower extremities. Features of chronic venous stasis and healed venous ulcers. Small blisters were noted in the abdominal area on the right side MUSCULOSKELETAL: No acute joint deformities or swelling SKIN: There are no significant rashes or ecchymosis NEUROPSYCHIATRIC: The patient is alert and oriented x3. Appears to be in a good mood. No tremors or rigidity noted. Urinary Catheter Management: Ramires: Cath Placed During This Visit: yes Reason for Continuing Indwelling Catheter: Accurate Measurement of Urinary Output in Critically Ill Patients Urinary Catheter Date of Insertion: 07/25/24 Urinary Catheter Time of Insertion: 22:30 Data 07/26/24 11:22 07/26/24 03:30 Other Labs: Laboratory Last Values WBC 5.73 10^3/uL (3.29-11.43) 07/26/24 03:30 RBC 3.16 10^6/uL (3.85-5.65) L 07/26/24 03:30 Hgb 9.00 g/dL (11.27-16.99) L 07/26/24 11:22 Hct 27.7 % (37-53) L 07/26/24 11:22 MCV 87.0 fl (82-101) 07/26/24 03:30 MCH 29.1 pg (27-33) 07/26/24 03:30 MCHC 33.5 g/dL (30-55) 07/26/24 03:30 RDW 15.2 % (12.1-15.1) H 07/26/24 03:30 Plt Count 170 10^3/cmm (157-399) 07/26/24 03:30 MPV 11.2 fL (7.4-10.4) H 07/26/24 03:30 Neut % (Auto) 52.6 % 07/26/24 03:30 Lymph % (Auto) 19.2 % 07/26/24 03:30 [place] % (Auto) 20.2 % 07/26/24 03:30 Eos % (Auto) 3.0 % 07/26/24 03:30 Baso % (Auto) 2.4 % 07/26/24 03:30 Neut # (Auto) 3.01 10^3/uL (1.8-7.7) 07/26/24 03:30 Lymph # (Auto) 1.1 10^3/uL (0.8-4.8) 07/26/24 03:30 [place] # (Auto) 1.2 10^3/uL (0.2-0.9) H 07/26/24 03:30 Eos # (Auto) 0.2 10^3/uL (0.0-0.8) 07/26/24 03:30 Baso # (Auto) 0.1 10^3/uL (0.0-0.1) 07/26/24 03:30 Nucleated RBC % (auto) 0 % 07/26/24 03:30 Total Counted 100 (0-100) 07/25/24 16:05 Atypical Lymphs % 0.0 % (0-5) 07/25/24 16:05 Absolute Neutrophils 4.2 10^3/cmm (1.4-6.5) 07/25/24 16:05 Segmented Neutrophils 70 % 07/25/24 16:05 Band Neutrophils 2.0 % 07/25/24 16:05 Absolute Lymphocytes 0.7 10^3/cmm (1.2-3.4) L 07/25/24 16:05 Lymphocytes (Manual) 12 % 07/25/24 16:05 Monocytes (Manual) 13.0 % 07/25/24 16:05 Absolute Monocytes 0.8 10^3/cmm (0.1-0.6) H 07/25/24 16:05 Eosinophils (Manual) 0 % 07/25/24 16:05 Absolute Eosinophils 0.0 10^3/cmm (0.0-0.7) 07/25/24 16:05 Basophils (Manual) 0.0 % 07/25/24 16:05 Absolute Basophils 0.0 10^3/cmm (0.0-0.2) 07/25/24 16:05 Metamyelocytes 1.0 % 07/25/24 16:05 Myelocytes 2.0 % 07/25/24 16:05 Nucleated RBCs # 0.0 /100WBC 07/26/24 03:30 Platelet Estimate Normal (Normal) 07/25/24 16:05 APTT 53.2 SECONDS (23.9-36.7) H D 07/26/24 09:20 Sodium 132 mmol/L (136-145) L 07/26/24 03:30 Potassium 3.6 mmol/L (3.5-5.1) 07/26/24 03:30 Chloride 96 mmol/L (98-107) L 07/26/24 03:30 Carbon Dioxide 23 mmol/L (22-29) 07/26/24 03:30 Anion Gap 16.6 (5-19) 07/26/24 03:30 BUN 36 mg/dL (8-23) H 07/26/24 03:30 Creatinine 1.5 mg/dL (0.7-1.2) H 07/26/24 03:30 GFR Calculation Not Reportable 07/26/24 03:30 Glucose 192 mg/dL (65-115) H 07/26/24 03:30 POC Glucose 175 mg/dL (70-110) H 07/26/24 11:08 Calculated Osmolality 288 mOsm/kg (285-295) 07/26/24 03:30 Lactic Acid 2.2 mmol/L (0.5-2.2) 07/25/24 16:05 Lactic Acid (Sepsis) 2.5 mmol/L (0.5-2.2) H 07/25/24 20:34 Calcium 7.9 mg/dL (8.5-10.5) L 07/26/24 03:30 Phosphorus 3.4 mg/dL (2.5-4.5) 07/26/24 03:30 Magnesium 2.2 mg/dL (1.7-2.3) 07/26/24 03:30 Total Bilirubin 2.9 mg/dL (0.15-1.2) H 07/26/24 03:30 GGT 106 U/L (8-61) H 07/25/24 18:24 AST 44 U/L (0-40) H 07/26/24 03:30 ALT 20 U/L (0-41) 07/26/24 03:30 Alkaline Phosphatase 148 U/L (40-130) H 07/26/24 03:30 Ammonia 24 umol/L (16-60) 07/25/24 19:10 Troponin T Baseline 643 ng/L (0-15) H* 07/25/24 16:05 Troponin T 120 Minute 660.1 ng/L (0-15) H 07/25/24 18:24 Delta Troponin T 17.1 ABS# (0-10) H* 07/25/24 18:24 Troponin T Hi Sens 6Hr 635.6 ng/L (0-15) H 07/25/24 22:39 Troponin T Hi Sens 6Hr Delta -7.4 ng/L (0-12) L 07/25/24 22:39 C-Reactive Protein 23.2 mg/L (0.0-4.9) H 07/25/24 18:24 NT-Pro-B Natriuret Pep 1941 pg/mL (0-450) H 07/26/24 03:30 Total Protein 6.6 g/dL (6.6-8.7) 07/26/24 03:30 Albumin 2.9 g/dL (3.5-5.2) L 07/26/24 03:30 Globulin 3.7 g/dL (1.3-4.6) 07/26/24 03:30 Lipase 91 U/L (13-60) H 07/25/24 18:24 Procalcitonin 0.76 ng/mL (0-0.5) H 07/25/24 18:24 Urine Color Yellow (Yellow) 07/25/24 22:30 Urine Appearance Clear (CLEAR) 07/25/24 22:30 Urine pH 5.0 (5-7) 07/25/24 22:30 Ur Specific [place] 1.008 (1.005-1.030) 07/25/24 22:30 Urine Protein Negative (Negative) 07/25/24 22: Urine Glucose (UA) 2+ (Normal) H 07/25/24 22:30 Urine Ketones Negative (Negative) 07/25/24 22: Urine Blood 1+ (Negative) A 07/25/24 22: Urine Nitrate Negative (Negative) 07/25/24 22: Urine Bilirubin Negative (Negative) 07/25/24 22: Urine Urobilinogen 0.2 mg/dL (Negative) 07/25/24 22:30 Ur Leukocyte Esterase Negative (Negative) 07/25/24 22:30 Urine RBC 3-5 /hpf (0-2) 07/25/24 22:30 Urine WBC 0-5 /hpf (0-5) 07/25/24 22:30 Ur Squamous Epith Cells 0-5 /hpf (0-5) 07/25/24 22:30 Amorphous Sediment Not Reportable 07/25/24 22:30 Urine Bacteria None seen /hpf (NONE) 07/25/24 22:30 Hyaline Casts 1.21 /lpf 07/25/24 22:30 Ethyl Alcohol < 10 mg/dL (0-10) 07/25/24 18:24 Coronavirus (PCR) Negative (Negative) 07/25/24 18:36 Influenza A (PCR) Positive (Negative) 07/25/24 18:36 Influenza Type B (PCR) Negative (Negative) 07/25/24 18:36 RSV (PCR) Negative (Negative) 07/25/24 18:36 Micro: Microbiology 07/25/24 21:32 Blood Culture - Preliminary Blood SPECIMEN COLLECTED 07/25/24 21:32 Blood Culture - Preliminary Blood SPECIMEN COLLECTED A&P Assessment and plan (1) Acute exacerbation of congestive heart failure: He is making some improvement with the higher dose of Lasix. However because of the suboptimal response, I may try IV Dobutrex infusion to see any improvement. Will go ahead and start the 2.5 mics per KG per minute and go up to 5 mics per KG per minute. We may keep him on this dose for a 24 hours. Based on the clinical response, further recommendations will be made. Qualifiers: Heart failure type: combined systolic and diastolic Qualified Code(s): I50.43 - Acute on chronic combined systolic (congestive) and diastolic (congestive) heart failure (2) Ischemic cardiomyopathy: In view of the related low blood pressure, we may hold off on any afterload reducing agents at this time. (3) Elevated troponin: The troponin T is seems to be slowly trending down since hospital admission. Most likely this is from the previous PCI. No significant new EKG changes (4) Acute kidney injury superimposed on chronic kidney disease: This need to be carefully monitored. (5) Blood loss anemia: The hemoglobin seems to be stable. Will be closely monitoring the H&H. (6) Atherosclerosis of coronary artery of [place] heart without angina pectoris: Patient is on Brilinta and baby aspirin. This may be continued for the time being. Qualifiers: Coronary Disease-Associated Artery/Lesion type: [place] artery Qualified Code(s): I25.10 - Atherosclerotic heart disease of [place] coronary artery without angina pectoris Plan Will continue the Lasix 60 mg every 8 hours along with the potassium 20 mEq twice daily Dobutamine infusion 2.5-5 mics per KG per minute Based on the clinical progress, further recommendations will be made. Attestations 2 Medical Necessity Statement*: Patient requires continued hospital stay for close monitoring and further management Coding Level of Care Code 67813 Diagnoses Acute on chronic combined systolic and diastolic congestive heart failure I50.43 Heart failure type: combined systolic and diastolic Ischemic cardiomyopathy I25.5 Elevated troponin R79.89 Acute kidney injury superimposed on chronic kidney disease N17.9; N18.9 Blood loss anemia D50.0 Atherosclerosis of [place] coronary artery of [place] heart without angina pectoris I25.10 Coronary Disease-Associated Artery/Lesion type: [place] artery
[2024-07-26 17:33] LABS: Glucose Point of Care 213 mg/dL (70-110)
[2024-07-26 18:17] LABS: Partial Thromboplastin Time > 250.0 SECONDS (23.9-36.7)
[2024-07-26] MEDS: cefTRIAXone 1,000 mg SDV 1000 MG IVP (20:15)
[2024-07-26] MEDS: AZITHROMYCIN ADD-Vantage 500 MG in 0.9% NaCl ADD-Vantage 250 ML 250 MG IV (20:22)
[2024-07-26 20:29] LABS: Glucose Point of Care 214 mg/dL (70-110)
[2024-07-26] MEDS: ondansetron 2 mg/ML SDV 2 mL 4 MG IVP (20:46)
[2024-07-26] MEDS: budesonide 0.5 mg/2 mL Neb INHALATION (21:04)
[2024-07-26 23:16] LABS: Partial Thromboplastin Time 54.9 SECONDS (23.9-36.7)
[2024-07-27] VITALS (31 sets, daily range): BP systolic 84–117; BP diastolic 54–86; PULSE 72–101; RESP 11–24; TEMP 36.5–37; O2SAT 90–98
[2024-07-27] MEDS: ipratropium-albuterol 3 mL Neb INHALATION ×3 (00:28→07:46)
[2024-07-27] MEDS: midodrine 5 mg TABLET 10 MG PO ×4 (01:39→20:40)
[2024-07-27] MEDS: sucralfate 1 gm/10 mL Oral Liq UDC PO ×4 (01:39→20:39)
[2024-07-27] MEDS: heparin drip 25,000 UNIT/500 ML PREMIX 23 UNIT IV (01:40)
[2024-07-27 06:19] LABS: Basophils # 0.1 10^3/uL (0.0-0.1); Basophils % 1.4 %; Eosinophils # 0.1 10^3/uL (0.0-0.8); Eosinophils % 1.4 %; Hematocrit 25.9 % (37-53); Lymphocytes # 1.2 10^3/uL (0.8-4.8); Lymphocytes % 28.3 %; Mean Corpuscular HGB Conc 33.2 g/dL (30-55); Mean Corpuscular Volume 87.2 fl (82-101); Mean Platelet Volume 11.3 fL (7.4-10.4); Monocytes % 24.1 %; Neutrophils # 1.82 10^3/uL (1.8-7.7); Neutrophils % 42.9 %; Nucleated Red Blood Cells % 0 %; Platelet Count 141 10^3/cmm (157-399); Red Blood Count 2.97 10^6/uL (3.85-5.65); Red Cell Distribution Width 15.5 % (12.1-15.1); White Blood Count 4.24 10^3/uL (3.29-11.43)
[2024-07-27 06:33] LABS: Glucose Point of Care 179 mg/dL (70-110)
[2024-07-27 06:47] LABS: Slide Review Slide Review Perform
[2024-07-27 06:48] LABS: Partial Thromboplastin Time 215.6 SECONDS (23.9-36.7)
[2024-07-27 07:14] LABS: Alanine Aminotransferase 17 U/L (0-41); Albumin Level 2.9 g/dL (3.5-5.2); Alkaline Phosphatase 135 U/L (40-130); Anion Gap 16.8 (5-19); Aspartate Amino Transferase 41 U/L (0-40); Blood Urea Nitrogen 30 mg/dL (8-23); Carbon Dioxide 22 mmol/L (22-29); Chloride 98 mmol/L (98-107); Creatinine Clr Calc Pharmacy 58.5072; Globulin 3.4 g/dL (1.3-4.6); Glucose 179 mg/dL (65-115); Magnesium 2.1 mg/dL (1.7-2.3); Osmolality Calculated 287 mOsm/kg (285-295); Phosphorus 2.6 mg/dL (2.5-4.5); Potassium 3.8 mmol/L (3.5-5.1); Sodium 133 mmol/L (136-145); Total Bilirubin 2.6 mg/dL (0.15-1.2); Total Protein 6.3 g/dL (6.6-8.7)
[2024-07-27] MEDS: DOBUTamine drip 500 MG/250 ML PREMIX 15.5 MG IV (07:19)
[2024-07-27] MEDS: ticagrelor 90 mg Tablet PO ×2 (07:20→17:37)
[2024-07-27] MEDS: pantoprazole 40 mg SDV IVP ×2 (07:20→20:40)
[2024-07-27] MEDS: aspirin 81 mg EC Tablet PO (07:20)
[2024-07-27] MEDS: lactulose oral liq 20 gm/30 mL UDC PO ×2 (07:20→20:39)
[2024-07-27] MEDS: potassium chloride ER 20 mEq Tablet PO ×2 (07:20→17:37)
[2024-07-27] MEDS: insulin lispro 100 unit/1 mL SUBCUT ×3 (07:31→17:48)
[2024-07-27] MEDS: budesonide 0.5 mg/2 mL Neb INHALATION (07:46)
--- NOTE | 2024-07-27 08:36 | ECG_ITS ---
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 Measurements Intervals Echo Rate: 135 P: 0 IL: 0 QRS: 96 QRSD: 165 T: -29 QT: 285 QTc: 428 Interpretive Statements ATRIAL FLUTTER/TACHYCARDIA WITH RAPID VENTRICULAR RESPONSE RIGHT BUNDLE BRANCH BLOCK [120+ ms QRS DURATION, UPRIGHT V1, 40+ ms S IN I/aVL/V4/V5/V6] MARKED ST DEPRESSION, CONSIDER SUBENDOCARDIAL INJURY [0.2+ mV ST DEPRESSION] ACUTE OR INTERPRETATION BASED ON A DEFAULT AGE OF 40 YEARS Compared to ECG 07/25/2024 22:19:19 ST (T wave) deviation now present.Ectopic atrial rhythm no longer present Ventricular premature complex(es) no longer present.First degree AV block no longer present T-wave abnormality no longer present. Possible ischemia no longer present Electronically Signed On 07-27-2024 17:35:06 PLANER CHAIN OFFBEARER by Natasha Gonzalez M.D. [email or web address]
--- NOTE | 2024-07-27 08:39 | XRR_ITS ---
PROCEDURE INFORMATION: Exam: XR Chest Exam date and time: 07/27/2024 8:44 AM Age: 74 years old Clinical indication: Pain; Chest pressure and other: Chf; Prior surgery; Surgery date: 6+ months; Surgery type: Open heart; Additional info: Chest pain TECHNIQUE: Imaging protocol: Radiologic exam of the chest. Views: 1 view. COMPARISON: [place] [id number] 07/25/2024 6:43 PM FINDINGS: Lungs: Patchy bilateral lower lobe airspace opacities appear relatively stable from prior exam. Trace left pleural effusion. No significant right-sided pleural effusion. Mild bronchovascular prominence. Mild emphysematous changes. Pleural spaces: No pneumothorax. Heart/Mediastinum: The cardiomediastinal silhouette is enlarged. Bones/joints: Median sternotomy wires are visualized. XR/XR chest 1V portable [id number] IMPRESSION: 1. Bibasilar patchy airspace opacities are stable likely representing atelectasis and/or pneumonia. 2. Trace left pleural effusion. 3. Cardiomegaly with mild bronchovascular prominence suggests mild pulmonary vascular congestion.
--- NOTE | 2024-07-27 08:42 | ECG_ITS ---
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 Measurements Intervals [place] Rate: 133 P: 0 HI: 0 QRS: 97 QRSD: 169 T: -28 QT: 288 QTc: 430 Interpretive Statements ATRIAL FIBRILLATION WITH RAPID VENTRICULAR RESPONSE RIGHT BUNDLE BRANCH BLOCK [120+ ms QRS DURATION, UPRIGHT V1, 40+ ms S IN I/aVL/V4/V5/V6] MARKED ST DEPRESSION, CONSIDER SUBENDOCARDIAL INJURY [0.2+ mV ST DEPRESSION] ACUTE PA INTERPRETATION BASED ON A DEFAULT AGE OF 40 YEARS Compared to ECG 07/27/2024 08:36:56 Atrial flutter no longer present ST (T wave) deviation still present Electronically Signed On 07-27-2024 17:35:13 HEALTH CARE AIDE by Natasha Gonzalez M.D. [email or web address]
[2024-07-27] MEDS: nitroglycerin 0.4 mg sublingual Tablet SUBLINGUAL (08:45)
--- NOTE | 2024-07-27 08:50 | ECG_ITS ---
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 Measurements Intervals [place] Rate: 117 P: 0 CT: 0 QRS: 126 QRSD: 167 T: -6 QT: 377 QTc: 527 Interpretive Statements ATRIAL FIBRILLATION WITH RAPID VENTRICULAR RESPONSE WITH ABERRANT CONDUCTION OR VENTRICULAR PREMATURE COMPLEXES RIGHT BUNDLE BRANCH BLOCK [120+ ms QRS DURATION, UPRIGHT V1, 40+ ms S IN I/aVL/V4/V5/V6] LEFT POSTERIOR FASCICULAR BLOCK [QRS AXIS > 109, INFERIOR Q] MARKED ST DEPRESSION, CONSIDER SUBENDOCARDIAL INJURY [0.2+ mV ST DEPRESSION] ACUTE [place] Compared to ECG 07/25/2024 22:19:19 Aberrant conduction of supraventricular beat(s) now present Left posterior fascicular block now present ST (T wave) deviation now present.Ectopic atrial rhythm no longer present First degree AV block no longer present.T-wave abnormality no longer present Possible ischemia no longer present. Electronically Signed On 07-27-2024 17:36:02 ACCOUNTING CONSULTANT by Natasha Gonzalez M.D. [id number]
[2024-07-27] MEDS: morphine 4 mg/mL SDV 1 mL 2 MG IVP (08:58)
--- NOTE | 2024-07-27 09:27 | PC.NURSE ---
~0840 this morning patient started c/o severe 10/[address] Ennis and obtained EKG, order for nitro SL and portable chest xray. Total of 3 SL Nitrostat were given without relief. Administered morphine 2mg IVP as ordered. Dr Ennis and Dr Pinon into see patient. Have amiodarone ordered for heart rate sustained greater that 110s. Heart rate currently mid90s to mid 100s. Dobutamine order discontinued. Troponins pending and further ekgs ordered. Will continue to monitor.
[2024-07-27] MEDS: amiodarone 150 MG/100 ML PREMIX 400 MG IV (09:40)
--- NOTE | 2024-07-27 09:59 | ECG_ITS ---
[facility] 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 Measurements Intervals [place] Rate: 76 P: 0 [place]: 0 QRS: 81 QRSD: 166 T: -25 QT: 490 QTc: 552 Interpretive Statements ATRIAL FLUTTER/TACHYCARDIA RIGHT BUNDLE BRANCH BLOCK [120+ ms QRS DURATION, UPRIGHT V1, 40+ ms S IN I/aVL/V4/V5/V6] ST DEPRESSION, CONSIDER SUBENDOCARDIAL INJURY [0.1+ mV ST DEPRESSION] Compared to ECG 07/27/2024 09:03:53 Atrial fibrillation no longer present Ventricular premature complex(es) no longer present Aberrant conduction of supraventricular beat(s) no longer present Left posterior fascicular block no longer present ST (T wave) deviation still present Electronically Signed On 07-27-2024 17:39:57 DISPOSAL OPERATOR by Natasha Gonzalez M.D. [id number]
[2024-07-27 10:07] LABS: Troponin(5th) Baseline 414 ng/L (0-15)
--- NOTE | 2024-07-27 10:33 | P.PN_ITS ---
Subjective 2 Subjective: Patient was having significant chest discomfort and was in afib with RVR. EKG showing ST depressions with tachycardia. Patient was taken off of dobutamine and was started on amiodarone gtt and bolus. Patient's chest pain resolved with rate control. Vitals/I&O/Wt Last Vital Signs Temp 98.6 F 07/27/24 07:22 Pulse 100 07/27/24 08:00 Resp 21 H 07/27/24 08:58 BP 99/60 07/27/24 08:00 Pulse Ox 97 07/27/24 08:00 O2 Del Method Room Air 07/27/24 07:47 07/26/24 07/27/24 07/27/24 22:59 06:59 14:59 Intake Total 929.236 / 1529.236 201.700 / 1730.936 357.817 / 357.817 Output Total 1800 / 1800 1200 / 3000 Balance -870.764 / -270.764 -998.300 / -1269.064 357.817 / 357.817 Weight last 48 hrs Weight 230 lb 3.2 oz Weight 226 lb 14.4 oz Weight 227 lb 6.4 oz Weight 225 lb Physical Exam 2 Const: OTHER: GENERAL: Patient is alert and oriented HEART: Irregularly irregular S1 and S2. No murmur, rub or gallop. LUNGS: Diminished air entry CENTRAL NERVOUS SYSTEM: Grossly nonfocal. EXTREMITIES: Lower extremities with 1-2+ edema Urinary Catheter Management: Ramires: Cath Placed During This Visit: yes Reason for Continuing Indwelling Catheter: Accurate Measurement of Urinary Output in Critically Ill Patients Urinary Catheter Date of Insertion: 07/25/24 Urinary Catheter Time of Insertion: 22:30 Data 07/27/24 16:24 07/27/24 05:22 Micro: Microbiology 07/25/24 21:32 Blood Culture - Preliminary Blood NEGATIVE TO DATE 07/25/24 21:32 Blood Culture - Preliminary Blood NEGATIVE TO DATE A&P Assessment and plan (1) Acute exacerbation of congestive heart failure: Qualifiers: Heart failure type: combined systolic and diastolic Qualified Code(s): I50.43 - Acute on chronic combined systolic (congestive) and diastolic (congestive) heart failure (2) Ischemic cardiomyopathy: (3) Atrial fibrillation with RVR: (4) Elevated troponin: (5) Acute kidney injury superimposed on chronic kidney disease: (6) Blood loss anemia: (7) Atherosclerosis of coronary artery of [place] heart without angina pectoris: Qualifiers: Coronary Disease-Associated Artery/Lesion type: [place] artery Qualified Code(s): I25.10 - Atherosclerotic heart disease of [place] coronary artery without angina pectoris Plan Patient had chest pain secondary to demand ischemia in setting of atrial fibrillation with RVR. We stopped dobutamine and put him on amiodarone gtt. With heart rate control, chest pain resolved. Anticoagulation if he tolerates Continue IV lasix. Monitor renal function. Close I and Os. Trending troponins Thank you for involving us with care of this patient. We will continue to follow. Plase call with questions. Attestations 2 Medical Necessity Statement*: Care expected to cross 2 midnights. Coding Level of Care Code Acute Code for Chg Fwd Diagnoses Acute on chronic combined systolic and diastolic congestive heart failure I50.43 Heart failure type: combined systolic and diastolic Ischemic cardiomyopathy I25.5 Atrial fibrillation with RVR I48.91 Elevated troponin R79.89 Acute kidney injury superimposed on chronic kidney disease N17.9; N18.9 Blood loss anemia D50.0 Atherosclerosis of [place] coronary artery of [place] heart without angina pectoris I25.10 Coronary Disease-Associated Artery/Lesion type: [place] artery
[2024-07-27 11:33] LABS: Partial Thromboplastin Time 54.1 SECONDS (23.9-36.7)
[2024-07-27 11:40] LABS: Troponin 5 2HR 425.2 ng/L (0-15)
[2024-07-27 11:41] LABS: Troponin 5 2HR Delta 11.2 ABS# (0-10)
--- NOTE | 2024-07-27 12:04 | PC.SOCIAL ---
IMM updated IMM dated and initialed, copy given to patient and copy placed in chart.
[2024-07-27 12:34] LABS: Glucose Point of Care 202 mg/dL (70-110)
[2024-07-27] MEDS: FUROsemide 10 mg/mL SDV 4mL 40 MG IVP ×2 (13:49→21:53)
--- NOTE | 2024-07-27 14:17 | PC.NURSE ---
Informed Dr Ennis that patient still has mild chest pain but is nervous to fall asleep and it unable to lie flat. Received order to give Lasix 40mg IVP now. Patient will also transfer to ICU. Patient taken to ICU 9. Bedside report was given to VINEET RN and FARIDA Bravo. Explained to patient and daughter necessity of transfer. Patient and daughter both verbalized complete understanding.
--- NOTE | 2024-07-27 15:16 | ECG_ITS ---
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 Measurements Intervals [place] Rate: 72 P: 0 NE: 0 QRS: 77 QRSD: 176 T: 161 QT: 482 QTc: 531 Interpretive Statements ATRIAL FLUTTER/TACHYCARDIA RIGHT BUNDLE BRANCH BLOCK [120+ ms QRS DURATION, UPRIGHT V1, 40+ ms S IN I/aVL/V4/V5/V6] ST DEVIATION AND MODERATE T-WAVE ABNORMALITY, CONSIDER ANTEROLATERAL ISCHEMIA [-0.1+ mV T-WAVE IN V3-V6] Compared to ECG 07/27/2024 09:59:07 T-wave abnormality now present Possible ischemia now present ST (T wave) deviation no longer present Electronically Signed On 07-27-2024 17:40:07 UX MANAGER by Natasha Gonzalez M.D. [id number]
--- NOTE | 2024-07-27 15:53 | PM.PN ---
Subjective Subjective: - Patient was seen earlier this morning -Complaints of anterior chest discomfort, had received 2 nitroglycerin, continues to have chest pain, Lasix held overnight -Does also complain of shortness of breath -No fevers, chills, no cough -Given morphine -His dobutamine drip was held due to development of tachyarrhythmia, tachycardia, A-fib -Heart rates now down to the 100s, looks sinus to me -Will give him 1 dose of 40 mg IV push Lasix -Patient is a Jehovah witness, declines blood products,, no albumin to be given to help his blood pressure -Repeat EKG series, troponin series ? Discussed case with cardiology ? Patient was started on amiodarone ? Patient will be moved to the ICU for closer monitoring -Order additional doses of Lasix tonight with potassium -Troponins baseline 414, 120-minute [address] depressions lateral leads -Spoke to patient, spoke to nursing staff spoke to cardiology Vitals/I&O/Wt Last Vital Signs Temp 98.4 F 07/27/24 11:51 Pulse 74 07/27/24 13:54 Resp 24 H 07/27/24 11:51 BP 102/70 07/27/24 11:51 Pulse Ox 95 07/27/24 11:51 O2 Del Method Room Air 07/27/24 07:47 07/27/24 07/27/24 07/27/24 06:59 14:59 22:59 Intake Total 201.700 / 1730.936 357.817 / 357.817 Output Total 1200 / 3000 650 / 650 Balance -998.300 / -1269.064 -292.183 / -292.183 Weight last 48 hrs Weight 104.417 kg Weight 102.92 kg Weight 103.147 kg Physical Exam Const: COMMON NORMALS: no acute distress and patient oriented x3 Neck/C-Spine: COMMON NORMALS: no JVD Resp: COMMON NORMALS: normal respiratory effort, No retractions and No use of accessory muscles AUSCULTATION: crackles and wheezes Cardio: COMMON NORMALS: no JVD, regular rate, regular rhythm, S1 normal heart sound present and S2 normal heart sound present RATE: regular rate RHYTHM: regular rhythm HEART SOUNDS: S1 normal heart sound present and S2 normal heart sound present GI: COMMON NORMALS: Normal to inspection, nondistended, normoactive bowel sounds present and non-tender Extremity: COMMON NORMALS: no pedal edema Neuro: COMMON NORMALS: patient oriented x3 Psych: COMMON NORMALS: mental status grossly normal Urinary Catheter Management: Ramires: Cath Placed During This Visit: yes Reason for Continuing Indwelling Catheter: Accurate Measurement of Urinary Output in Critically Ill Patients Urinary Catheter Date of Insertion: 07/25/24 Urinary Catheter Time of Insertion: 22:30 Data 07/27/24 05:22 07/27/24 05:22 Micro: Microbiology 07/25/24 21:32 Blood Culture - Preliminary Blood NEGATIVE TO DATE 07/25/24 21:32 Blood Culture - Preliminary Blood NEGATIVE TO DATE A&P Assessment and plan (1) Acute exacerbation of CHF (congestive heart failure): (2) Acute anemia: (3) Hyponatremia: (4) Acute kidney injury: (5) Hyperbilirubinemia: (6) NSTEMI (non-ST elevated myocardial infarction): (7) Cardiac LV ejection fraction 30-35%: (8) CAD (coronary artery disease): Qualifiers: Coronary Disease-Associated Artery/Lesion type: bypass graft [place] vs. transplanted heart: [place] heart Associated angina: without angina Qualified Code(s): I25.810 - Atherosclerosis of coronary artery bypass graft(s) without angina pectoris (9) Diabetes mellitus: Plan Acute chest pain -With development of tachycardia, A-fib, tachyarrhythmia on dobutamine -Dobutamine has been held -1 dose IV Lasix -Status post nitro, status post morphine -Repeat troponin series -Placed on amiodarone for A-fib Acute CHF exacerbation -Lasix 40 IV twice daily ? Place Ramires catheter ? Monitor creatinine, monitor potassium ? Midodrine 10 every 6 hours Shortness of breath, cough secondary to pneumonia, -CT of the chest shows focal consolidation in the right lower lobe, with elevated CRP, Pro-Omid ? Highly suspicious for pneumonia ? Continue Rocephin ? Continue Zithromycin -Blood cultures # NSTEMI -Recent history of cardiac catheterization Conclusions 1. There is total occlusion coronary artery disease with four vessel disease. 2. Four coronary grafts visualized: two grafts patent, and two grafts occluded. 3. Patient has prior CABG. 4. Distal Left Anterior Descending was treated with a Balloon, Drug Eluting Stent, and Balloon. There is no complaints of chest pain ? Plan ? Aspirin, Brilinta, will consider beta-paula ? Serial EKGs, serial troponins, telemetry monitoring ? Heparin drip Acute anemia -Patient is a [employer] and declines blood products ? History of Hemoccult positive stools ? Patient is on aspirin, Brilinta, heparin drip as above ? Monitor hemoglobin # Protonix, Carafate Hyperbilirubinemia # With evidence of liver cirrhosis ? Monitor ? Check ammonia levels Complaints of abdominal pain, abdominal distention ? Lipase minimally elevated at 91, IMPRESSION: 1. Peripancreatic fat stranding along the head and uncinate process. Correlate with lipase levels as findings can be seen with acute pancreatitis. 2. Cholelithiasis. Areas of mild pericholecystic fat stranding may be secondary to peripancreatic stranding, though acute cholecystitis not entirely excluded. This could be further assessed with right upper quadrant ultrasound if warranted. 3. Diffuse anasarca. -Will monitor Full code ? Heparin drip for DVT prophylaxis - Patient was seen earlier this morning -Complaints of anterior chest discomfort, had received 2 nitroglycerin, continues to have chest pain, Lasix held overnight -Does also complain of shortness of breath -Given morphine -His dobutamine drip was held due to development of tachyarrhythmia, tachycardia, A-fib -Heart rates now down to the 100s, looks sinus to me -Will give him 1 dose of 40 mg IV push Lasix -Patient is a Jehovah witness, declines blood products,, no albumin to be given to help his blood pressure -Repeat EKG series, troponin series ? Discussed case with cardiology ? Patient was started on amiodarone ? Patient will be moved to the ICU for closer monitoring -Order additional doses of Lasix tonight with potassium -Troponins baseline 414, 120-minute [address] depressions lateral leads -Spoke to patient, spoke to nursing staff spoke to cardiology Attestations Medical Necessity Statement*: Patient requires hospitalization for NSTEMI, chest pain, shortness of breath, respiratory failure Diagnoses Acute exacerbation of CHF (congestive heart failure) I50.9 Acute anemia D64.9 Hyponatremia E87.1 Acute kidney injury N17.9 Hyperbilirubinemia E80.6 NSTEMI (non-ST elevated myocardial infarction) I21.4 Cardiac LV ejection fraction 30-35% R94.30 Coronary artery disease involving coronary bypass graft of [place] heart without angina pectoris I25.810 Coronary Disease-Associated Artery/Lesion type: bypass graft [place] vs. transplanted heart: [place] heart Associated angina: without angina Diabetes mellitus E11.9
[2024-07-27 16:29] LABS: NT Pro B Type Natriuretic Pept 2398 pg/mL (0-450)
[2024-07-27 16:31] LABS: Troponin 5 6HR 463.9 ng/L (0-15); Troponin 5 6HR Delta 49.9 ng/L (0-12)
[2024-07-27 16:48] LABS: Hematocrit 29.2 % (37-53)
[2024-07-27] MEDS: cetylpyridinium Lozenge 1 EACH MUCOUS MEM (17:37)
[2024-07-27 18:07] LABS: Glucose Point of Care 206 mg/dL (70-110)
[2024-07-27 18:17] LABS: Partial Thromboplastin Time 180.5 SECONDS (23.9-36.7)
[2024-07-27] MEDS: AZITHROMYCIN ADD-Vantage 500 MG in 0.9% NaCl ADD-Vantage 250 ML 250 MG IV (20:40)
[2024-07-27] MEDS: cefTRIAXone 1,000 mg SDV 1000 MG IVP (20:40)
[2024-07-27 20:54] LABS: Partial Thromboplastin Time 65.7 SECONDS (23.9-36.7)
[2024-07-27 21:21] LABS: Glucose Point of Care 171 mg/dL (70-110)
--- NOTE | 2024-07-27 22:32 | ECG_ITS ---
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 Measurements Intervals [place] Rate: 72 P: 0 [place]: 0 QRS: 84 QRSD: 167 T: 148 QT: 452 QTc: 496 Interpretive Statements ATRIAL FIBRILLATION RIGHT BUNDLE BRANCH BLOCK [120+ ms QRS DURATION, UPRIGHT V1, 40+ ms S IN I/aVL/V4/V5/V6] ST DEVIATION AND MODERATE T-WAVE ABNORMALITY, CONSIDER LATERAL ISCHEMIA [-0.1+ mV T-WAVE IN I/aVL/V5/V6] Compared to ECG 07/27/2024 15:16:26 Atrial flutter no longer present T-wave abnormality still present Possible ischemia still present Electronically Signed On 07-29-2024 18:35:51 WEB APPLICATION DEVELOPER by Narinder Pinon M.D. [id number]
--- NOTE | 2024-07-27 22:44 | XRR_ITS ---
PROCEDURE INFORMATION: Exam: XR Chest Exam date and time: 07/28/2024 12:10 AM Age: 74 years old Clinical indication: Pain; Shortness of breath; Chest pressure; Prior surgery; Surgery date: 6+ months; Surgery type: Cabg; Additional info: Follow up chest xray for chest pressure TECHNIQUE: Imaging protocol: Radiologic exam of the chest. Views: 1 view. COMPARISON: CR (CHEST, ) 07/27/2024 8:44 AM FINDINGS: Lungs: Left mid to lower lung field bronchopneumonia. Pleural spaces: Unremarkable. No pleural effusion. No pneumothorax. Heart/Mediastinum: Cardiomegaly. Bones/joints: Sternotomy wires. XR/XR chest 1V portable [id number] IMPRESSION: 1. Left mid to lower lung field bronchopneumonia. 2. Cardiomegaly. 3. Sternotomy wires.
[2024-07-27 23:26] LABS: Troponin T (5th) Once 538 ng/L (0-15)
[2024-07-28] VITALS (44 sets, daily range): BP systolic 85–120; BP diastolic 52–78; PULSE 55–74; RESP 6–32; TEMP 35.8–36.6; O2SAT 88–98; BMI 32.8
[2024-07-28] MEDS: temazepam 15 mg Capsule PO (01:02)
[2024-07-28] MEDS: sucralfate 1 gm/10 mL Oral Liq UDC PO ×3 (03:09→13:32)
[2024-07-28] MEDS: midodrine 5 mg TABLET 10 MG PO ×4 (03:09→19:48)
[2024-07-28 03:28] LABS: Basophils # 0.1 10^3/uL (0.0-0.1); Basophils % 1.5 %; Eosinophils # 0.1 10^3/uL (0.0-0.8); Eosinophils % 1.2 %; Hematocrit 28.3 % (37-53); Lymphocytes # 1.1 10^3/uL (0.8-4.8); Lymphocytes % 19.4 %; Mean Corpuscular HGB Conc 33.2 g/dL (30-55); Mean Corpuscular Hemoglobin 29.4 pg (27-33); Mean Corpuscular Volume 88.4 fl (82-101); Monocytes # 1.3 10^3/uL (0.2-0.9); Monocytes % 21.8 %; Neutrophils # 3.16 10^3/uL (1.8-7.7); Neutrophils % 54.4 %; Nucleated Red Blood Cells % 0 %; Platelet Count 156 10^3/cmm (157-399); Red Cell Distribution Width 15.8 % (12.1-15.1); White Blood Count 5.82 10^3/uL (3.29-11.43)
[2024-07-28 03:46] LABS: Alanine Aminotransferase 17 U/L (0-41); Albumin Level 2.9 g/dL (3.5-5.2); Alkaline Phosphatase 123 U/L (40-130); Anion Gap 18.4 (5-19); Aspartate Amino Transferase 37 U/L (0-40); Blood Urea Nitrogen 29 mg/dL (8-23); Calcium 7.8 mg/dL (8.5-10.5); Carbon Dioxide 20 mmol/L (22-29); Chloride 95 mmol/L (98-107); Creatinine Clr Calc Pharmacy 50.7063; Globulin 3.4 g/dL (1.3-4.6); Glucose 214 mg/dL (65-115); Magnesium 2.1 mg/dL (1.7-2.3); Osmolality Calculated 280 mOsm/kg (285-295); Phosphorus 2.9 mg/dL (2.5-4.5); Potassium 4.4 mmol/L (3.5-5.1); Sodium 129 mmol/L (136-145); Total Bilirubin 2.5 mg/dL (0.15-1.2); Total Protein 6.3 g/dL (6.6-8.7)
[2024-07-28 03:48] LABS: C Reactive Protein 14.6 mg/L (0.0-4.9)
[2024-07-28 03:52] LABS: Partial Thromboplastin Time 102.4 SECONDS (23.9-36.7)
[2024-07-28 04:06] LABS: NT Pro B Type Natriuretic Pept 2631 pg/mL (0-450)
--- NOTE | 2024-07-28 08:10 | P.PN_ITS ---
Subjective 2 Subjective: Patient is in sinus rhythm normal. Feeling much better. No chest pain Vitals/I&O/Wt Last Vital Signs Temp 97.7 F 07/28/24 04:00 Pulse 71 07/28/24 06:00 Resp 10 L 07/28/24 04:00 BP 112/63 07/28/24 04:00 Pulse Ox 95 07/28/24 04:00 O2 Del Method Room Air 07/28/24 04:00 07/27/24 07/28/24 07/28/24 22:59 06:59 14:59 Intake Total 902.333 / 1260.150 329.667 / 1589.817 Output Total 500 / 1150 700 / 1850 Balance 402.333 / 110.150 -370.333 / -260.183 Weight last 48 hrs Weight 229 lb 0.964 oz Weight 230 lb 3.2 oz Physical Exam 2 Const: OTHER: GENERAL: Patient is alert and oriented HEART: Regular rate and rhythm S1 S2 LUNGS: Diminished air entry CENTRAL NERVOUS SYSTEM: Grossly nonfocal. EXTREMITIES: Lower extremities with 1-2+ edema Urinary Catheter Management: Ramires: Cath Placed During This Visit: yes Reason for Continuing Indwelling Catheter: Accurate Measurement of Urinary Output in Critically Ill Patients Urinary Catheter Date of Insertion: 07/25/24 Urinary Catheter Time of Insertion: 22:30 Data 07/29/24 05:02 07/29/24 05:02 A&P Assessment and plan (1) Acute exacerbation of congestive heart failure: Qualifiers: Heart failure type: combined systolic and diastolic Qualified Code(s): I50.43 - Acute on chronic combined systolic (congestive) and diastolic (congestive) heart failure (2) Ischemic cardiomyopathy: (3) Atrial fibrillation with RVR: (4) Elevated troponin: (5) Acute kidney injury superimposed on chronic kidney disease: (6) Blood loss anemia: (7) Atherosclerosis of coronary artery of [place] heart without angina pectoris: Qualifiers: Coronary Disease-Associated Artery/Lesion type: [place] artery Qualified Code(s): I25.10 - Atherosclerotic heart disease of [place] coronary artery without angina pectoris Plan Patient is feeling better. We have started metolazone. Continue oral Lasix. Close I and Os. Monitor renal function Switching amiodarone to PO. Needs discussion with patient and family regarding joint terminal attack controller anticoagulation as patient is jehovahs witness and has anemia. Also requires antiplatelets because of recent PCI Thank you for involving us with care of this patient. We will continue to follow. Plase call with questions. Attestations 2 Medical Necessity Statement*: Care expected to cross 2 midnights. Coding Level of Care Code Acute Code for Chg Fwd Diagnoses Acute on chronic combined systolic and diastolic congestive heart failure I50.43 Heart failure type: combined systolic and diastolic Ischemic cardiomyopathy I25.5 Atrial fibrillation with RVR I48.91 Elevated troponin R79.89 Acute kidney injury superimposed on chronic kidney disease N17.9; N18.9 Blood loss anemia D50.0 Atherosclerosis of [place] coronary artery of [place] heart without angina pectoris I25.10 Coronary Disease-Associated Artery/Lesion type: [place] artery
[2024-07-28] MEDS: metOLazone 5 MG Tablet PO (08:27)
[2024-07-28] MEDS: aspirin 81 mg EC Tablet PO (08:27)
[2024-07-28] MEDS: lactulose oral liq 20 gm/30 mL UDC PO (08:27)
[2024-07-28] MEDS: pantoprazole 40 mg SDV IVP ×2 (08:27→19:48)
[2024-07-28] MEDS: ticagrelor 90 mg Tablet PO ×2 (08:27→17:19)
[2024-07-28] MEDS: potassium chloride ER 20 mEq Tablet PO ×2 (08:27→17:19)
[2024-07-28 08:30] LABS: Glucose Point of Care 189 mg/dL (70-110)
[2024-07-28] MEDS: insulin lispro 100 unit/1 mL SUBCUT ×3 (08:31→17:48)
[2024-07-28] MEDS: FUROsemide 10 mg/mL SDV 4mL 40 MG IVP ×2 (09:39→21:08)
[2024-07-28 10:41] LABS: Partial Thromboplastin Time 88.6 SECONDS (23.9-36.7)
[2024-07-28 11:22] LABS: Glucose Point of Care 254 mg/dL (70-110)
[2024-07-28] MEDS: amiodarone 200 mg Tablet 400 MG PO ×2 (13:32→18:49)
[2024-07-28] MEDS: heparin drip 25,000 UNIT/500 ML PREMIX 9.92 UNIT IV (13:36)
[2024-07-28 17:38] LABS: Glucose Point of Care 172 mg/dL (70-110)
--- NOTE | 2024-07-28 17:43 | PC.NURSE ---
SHift SUmmary: Uneventful shift. Was up to a chair for about 6 hours today. Transitioned from IV amiodarone to PO amiodarone. Total urine output for day shift has been 1,000mL. Has been compliant with fluid restriction. Peripheral edema still present.
--- NOTE | 2024-07-28 17:49 | P.PN_ITS ---
Subjective 2 Subjective: Patient was seen this morning, patient's daughter is at bedside, his shortness of breath is persisting but improved compared to yesterday, he feels better with diuresis but continues to feel fluid overloaded in his belly and his legs, we discussed his JAN, his hyponatremia with diuresis, will continue to monitor, denies any fevers, no chills, no lightheaded, dizziness, confirmed with patient he is a Yazidism, does not want any blood products does not want any albumin, discussed the issues with his acute anemia, watch his hemoglobin closely, discussed his renal failure, his creatinine up to 1.5 with diuresis, difficulty in diuresing him without dobutamine, given his tachyarrhythmia, he remains on amiodarone drip but has converted to normal sinus rhythm on telemetry, both transition him to p.o. amiodarone Vitals/I&O/Wt Last Vital Signs Temp 96.4 F L 07/28/24 16:00 Pulse 73 07/28/24 16:00 Resp 15 07/28/24 16:00 BP 105/64 07/28/24 16:00 Pulse Ox 98 07/28/24 16:00 O2 Del Method Room Air 07/28/24 16:00 07/28/24 07/28/24 07/28/24 06:59 14:59 22:59 Intake Total 329.667 / 1589.817 833.023 / 833.023 Output Total 700 / 1850 675 / 675 325 / 1000 Balance -370.333 / -260.183 158.023 / 158.023 -325 / -166.977 Weight last 48 hrs Weight 103.9 kg Weight 104.417 kg Physical Exam 2 Const: COMMON NORMALS: no acute distress and patient oriented x3 Resp: COMMON NORMALS: normal respiratory effort, No retractions and No use of accessory muscles AUSCULTATION: crackles Cardio: COMMON NORMALS: regular rate, regular rhythm, S1 normal heart sound present and S2 normal heart sound present RATE: regular rate RHYTHM: r egular rhythm HEART SOUNDS: S1 normal heart sound present and S2 normal heart sound present GI: COMMON NORMALS: Normal to inspection, nondistended, normoactive bowel sounds present and non-tender Extremity: NARRATIVE EXTREMITY EXAM: 1+ pitting edema Neuro: COMMON NORMALS: patient oriented x3 Psych: COMMON NORMALS: mental status grossly normal Urinary Catheter Management: Ramires: Cath Placed During This Visit: yes Reason for Continuing Indwelling Catheter: Accurate Measurement of Urinary Output in Critically Ill Patients Urinary Catheter Date of Insertion: 07/25/24 Urinary Catheter Time of Insertion: 22:30 Data 07/28/24 03:21 07/28/24 03:21 A&P Assessment and plan (1) Acute exacerbation of CHF (congestive heart failure): (2) Acute anemia: (3) Hyponatremia: (4) Acute kidney injury: (5) Hyperbilirubinemia: (6) NSTEMI (non-ST elevated myocardial infarction): (7) Cardiac LV ejection fraction 30-35%: (8) CAD (coronary artery disease): Qualifiers: Coronary Disease-Associated Artery/Lesion type: bypass graft [place] vs. transplanted heart: [place] heart Associated angina: without angina Qualified Code(s): I25.810 - Atherosclerosis of coronary artery bypass graft(s) without angina pectoris (9) Diabetes mellitus: Plan Acute chest pain resolved -With development of tachycardia, A-fib, tachyarrhythmia on dobutamine -Dobutamine has been held -Status post nitro, status post morphine -Repeat troponin series Atrial fibrillation -Converted to normal sinus rhythm -On amiodarone 400 twice daily -Off amiodarone drip -Currently on aspirin and Brilinta -Heme occult stools positive, with acute anemia -Will discuss with patient and family about risk and benefits of anticoagulant therapy given that he is a Yazidism and does not want blood products, risk of GI bleed, risk of stroke not on anticoagulant therapy Acute CHF exacerbation -Lasix 40 IV twice daily ? Place Ramires catheter ? Monitor creatinine, monitor potassium ? Midodrine 10 every 6 hours Shortness of breath, cough secondary to pneumonia, -CT of the chest shows focal consolidation in the right lower lobe, with elevated CRP, Pro-Omid ? Highly suspicious for pneumonia ? Continue Rocephin ? Continue Zithromycin -Blood cultures # NSTEMI -Recent history of cardiac catheterization Conclusions 1. There is total occlusion coronary artery disease with four vessel disease. 2. Four coronary grafts visualized: two grafts patent, and two grafts occluded. 3. Patient has prior CABG. 4. Distal Left Anterior Descending was treated with a Balloon, Drug Eluting Stent, and Balloon. There is no complaints of chest pain ? Plan ? Aspirin, Brilinta, will consider beta-paula ? Serial EKGs, serial troponins, telemetry monitoring ? Heparin drip will be discontinued after 48 hours Acute anemia -Patient is a Yazidism and declines blood products ? History of Hemoccult positive stools ? Patient is on aspirin, Brilinta, heparin drip as above ? Monitor hemoglobin # Protonix, Carafate Hyperbilirubinemia # With evidence of liver cirrhosis ? Monitor ? Check ammonia levels Complaints of abdominal pain, abdominal distention ? Lipase minimally elevated at 91, IMPRESSION: 1. Peripancreatic fat stranding along the head and uncinate process. Correlate with lipase levels as findings can be seen with acute pancreatitis. 2. Cholelithiasis. Areas of mild pericholecystic fat stranding may be secondary to peripancreatic stranding, though acute cholecystitis not entirely excluded. This could be further assessed with right upper quadrant ultrasound if warranted. 3. Diffuse anasarca. -Will monitor Full code ? Lovenox for DVT prophylaxis Spoke to patient, spoke to nursing staff but spoke to patient's daughter, spoke to cardiology Attestations 2 Medical Necessity Statement*: Patient requires hospitalization for acute CHF exacerbation, requiring IV diuresis, atrial fibrillation, acute anemia and High MDM includes number and complexity of problems actively addressed during encounter, amount and/or complexity of data reviewed/ordered and described risk of complication, morbidity or mortality of management as documented Diagnoses Acute exacerbation of CHF (congestive heart failure) I50.9 Acute anemia D64.9 Hyponatremia E87.1 Acute kidney injury N17.9 Hyperbilirubinemia E80.6 NSTEMI (non-ST elevated myocardial infarction) I21.4 Cardiac LV ejection fraction 30-35% R94.30 Coronary artery disease involving coronary bypass graft of [place] heart without angina pectoris I25.810 Coronary Disease-Associated Artery/Lesion type: bypass graft [place] vs. transplanted heart: [place] heart Associated angina: without angina Diabetes mellitus E11.9
[2024-07-28 18:02] LABS: Partial Thromboplastin Time 56.9 SECONDS (23.9-36.7)
[2024-07-28] MEDS: AZITHROMYCIN ADD-Vantage 500 MG in 0.9% NaCl ADD-Vantage 250 ML 250 MG IV (19:47)
[2024-07-28] MEDS: cefTRIAXone 1,000 mg SDV 1000 MG IVP (19:48)
[2024-07-28] MEDS: enoxaparin 40 mg/0.4 mL Syringe SUBCUT (21:07)
[2024-07-28 21:36] LABS: Glucose Point of Care 240 mg/dL (70-110)
[2024-07-29] VITALS (44 sets, daily range): BP systolic 81–111; BP diastolic 36–66; PULSE 67–73; RESP 12–27; TEMP 36.2–36.5; O2SAT 88–96; BMI 33.1
[2024-07-29] MEDS: midodrine 5 mg TABLET 10 MG PO ×4 (02:35→19:36)
[2024-07-29] MEDS: sucralfate 1 gm/10 mL Oral Liq UDC PO ×4 (02:35→19:32)
[2024-07-29 05:20] LABS: Basophils # 0.1 10^3/uL (0.0-0.1); Basophils % 1.8 %; Eosinophils # 0.1 10^3/uL (0.0-0.8); Eosinophils % 2.1 %; Hematocrit 28.9 % (37-53); Lymphocytes # 1.4 10^3/uL (0.8-4.8); Lymphocytes % 20.2 %; Mean Corpuscular HGB Conc 32.2 g/dL (30-55); Mean Platelet Volume 11.5 fL (7.4-10.4); Monocytes # 1.1 10^3/uL (0.2-0.9); Monocytes % 16.5 %; Neutrophils # 3.95 10^3/uL (1.8-7.7); Neutrophils % 58.4 %; Nucleated Red Blood Cells % 0 %; Platelet Count 185 10^3/cmm (157-399); Red Blood Count 3.21 10^6/uL (3.85-5.65); Red Cell Distribution Width 15.9 % (12.1-15.1); White Blood Count 6.77 10^3/uL (3.29-11.43)
[2024-07-29 05:45] LABS: Alanine Aminotransferase 17 U/L (0-41); Albumin Level 2.9 g/dL (3.5-5.2); Alkaline Phosphatase 141 U/L (40-130); Anion Gap 14.9 (5-19); Aspartate Amino Transferase 39 U/L (0-40); Blood Urea Nitrogen 31 mg/dL (8-23); Carbon Dioxide 23 mmol/L (22-29); Chloride 97 mmol/L (98-107); Creatinine Clr Calc Pharmacy 47.4222; Globulin 3.6 g/dL (1.3-4.6); Glucose 192 mg/dL (65-115); Magnesium 2.1 mg/dL (1.7-2.3); Osmolality Calculated 284 mOsm/kg (285-295); Phosphorus 2.2 mg/dL (2.5-4.5); Potassium 3.9 mmol/L (3.5-5.1); Sodium 131 mmol/L (136-145); Total Bilirubin 2.7 mg/dL (0.15-1.2); Total Protein 6.5 g/dL (6.6-8.7)
[2024-07-29 05:46] LABS: C Reactive Protein 15.5 mg/L (0.0-4.9)
[2024-07-29 05:56] LABS: NT Pro B Type Natriuretic Pept 2066 pg/mL (0-450); Procalcitonin 0.47 ng/mL (0-0.5)
--- NOTE | 2024-07-29 07:00 | XRR_ITS ---
PROCEDURE INFORMATION: Exam: XR Chest Exam date and time: 07/29/2024 7:02 AM Age: 74 years old Clinical indication: Dyspnea; Additional info: SOB TECHNIQUE: Imaging protocol: Radiologic exam of the chest. Views: 1 view. COMPARISON: CR (CHEST, ) 07/28/2024 12:10 AM FINDINGS: Lungs: No large focal consolidation. Pleural spaces: No large pleural effusion. No distinct pneumothorax. Heart/Mediastinum: Cardiomediastinal silhouette is midline and enlarged, stable. Bones/joints: Postsurgical changes of prior median sternotomy. XR/XR chest 1V portable [id number] IMPRESSION: 1. Cardiomediastinal silhouette is midline and enlarged, stable. 2. No large focal consolidation.
--- NOTE | 2024-07-29 08:31 | P.PN_ITS ---
Subjective 2 Subjective: Patient is feeling better. Diuresing better. No chest pain. Staying in normal sinus rhythm Vitals/I&O/Wt Last Vital Signs Temp 97.4 F L 07/29/24 04:00 Pulse 71 07/29/24 08:27 Resp 16 07/29/24 08:27 BP 93/60 07/29/24 04:00 Pulse Ox 95 07/29/24 08:27 O2 Del Method Room Air 07/29/24 08:27 07/28/24 07/29/24 07/29/24 22:59 06:59 14:59 Intake Total 733.648 / 1566.671 Output Total 325 / 1000 2450 / 3450 Balance 408.648 / 566.671 -2450 / -1883.329 Weight last 48 hrs Weight 230 lb 13.184 oz Weight 229 lb 0.964 oz Physical Exam 2 Const: OTHER: GENERAL: Patient is alert and oriented HEART: Regular rate and rhythm S1 S2 LUNGS: Diminished air entry CENTRAL NERVOUS SYSTEM: Grossly nonfocal. EXTREMITIES: Lower extremities with 1-2+ edema Urinary Catheter Management: Ramires: Cath Placed During This Visit: yes Reason for Continuing Indwelling Catheter: Accurate Measurement of Urinary Output in Critically Ill Patients Urinary Catheter Date of Insertion: 07/25/24 Urinary Catheter Time of Insertion: 22:30 Data 07/30/24 05:28 07/30/24 05:28 A&P Assessment and plan (1) Acute exacerbation of congestive heart failure: Qualifiers: Heart failure type: combined systolic and diastolic Qualified Code(s): I50.43 - Acute on chronic combined systolic (congestive) and diastolic (congestive) heart failure (2) Ischemic cardiomyopathy: (3) Atrial fibrillation with RVR: (4) Elevated troponin: (5) Acute kidney injury superimposed on chronic kidney disease: (6) Blood loss anemia: (7) Atherosclerosis of coronary artery of [place] heart without angina pectoris: Qualifiers: Coronary Disease-Associated Artery/Lesion type: [place] artery Qualified Code(s): I25.10 - Atherosclerotic heart disease of [place] coronary artery without angina pectoris Plan Patient is diuresing well. Continue metolazone and IV Lasix. Close I&O's. Monitor renal function Continue dual antiplatelet therapy. Shared decision made to hold off on oral anticoagulation. Thank you for involving us with care of this patient. We will continue to follow. Plase call with questions. Attestations 2 Medical Necessity Statement*: Care expected to cross 2 midnights. 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
[2024-07-29] MEDS: lactulose oral liq 20 gm/30 mL UDC PO ×2 (09:45→19:34)
[2024-07-29] MEDS: potassium chloride ER 20 mEq Tablet PO ×2 (09:47→18:18)
[2024-07-29] MEDS: ticagrelor 90 mg Tablet PO ×2 (09:47→18:18)
[2024-07-29] MEDS: amiodarone 200 mg Tablet 400 MG PO ×2 (09:48→18:17)
[2024-07-29] MEDS: aspirin 81 mg EC Tablet PO (09:49)
[2024-07-29] MEDS: FUROsemide 10 mg/mL SDV 4mL 40 MG IVP ×2 (09:49→21:32)
[2024-07-29] MEDS: metOLazone 5 MG Tablet PO (09:49)
[2024-07-29] MEDS: pantoprazole 40 mg SDV IVP ×2 (09:50→19:31)
[2024-07-29 10:03] LABS: Glucose Point of Care 186 mg/dL (70-110)
[2024-07-29] MEDS: insulin lispro 100 unit/1 mL SUBCUT ×2 (10:07→13:14)
--- NOTE | 2024-07-29 12:53 | PC.SOCIAL ---
IMM Updated Updated pt on IMM. No questions voiced. Provided pt a copy. Initialed, dated, & timed copy in chart.
[2024-07-29 12:58] LABS: Glucose Point of Care 226 mg/dL (70-110)
--- NOTE | 2024-07-29 14:03 | XR_ITS ---
WS: [id number] PORTABLE CHEST HISTORY: Post PICC insertion COMPARISON: None available. Right-sided PICC line has been placed with tip terminating at the caval atrial junction. Lungs are hyperinflated. Mild interstitial edema. No pleural effusion or pneumothorax. Cardiac size: Marked enlarged cardiac silhouette. Mediastinum/Aorta: Mediastinum is widened due to position of the patient. No osseous abnormality seen. Prior CABG. XR/XR chest 1V portable [id number] IMPRESSION: 1. Satisfactory placement right-sided PICC line. 2. Prior CABG. 3. Marked cardiomegaly. 4. Mild interstitial edema.
--- NOTE | 2024-07-29 14:53 | P.PN_ITS ---
Subjective 2 Subjective: Patient was seen this morning, denies any fevers, no chills, no cough he does report the edema is improving but continues to persist in his abdomen and his legs, blood pressures are soft, denies any lightheadedness, no dizziness Vitals/I&O/Wt Last Vital Signs Temp 97.5 F L 07/29/24 09:30 Pulse 73 07/29/24 14:00 Resp 19 H 07/29/24 14:00 BP 91/36 07/29/24 14:00 Pulse Ox 88 L 07/29/24 14:00 O2 Del Method Room Air 07/29/24 08:27 07/28/24 07/29/24 07/29/24 22:59 06:59 14:59 Intake Total 733.648 / 1566.671 480 / 480 Output Total 325 / 1000 2450 / 3450 Balance 408.648 / 566.671 -2450 / -1883.329 480 / 480 Weight last 48 hrs Weight 104.7 kg Weight 103.9 kg Physical Exam 2 Const: COMMON NORMALS: no acute distress and patient oriented x3 Resp: COMMON NORMALS: normal respiratory effort, No retractions, No use of accessory muscles and clear to auscultation bilaterally AUSCULTATION: clear to auscultation bilaterally Cardio: COMMON NORMALS: regular rate, regular rhythm, S1 normal heart sound present and S2 normal heart sound present RATE: regular rate RHYTHM: r egular rhythm HEART SOUNDS: S1 normal heart sound present and S2 normal heart sound present GI: COMMON NORMALS: Normal to inspection, nondistended, normoactive bowel sounds present and non-tender Extremity: NARRATIVE EXTREMITY EXAM: 2+ pitting edema, anasarca Neuro: COMMON NORMALS: patient oriented x3 Psych: COMMON NORMALS: mental status grossly normal Urinary Catheter Management: Ramires: Cath Placed During This Visit: yes Reason for Continuing Indwelling Catheter: Accurate Measurement of Urinary Output in Critically Ill Patients Urinary Catheter Date of Insertion: 07/25/24 Urinary Catheter Time of Insertion: 22:30 Data 07/29/24 05:02 07/29/24 05:02 A&P Assessment and plan (1) Acute exacerbation of CHF (congestive heart failure): (2) Acute anemia: (3) Hyponatremia: (4) Acute kidney injury: (5) Hyperbilirubinemia: (6) NSTEMI (non-ST elevated myocardial infarction): (7) Cardiac LV ejection fraction 30-35%: (8) CAD (coronary artery disease): Qualifiers: Coronary Disease-Associated Artery/Lesion type: bypass graft [place] vs. transplanted heart: [place] heart Associated angina: without angina Qualified Code(s): I25.810 - Atherosclerosis of coronary artery bypass graft(s) without angina pectoris (9) Diabetes mellitus: Plan Acute chest pain resolved -With development of tachycardia, A-fib, tachyarrhythmia on dobutamine -Dobutamine has been held -Status post nitro, status post morphine -Repeat troponin series Atrial fibrillation -Converted to normal sinus rhythm -On amiodarone 400 twice daily -Off amiodarone drip -Currently on aspirin and Brilinta -Heme occult stools positive, with acute anemia -Will discuss with patient and family about risk and benefits of anticoagulant therapy given that he is a Anabaptist and does not want blood products, risk of GI bleed, risk of stroke not on anticoagulant therapy Acute CHF exacerbation -Lasix 40 IV twice daily ? Place Ramires catheter ? Monitor creatinine, monitor potassium ? Midodrine 10 every 6 hours Shortness of breath, cough secondary to pneumonia, -CT of the chest shows focal consolidation in the right lower lobe, with elevated CRP, Pro-Omid ? Highly suspicious for pneumonia ? Continue Rocephin ? Continue Zithromycin -Blood cultures # NSTEMI -Recent history of cardiac catheterization Conclusions 1. There is total occlusion coronary artery disease with four vessel disease. 2. Four coronary grafts visualized: two grafts patent, and two grafts occluded. 3. Patient has prior CABG. 4. Distal Left Anterior Descending was treated with a Balloon, Drug Eluting Stent, and Balloon. There is no complaints of chest pain ? Plan ? Aspirin, Brilinta, will consider beta-paula ? Serial EKGs, serial troponins, telemetry monitoring ? Heparin drip will be discontinued after 48 hours Acute anemia -Patient is a Anabaptist and declines blood products ? History of Hemoccult positive stools ? Patient is on aspirin, Brilinta, heparin drip as above ? Monitor hemoglobin # Protonix, Carafate Hyperbilirubinemia # With evidence of liver cirrhosis ? Monitor ? Check ammonia levels Complaints of abdominal pain, abdominal distention ? Lipase minimally elevated at 91, IMPRESSION: 1. Peripancreatic fat stranding along the head and uncinate process. Correlate with lipase levels as findings can be seen with acute pancreatitis. 2. Cholelithiasis. Areas of mild pericholecystic fat stranding may be secondary to peripancreatic stranding, though acute cholecystitis not entirely excluded. This could be further assessed with right upper quadrant ultrasound if warranted. 3. Diffuse anasarca. -Will monitor Full code ? Lovenox for DVT prophylaxis Plan for today, continue to clinically monitor, continue IV diuresis, creatinine up to 1.6, monitor blood pressures, continue IV diuresis Attestations 2 Medical Necessity Statement*: Patient requires hospitalization for acute fluid overload, CHF exacerbation, acute anemia, NSTEMI, A-fib, soft blood pressures Diagnoses Acute exacerbation of CHF (congestive heart failure) I50.9 Acute anemia D64.9 Hyponatremia E87.1 Acute kidney injury N17.9 Hyperbilirubinemia E80.6 NSTEMI (non-ST elevated myocardial infarction) I21.4 Cardiac LV ejection fraction 30-35% R94.30 Coronary artery disease involving coronary bypass graft of [place] heart without angina pectoris I25.810 Coronary Disease-Associated Artery/Lesion type: bypass graft [place] vs. transplanted heart: [place] heart Associated angina: without angina Diabetes mellitus E11.9
--- NOTE | 2024-07-29 15:25 | PICC.NOTE ---
Triple lumen PICC placed to right brachial vein. Referred to vascular access nurse for PICC placement due to poor access and use of pressors. Risks and benefits discussed and informed consent obtained from pt. Right arm assessed with right brachial vein measuring 5.0 mm, straight, and apparent best choice for placement. Using sterile technique and MST, right brachial vein accessed x 1 stick. Mid-arm circumference measured 10 cm from right AC 34 cm. Trimmed cath 41 cm with 1 cm external length noted. CXR shows tip in cavoatrial junction, in good position for use per radiologist. Line secured with stat-lock. Insertion site covered with Biopatch and TSM. Report given to bedside nurse, FARIDA Chavez.
[2024-07-29 18:31] LABS: Glucose Point of Care 135 mg/dL (70-110)
[2024-07-29] MEDS: AZITHROMYCIN ADD-Vantage 500 MG in 0.9% NaCl ADD-Vantage 250 ML 250 MG IV (19:25)
[2024-07-29] MEDS: cefTRIAXone 1,000 mg SDV 1000 MG IVP (19:28)
[2024-07-29] MEDS: enoxaparin 40 mg/0.4 mL Syringe SUBCUT (20:14)
[2024-07-29 21:37] LABS: Glucose Point of Care 203 mg/dL (70-110)
[2024-07-30] VITALS (97 sets, daily range): BP systolic 80–124; BP diastolic 43–72; PULSE 57–84; RESP 11–28; TEMP 36.4–36.8; O2SAT 81–95
[2024-07-30] MEDS: midodrine 5 mg TABLET 10 MG PO ×4 (01:21→20:06)
[2024-07-30] MEDS: sucralfate 1 gm/10 mL Oral Liq UDC PO ×4 (01:21→20:06)
[2024-07-30] MEDS: norepinephrine 4 MG/250 ML BAG 7.5 MG IV (01:40)
[2024-07-30 05:52] LABS: Basophils # 0.1 10^3/uL (0.0-0.1); Eosinophils # 0.1 10^3/uL (0.0-0.8); Eosinophils % 2.1 %; Lymphocytes # 1.3 10^3/uL (0.8-4.8); Lymphocytes % 20.1 %; Mean Corpuscular HGB Conc 33.3 g/dL (30-55); Mean Corpuscular Volume 87.1 fl (82-101); Monocytes # 1.1 10^3/uL (0.2-0.9); Monocytes % 16.9 %; Neutrophils # 3.94 10^3/uL (1.8-7.7); Neutrophils % 59.2 %; Nucleated Red Blood Cells % 0 %; Platelet Count 203 10^3/cmm (157-399); Red Cell Distribution Width 15.8 % (12.1-15.1); White Blood Count 6.67 10^3/uL (3.29-11.43)
[2024-07-30 06:19] LABS: Alanine Aminotransferase 15 U/L (0-41); Alkaline Phosphatase 141 U/L (40-130); Anion Gap 16.8 (5-19); Aspartate Amino Transferase 36 U/L (0-40); Blood Urea Nitrogen 32 mg/dL (8-23); Calcium 8.3 mg/dL (8.5-10.5); Carbon Dioxide 27 mmol/L (22-29); Chloride 92 mmol/L (98-107); Globulin 3.3 g/dL (1.3-4.6); Glucose 165 mg/dL (65-115); NT Pro B Type Natriuretic Pept 1707 pg/mL (0-450); Osmolality Calculated 285 mOsm/kg (285-295); Phosphorus 2.3 mg/dL (2.5-4.5); Potassium 3.8 mmol/L (3.5-5.1); Procalcitonin 0.44 ng/mL (0-0.5); Sodium 132 mmol/L (136-145); Total Bilirubin 3.2 mg/dL (0.15-1.2); Total Protein 6.3 g/dL (6.6-8.7)
[2024-07-30 07:55] LABS: Glucose Point of Care 170 mg/dL (70-110)
[2024-07-30] MEDS: metOLazone 5 MG Tablet PO (08:03)
[2024-07-30] MEDS: ticagrelor 90 mg Tablet PO ×2 (08:03→17:50)
[2024-07-30] MEDS: pantoprazole 40 mg SDV IVP ×2 (08:04→20:06)
[2024-07-30] MEDS: aspirin 81 mg EC Tablet PO (08:04)
[2024-07-30] MEDS: lactulose oral liq 20 gm/30 mL UDC PO ×2 (08:04→20:06)
[2024-07-30] MEDS: potassium chloride ER 20 mEq Tablet PO ×2 (08:04→17:50)
[2024-07-30] MEDS: amiodarone 200 mg Tablet 400 MG PO ×2 (08:04→17:50)
[2024-07-30] MEDS: insulin lispro 100 unit/1 mL SUBCUT ×3 (08:04→17:50)
[2024-07-30 08:19] LABS: C Reactive Protein 13.1 mg/L (0.0-4.9)
[2024-07-30] MEDS: FUROsemide 10 mg/mL SDV 4mL 40 MG IVP ×2 (09:46→21:14)
[2024-07-30 11:55] LABS: Glucose Point of Care 225 mg/dL (70-110)
--- NOTE | 2024-07-30 13:12 | P.PN_ITS ---
Subjective 2 Subjective: Patient is doing well. no chest pain. Diuresing well. Vitals/I&O/Wt Last Vital Signs Temp 97.9 F 07/30/24 09:30 Pulse 73 07/30/24 12:00 Resp 26 H 07/30/24 12:00 BP 113/66 07/30/24 12:00 Pulse Ox 90 07/30/24 12:00 O2 Del Method Room Air 07/30/24 12:00 07/29/24 07/30/24 07/30/24 22:59 06:59 14:59 Intake Total 730 / 1210 124.287 / 1334.287 300 / 300 Output Total 1650 / 3350 2550 / 5900 1200 / 1200 Balance -920 / -2140 -2425.713 / -4565.713 -900 / -900 Weight last 48 hrs Weight 213 lb 6.4 oz Weight 230 lb 13.184 oz Physical Exam 2 Const: OTHER: GENERAL: Patient is alert and oriented HEART: Regular rate and rhythm S1 S2 LUNGS: Diminished air entry CENTRAL NERVOUS SYSTEM: Grossly nonfocal. EXTREMITIES: Lower extremities with 1-2+ edema Urinary Catheter Management: Ramires: Cath Placed During This Visit: yes Reason for Continuing Indwelling Catheter: Accurate Measurement of Urinary Output in Critically Ill Patients Urinary Catheter Date of Insertion: 07/25/24 Urinary Catheter Time of Insertion: 22:30 Data 07/31/24 04:44 07/31/24 04:44 A&P Assessment and plan (1) Acute exacerbation of congestive heart failure: Qualifiers: Heart failure type: combined systolic and diastolic Qualified Code(s): I50.43 - Acute on chronic combined systolic (congestive) and diastolic (congestive) heart failure (2) Ischemic cardiomyopathy: (3) Atrial fibrillation with RVR: (4) Elevated troponin: (5) Acute kidney injury superimposed on chronic kidney disease: (6) Blood loss anemia: (7) Atherosclerosis of coronary artery of [place] heart without angina pectoris: Qualifiers: Coronary Disease-Associated Artery/Lesion type: [place] artery Qualified Code(s): I25.10 - Atherosclerotic heart disease of [place] coronary artery without angina pectoris Plan Patient is diuresing well. Will continue with IV Lasix and metolazone. Close I&O's. Monitor renal function. Thank you for involving us with care of this patient. We will continue to follow. Plase call with questions. Attestations 2 Medical Necessity Statement*: Care expected to cross 2 midnights. Coding Level of Care Code Acute Code for Chg Fwd Diagnoses Acute on chronic combined systolic and diastolic congestive heart failure I50.43 Heart failure type: combined systolic and diastolic Ischemic cardiomyopathy I25.5 Atrial fibrillation with RVR I48.91 Elevated troponin R79.89 Acute kidney injury superimposed on chronic kidney disease N17.9; N18.9 Blood loss anemia D50.0 Atherosclerosis of [place] coronary artery of [place] heart without angina pectoris I25.10 Coronary Disease-Associated Artery/Lesion type: [place] artery
--- NOTE | 2024-07-30 13:54 | P.PN_ITS ---
Subjective 2 Subjective: Patient was seen this morning, patient denies any chest pain, palpitations, does report fluid overload which persists, abdominal edema, lower extreme edema, intermittent shortness of breath Vitals/I&O/Wt Last Vital Signs Temp 97.9 F 07/30/24 09:30 Pulse 73 07/30/24 12:00 Resp 26 H 07/30/24 12:00 BP 113/66 07/30/24 12:00 Pulse Ox 90 07/30/24 12:00 O2 Del Method Room Air 07/30/24 12:00 07/29/24 07/30/24 07/30/24 22:59 06:59 14:59 Intake Total 730 / 1210 124.287 / 1334.287 300 / 300 Output Total 1650 / 3350 2550 / 5900 1200 / 1200 Balance -920 / -2140 -2425.713 / -4565.713 -900 / -900 Weight last 48 hrs Weight 96.797 kg Weight 104.7 kg Physical Exam 2 Const: COMMON NORMALS: no acute distress and patient oriented x3 Resp: COMMON NORMALS: normal respiratory effort, No retractions, No use of accessory muscles and clear to auscultation bilaterally AUSCULTATION: clear to auscultation bilaterally Cardio: COMMON NORMALS: regular rate, regular rhythm, S1 normal heart sound present and S2 normal heart sound present RATE: regular rate RHYTHM: r egular rhythm HEART SOUNDS: S1 normal heart sound present and S2 normal heart sound present GI: COMMON NORMALS: Normal to inspection, nondistended, normoactive bowel sounds present and non-tender Extremity: COMMON NORMALS: no pedal edema Neuro: COMMON NORMALS: patient oriented x3 Psych: COMMON NORMALS: mental status grossly normal Urinary Catheter Management: Ramires: Cath Placed During This Visit: yes Reason for Continuing Indwelling Catheter: Accurate Measurement of Urinary Output in Critically Ill Patients Urinary Catheter Date of Insertion: 07/25/24 Urinary Catheter Time of Insertion: 22:30 Data 07/30/24 05:28 07/30/24 05:28 A&P Assessment and plan (1) Acute exacerbation of CHF (congestive heart failure): (2) Acute anemia: (3) Hyponatremia: (4) Acute kidney injury: (5) Hyperbilirubinemia: (6) NSTEMI (non-ST elevated myocardial infarction): (7) Cardiac LV ejection fraction 30-35%: (8) CAD (coronary artery disease): Qualifiers: Coronary Disease-Associated Artery/Lesion type: bypass graft [place] vs. transplanted heart: [place] heart Associated angina: without angina Qualified Code(s): I25.810 - Atherosclerosis of coronary artery bypass graft(s) without angina pectoris (9) Diabetes mellitus: Plan Acute chest pain resolved -With development of tachycardia, A-fib, tachyarrhythmia on dobutamine -Dobutamine has been held -Status post nitro, status post morphine -Repeat troponin series Atrial fibrillation -Converted to normal sinus rhythm -On amiodarone 400 twice daily -Off amiodarone drip -Currently on aspirin and Brilinta -Heme occult stools positive, with acute anemia -Will discuss with patient and family about risk and benefits of anticoagulant therapy given that he is a [employer] and does not want blood products, Hemoccult positive stool, with anemia, risk of GI bleed, risk of stroke not on anticoagulant therapy Acute CHF exacerbation -Lasix 40 IV twice daily ? Currently requiring Levophed for blood pressure support while diuresing, on 2 Levophed, PICC line in place ? Place Ramires catheter ? Monitor creatinine, monitor potassium ? Midodrine 10 every 6 hours Shortness of breath, cough secondary to pneumonia, -CT of the chest shows focal consolidation in the right lower lobe, with elevated CRP, Pro-Omid ? Highly suspicious for pneumonia ? De-escalate to Augmentin -Blood cultures # NSTEMI -Recent history of cardiac catheterization Conclusions 1. There is total occlusion coronary artery disease with four vessel disease. 2. Four coronary grafts visualized: two grafts patent, and two grafts occluded. 3. Patient has prior CABG. 4. Distal Left Anterior Descending was treated with a Balloon, Drug Eluting Stent, and Balloon. There is no complaints of chest pain ? Plan ? Aspirin, Brilinta, will consider beta-paula ? Serial EKGs, serial troponins, telemetry monitoring ? 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 History of Hemoccult positive stools ? Patient is on aspirin, Brilinta, heparin drip as above ? Monitor hemoglobin # Protonix, Carafate Hyperbilirubinemia # With evidence of liver cirrhosis ? Monitor ? Check ammonia levels Complaints of abdominal pain, abdominal distention ? Lipase minimally elevated at 91, IMPRESSION: 1. Peripancreatic fat stranding along the head and uncinate process. Correlate with lipase levels as findings can be seen with acute pancreatitis. 2. Cholelithiasis. Areas of mild pericholecystic fat stranding may be secondary to peripancreatic stranding, though acute cholecystitis not entirely excluded. This could be further assessed with right upper quadrant ultrasound if warranted. 3. Diffuse anasarca. -Will monitor Full code ? Lovenox for DVT prophylaxis Plan for today continue IV diuresis, currently on Levophed, continue to monitor hemoglobin Attestations 2 Medical Necessity Statement*: Patient requires hospitalization for shortness of breath, CHF, NSTEMI Diagnoses Acute exacerbation of CHF (congestive heart failure) I50.9 Acute anemia D64.9 Hyponatremia E87.1 Acute kidney injury N17.9 Hyperbilirubinemia E80.6 NSTEMI (non-ST elevated myocardial infarction) I21.4 Cardiac LV ejection fraction 30-35% R94.30 Coronary artery disease involving coronary bypass graft of [place] heart without angina pectoris I25.810 Coronary Disease-Associated Artery/Lesion type: bypass graft [place] vs. transplanted heart: [place] heart Associated angina: without angina Diabetes mellitus E11.9
[2024-07-30 17:08] LABS: Glucose Point of Care 215 mg/dL (70-110)
[2024-07-30] MEDS: amoxicillin-clav 875-125 mg Tablet 1 TAB PO (17:50)
[2024-07-30] MEDS: enoxaparin 40 mg/0.4 mL Syringe SUBCUT (21:14)
[2024-07-30 21:24] LABS: Glucose Point of Care 188 mg/dL (70-110)
[2024-07-31] VITALS (51 sets, daily range): BP systolic 85–121; BP diastolic 48–64; PULSE 65–80; RESP 12–24; TEMP 36.3–36.7; O2SAT 87–98
[2024-07-31] MEDS: sucralfate 1 gm/10 mL Oral Liq UDC PO ×4 (03:48→21:29)
[2024-07-31] MEDS: midodrine 5 mg TABLET 10 MG PO ×4 (03:48→21:28)
[2024-07-31 05:46] LABS: Basophils # 0.1 10^3/uL (0.0-0.1); Basophils % 0.7 %; Eosinophils # 0.1 10^3/uL (0.0-0.8); Eosinophils % 1.4 %; Hematocrit 30.1 % (37-53); Lymphocytes % 13.5 %; Mean Corpuscular HGB Conc 32.9 g/dL (30-55); Mean Corpuscular Hemoglobin 28.3 pg (27-33); Mean Platelet Volume 11.3 fL (7.4-10.4); Monocytes # 1.3 10^3/uL (0.2-0.9); Monocytes % 16.9 %; Neutrophils # 4.94 10^3/uL (1.8-7.7); Neutrophils % 66.8 %; Nucleated Red Blood Cells % 0 %; Platelet Count 215 10^3/cmm (157-399); Red Cell Distribution Width 15.6 % (12.1-15.1); White Blood Count 7.39 10^3/uL (3.29-11.43)
[2024-07-31 06:08] LABS: NT Pro B Type Natriuretic Pept 1699 pg/mL (0-450)
[2024-07-31 06:12] LABS: Albumin Level 3.1 g/dL (3.5-5.2); Alkaline Phosphatase 148 U/L (40-130); Blood Urea Nitrogen 30 mg/dL (8-23); Calcium 8.5 mg/dL (8.5-10.5); Carbon Dioxide 29 mmol/L (22-29); Chloride 90 mmol/L (98-107); Globulin 3.7 g/dL (1.3-4.6); Glucose 183 mg/dL (65-115); Magnesium 1.9 mg/dL (1.7-2.3); Osmolality Calculated 289 mOsm/kg (285-295); Phosphorus 2.2 mg/dL (2.5-4.5); Sodium 134 mmol/L (136-145); Total Bilirubin 4.1 mg/dL (0.15-1.2); Total Protein 6.8 g/dL (6.6-8.7)
[2024-07-31 06:17] LABS: Alanine Aminotransferase 16 U/L (0-41); Anion Gap 19.2 (5-19); Aspartate Amino Transferase 47 U/L (0-40); Potassium 4.2 mmol/L (3.5-5.1)
[2024-07-31 08:37] LABS: Glucose Point of Care 214 mg/dL (70-110)
[2024-07-31] MEDS: potassium chloride ER 20 mEq Tablet PO ×2 (08:40→17:37)
[2024-07-31] MEDS: metOLazone 5 MG Tablet PO (08:40)
[2024-07-31] MEDS: amiodarone 200 mg Tablet 400 MG PO ×2 (08:40→17:37)
[2024-07-31] MEDS: aspirin 81 mg EC Tablet PO (08:40)
[2024-07-31] MEDS: ticagrelor 90 mg Tablet PO ×2 (08:40→17:37)
[2024-07-31] MEDS: amoxicillin-clav 875-125 mg Tablet 1 TAB PO ×2 (08:40→17:37)
[2024-07-31] MEDS: insulin lispro 100 unit/1 mL SUBCUT ×3 (08:41→17:37)
[2024-07-31] MEDS: lactulose oral liq 20 gm/30 mL UDC PO ×2 (08:41→21:29)
[2024-07-31] MEDS: pantoprazole 40 mg SDV IVP ×2 (08:41→21:29)
--- NOTE | 2024-07-31 09:25 | PM.PN ---
Subjective Subjective: Patient is continuing to diurese well. Renal function is improving. Vitals/I&O/Wt Last Vital Signs Temp 97.9 F 07/31/24 08:30 Pulse 72 07/31/24 08:30 Resp 17 07/31/24 08:30 BP 99/58 07/31/24 08:30 Pulse Ox 91 07/31/24 08:30 O2 Del Method Room Air 07/31/24 08:30 07/30/24 07/31/24 07/31/24 22:59 06:59 14:59 Intake Total 583.313 / 883.313 106.375 / 989.688 Output Total 2100 / 3300 1999 / 5300 Balance -1516.687 / -2416.687 -1893.625 / -4310.312 Weight last 48 hrs Weight 207 lb 3.752 oz Weight 213 lb 6.4 oz Physical Exam Const: OTHER: GENERAL: Patient is alert and oriented HEART: Regular rate and rhythm S1 S2 LUNGS: Diminished air entry CENTRAL NERVOUS SYSTEM: Grossly nonfocal. EXTREMITIES: Lower extremities with 1-2+ edema Urinary Catheter Management: Ramires: Cath Placed During This Visit: yes Reason for Continuing Indwelling Catheter: Accurate Measurement of Urinary Output in Critically Ill Patients Urinary Catheter Date of Insertion: 07/25/24 Urinary Catheter Time of Insertion: 22:30 Data 08/01/24 05:36 08/01/24 05:36 Micro: Microbiology 07/25/24 21:32 Blood Culture - Final Blood NO GROWTH AFTER 5 DAYS 07/25/24 21:32 Blood Culture - Final Blood NO GROWTH AFTER 5 DAYS A&P Assessment and plan (1) Acute exacerbation of congestive heart failure: Qualifiers: Heart failure type: combined systolic and diastolic Qualified Code(s): I50.43 - Acute on chronic combined systolic (congestive) and diastolic (congestive) heart failure (2) Ischemic cardiomyopathy: (3) Atrial fibrillation with RVR: (4) Elevated troponin: (5) Acute kidney injury superimposed on chronic kidney disease: (6) Blood loss anemia: (7) Atherosclerosis of coronary artery of [place] heart without angina pectoris: Qualifiers: Coronary Disease-Associated Artery/Lesion type: [place] artery Qualified Code(s): I25.10 - Atherosclerotic heart disease of [place] coronary artery without angina pectoris Plan Patient continues diuresing well. Will continue with IV Lasix and metolazone for today. Likely will switch to p.o. medications tomorrow. Close I&O's. Monitor renal function Thank you for involving us with care of this patient. We will continue to follow. Plase call with questions. Attestations Medical Necessity Statement*: Care expected to cross 2 midnights. Coding Level of Care Code Acute Code for Chg Fwd Diagnoses Acute on chronic combined systolic and diastolic congestive heart failure I50.43 Heart failure type: combined systolic and diastolic Ischemic cardiomyopathy I25.5 Atrial fibrillation with RVR I48.91 Elevated troponin R79.89 Acute kidney injury superimposed on chronic kidney disease N17.9; N18.9 Blood loss anemia D50.0 Atherosclerosis of [place] coronary artery of [place] heart without angina pectoris I25.10 Coronary Disease-Associated Artery/Lesion type: [place] artery
[2024-07-31] MEDS: FUROsemide 10 mg/mL SDV 4mL 40 MG IVP ×2 (11:09→21:29)
[2024-07-31 11:51] LABS: Glucose Point of Care 223 mg/dL (70-110)
[2024-07-31] MEDS: norepinephrine 4 MG/250 ML BAG 7.5 MG IV (13:11)
--- NOTE | 2024-07-31 16:02 | PM.PN ---
Subjective Subjective: Patient tells me that he feels better, his edema is improving his anasarca is improving, -5 L yesterday remains on 2 of Levophed Vitals/I&O/Wt Last Vital Signs Temp 97.9 F 07/31/24 08:30 Pulse 72 07/31/24 14:19 Resp 19 H 07/31/24 14:00 BP 105/64 07/31/24 14:00 Pulse Ox 90 07/31/24 14:00 O2 Del Method Room Air 07/31/24 14:00 07/31/24 07/31/24 07/31/24 06:59 14:59 22:59 Intake Total 106.375 / 989.688 205.625 / 205.625 Output Total 1999 / 5300 1325 / 1325 Balance -1893.625 / -4310.312 -1119.375 / -1119.375 Weight last 48 hrs Weight 94 kg Weight 96.797 kg Physical Exam Const: COMMON NORMALS: no acute distress and patient oriented x3 Resp: COMMON NORMALS: normal respiratory effort, No retractions, No use of accessory muscles and clear to auscultation bilaterally AUSCULTATION: clear to auscultation bilaterally Cardio: COMMON NORMALS: regular rate, regular rhythm, S1 normal heart sound present and S2 normal heart sound present RATE: regular rate RHYTHM: regular rhythm HEART SOUNDS: S1 normal heart sound present and S2 normal heart sound present GI: COMMON NORMALS: Normal to inspection, nondistended, normoactive bowel sounds present and non-tender Extremity: NARRATIVE EXTREMITY EXAM: 2+ edema, anasarca Neuro: COMMON NORMALS: patient oriented x3 Psych: COMMON NORMALS: mental status grossly normal Urinary Catheter Management: Ramires: Cath Placed During This Visit: yes Reason for Continuing Indwelling Catheter: Accurate Measurement of Urinary Output in Critically Ill Patients Urinary Catheter Date of Insertion: 07/25/24 Urinary Catheter Time of Insertion: 22:30 Data 07/31/24 04:44 07/31/24 04:44 Micro: Microbiology 07/25/24 21:32 Blood Culture - Final Blood NO GROWTH AFTER 5 DAYS 07/25/24 21:32 Blood Culture - Final Blood NO GROWTH AFTER 5 DAYS A&P Assessment and plan (1) Acute exacerbation of CHF (congestive heart failure): (2) Acute anemia: (3) Hyponatremia: (4) Acute kidney injury: (5) Hyperbilirubinemia: (6) NSTEMI (non-ST elevated myocardial infarction): (7) Cardiac LV ejection fraction 30-35%: (8) CAD (coronary artery disease): Qualifiers: Coronary Disease-Associated Artery/Lesion type: bypass graft [place] vs. transplanted heart: [place] heart Associated angina: without angina Qualified Code(s): I25.810 - Atherosclerosis of coronary artery bypass graft(s) without angina pectoris (9) Diabetes mellitus: Plan Acute chest pain resolved -With development of tachycardia, A-fib, tachyarrhythmia on dobutamine -Dobutamine has been held -Status post nitro, status post morphine -Repeat troponin series Atrial fibrillation -Converted to normal sinus rhythm -On amiodarone 400 twice daily -Off amiodarone drip -Currently on aspirin and Brilinta -Heme occult stools positive, with acute anemia -Will discuss with patient and family about risk and benefits of anticoagulant therapy given that he is a [employer] and does not want blood products, Hemoccult positive stool, with anemia, risk of GI bleed, risk of stroke not on anticoagulant therapy Acute CHF exacerbation -Lasix 40 IV twice daily ? Currently requiring Levophed for blood pressure support while diuresing, on 2 Levophed, PICC line in place ? Place Ramires catheter ? Monitor creatinine, monitor potassium ? Midodrine 10 every 6 hours Shortness of breath, cough secondary to pneumonia, -CT of the chest shows focal consolidation in the right lower lobe, with elevated CRP, Pro-Omid ? Highly suspicious for pneumonia ? De-escalate to Augmentin -Blood cultures # NSTEMI -Recent history of cardiac catheterization Conclusions 1. There is total occlusion coronary artery disease with four vessel disease. 2. Four coronary grafts visualized: two grafts patent, and two grafts occluded. 3. Patient has prior CABG. 4. Distal Left Anterior Descending was treated with a Balloon, Drug Eluting Stent, and Balloon. There is no complaints of chest pain ? Plan ? Aspirin, Brilinta, will consider beta-paula ? Serial EKGs, serial troponins, telemetry monitoring ? Heparin drip will be discontinued after 48 hours Acute anemia -Patient is a [employer] and declines blood products ? History of Hemoccult positive stools ? Patient is on aspirin, Brilinta, heparin drip as above ? Monitor hemoglobin # Protonix, Carafate Hyperbilirubinemia # With evidence of liver cirrhosis ? Monitor ? Check ammonia levels Complaints of abdominal pain, abdominal distention ? Lipase minimally elevated at 91, IMPRESSION: 1. Peripancreatic fat stranding along the head and uncinate process. Correlate with lipase levels as findings can be seen with acute pancreatitis. 2. Cholelithiasis. Areas of mild pericholecystic fat stranding may be secondary to peripancreatic stranding, though acute cholecystitis not entirely excluded. This could be further assessed with right upper quadrant ultrasound if warranted. 3. Diffuse anasarca. -Will monitor Full code ? Lovenox for DVT prophylaxis Plan for today continue IV diuresis, currently on Levophed, continue to monitor hemoglobin Attestations Medical Necessity Statement*: Patient requires hospitalization for CHF requiring IV diuresis, requiring Levophed, spoke to patient, spoke to nursing staff, spoke to cardiology Diagnoses Acute exacerbation of CHF (congestive heart failure) I50.9 Acute anemia D64.9 Hyponatremia E87.1 Acute kidney injury N17.9 Hyperbilirubinemia E80.6 NSTEMI (non-ST elevated myocardial infarction) I21.4 Cardiac LV ejection fraction 30-35% R94.30 Coronary artery disease involving coronary bypass graft of [place] heart without angina pectoris I25.810 Coronary Disease-Associated Artery/Lesion type: bypass graft [place] vs. transplanted heart: [place] heart Associated angina: without angina Diabetes mellitus E11.9
[2024-07-31 17:29] LABS: Glucose Point of Care 213 mg/dL (70-110)
--- NOTE | 2024-07-31 18:07 | PC.NURSE ---
Overall uneventful shift. See documented vitals and intake and output documentation. Patient remains on levophed, see MAR. Assisted patient in ambulating in room twice around bed, patient sat in recliner this shift from breakfast to afternoon meal, frequent position changes to prevent pressure injury. Patients at bedside updated on plan of care. Patient reports weakness and dizziness upon standing, no significant change in blood pressure or heart rate during that time.
[2024-07-31] MEDS: enoxaparin 40 mg/0.4 mL Syringe SUBCUT (21:29)
[2024-07-31 22:46] LABS: Glucose Point of Care 189 mg/dL (70-110)
[2024-08-01] VITALS (50 sets, daily range): BP systolic 82–134; BP diastolic 46–73; PULSE 59–81; RESP 12–24; TEMP 36.3–37; O2SAT 89–97
[2024-08-01] MEDS: sucralfate 1 gm/10 mL Oral Liq UDC PO ×4 (02:45→20:49)
[2024-08-01] MEDS: midodrine 5 mg TABLET 10 MG PO ×3 (02:45→13:47)
[2024-08-01 06:00] LABS: Basophils # 0.1 10^3/uL (0.0-0.1); Basophils % 1.2 %; Eosinophils # 0.1 10^3/uL (0.0-0.8); Eosinophils % 1.6 %; Hematocrit 28.1 % (37-53); Lymphocytes % 12.5 %; Mean Corpuscular HGB Conc 33.5 g/dL (30-55); Mean Corpuscular Hemoglobin 28.7 pg (27-33); Mean Corpuscular Volume 85.7 fl (82-101); Mean Platelet Volume 10.5 fL (7.4-10.4); Monocytes # 1.4 10^3/uL (0.2-0.9); Monocytes % 16.8 %; Neutrophils # 5.62 10^3/uL (1.8-7.7); Neutrophils % 67.2 %; Nucleated Red Blood Cells % 0 %; Platelet Count 239 10^3/cmm (157-399); Red Blood Count 3.28 10^6/uL (3.85-5.65); Red Cell Distribution Width 15.5 % (12.1-15.1); White Blood Count 8.35 10^3/uL (3.29-11.43)
[2024-08-01 06:21] LABS: Alanine Aminotransferase 13 U/L (0-41); Albumin Level 2.9 g/dL (3.5-5.2); Alkaline Phosphatase 140 U/L (40-130); Anion Gap 13.9 (5-19); Aspartate Amino Transferase 33 U/L (0-40); Blood Urea Nitrogen 29 mg/dL (8-23); Calcium 8.6 mg/dL (8.5-10.5); Carbon Dioxide 32 mmol/L (22-29); Chloride 89 mmol/L (98-107); Creatinine Clr Calc Pharmacy 50.1587; Globulin 3.7 g/dL (1.3-4.6); Glucose 193 mg/dL (65-115); Magnesium 2.1 mg/dL (1.7-2.3); Osmolality Calculated 283 mOsm/kg (285-295); Phosphorus 2.3 mg/dL (2.5-4.5); Potassium 3.9 mmol/L (3.5-5.1); Sodium 131 mmol/L (136-145); Total Bilirubin 4.1 mg/dL (0.15-1.2); Total Protein 6.6 g/dL (6.6-8.7)
[2024-08-01 06:31] LABS: NT Pro B Type Natriuretic Pept 1653 pg/mL (0-450)
[2024-08-01 07:30] LABS: Glucose Point of Care 186 mg/dL (70-110)
[2024-08-01] MEDS: aspirin 81 mg EC Tablet PO (08:19)
[2024-08-01] MEDS: amoxicillin-clav 875-125 mg Tablet 1 TAB PO ×2 (08:19→17:55)
[2024-08-01] MEDS: ticagrelor 90 mg Tablet PO ×2 (08:19→17:55)
[2024-08-01] MEDS: potassium chloride ER 20 mEq Tablet PO ×2 (08:19→17:55)
[2024-08-01] MEDS: amiodarone 200 mg Tablet 400 MG PO ×2 (08:19→17:55)
[2024-08-01] MEDS: lactulose oral liq 20 gm/30 mL UDC PO ×2 (08:19→20:49)
[2024-08-01] MEDS: metOLazone 5 MG Tablet PO (08:19)
[2024-08-01] MEDS: pantoprazole 40 mg SDV IVP ×2 (08:20→20:49)
[2024-08-01] MEDS: insulin lispro 100 unit/1 mL SUBCUT ×3 (08:20→17:56)
--- NOTE | 2024-08-01 08:31 | US_ITS ---
WS: [id number] ULTRASOUND ABDOMEN LIMITED CLINICAL INFORMATION: liver, gallbladder, portal flow COMPARISON: None. FINDINGS: Liver Size: Cirrhotic contour Craniocaudal length: 14.6 cm. Echogenicity: Coarse Surface nodularity: None. Mass (size and location): None. Pulsatile main portal vein. Bile ducts Intrahepatic ducts: Normal. Common bile duct diameter: 0.3 cm. Gallbladder Cholelithiasis Gallstones: Present Gallbladder sludge: None. Gallbladder wall thickening: None. Pericholecystic fluid: None. Sonographic Jo sign: Absent. Pancreas Normal as visualized. Right kidney: Normal. Hydronephrosis: None. Size: 10.5 cm x 5.2 cm x 6.2 cm. Abdominal aorta and IVC Visualized portions are normal. Ascites: None. US/US abdomen limited [id number] IMPRESSION: 1. Coarse hepatic echotexture suspicious for hepatocellular disease/cirrhosis. Recommend correlation with liver function tests. 2. Cholelithiasis. 3. Normal common bile duct. 4. Pulsatile main portal vein suggesting portal venous hypertension. 5. No hydronephrosis in the RIGHT kidney.
[2024-08-01 12:17] LABS: Anion Gap 13.6 (5-19); Blood Urea Nitrogen 30 mg/dL (8-23); Calcium 8.4 mg/dL (8.5-10.5); Carbon Dioxide 31 mmol/L (22-29); Chloride 89 mmol/L (98-107); Glucose 292 mg/dL (65-115); Osmolality Calculated 287 mOsm/kg (285-295); Potassium 3.6 mmol/L (3.5-5.1); Sodium 130 mmol/L (136-145)
[2024-08-01 12:21] LABS: Creatinine Clr Calc Pharmacy 50.1587
--- NOTE | 2024-08-01 12:21 | P.PN_ITS ---
<Statement entered by Narinder Pinon M.D - 08/01/24 20:45> Patient was evaluated and cared for in conjunction with an advanced practice practitioner.? I personally examined the patient and reviewed the chart and all pertinent data including imaging, telemetry, and laboratory results.? I discussed the patient in detail with the advanced practice practitioner.? Please see? their note for progress note, testing result and agreed upon plan of care for the patient. Patient denies any complaint feeling much better. GENERAL: Patient is alert, awake and oriented x3. HEART: Regular S1 and S2 LUNGS: Clear to auscultate bilaterally. CENTRAL NERVOUS SYSTEM: Grossly nonfocal. EXTREMITIES: Lower extremities with 1+ edema bilaterally. (1) Acute exacerbation of congestive heart failure: (2) Ischemic cardiomyopathy: (3) Atrial fibrillation with RVR: (4) Elevated troponin: (5) Acute kidney injury superimposed on chronic kidney disease: (6) Blood loss anemia: (7) Atherosclerosis of coronary artery of [place] heart without angina pectoris: Patient's volume status has improved significantly. Stop metolazone. Switch to PO lasix. Monitor renal function and close I and Os. Thank you for involving us with care of this patient. We will continue to follow. Please call with questions. Subjective 2 Subjective: Patient was seen this morning. He is doing much better overall. Edema has improved. Lungs are clear. He is in sinus rhythm at this time. He has been taken off of Levophed and blood pressure is slightly improved. He was negative over 3L over 24 hours. Creatinine with slight increase at 1.4. Medications: Reviewed: Yes Vitals/I&O/Wt Last Vital Signs Temp 97.6 F 08/01/24 05:30 Pulse 72 08/01/24 11:00 Resp 20 H 08/01/24 11:00 BP 82/47 08/01/24 11:00 Pulse Ox 94 08/01/24 08:30 O2 Del Method Room Air 08/01/24 07:48 O2 Flow Rate 93 08/01/24 07:48 07/31/24 08/01/24 08/01/24 22:59 06:59 14:59 Intake Total 530.5 / 786.125 145.125 / 931.250 250 / 250 Output Total 1700 / 3025 1800 / 4825 Balance -1169.5 / -2238.875 -1654.875 / -3893.750 250 / 250 Weight last 48 hrs Weight 194 lb 0.108 oz Weight 207 lb 3.752 oz Physical Exam 2 Narrative: General: No apparent distress, healthy appearing, well nourished HENMT: normoceophalic Muskuloskeletal: Full ROM Respiratory: Normal respiratory effort, clear to auscultation bilaterally throughout all lung [place], no use of accessory muscles Cardio: No JVD, regular rate, regular rhythm, S1 S2 normal, no murmurs, trace edema bilateral lower extremities GI: Normal to inspection, nondistended Extremities: Full ROM, normal, normal capillary refill, no cyanosis or edema Neuro: Alert and oriented x4, no focal motor deficits Psych: Affect normal, denies suicidal ideation, mental status grossly normal Skin: No rashes or lesions noted, no wounds Urinary Catheter Management: Ramires: Cath Placed During This Visit: yes Reason for Continuing Indwelling Catheter: Accurate Measurement of Urinary Output in Critically Ill Patients Urinary Catheter Date of Insertion: 07/25/24 Urinary Catheter Time of Insertion: 22:30 Data 08/01/24 05:36 08/01/24 11:54 A&P Assessment and plan (1) Acute exacerbation of congestive heart failure: Qualifiers: Heart failure type: combined systolic and diastolic Qualified Code(s): I50.43 - Acute on chronic combined systolic (congestive) and diastolic (congestive) heart failure (2) Ischemic cardiomyopathy: (3) Atrial fibrillation with RVR: (4) Elevated troponin: (5) Acute kidney injury superimposed on chronic kidney disease: (6) Blood loss anemia: (7) Atherosclerosis of coronary artery of [place] heart without angina pectoris: Qualifiers: Coronary Disease-Associated Artery/Lesion type: [place] artery Qualified Code(s): I25.10 - Atherosclerotic heart disease of [place] coronary artery without angina pectoris Plan Patient continues diuresing well. Metalazone was given this morning. Creatinine was increased to 1.4. With the hypotension and increased creatinine, recommend to d/c metalazone and switch to p.o. lasix this evening. Close I&O's. Monitor renal function Attestations 2 Medical Necessity Statement*: Deferred to primary. Coding Level of Care Code Acute Code for Chg Fwd Diagnoses Acute on chronic combined systolic and diastolic congestive heart failure I50.43 Heart failure type: combined systolic and diastolic Ischemic cardiomyopathy I25.5 Atrial fibrillation with RVR I48.91 Elevated troponin R79.89 Acute kidney injury superimposed on chronic kidney disease N17.9; N18.9 Blood loss anemia D50.0 Atherosclerosis of [place] coronary artery of [place] heart without angina pectoris I25.10 Coronary Disease-Associated Artery/Lesion type: [place] artery
--- NOTE | 2024-08-01 12:26 | PC.SOCIAL ---
IMM Update Pg. 2 of IMM Updated. Initialed, dated, and timed copy in chart. Copy provided at bedside.
[2024-08-01 13:26] LABS: Glucose Point of Care 287 mg/dL (70-110)
--- NOTE | 2024-08-01 15:00 | P.PN_ITS ---
Subjective 2 Subjective: Patient was seen this morning, he tells me he feels significantly better, still having some edema, but overall feels better, no fevers, no chills, no cough, does report generalized weakness, fatigue, malaise, remains off pressors, I had a detailed discussion with him about watching his kidney function his creatinine is up to 1.4, check BMP this afternoon will be dose his Lasix this afternoon, he did receive the metolazone this morning, bili is up to 4.1 will do a liver ultrasound, I also discussed anticoagulation therapy with him is a difficult situation given his history of atrial fibrillation, it is Hemoccult positive stools, he is a [employer]ism and does not want blood products he has had issues with anemia discussed the risks and benefits of anticoagulant therapy, he voiced understanding, all questions answered, given his febrile consider it further but for now they are okay with holding off on anticoagulant therapy, discussed physical therapy today, potentially moving to cardiac stepdown unit based on clinical progress, will also wean his midodrine dose, he was flu positive but relatively asymptomatic, continue to monitor Vitals/I&O/Wt Last Vital Signs Temp 97.6 F 08/01/24 12:00 Pulse 63 08/01/24 14:00 Resp 16 08/01/24 14:00 BP 109/60 08/01/24 14:00 Pulse Ox 94 08/01/24 08:30 O2 Del Method Room Air 08/01/24 07:48 O2 Flow Rate 93 08/01/24 07:48 08/01/24 08/01/24 08/01/24 06:59 14:59 22:59 Intake Total 145.125 / 931.250 250 / 250 Output Total 1800 / 4825 Balance -1654.875 / -3893.750 250 / 250 Weight last 48 hrs Weight 88 kg Weight 94 kg Physical Exam 2 Const: COMMON NORMALS: no acute distress and patient oriented x3 Resp: COMMON NORMALS: normal respiratory effort, No retractions, No use of accessory muscles and clear to auscultation bilaterally AUSCULTATION: clear to auscultation bilaterally Cardio: COMMON NORMALS: regular rate, regular rhythm, S1 normal heart sound present and S2 normal heart sound present RATE: regular rate RHYTHM: r egular rhythm HEART SOUNDS: S1 normal heart sound present and S2 normal heart sound present GI: COMMON NORMALS: Normal to inspection, nondistended, normoactive bowel sounds present and non-tender Extremity: COMMON NORMALS: no pedal edema Neuro: COMMON NORMALS: patient oriented x3 Psych: COMMON NORMALS: mental status grossly normal Urinary Catheter Management: Ramires: Cath Placed During This Visit: yes Reason for Continuing Indwelling Catheter: Accurate Measurement of Urinary Output in Critically Ill Patients Urinary Catheter Date of Insertion: 07/25/24 Urinary Catheter Time of Insertion: 22:30 Data 08/01/24 05:36 08/01/24 11:54 A&P Assessment and plan (1) Acute exacerbation of CHF (congestive heart failure): (2) Acute anemia: (3) Hyponatremia: (4) Acute kidney injury: (5) Hyperbilirubinemia: (6) NSTEMI (non-ST elevated myocardial infarction): (7) Cardiac LV ejection fraction 30-35%: (8) CAD (coronary artery disease): Qualifiers: Coronary Disease-Associated Artery/Lesion type: bypass graft [place] vs. transplanted heart: [place] heart Associated angina: without angina Qualified Code(s): I25.810 - Atherosclerosis of coronary artery bypass graft(s) without angina pectoris (9) Diabetes mellitus: Plan Acute chest pain resolved -With development of tachycardia, A-fib, tachyarrhythmia on dobutamine -Dobutamine has been held -Status post nitro, status post morphine -Repeat troponin series Atrial fibrillation -Converted to normal sinus rhythm -On amiodarone 400 twice daily -Off amiodarone drip -Currently on aspirin and Brilinta -Heme occult stools positive, with acute anemia -Will discuss with patient and family about risk and benefits of anticoagulant therapy given that he is a [place] and does not want blood products, Hemoccult positive stool, with anemia, risk of GI bleed, risk of stroke not on anticoagulant therapy ? For now has declined anticoagulant therapy, but will reconsider it based on family discussion Acute CHF exacerbation -Lasix 40 IV twice daily currently on hold -Currently patient is -17 L ? Levophed is on hold ? Place Ramires catheter ? Monitor creatinine, monitor potassium ? Midodrine 5 every 6 hours Shortness of breath, cough secondary to pneumonia, -CT of the chest shows focal consolidation in the right lower lobe, with elevated CRP, Pro-Omid ? Highly suspicious for pneumonia ? De-escalate to Augmentin -Blood cultures # NSTEMI -Recent history of cardiac catheterization Conclusions 1. There is total occlusion coronary artery disease with four vessel disease. 2. Four coronary grafts visualized: two grafts patent, and two grafts occluded. 3. Patient has prior CABG. 4. Distal Left Anterior Descending was treated with a Balloon, Drug Eluting Stent, and Balloon. There is no complaints of chest pain ? Plan ? Aspirin, Brilinta, will consider beta-paula ? Serial EKGs, serial troponins, telemetry monitoring ? Heparin drip will be discontinued after 48 hours Acute anemia -Patient is a Che[place]ism and declines blood products ? History of Hemoccult positive stools ? Patient is on aspirin, Brilinta, heparin drip as above ? Monitor hemoglobin # Protonix, Carafate Hyperbilirubinemia # With evidence of liver cirrhosis ? Monitor ? Check ammonia levels Complaints of abdominal pain, abdominal distention ? Lipase minimally elevated at 91, IMPRESSION: 1. Peripancreatic fat stranding along the head and uncinate process. Correlate with lipase levels as findings can be seen with acute pancreatitis. 2. Cholelithiasis. Areas of mild pericholecystic fat stranding may be secondary to peripancreatic stranding, though acute cholecystitis not entirely excluded. This could be further assessed with right upper quadrant ultrasound if warranted. 3. Diffuse anasarca. -Will monitor Full code ? Lovenox for DVT prophylaxis Plan for today repeat creatinine this afternoon, will consider further diuresis, remains off Levophed, PT OT, Attestations 2 Medical Necessity Statement*: Patient requires hospitalization for systolic CHF exacerbation requiring IV diuresis -17 L, creatinine up to 1.4 Diagnoses Acute exacerbation of CHF (congestive heart failure) I50.9 Acute anemia D64.9 Hyponatremia E87.1 Acute kidney injury N17.9 Hyperbilirubinemia E80.6 NSTEMI (non-ST elevated myocardial infarction) I21.4 Cardiac LV ejection fraction 30-35% R94.30 Coronary artery disease involving coronary bypass graft of [place] heart without angina pectoris I25.810 Coronary Disease-Associated Artery/Lesion type: bypass graft [place] vs. transplanted heart: [place] heart Associated angina: without angina Diabetes mellitus E11.9
[2024-08-01 17:46] LABS: Glucose Point of Care 173 mg/dL (70-110)
[2024-08-01] MEDS: FUROsemide 40 mg Tablet PO (20:49)
[2024-08-01] MEDS: midodrine 5 mg TABLET PO (20:50)
[2024-08-01] MEDS: enoxaparin 40 mg/0.4 mL Syringe SUBCUT (20:50)
[2024-08-01 21:12] LABS: Glucose Point of Care 250 mg/dL (70-110)
[2024-08-02] VITALS (49 sets, daily range): BP systolic 82–128; BP diastolic 44–71; PULSE 9–77; RESP 10–29; TEMP 36.6–37.2; O2SAT 90–100
[2024-08-02] MEDS: sucralfate 1 gm/10 mL Oral Liq UDC PO ×4 (02:42→20:15)
[2024-08-02] MEDS: midodrine 5 mg TABLET PO ×2 (02:43→08:18)
[2024-08-02 05:05] LABS: Basophils # 0.1 10^3/uL (0.0-0.1); Basophils % 1.2 %; Eosinophils # 0.2 10^3/uL (0.0-0.8); Hematocrit 28.6 % (37-53); Lymphocytes % 12.2 %; Mean Corpuscular HGB Conc 31.8 g/dL (30-55); Mean Corpuscular Hemoglobin 27.5 pg (27-33); Mean Corpuscular Volume 86.4 fl (82-101); Mean Platelet Volume 11.1 fL (7.4-10.4); Monocytes # 1.6 10^3/uL (0.2-0.9); Monocytes % 19.3 %; Neutrophils % 64.8 %; Nucleated Red Blood Cells % 0 %; Platelet Count 242 10^3/cmm (157-399); Red Blood Count 3.31 10^6/uL (3.85-5.65); Red Cell Distribution Width 15.5 % (12.1-15.1); White Blood Count 8.18 10^3/uL (3.29-11.43)
[2024-08-02 05:34] LABS: Alanine Aminotransferase 13 U/L (0-41); Albumin Level 2.9 g/dL (3.5-5.2); Alkaline Phosphatase 141 U/L (40-130); Anion Gap 13.7 (5-19); Aspartate Amino Transferase 32 U/L (0-40); Blood Urea Nitrogen 27 mg/dL (8-23); Calcium 8.5 mg/dL (8.5-10.5); Carbon Dioxide 30 mmol/L (22-29); Chloride 93 mmol/L (98-107); Creatinine Clr Calc Pharmacy 58.5185; Globulin 3.8 g/dL (1.3-4.6); Glucose 220 mg/dL (65-115); Osmolality Calculated 288 mOsm/kg (285-295); Phosphorus 2.3 mg/dL (2.5-4.5); Potassium 3.7 mmol/L (3.5-5.1); Sodium 133 mmol/L (136-145); Total Bilirubin 4.4 mg/dL (0.15-1.2); Total Protein 6.7 g/dL (6.6-8.7)
[2024-08-02 05:35] LABS: NT Pro B Type Natriuretic Pept 1273 pg/mL (0-450)
[2024-08-02 08:16] LABS: Glucose Point of Care 200 mg/dL (70-110)
[2024-08-02] MEDS: potassium chloride ER 20 mEq Tablet PO ×2 (08:17→18:02)
[2024-08-02] MEDS: lactulose oral liq 20 gm/30 mL UDC PO (08:17)
[2024-08-02] MEDS: amiodarone 200 mg Tablet 400 MG PO ×2 (08:18→18:02)
[2024-08-02] MEDS: amoxicillin-clav 875-125 mg Tablet 1 TAB PO ×2 (08:18→18:02)
[2024-08-02] MEDS: pantoprazole 40 mg SDV IVP ×2 (08:18→20:15)
[2024-08-02] MEDS: insulin lispro 100 unit/1 mL SUBCUT ×3 (08:18→18:02)
[2024-08-02] MEDS: FUROsemide 40 mg Tablet PO (08:18)
[2024-08-02] MEDS: aspirin 81 mg EC Tablet PO (08:18)
[2024-08-02] MEDS: ticagrelor 90 mg Tablet PO ×2 (08:18→18:02)
[2024-08-02] MEDS: midodrine 5 mg TABLET 10 MG PO ×3 (09:15→20:15)
--- NOTE | 2024-08-02 10:53 | P.PN_ITS ---
<Statement entered by Narinder Pinon M.D - 08/03/24 08:56> Patient was evaluated and cared for in conjunction with an advanced practice practitioner.? I personally examined the patient and reviewed the chart and all pertinent data including imaging, telemetry, and laboratory results.? I discussed the patient in detail with the advanced practice practitioner.? Please see? their note for progress note, testing result and agreed upon plan of care for the patient. Patient doing well. No chest pain or shortness of breath. GENERAL: Patient is alert, awake and oriented x3. HEART: Regular S1 and S2 LUNGS: Clear to auscultate bilaterally. CENTRAL NERVOUS SYSTEM: Grossly nonfocal. EXTREMITIES: Lower extremities with 1+ edema bilaterally. (1) Acute exacerbation of congestive heart failure: (2) Ischemic cardiomyopathy: (3) Atrial fibrillation with RVR: (4) Elevated troponin: (5) Acute kidney injury superimposed on chronic kidney disease: (6) Blood loss anemia: (7) Atherosclerosis of coronary artery of [place] heart without angina pectoris: Continues to diurese well on oral diuretics. Still requiring on and off Levophed. Can further down titrate diuretic therapy. Thank you for involving us with care of this patient. We will continue to follow. Please call with questions. Subjective 2 Subjective: Overall patient has improved. He has diuresed over 19 L this hospital stay. He did have to be placed back on Levophed for short amount of time this morning but is back off of the drip. Overall he feels improved. He is still in sinus rhythm. Medications: Reviewed: Yes Vitals/I&O/Wt Last Vital Signs Temp 97.9 F 08/02/24 08:00 Pulse 75 08/02/24 08:12 Resp 16 08/02/24 08:12 BP 112/61 08/02/24 09:00 Pulse Ox 93 08/02/24 08:12 O2 Del Method Room Air 08/02/24 08:12 08/01/24 08/02/24 08/02/24 22:59 06:59 14:59 Intake Total 120 / 370 150 / 520 Output Total 700 / 700 2100 / 2800 Balance -580 / -330 -1950 / -2280 Weight last 48 hrs Weight 192 lb 12.708 oz Weight 194 lb 0.108 oz Physical Exam 2 Narrative: General: No apparent distress, healthy appearing, well nourished HENMT: normoceophalic Muskuloskeletal: Full ROM Respiratory: Normal respiratory effort, clear to auscultation bilaterally throughout all lung lacey, no use of accessory muscles Cardio: No JVD, regular rate, regular rhythm, S1 S2 normal, no murmurs, no edema bilateral lower extremities GI: Normal to inspection, nondistended Extremities: Full ROM, normal, normal capillary refill, no cyanosis or edema Neuro: Alert and oriented x4, no focal motor deficits Psych: Affect normal, denies suicidal ideation, mental status grossly normal Skin: No rashes or lesions noted, no wounds Urinary Catheter Management: Ramires: Cath Placed During This Visit: yes Reason for Continuing Indwelling Catheter: Accurate Measurement of Urinary Output in Critically Ill Patients Urinary Catheter Date of Insertion: 07/25/24 Urinary Catheter Time of Insertion: 22:30 Data 08/02/24 04:47 08/02/24 04:47 A&P Assessment and plan (1) Acute exacerbation of congestive heart failure: Qualifiers: Heart failure type: combined systolic and diastolic Qualified Code(s): I50.43 - Acute on chronic combined systolic (congestive) and diastolic (congestive) heart failure (2) Ischemic cardiomyopathy: (3) Atrial fibrillation with RVR: (4) Elevated troponin: (5) Acute kidney injury superimposed on chronic kidney disease: (6) Blood loss anemia: (7) Atherosclerosis of coronary artery of [place] heart without angina pectoris: Qualifiers: Coronary Disease-Associated Artery/Lesion type: [place] artery Qualified Code(s): I25.10 - Atherosclerotic heart disease of [place] coronary artery without angina pectoris Plan Patient continues diuresing well. Creatinine has improved back to baseline. He continues to diurese well even on oral medication. They did have to temporarily put him back on Levophed so we will decrease his Lasix to 20 twice daily and see how he does. If patient remains off of the drip today, could be discharged later this afternoon or early tomorrow from a cardiology standpoint. Attestations 2 Medical Necessity Statement*: Deferred to primary care. Coding Level of Care Code Acute Code for Chg Fwd Diagnoses Acute on chronic combined systolic and diastolic congestive heart failure I50.43 Heart failure type: combined systolic and diastolic Ischemic cardiomyopathy I25.5 Atrial fibrillation with RVR I48.91 Elevated troponin R79.89 Acute kidney injury superimposed on chronic kidney disease N17.9; N18.9 Blood loss anemia D50.0 Atherosclerosis of [place] coronary artery of [place] heart without angina pectoris I25.10 Coronary Disease-Associated Artery/Lesion type: [place] artery
[2024-08-02 12:04] LABS: Glucose Point of Care 284 mg/dL (70-110)
--- NOTE | 2024-08-02 17:00 | P.PN_ITS ---
Subjective 2 Subjective: Patient was seen this morning, he is sitting up in the chair, enjoying breakfast, denies any fevers, no chills, no cough, did require Levophed throughout the night Vitals/I&O/Wt Last Vital Signs Temp 98.9 F 08/02/24 11:00 Pulse 72 08/02/24 14:30 Resp 20 H 08/02/24 14:30 BP 92/53 08/02/24 14:30 Pulse Ox 98 08/02/24 14:30 O2 Del Method Room Air 08/02/24 08:12 08/02/24 08/02/24 08/02/24 06:59 14:59 22:59 Intake Total 150 / 520 21.875 / 21.875 Output Total 2100 / 2800 Balance -1950 / -2280 21.875 / 21.875 Weight last 48 hrs Weight 87.45 kg Weight 88 kg Physical Exam 2 Const: COMMON NORMALS: no acute distress and patient oriented x3 Resp: COMMON NORMALS: normal respiratory effort, No retractions, No use of accessory muscles and clear to auscultation bilaterally AUSCULTATION: clear to auscultation bilaterally Cardio: COMMON NORMALS: regular rate, regular rhythm, S1 normal heart sound present and S2 normal heart sound present RATE: regular rate RHYTHM: r egular rhythm HEART SOUNDS: S1 normal heart sound present and S2 normal heart sound present GI: COMMON NORMALS: Normal to inspection, nondistended, normoactive bowel sounds present and non-tender Extremity: COMMON NORMALS: no pedal edema Neuro: COMMON NORMALS: patient oriented x3 Psych: COMMON NORMALS: mental status grossly normal Urinary Catheter Management: Ramires: Cath Placed During This Visit: yes Reason for Continuing Indwelling Catheter: Accurate Measurement of Urinary Output in Critically Ill Patients Urinary Catheter Date of Insertion: 07/25/24 Urinary Catheter Time of Insertion: 22:30 Data 08/02/24 04:47 08/02/24 04:47 A&P Assessment and plan (1) Acute exacerbation of CHF (congestive heart failure): (2) Acute anemia: (3) Hyponatremia: (4) Acute kidney injury: (5) Hyperbilirubinemia: (6) NSTEMI (non-ST elevated myocardial infarction): (7) Cardiac LV ejection fraction 30-35%: (8) CAD (coronary artery disease): Qualifiers: Coronary Disease-Associated Artery/Lesion type: bypass graft [place] vs. transplanted heart: [place] heart Associated angina: without angina Qualified Code(s): I25.810 - Atherosclerosis of coronary artery bypass graft(s) without angina pectoris (9) Diabetes mellitus: Plan Acute chest pain resolved -With development of tachycardia, A-fib, tachyarrhythmia on dobutamine -Dobutamine has been held -Status post nitro, status post morphine -Repeat troponin series Atrial fibrillation -Converted to normal sinus rhythm -On amiodarone 400 twice daily -Off amiodarone drip -Currently on aspirin and Brilinta -Heme occult stools positive, with acute anemia -Will discuss with patient and family about risk and benefits of anticoagulant therapy given that 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 For now has declined anticoagulant therapy, but will reconsider it based on family discussion Acute CHF exacerbation -Lasix 40 IV twice daily currently on hold -Currently patient is -20 L ? Levophed is on hold ? Place Ramires catheter ? Monitor creatinine, monitor potassium ? Midodrine 10 every 6 hours Shortness of breath, cough secondary to pneumonia, -CT of the chest shows focal consolidation in the right lower lobe, with elevated CRP, Pro-Omid ? Highly suspicious for pneumonia ? De-escalate to Augmentin -Blood cultures # NSTEMI -Recent history of cardiac catheterization Conclusions 1. There is total occlusion coronary artery disease with four vessel disease. 2. Four coronary grafts visualized: two grafts patent, and two grafts occluded. 3. Patient has prior CABG. 4. Distal Left Anterior Descending was treated with a Balloon, Drug Eluting Stent, and Balloon. There is no complaints of chest pain ? Plan ? Aspirin, Brilinta, will consider beta-paula ? Serial EKGs, serial troponins, telemetry monitoring ? 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 History of Hemoccult positive stools ? Patient is on aspirin, Brilinta, ? Monitor hemoglobin # Protonix, Carafate Hyperbilirubinemia # With evidence of liver cirrhosis ? Monitor ? Check ammonia levels Complaints of abdominal pain, abdominal distention ? Lipase minimally elevated at 91, IMPRESSION: 1. Peripancreatic fat stranding along the head and uncinate process. Correlate with lipase levels as findings can be seen with acute pancreatitis. 2. Cholelithiasis. Areas of mild pericholecystic fat stranding may be secondary to peripancreatic stranding, though acute cholecystitis not entirely excluded. This could be further assessed with right upper quadrant ultrasound if warranted. 3. Diffuse anasarca. -Will monitor Full code ? Lovenox for DVT prophylaxis Plan for today wean off Levophed, midodrine Attestations 2 Medical Necessity Statement*: Requires hospitalization for acute hypoxic respiratory failure, CHF Diagnoses Acute exacerbation of CHF (congestive heart failure) I50.9 Acute anemia D64.9 Hyponatremia E87.1 Acute kidney injury N17.9 Hyperbilirubinemia E80.6 NSTEMI (non-ST elevated myocardial infarction) I21.4 Cardiac LV ejection fraction 30-35% R94.30 Coronary artery disease involving coronary bypass graft of [place] heart without angina pectoris I25.810 Coronary Disease-Associated Artery/Lesion type: bypass graft [place] vs. transplanted heart: [place] heart Associated angina: without angina Diabetes mellitus E11.9
[2024-08-02 17:46] LABS: Glucose Point of Care 266 mg/dL (70-110)
[2024-08-02] MEDS: FUROsemide 20 mg Tablet PO (20:15)
[2024-08-02] MEDS: enoxaparin 40 mg/0.4 mL Syringe SUBCUT (20:15)
[2024-08-02 20:24] LABS: Glucose Point of Care 302 mg/dL (70-110)
--- NOTE | 2024-08-02 22:25 | ECG_ITS ---
[facility] Test Date: 2024-08-02 Pat Name: Taran Higuera Department: Room: ICU09 Gender: Male Technologist Development: : 1950 Requested By: Anson Dumont Order Number: [id number] Bebe MD: Narinder Pinon M.D. Measurements Intervals [place] Rate: 70 P: 0 RI: 0 QRS: 136 QRSD: 174 T: -30 QT: 549 QTc: 596 Interpretive Statements Atrial fibrillation INDETERMINATE AXIS RIGHT BUNDLE BRANCH BLOCK [120+ ms QRS DURATION, UPRIGHT V1, 40+ ms S IN I/aVL/V4/V5/V6] LEFT POSTERIOR FASCICULAR BLOCK [QRS AXIS > 109, INFERIOR Q] PROLONGED QT INTERVAL Compared to ECG 07/27/2024 22:32:58 Indeterminate axis now present Left posterior fascicular block now present Possible ischemia no longer present Electronically Signed On 08-04-2024 12:37:14 [employer]PER[employer] by Narinder Pinon M.D. [email or web address]
--- NOTE | 2024-08-02 23:23 | PC.NURSE ---
Pt has been hypotensive this evening with maps as low as 55, little improvement with scheduled meds. Reported to Dr. Dumont along with change in cardiac rhythm, EKG done, and new order received for 1x 250 ml IV bolus. If no response to fluids, to restart PRN Levophed.
[2024-08-03] VITALS (32 sets, daily range): BP systolic 84–124; BP diastolic 42–67; PULSE 64–74; RESP 7–25; TEMP 36.6–36.9; O2SAT 91–99
[2024-08-03] MEDS: sodium chloride 0.9% 250 ML IV (00:03)
[2024-08-03] MEDS: sucralfate 1 gm/10 mL Oral Liq UDC PO ×3 (01:30→13:18)
[2024-08-03] MEDS: midodrine 5 mg TABLET 10 MG PO ×2 (01:30→07:55)
[2024-08-03] MEDS: acetaminophen 325 mg Tablet 650 MG PO (01:30)
[2024-08-03 03:54] LABS: Basophils # 0.1 10^3/uL (0.0-0.1); Eosinophils # 0.2 10^3/uL (0.0-0.8); Eosinophils % 1.9 %; Hematocrit 27.2 % (37-53); Lymphocytes % 10.9 %; Mean Corpuscular HGB Conc 31.6 g/dL (30-55); Mean Corpuscular Hemoglobin 27.6 pg (27-33); Mean Corpuscular Volume 87.2 fl (82-101); Mean Platelet Volume 11.4 fL (7.4-10.4); Monocytes # 1.9 10^3/uL (0.2-0.9); Monocytes % 21.5 %; Neutrophils # 5.76 10^3/uL (1.8-7.7); Neutrophils % 64.3 %; Nucleated Red Blood Cells % 0 %; Platelet Count 301 10^3/cmm (157-399); Red Blood Count 3.12 10^6/uL (3.85-5.65); Red Cell Distribution Width 15.5 % (12.1-15.1); White Blood Count 8.97 10^3/uL (3.29-11.43)
[2024-08-03 04:26] LABS: Alanine Aminotransferase 13 U/L (0-41); Albumin Level 2.7 g/dL (3.5-5.2); Alkaline Phosphatase 132 U/L (40-130); Anion Gap 11.8 (5-19); Aspartate Amino Transferase 32 U/L (0-40); Blood Urea Nitrogen 32 mg/dL (8-23); Calcium 8.3 mg/dL (8.5-10.5); Carbon Dioxide 32 mmol/L (22-29); Chloride 91 mmol/L (98-107); Globulin 4.2 g/dL (1.3-4.6); Glucose 248 mg/dL (65-115); NT Pro B Type Natriuretic Pept 1434 pg/mL (0-450); Osmolality Calculated 287 mOsm/kg (285-295); Phosphorus 2.5 mg/dL (2.5-4.5); Potassium 3.8 mmol/L (3.5-5.1); Sodium 131 mmol/L (136-145); Total Bilirubin 3.5 mg/dL (0.15-1.2); Total Protein 6.9 g/dL (6.6-8.7)
[2024-08-03 07:08] LABS: Glucose Point of Care 239 mg/dL (70-110)
[2024-08-03] MEDS: lactulose oral liq 20 gm/30 mL UDC PO (07:55)
[2024-08-03] MEDS: pantoprazole 40 mg SDV IVP (07:55)
[2024-08-03] MEDS: insulin lispro 100 unit/1 mL SUBCUT ×2 (07:56→13:17)
[2024-08-03] MEDS: potassium chloride ER 20 mEq Tablet PO (08:05)
[2024-08-03] MEDS: ticagrelor 90 mg Tablet PO (08:05)
[2024-08-03] MEDS: amiodarone 200 mg Tablet 400 MG PO (08:06)
[2024-08-03] MEDS: aspirin 81 mg EC Tablet PO (08:06)
[2024-08-03] MEDS: amoxicillin-clav 875-125 mg Tablet 1 TAB PO (08:06)
[2024-08-03] MEDS: FUROsemide 20 mg Tablet PO (08:06)
--- NOTE | 2024-08-03 10:48 | PM.DCS ---
Discharge Providers Date of Admission: 07/25/24 18:38 Date of Discharge: August 03, 2024 Attending Provider at Admission: Gerardo Ennis MD Attending Provider at Discharge: Gerardo Ennis MD Primary Care Provider: Mildred Grewal MD Diagnoses at Discharge Discharge Diagnosis (1) Acute exacerbation of CHF (congestive heart failure): Status: Acute (2) Acute anemia: Status: Resolved (3) Hyponatremia: Status: Resolved (4) Acute kidney injury: Status: Resolved (5) Hyperbilirubinemia: Status: Acute (6) NSTEMI (non-ST elevated myocardial infarction): Status: Resolved (7) Cardiac LV ejection fraction 30-35%: Status: Chronic (8) CAD (coronary artery disease): Status: Chronic Qualifiers: Associated angina: without angina Coronary Disease-Associated Artery/Lesion type: bypass graft [place] vs. transplanted heart: [place] heart Qualified Code(s): I25.810 - Atherosclerosis of coronary artery bypass graft(s) without angina pectoris (9) Diabetes mellitus: Status: Chronic Reason for Visit Reason for Visit: chf, fluid overload, & penileabrasion Hospital Course Hospital Course Taran Higuera is a 74 year old male with a past medical history of atrial flutter, underwent stenting to distal LAD just distal to previous RITCHIE to LAD bypass, only 2 of the 4 bypass grafts in open, aortic stenosis, type 2 diabetes mellitus, hypertension, hyperlipidemia, CHF, peripheral vascular disease who presents [facility] for shortness of breath, orthopnea, paroxysmal nocturnal dyspnea, cough, increased abdominal distention. Patient was seen, he is alert oriented x 3, following all commands, he reports since being discharged from the hospital he continued to have episodes of shortness of breath, increased lower extremity edema, orthopnea, paroxysmal nocturnal dyspnea, increased abdominal distention also reports a cough. He tells that the antibiotics made him feel nauseous so he did not take the cefdinir that he was prescribed. He denies any chest pain. He reports that his blood pressures are been soft since he got home, does feel lightheaded at times, denies passing out, he adamantly denies any recurrent chest pain, denies episodes of confusion reports generalized abdominal distention, abdominal fullness, Please look at my last progress note as patient has had a prolonged hospital course Patient presented to [facility] for acute CHF exacerbation, required IV diuresis, initially dobutamine but due to tachyarrhythmia was switched to Levophed, diuresed over 20 L, clinically improved. Will be discharged on Lasix therapy, potassium replacement therapy, midodrine with a close follow-up with cardiology as outpatient Hospitalization was complicated by atrial fibrillation, converted to normal sinus rhythm, discharged on amiodarone In terms of anticoagulant therapy, for A-fib, such as Eliquis, Hemoccult positive stools, and anemia during his hospitalization, patient is a [employer], discussed risk and benefits of anticoagulant therapy, shared decision making, patient and family voiced understanding, all questions answered, for now patient and family declines anticoagulant therapy. Nonetheless will be maintained on aspirin, Brilinta, Protonix, Carafate Acute anemia during hospitalization, as above, monitor as outpatient NSTEMI, -Recent history of cardiac catheterization Conclusions 1. There is total occlusion coronary artery disease with four vessel disease. 2. Four coronary grafts visualized: two grafts patent, and two grafts occluded. 3. Patient has prior CABG. 4. Distal Left Anterior Descending was treated with a Balloon, Drug Eluting Stent, and Balloon. There is no complaints of chest pain -Continue aspirin, Brilinta Concerns for pneumonia during hospitalization given CT chest findings, managed on antibiotics Physical Exam Const: COMMON NORMALS: no acute distress and patient oriented x3 Resp: COMMON NORMALS: normal respiratory effort, No retractions, No use of accessory muscles and clear to auscultation bilaterally AUSCULTATION: clear to auscultation bilaterally Cardio: COMMON NORMALS: regular rate, regular rhythm, S1 normal heart sound present and S2 normal heart sound present RATE: regular rate RHYTHM: regular rhythm HEART SOUNDS: S1 normal heart sound present and S2 normal heart sound present GI: COMMON NORMALS: Normal to inspection, nondistended, normoactive bowel sounds present and non-tender Extremity: COMMON NORMALS: no pedal edema Neuro: COMMON NORMALS: patient oriented x3 Psych: COMMON NORMALS: mental status grossly normal Urinary Catheter Management: Ramires: Cath Placed During This Visit: yes, but has since been removed by the nurse Reason for Continuing Indwelling Catheter: Decision to DC Catheter Urinary Catheter Date of Insertion: 07/25/24 Urinary Catheter Time of Insertion: 22:30 Date Urinary Catheter Removed: 08/03/24 Time Urinary Catheter Discontinued: 08:50 Discharge Data Studies Completed and Pending Completed Studies During Hospitalization Category Date Time Status CT chest abdomen pelvis [[place] [id number] Cat Scan 07/25/24 18:22 Completed ] Stat CXRP [XR chest 1V portable [id number]] Routine Exams 07/29/24 14:03 Completed CXRP [XR chest 1V portable [id number]] Stat Exams 07/27/24 08:39 Completed XR chest 1V portable [id number] Routine Exams 07/29/24 07:00 Completed XR chest 1V portable [id number] Stat Exams 07/25/24 15:02 Completed XR chest 1V portable [id number] Stat Exams 07/27/24 22:44 Completed US abdomen limited [id number] Routine Ultrasound 08/01/24 08:31 Completed Radiology Impressions Chest/Abdomen/Pelvis CT 07/25/24 18:22 IMPRESSION: 1. Focal consolidation in the right lower lobe may represent atelectasis versus infiltrate. 2. Dependent atelectasis in bilateral lung bases. Trace left pleural effusion. 3. Pleural-based calcifications can be seen with asbestos exposure. 4. Post median sternotomy and CABG. IMPRESSION: 1. Peripancreatic fat stranding along the head and uncinate process. Correlate with lipase levels as findings can be seen with acute pancreatitis. 2. Cholelithiasis. Areas of mild pericholecystic fat stranding may be secondary to peripancreatic stranding, though acute cholecystitis not entirely excluded. This could be further assessed with right upper quadrant ultrasound if warranted. 3. Diffuse anasarca. 4. Additional ancillary findings as above. Chest X-Ray 07/29/24 14:03 IMPRESSION: 1. Satisfactory placement right-sided PICC line. 2. Prior CABG. 3. Marked cardiomegaly. 4. Mild interstitial edema. Abdomen Ultrasound 08/01/24 08:31 IMPRESSION: 1. Coarse hepatic echotexture suspicious for hepatocellular disease/cirrhosis. Recommend correlation with liver function tests. 2. Cholelithiasis. 3. Normal common bile duct. 4. Pulsatile main portal vein suggesting portal venous hypertension. 5. No hydronephrosis in the RIGHT kidney. Laboratory Results WBC 8.97 10^3/uL (3.29-11.43) 08/03/24 03:35 RBC 3.12 10^6/uL (3.85-5.65) L 08/03/24 03:35 Hgb 8.60 g/dL (11.27-16.99) L 08/03/24 03:35 Hct 27.2 % (37-53) L 08/03/24 03:35 MCV 87.2 fl (82-101) 08/03/24 03:35 MCH 27.6 pg (27-33) 08/03/24 03:35 MCHC 31.6 g/dL (30-55) 08/03/24 03:35 RDW 15.5 % (12.1-15.1) H 08/03/24 03:35 Plt Count 301 10^3/cmm (157-399) 08/03/24 03:35 MPV 11.4 fL (7.4-10.4) H 08/03/24 03:35 Neut % (Auto) 64.3 % 08/03/24 03:35 Lymph % (Auto) 10.9 % 08/03/24 03:35 [place] % (Auto) 21.5 % 08/03/24 03:35 Eos % (Auto) 1.9 % 08/03/24 03:35 Baso % (Auto) 1.0 % 08/03/24 03:35 Neut # (Auto) 5.76 10^3/uL (1.8-7.7) 08/03/24 03:35 Lymph # (Auto) 1.0 10^3/uL (0.8-4.8) 08/03/24 03:35 [place] # (Auto) 1.9 10^3/uL (0.2-0.9) H 08/03/24 03:35 Eos # (Auto) 0.2 10^3/uL (0.0-0.8) 08/03/24 03:35 Baso # (Auto) 0.1 10^3/uL (0.0-0.1) 08/03/24 03:35 Nucleated RBC % (auto) 0 % 08/03/24 03:35 Total Counted 100 (0-100) 07/25/24 16:05 Atypical Lymphs % 0.0 % (0-5) 07/25/24 16:05 Absolute Neutrophils 4.2 10^3/cmm (1.4-6.5) 07/25/24 16:05 Segmented Neutrophils 70 % 07/25/24 16:05 Band Neutrophils 2.0 % 07/25/24 16:05 Absolute Lymphocytes 0.7 10^3/cmm (1.2-3.4) L 07/25/24 16:05 Lymphocytes (Manual) 12 % 07/25/24 16:05 Monocytes (Manual) 13.0 % 07/25/24 16:05 Absolute Monocytes 0.8 10^3/cmm (0.1-0.6) H 07/25/24 16:05 Eosinophils (Manual) 0 % 07/25/24 16:05 Absolute Eosinophils 0.0 10^3/cmm (0.0-0.7) 07/25/24 16:05 Basophils (Manual) 0.0 % 07/25/24 16:05 Absolute Basophils 0.0 10^3/cmm (0.0-0.2) 07/25/24 16:05 Metamyelocytes 1.0 % 07/25/24 16:05 Myelocytes 2.0 % 07/25/24 16:05 Nucleated RBCs # 0.0 /100WBC 08/03/24 03:35 Platelet Estimate Normal (Normal) 07/25/24 16:05 APTT 56.9 SECONDS (23.9-36.7) H 07/28/24 17:21 Sodium 131 mmol/L (136-145) L 08/03/24 03:35 Potassium 3.8 mmol/L (3.5-5.1) 08/03/24 03:35 Chloride 91 mmol/L (98-107) L 08/03/24 03:35 Carbon Dioxide 32 mmol/L (22-29) H 08/03/24 03:35 Anion Gap 11.8 (5-19) 08/03/24 03:35 BUN 32 mg/dL (8-23) H 08/03/24 03:35 Creatinine 1.4 mg/dL (0.7-1.2) H 08/03/24 03:35 GFR Calculation Not Reportable 08/03/24 03:35 Glucose 248 mg/dL (65-115) H 08/03/24 03:35 POC Glucose 239 mg/dL (70-110) H 08/03/24 07:05 Calculated Osmolality 287 mOsm/kg (285-295) 08/03/24 03:35 Lactic Acid 2.2 mmol/L (0.5-2.2) 07/25/24 16:05 Lactic Acid (Sepsis) 2.5 mmol/L (0.5-2.2) H 07/25/24 20:34 Calcium 8.3 mg/dL (8.5-10.5) L 08/03/24 03:35 Phosphorus 2.5 mg/dL (2.5-4.5) 08/03/24 03:35 Magnesium 2.0 mg/dL (1.7-2.3) 08/03/24 03:35 Total Bilirubin 3.5 mg/dL (0.15-1.2) H 08/03/24 03:35 GGT 106 U/L (8-61) H 07/25/24 18:24 AST 32 U/L (0-40) 08/03/24 03:35 ALT 13 U/L (0-41) 08/03/24 03:35 Alkaline Phosphatase 132 U/L (40-130) H 08/03/24 03:35 Ammonia 24 umol/L (16-60) 07/25/24 19:10 Troponin T 5th Gen ng/L 538 ng/L (0-15) H* 07/27/24 22:59 Troponin T Baseline 414 ng/L (0-15) H* 07/27/24 09:18 Troponin T 120 Minute 425.2 ng/L (0-15) H 07/27/24 11:01 Delta Troponin T 11.2 ABS# (0-10) H* 07/27/24 11:01 Troponin T Hi Sens 6Hr 463.9 ng/L (0-15) H 07/27/24 15:50 Troponin T Hi Sens 6Hr Delta 49.9 ng/L (0-12) H* 07/27/24 15:50 C-Reactive Protein 13.1 mg/L (0.0-4.9) H 07/30/24 05:28 NT-Pro-B Natriuret Pep 1434 pg/mL (0-450) H 08/03/24 03:35 Total Protein 6.9 g/dL (6.6-8.7) 08/03/24 03:35 Albumin 2.7 g/dL (3.5-5.2) L 08/03/24 03:35 Globulin 4.2 g/dL (1.3-4.6) 08/03/24 03:35 Lipase 91 U/L (13-60) H 07/25/24 18:24 Procalcitonin 0.44 ng/mL (0-0.5) 07/30/24 05:28 Urine Color Yellow (Yellow) 07/25/24 22:30 Urine Appearance Clear (CLEAR) 07/25/24 22:30 Urine pH 5.0 (5-7) 07/25/24 22:30 Ur Specific [place] 1.008 (1.005-1.030) 07/25/24 22:30 Urine Protein Negative (Negative) 07/25/24 22: Urine Glucose (UA) 2+ (Normal) H 07/25/24 22:30 Urine Ketones Negative (Negative) 07/25/24 22:30 Urine Blood 1+ (Negative) A 07/25/24 22: Urine Nitrate Negative (Negative) 07/25/24 22:30 Urine Bilirubin Negative (Negative) 07/25/24 22:30 Urine Urobilinogen 0.2 mg/dL (Negative) 07/25/24 22:30 Ur Leukocyte Esterase Negative (Negative) 07/25/24 22:30 Urine RBC 3-5 /hpf (0-2) 07/25/24 22:30 Urine WBC 0-5 /hpf (0-5) 07/25/24 22:30 Ur Squamous Epith Cells 0-5 /hpf (0-5) 07/25/24 22:30 Amorphous Sediment Not Reportable 07/25/24 22:30 Urine Bacteria None seen /hpf (NONE) 07/25/24 22:30 Hyaline Casts 1.21 /lpf 07/25/24 22:30 Ethyl Alcohol < 10 mg/dL (0-10) 07/25/24 18:24 Coronavirus (PCR) Negative (Negative) 07/25/24 18:36 Influenza A (PCR) Positive (Negative) 07/25/24 18:36 Influenza Type B (PCR) Negative (Negative) 07/25/24 18:36 RSV (PCR) Negative (Negative) 07/25/24 18:36 Vitals Last Vital Signs Temp 97.8 F 08/03/24 07:00 Pulse 72 08/03/24 08:30 Resp 20 H 08/03/24 08:30 BP 104/57 08/03/24 08:30 Pulse Ox 93 08/03/24 08:30 O2 Del Method Room Air 08/03/24 08:30 Discharge Plan Discharge Patient Disposition: Home Health Service Condition: Stable Prescriptions: New amiodarone [Pacerone] 200 mg Tablet See Rx Instructions .ROUTE .COMPLEX 30 Days Qty: 60 0RF Rx Instructions: 400mg(2 tabs) once a day for 1 week, then go down to 1 tab daily insulin aspart U-100 [Novolog FlexPen U-100 Insulin] 100 unit/mL (3 mL) insulin pen See Rx Instructions .ROUTE .COMPLEX Qty: 15 0RF Rx Instructions: Inject, subcut, 3 times daily, after meals, based on sliding scale provided (DME) glucometer testing kit See Rx Instructions .Route .MEDSUPPLY Qty: 1 0RF Rx Instructions: Check blood sugars, 3 times daily, after meals, based on sliding scale provided Continued acetaminophen 500 mg tablet 500 mg PO Q6H PRN (Reason: Pain) (DME) Diabetic Shoes with 3 Pairs of Inserts See Rx Instructions .Route .MEDSUPPLY Qty: 1 0RF Rx Instructions: As directed by HOME (DME) blood-glucose meter [OneTouch Ultra2 Meter] [facility] [place] Rx Instructions .Route Qty: 1 0RF Rx Instructions: As directed nitroglycerin 0.4 mg tablet, sublingual See Rx Instructions .ROUTE .COMPLEX Qty: 25 0RF Dose Instruction: DISSOLVE ONE TABLET UNDER THE TONGUE EVERY 5 MINUTES NEEDED FOR CHEST PAIN. DO NOT EXCEED A TOTAL OF 3 DOSES IN 15 MINUTES Rx Instructions: DISSOLVE ONE TABLET UNDER THE TONGUE EVERY 5 MINUTES NEEDED FOR CHEST PAIN. DO NOT EXCEED A TOTAL OF 3 DOSES IN 15 MINUTES (DME) OneTouch Ultra Test Strip See Rx Instructions .ROUTE .COMPLEX Qty: 100 0RF Dose Instruction: USE 1 TEST STRIP TO TEST BLOOD GLUCOSE ONCE DAILY AND NEEDED Rx Instructions: USE 1 TEST STRIP TO TEST BLOOD GLUCOSE ONCE DAILY AND NEEDED Repatha SureClick 140 mg/mL pen injector See Rx Instructions .ROUTE .COMPLEX Qty: 6 0RF Dose Instruction: INJECT 1 PEN SUBCUTANEOUSLY EVERY TWO WEEKS Rx Instructions: INJECT 1 PEN SUBCUTANEOUSLY EVERY TWO WEEKS Invokana 100 mg tablet 100 mg PO DAILY pantoprazole 40 mg Tablet,Delayed Release (Dr/Ec) 40 mg PO BID Qty: 60 0RF Discontinued cefdinir 300 mg capsule 300 mg PO BID Qty: 14 0RF furosemide 20 mg Tablet 20 mg PO BID@08,16 30 Days Qty: 60 1RF Rx Instructions: Weigh daily in the morning. If you gain 3 pounds in 1 day or 5 pounds in 1 week, take extra tablet in the morning midodrine 5 mg Tablet 10 mg PO TID 30 Days Qty: 180 0RF metoprolol succinate 25 mg Tablet Extended Release 24 Hr 12.5 mg PO DAILY 30 Days Qty: 30 0RF No Action insulin glargine [Lantus Solostar U-100 Insulin] 100 unit/mL (3 mL) insulin pen 10 unit SUBCUT DAILY Qty: 15 0RF lactulose 20 gram/30 mL solution 20 g PO Q12H Qty: 1500 0RF midodrine 5 mg tablet 10 mg PO Q6H 30 Days Qty: 180 0RF furosemide 20 mg tablet 20 mg PO DAILY 30 Days Qty: 60 1RF Rx Instructions: Weigh daily in the morning. If you gain 3 pounds in 1 day or 5 pounds in 1 week, take extra tablet in the morning potassium chloride [Klor-Con 10] 10 mEq tablet extended release 10 meq PO BID 30 Days Qty: 60 0RF Brilinta 90 mg tablet 90 mg PO BID 90 Days Qty: 180 0RF Discharge Orders: Discharge Order (Routine); Ordered 08/03/24 Ordered By: Gerardo Ennis Referrals: [facility] [Outside] Maren Reid NP [Nurse Practitioner] - 1 week (We have notified your physician's clinic of the need for a follow-up appointment to be scheduled. If you have not heard from them within the next 2 business days, please call them directly. ) Mildred Grewal MD [Primary Care Provider] - 1-3 days (We have notified your physician's clinic of the need for a follow-up appointment to be scheduled. If you have not heard from them within the next 2 business days, please call them directly. ) Discharge Diet: Cardiac Discharge Activity: Resume usual activity Patient Instructions: Potassium Chloride (By mouth) (K-Dur, K-Marni, K-Tab, Santiago Mur), Amiodarone (By mouth) (Cordarone, Pacerone), Insulin Aspart, Recombinant (By injection) (Novolog, Novolog..., Congestive Heart Failure, Leg Edema (ED), Low-Sodium Diet (DC), CHF Stoplight, COPD Stoplight, Opioid Safety Activity Restrictions/Additional Instructions: -recheck cr on thursday -Please monitor your blood sugars closely -Monitor your blood sugars 3 times daily as after meals -Please record your blood sugars, and a blood sugar log -For your NovoLog -Please inject blood sugar after meals based on sliding scale provided -Do not inject insulin if you do not eat as hypoglycemia kills -This is a NovoLog sliding scale -Insulin sliding ?fingerstick? Insulin ?141-180?0 units/sq 181-220?2 units/sq ?221-260?4 units/sq ?261-300 6 units/sq ?301-350?8 units/sq ?351-400 10 units/sq ?401-450?12 units/sq >450? 14units/sq -If your blood sugar is greater than 500 go to the emergency room -If your blood sugar is less than 60 or at anytime you feel lightheaded or dizzy or diaphoretic or have chest palpitations check your blood sugar, and eat a hard candy or drink orange juice and go immediately to the emergency room -Remember hypoglycemia kills, so if his blood sugar is less than 60 we have to increase it by taking in a sugary meal such as a hard candy or orange juice and go to the emergency room -If you have any questions please call us where here to help Discharge Attestations Time Spent in Discharge Care*: greater than 30 min Quality Metrics Clinical Quality Measures [ No reported AMI, CVA or VTE this stay] Coding Level of Care Code 11817 Total time (in minutes) for Discharge: 45 Diagnoses Acute exacerbation of CHF (congestive heart failure) I50.9 Acute anemia D64.9 Hyponatremia E87.1 Acute kidney injury N17.9 Hyperbilirubinemia E80.6 NSTEMI (non-ST elevated myocardial infarction) I21.4 Cardiac LV ejection fraction 30-35% R94.30 Coronary artery disease involving coronary bypass graft of [place] heart without angina pectoris I25.810 Associated angina: without angina Coronary Disease-Associated Artery/Lesion type: bypass graft [place] vs. transplanted heart: [place] heart Diabetes mellitus E11.9
--- NOTE | 2024-08-03 10:50 | PC.SOCIAL ---
IMM Update pg 2 of IMM Updated and reviewed w/ patient. Copy provided and copy dated, initialed and placed in chart.
--- NOTE | 2024-08-03 12:04 | P.PN_ITS ---
Subjective 2 Subjective: Patient is doing well. no chest pain. Vitals/I&O/Wt Last Vital Signs Temp 97.8 F 08/03/24 07:00 Pulse 72 08/03/24 08:30 Resp 20 H 08/03/24 08:30 BP 104/57 08/03/24 08:30 Pulse Ox 93 08/03/24 08:30 O2 Del Method Room Air 08/03/24 08:30 08/02/24 08/03/24 08/03/24 22:59 06:59 14:59 Intake Total 30 / 51.875 496.875 / 548.750 275.5 / 275.5 Output Total 1700 / 1700 1250 / 2950 150 / 150 Balance -1670 / -1648.125 -753.125 / -2401.250 125.5 / 125.5 Weight last 48 hrs Weight 192 lb 12.708 oz Physical Exam 2 Const: OTHER: GENERAL: Patient is alert and oriented HEART: Regular rate and rhythm S1 S2 LUNGS: Diminished air entry CENTRAL NERVOUS SYSTEM: Grossly nonfocal. EXTREMITIES: Lower extremities with 1+ edema Urinary Catheter Management: Ramires: Cath Placed During This Visit: yes, but has since been removed by the nurse Reason for Continuing Indwelling Catheter: Decision to DC Catheter Urinary Catheter Date of Insertion: 07/25/24 Urinary Catheter Time of Insertion: 22:30 Date Urinary Catheter Removed: 08/03/24 Time Urinary Catheter Discontinued: 08:50 Data 08/03/24 03:35 08/03/24 03:35 A&P Assessment and plan (1) Acute exacerbation of congestive heart failure: Qualifiers: Heart failure type: combined systolic and diastolic Qualified Code(s): I50.43 - Acute on chronic combined systolic (congestive) and diastolic (congestive) heart failure (2) Ischemic cardiomyopathy: (3) Atrial fibrillation with RVR: (4) Elevated troponin: (5) Acute kidney injury superimposed on chronic kidney disease: (6) Blood loss anemia: (7) Atherosclerosis of coronary artery of [place] heart without angina pectoris: Qualifiers: Coronary Disease-Associated Artery/Lesion type: [place] artery Qualified Code(s): I25.10 - Atherosclerotic heart disease of [place] coronary artery without angina pectoris Plan Patient is stable to be discharged from cardiology standpoint. Continue aspirin and brilinta. Lasix 20mg daily. Instructed patient to check daily weights and titrate diuretic therapy based on that Thank you for involving us with care of this patient. We will continue to follow. Please call with questions. Attestations 2 Medical Necessity Statement*: Care expected to cross 2 midnights. Coding Level of Care Code Acute Code for Chg Fwd Diagnoses Acute on chronic combined systolic and diastolic congestive heart failure I50.43 Heart failure type: combined systolic and diastolic Ischemic cardiomyopathy I25.5 Atrial fibrillation with RVR I48.91 Elevated troponin R79.89 Acute kidney injury superimposed on chronic kidney disease N17.9; N18.9 Blood loss anemia D50.0 Atherosclerosis of [place] coronary artery of [place] heart without angina pectoris I25.10 Coronary Disease-Associated Artery/Lesion type: [place] artery
[2024-08-03 13:13] LABS: Glucose Point of Care 407 mg/dL (70-110)
--- NOTE | 2024-08-03 14:54 | PC.NURSE ---
All discharge instructions were given to patient and family member. All medication changes and prescriptions were gone over with the patient and family member. CHF stoplight was gone over with the patient. PICC line and IV were discontinued. Patient was stable during discharge.
== END 2024-08-03 14:27 | disposition home health service (06) | DRG 280 ==
LOC: ER 15:33 → CSU 18:38 → ICU 07-27 14:19
PROVIDERS: Internal Medicine; Admitting Provider Family Medicine; Emergency Provider Emergency Medicine; PCP Family Medicine; Visit Provider Family Medicine
DX: I13.0 Hypertensive heart and chronic kidney disease with heart failure and stage 1 through stage 4 chronic kidney disease, or unspecified chronic kidney disease (principal); I50.43 Acute on chronic combined systolic (congestive) and diastolic (congestive) heart failure; I21.A1 Myocardial infarction type 2; J18.9 Pneumonia, unspecified organism; J96.01 Acute respiratory failure with hypoxia; E87.1 Hypo-osmolality and hyponatremia; N17.9 Acute kidney failure, unspecified; D62 Acute posthemorrhagic anemia; E80.6 Other disorders of bilirubin metabolism; I25.5 Ischemic cardiomyopathy; R60.1 Generalized edema; I48.91 Unspecified atrial fibrillation; K80.20 Calculus of gallbladder without cholecystitis without obstruction; N18.9 Chronic kidney disease, unspecified; I25.10 Atherosclerotic heart disease of native coronary artery without angina pectoris; E11.22 Type 2 diabetes mellitus with diabetic chronic kidney disease; E11.40 Type 2 diabetes mellitus with diabetic neuropathy, unspecified; E11.51 Type 2 diabetes mellitus with diabetic peripheral angiopathy without gangrene; Z53.1 Procedure and treatment not carried out because of patient's decision for reasons of belief and group pressure; Z79.82 Long term (current) use of aspirin; Z79.02 Long term (current) use of antithrombotics/antiplatelets; Z95.5 Presence of coronary angioplasty implant and graft; Z95.1 Presence of aortocoronary bypass graft; Z87.891 Personal history of nicotine dependence; Z80.1 Family history of malignant neoplasm of trachea, bronchus and lung; Z82.5 Family history of asthma and other chronic lower respiratory diseases
CPT/HCPCS: 36415; 36416; 36573; 36592; 51702; 71045; 71250; 74176; 76705; 80048; 80053; 80307; 81001; 82140; 82962; 82977; 83605; 83690; 83735; 83880; 84100; 84145; 84484; 85007; 85014; 85018; 85025; 85730; 86140; 87040; 87637; 93005; 94640; 94664; 96367; 96372; 96374; 96376; 97110; 97116; 97161; 97166; 99213; 99285; A4222; A9270; C1751; J0283; J0456; J0696; J1250; J1644; J1650; J1815; J1940; J2270; J2405; J2470; J7050; J7626

== ENCOUNTER → 2024-08-09 12:14 | Outpatient (BNVA) | payer MEDICARE, SELFPAY | PROVIDERS: PCP Family Medicine; Visit Provider Family Medicine | DX: I50.32 Chronic diastolic (congestive) heart failure (principal); I25.810 Atherosclerosis of coronary artery bypass graft(s) without angina pectoris; K74.60 Unspecified cirrhosis of liver; R17 Unspecified jaundice | CPT/HCPCS: 80053; 82140; 83690; 85025 ==

== ENCOUNTER → 2024-08-11 15:51 | Outpatient (BNVA) | payer MEDICARE, SELFPAY | PROVIDERS: PCP Family Medicine; Visit Provider Nurse Practitioner Family | DX: I11.0 Hypertensive heart disease with heart failure (principal); I50.40 Unspecified combined systolic (congestive) and diastolic (congestive) heart failure; E78.5 Hyperlipidemia, unspecified; I25.810 Atherosclerosis of coronary artery bypass graft(s) without angina pectoris; I48.3 Typical atrial flutter; R94.30 Abnormal result of cardiovascular function study, unspecified; I35.0 Nonrheumatic aortic (valve) stenosis | CPT/HCPCS: 36415; 80048; 83880; 85025; 99213 ==

== ENCOUNTER → 2024-08-16 13:18 | Outpatient (BNVA) | payer MEDICARE, SELFPAY | PROVIDERS: PCP Family Medicine; Visit Provider Student in an Organized Health Care Education/Training Program | DX: D50.9 Iron deficiency anemia, unspecified (principal) | CPT/HCPCS: 99204 ==

== ENCOUNTER 2024-08-19 17:25 | Emergency (ER) | payer MEDICARE, SELFPAY ==
[2024-08-19] VITALS (10 sets, daily range): BP systolic 84–110; BP diastolic 47–68; PULSE 60–78; RESP 17–18; TEMP 36.6; O2SAT 95–98; BMI 28.7
--- NOTE | 2024-08-19 17:44 | XRR_ITS ---
PROCEDURE INFORMATION: Exam: XR Chest Exam date and time: 08/19/2024 6:00 PM Age: 74 years old Clinical indication: Cough and shortness of breath; Prior surgery; Surgery date: 6+ months; Surgery type: Open heart; Additional info: Weakness TECHNIQUE: Imaging protocol: Radiologic exam of the chest. Views: 1 view. COMPARISON: CR XR chest 1V portable [id number] 07/29/2024 2:41 PM FINDINGS: Lungs: Unremarkable. No consolidation. Pleural spaces: Unremarkable. No pleural effusion. No pneumothorax. Heart/Mediastinum: Stable cardiomegaly. Mediastinal surgical clips. Vasculature: Aortic arch atherosclerotic calcification. Bones/joints: Prior median sternotomy. Degenerative changes along the spine and shoulders. XR/XR chest 1V portable [id number] IMPRESSION: 1. No acute findings. 2. Stable cardiomegaly.
--- NOTE | 2024-08-19 17:45 | ECG_ITS ---
[facility] Test Date: 2024-08-19 Pat Name: Taran Higuera Department: Room: Gender: Male Acid Condenser: : 1950 Requested By: Shanique Hall Order Number: [id number] Bebe MD: CHARLINE CHAUDHRY Measurements Intervals [place] Rate: 69 P: 0 AL: 0 QRS: 96 QRSD: 186 T: 171 QT: 520 QTc: 560 Interpretive Statements ATRIAL FIBRILLATION RIGHT BUNDLE BRANCH BLOCK [120+ ms QRS DURATION, UPRIGHT V1, 40+ ms S IN I/aVL/V4/V5/V6] ANTERIOR MYOCARDIAL INFARCTION , OF INDETERMINATE AGE [40+ ms Q WAVE AND/OR ST/T ABNORMALITY IN V3/V4] MODERATE T-WAVE ABNORMALITY, CONSIDER LATERAL ISCHEMIA [-0.1+ mV T-WAVE IN I/aVL/V5/V6] Compared to ECG 08/02/2024 22:29:04 Myocardial infarct finding now present T-wave abnormality now present Possible ischemia now present Electronically Signed On 08-19-2024 23:19:13 INTEGRATION DIRECTOR by CHARLINE CHAUDHRY [id number]
[2024-08-19 18:30] LABS: Basophils # 0.1 10^3/uL (0.0-0.1); Basophils % 1.3 %; Eosinophils # 0.1 10^3/uL (0.0-0.8); Eosinophils % 1.2 %; Hematocrit 24.2 % (37-53); Lymphocytes # 0.8 10^3/uL (0.8-4.8); Lymphocytes % 11.8 %; Mean Corpuscular HGB Conc 30.6 g/dL (30-55); Mean Corpuscular Hemoglobin 25.8 pg (27-33); Mean Corpuscular Volume 84.3 fl (82-101); Monocytes # 1.9 10^3/uL (0.2-0.9); Monocytes % 27.4 %; Neutrophils # 3.92 10^3/uL (1.8-7.7); Neutrophils % 57.9 %; Nucleated Red Blood Cells % 0 %; Platelet Count 169 10^3/cmm (157-399); Red Blood Count 2.87 10^6/uL (3.85-5.65); Red Cell Distribution Width 16.5 % (12.1-15.1); White Blood Count 6.78 10^3/uL (3.29-11.43)
[2024-08-19 18:57] LABS: Lactic Sepsis W/Reflex 4.3 mmol/L (0.5-2.2)
--- NOTE | 2024-08-19 19:10 | W.ED.EXTPRO ---
HPI - Extremity Problem General: Chief complaint: Extremity Problem,Nontraumatic Stated complaint: retaining fluid in legs Time Seen by Provider: 08/19/24 17:57 History of Present Illness: Patient presents to the ER with complaints of retaining fluid in his legs. His discharge from hospital approximately August 03 has been on diuretics ever since even doubling his diuretics the last 4 days but his swelling has been getting worse. Patient denies any shortness of breath. Patient has had intermittent chest pain which she took a nitro earlier today. Patient denies any current chest pain. Patient also feels generalized weakness and not feeling well. Related Data Home Medications Medication Instructions Recorded Confirmed acetaminophen 500 mg tablet 500 mg PO Q6H PRN Pain 09/25/20 08/16/24 canagliflozin 100 mg tablet 100 mg PO DAILY 07/25/24 08/16/24 (Invokana) Previous Rx's Medication Instructions Recorded Diabetic Shoes with 3 Pairs of #1 ea 11/19/22 Inserts blood-glucose meter (OneTouch #1 ea 02/27/23 Ultra2 Meter) nitroglycerin 0.4 mg sublingual See Rx Instructions .Route 03/24/24 tablet .COMPLEX #25 tabs blood sugar diagnostic (OneTouch #100 ea 03/29/24 Ultra Test strips) pantoprazole 40 mg tablet,delayed 40 mg PO BID #60 tabs 07/21/24 release amiodarone 200 mg tablet (Pacerone) See Rx Instructions .Route 08/03/24 .COMPLEX 30 days #60 tabs glucometer testing kit #1 ea 08/03/24 insulin aspart U-100 100 unit/mL See Rx Instructions .Route 08/03/24 (3 mL) subcutaneous pen (Novolog .COMPLEX #15 mL FlexPen U-100 Insulin aspart) insulin glargine 100 unit/mL (3 10 unit (0.1 mL) SUBCUT DAILY #15 08/09/24 mL) subcutaneous pen (Lantus mL Solostar U-100 Insulin) lactulose 20 gram/30 mL oral 20 g (30 mL) PO Q12H #1,500 mL 08/09/24 solution furosemide 20 mg tablet 20 mg PO DAILY 30 days #60 tabs 08/11/24 midodrine 5 mg tablet 10 mg (2 x 5 mg) PO Q6H 30 days 08/11/24 #180 tabs potassium chloride 10 mEq 10 meq PO BID 30 days #60 tabs 08/11/24 tablet,extended release (Klor-Con) ticagrelor 90 mg tablet (Brilinta) 90 mg PO BID 90 days #180 tabs 08/11/24 evolocumab 140 mg/mL subcutaneous See Rx Instructions .Route 08/15/24 pen injector (Mare Boogie) .COMPLEX #6 mL ferrous sulfate 325 mg (65 mg 325 mg PO DAILY #30 tabs 08/16/24 iron) tablet bumetanide 1 mg tablet 1 mg PO DAILY #30 tabs 08/19/24 Allergies Allergy/AdvReac Type Severity Reaction Status Date / Time albuterol Allergy Unknown Unknown Verified 08/16/24 13:19 atorvastatin [From Lipitor] Allergy Unknown Unknown Verified 08/16/24 13:19 diclofenac [From Arthrotec] Allergy Unknown Unknown Verified 08/16/24 13:19 misoprostol [From Arthrotec] Allergy Unknown Unknown Verified 08/16/24 13:19 pravastatin Allergy Unknown Unknown Verified 08/16/24 13:19 risedronate sodium Allergy Unknown Unknown Verified 08/16/24 13:19 [From Actonel] rosuvastatin [From Crestor] Allergy Unknown Unknown Verified 08/16/24 13:19 semaglutide [From Ozempic] Allergy Unknown Unknown Verified 08/16/24 13:19 fosinopril AdvReac Mild Cough Verified 08/16/24 13:19 lovastatin [From Mevacor] AdvReac Mild Myalgia Verified 08/16/24 13:19 Review of Systems General: Reports: 10 or more systems reviewed and unremarkable except in HPI and below PFSH ED PFSH: Medical History Cellulitis of right lower leg Aortic stenosis Neuropathy Bilateral lower extremity edema Hyperlipidemia Degenerative disc disease Statin intolerance Chronic anticoagulation Microalbuminuria due to type 2 diabetes mellitus Cardiac LV ejection fraction 30-35% Diabetes mellitus Atrial flutter Shortness of breath Atrial fibrillation CAD (coronary artery disease) HTN (hypertension) PVD (peripheral vascular disease) CHF (congestive heart failure) Surgical History S/P hernia repair S/P arterial stent (~2002) History of hand surgery (~2013) S/P CABG (coronary artery bypass graft) (~2000) Family History Father Cancer Sister Cancer Brother Cancer Lung CA Mother COPD (chronic obstructive pulmonary disease) Social History Smoking and tobacco/nicotine status: former use of tobacco/nicotine Alcohol intake: never Substance/Drug Use: never Lives independently: Yes Household members: spouse Marital status: Physical Exam Const: COMMON NORMALS: no acute distress, average body habitus, patient oriented x3, no limitations, healthy appearing, alert and well nourished HENMT: COMMON NORMALS: normocephalic, atraumatic, hearing grossly normal bilaterally, external ears normal, Normal external nose present and moist oral mucous membranes HEAD & SCALP: normocephalic and atraumatic NOSE: Normal external nose present EXTERNAL EAR: Yes external ears normal Neck/C-Spine: COMMON NORMALS: full ROM, no lymphadenopathy, supple, no meningeal signs, no JVD and Thyroid normal THYROID: Thyroid normal Chest: COMMONS NORMALS: normal inspection of the chest and normal palpation of entire chest wall Resp: COMMON NORMALS: normal respiratory effort, No retractions, No use of accessory muscles and clear to auscultation bilaterally AUSCULTATION: clear to auscultation bilaterally Cardio: COMMON NORMALS: no JVD, regular rate, regular rhythm, S1 normal heart sound present, S2 normal heart sound present, No gallops present (Cardio), No clicks present (Cardio), No murmurs present (Cardio) (3 over 6 systolic ejection murmur) and No rub (Cardio) RATE: regular rate RHYTHM: regular rhythm HEART SOUNDS: S1 normal heart sound present and S2 normal heart sound present GI: COMMON NORMALS: Normal to inspection, nondistended, normoactive bowel sounds present, Soft to palpation, non-tender, No hepatosplenomegaly present and no masses PALPATION: Yes Soft to palpation and Yes No hepatosplenomegaly present Extremity: OTHER: 2+ bilateral pitting edema lower extremity up to mid thigh dry scaly skin Neuro: COMMON NORMALS: patient oriented x3 SENSORIUM/ORIENTATION: Yes alert MENINGEAL SIGNS: Yes no meningeal signs Course Vital Signs: Vital signs: Vital Signs Temperature 97.8 F 08/19/24 17:36 Pulse Rate 72 08/19/24 17:36 Respiratory Rate 17 08/19/24 17:36 Blood Pressure 87/47 08/19/24 17:36 Pulse Oximetry 96 08/19/24 17:36 Oxygen Delivery Me thod Room Air 08/19/24 17:36 MDM - Extremity (Nontraumatic) Medical Decision Making Lab work was obtained which revealed hemoglobin 7.4, BUN/creatinine fifteen 2.1, sodium 128, these are all stable for the patient. Chest x-ray did not show any pulmonary edema and no acute findings. Patient was given additional 40 mg Lasix in the ER which produced diuresis. Patient will be started on Bumex 1 mg daily in addition to his standard 20 mg Lasix. And he is to follow-up with his PCP within next 7 days. Medical Records I reviewed the patient's medical records. Lab Data I reviewed the patient's lab results. 08/19/24 18:18 08/19/24 18:18 Radiology Impressions Chest X-Ray 08/19/24 17:44 IMPRESSION: 1. No acute findings. 2. Stable cardiomegaly. Laboratory Results WBC 6.78 10^3/uL (3.29-11.43) 08/19/24 18:18 RBC 2.87 10^6/uL (3.85-5.65) L 08/19/24 18:18 Hgb 7.40 g/dL (11.27-16.99) L 08/19/24 18:18 Hct 24.2 % (37-53) L 08/19/24 18:18 MCV 84.3 fl (82-101) 08/19/24 18:18 MCH 25.8 pg (27-33) L 08/19/24 18:18 MCHC 30.6 g/dL (30-55) 08/19/24 18:18 RDW 16.5 % (12.1-15.1) H 08/19/24 18:18 Plt Count 169 10^3/cmm (157-399) 08/19/24 18:18 MPV 12.0 fL (7.4-10.4) H 08/19/24 18:18 Neut % (Auto) 57.9 % 08/19/24 18:18 Lymph % (Auto) 11.8 % 08/19/24 18:18 Payne % (Auto) 27.4 % 08/19/24 18:18 Eos % (Auto) 1.2 % 08/19/24 18:18 Baso % (Auto) 1.3 % 08/19/24 18:18 Neut # (Auto) 3.92 10^3/uL (1.8-7.7) 08/19/24 18:18 Lymph # (Auto) 0.8 10^3/uL (0.8-4.8) 08/19/24 18:18 Payne # (Auto) 1.9 10^3/uL (0.2-0.9) H 08/19/24 18:18 Eos # (Auto) 0.1 10^3/uL (0.0-0.8) 08/19/24 18:18 Baso # (Auto) 0.1 10^3/uL (0.0-0.1) 08/19/24 18:18 Nucleated RBC % (auto) 0 % 08/19/24 18:18 Nucleated RBCs # 0.0 /100WBC 08/19/24 18:18 Sodium 128 mmol/L (136-145) L 08/19/24 18:18 Potassium 4.9 mmol/L (3.5-5.1) 08/19/24 18:18 Chloride 91 mmol/L (98-107) L 08/19/24 18:18 Carbon Dioxide 21 mmol/L (22-29) L 08/19/24 18:18 Anion Gap 20.9 (5-19) H 08/19/24 18:18 BUN 50 mg/dL (8-23) H 08/19/24 18:18 Creatinine 2.1 mg/dL (0.7-1.2) H 08/19/24 18:18 GFR Calculation Not Reportable 08/19/24 18:18 Glucose 223 mg/dL (65-115) H 08/19/24 18:18 Calculated Osmolality 286 mOsm/kg (285-295) 08/19/24 18:18 Lactic Acid 4.3 mmol/L (0.5-2.2) H* 08/19/24 18:18 Lactic Acid (Sepsis) 3.5 mmol/L (0.5-2.2) H 08/19/24 20:39 Calcium 8.9 mg/dL (8.5-10.5) 08/19/24 18:18 Magnesium 3.1 mg/dL (1.7-2.3) H 08/19/24 18:18 Total Bilirubin 4.7 mg/dL (0.15-1.2) H 08/19/24 18:18 AST 31 U/L (0-40) 08/19/24 18:18 ALT 18 U/L (0-41) 08/19/24 18:18 Alkaline Phosphatase 180 U/L (40-130) H 08/19/24 18:18 Troponin T Baseline 49 ng/L (0-15) H 08/19/24 18:18 Troponin T 120 Minute 48.35 ng/L (0-15) H 08/19/24 20:39 Delta Troponin T -0.65 ABS# (0-10) L 08/19/24 20:39 NT-Pro-B Natriuret Pep 3446 pg/mL (0-450) H 08/19/24 18:18 Total Protein 7.3 g/dL (6.6-8.7) 08/19/24 18:18 Albumin 3.3 g/dL (3.5-5.2) L 08/19/24 18:18 Globulin 4.0 g/dL (1.3-4.6) 08/19/24 18:18 Urine Color Yellow (Yellow) 08/19/24 21:07 Urine Appearance Clear (CLEAR) 08/19/24 21:07 Urine pH 5.0 (5-7) 08/19/24 21:07 Ur Specific Willis 1.014 (1.005-1.030) 08/19/24 21:07 Urine Protein Negative (Negative) 08/19/24 21:07 Urine Glucose (UA) 3+ (Normal) H 08/19/24 21:07 Urine Ketones Negative (Negative) 08/19/24 21:07 Urine Blood Negative (Negative) 08/19/24 21:07 Urine Nitrate Negative (Negative) 08/19/24 21:07 Urine Bilirubin Negative (Negative) 08/19/24 21:07 Urine Urobilinogen 1.0 mg/dL (Negative) 08/19/24 21:07 Ur Leukocyte Esterase Negative (Negative) 08/19/24 21:07 Urine RBC 0-2 /hpf (0-2) 08/19/24 21:07 Urine WBC 0-5 /hpf (0-5) 08/19/24 21:07 Ur Squamous Epith Cells 0-5 /hpf (0-5) 08/19/24 21:07 Amorphous Sediment Not Reportable 08/19/24 21:07 Urine Bacteria None seen /hpf (NONE) 08/19/24 21:07 Hyaline Casts 7.42 /lpf 08/19/24 21:07 Urine Sperm 1+ /hpf 08/19/24 21:07 All radiology interpretation(s) finalized by discharge Discharge Plan Discharge Patient Disposition: Home Clinical Impression: Bilateral edema of lower extremity Condition: Stable Prescriptions: New bumetanide 1 mg tablet 1 mg PO DAILY Qty: 30 0RF No Action acetaminophen 500 mg tablet 500 mg PO Q6H PRN (Reason: Pain) (DME) Diabetic Shoes with 3 Pairs of Inserts See Rx Instructions .Route .MEDSUPPLY Qty: 1 0RF Rx Instructions: As directed by HOME insulin glargine [Lantus Solostar U-100 Insulin] 100 unit/mL (3 mL) insulin pen 10 unit SUBCUT DAILY Qty: 15 0RF lactulose 20 gram/30 mL solution 20 g PO Q12H Qty: 1500 0RF midodrine 5 mg tablet 10 mg PO Q6H 30 Days Qty: 180 0RF furosemide 20 mg tablet 20 mg PO DAILY 30 Days Qty: 60 1RF Rx Instructions: Weigh daily in the morning. If you gain 3 pounds in 1 day or 5 pounds in 1 week, take extra tablet in the morning potassium chloride [Klor-Con 10] 10 mEq tablet extended release 10 meq PO BID 30 Days Qty: 60 0RF Brilinta 90 mg tablet 90 mg PO BID 90 Days Qty: 180 0RF (DME) blood-glucose meter [OneTouch Ultra2 Meter] [facility] [place] See Rx Instructions .Route Qty: 1 0RF Rx Instructions: As directed nitroglycerin 0.4 mg tablet, sublingual See Rx Instructions .ROUTE .COMPLEX Qty: 25 0RF Dose Instruction: DISSOLVE ONE TABLET UNDER THE TONGUE EVERY 5 MINUTES NEEDED FOR CHEST PAIN. DO NOT EXCEED A TOTAL OF 3 DOSES IN 15 MINUTES Rx Instructions: DISSOLVE ONE TABLET UNDER THE TONGUE EVERY 5 MINUTES NEEDED FOR CHEST PAIN. DO NOT EXCEED A TOTAL OF 3 DOSES IN 15 MINUTES (DME) OneTouch Ultra Test Strip See Rx Instructions .ROUTE .COMPLEX Qty: 100 0RF Dose Instruction: USE 1 TEST STRIP TO TEST BLOOD GLUCOSE ONCE DAILY AND NEEDED Rx Instructions: USE 1 TEST STRIP TO TEST BLOOD GLUCOSE ONCE DAILY AND NEEDED Repatha SureClick 140 mg/mL pen injector See Rx Instructions .ROUTE .COMPLEX Qty: 6 0RF Dose Instruction: INJECT 1 PEN SUBCUTANEOUSLY EVERY TWO WEEKS Rx Instructions: INJECT 1 PEN SUBCUTANEOUSLY EVERY TWO WEEKS ferrous sulfate 325 mg (65 mg iron) tablet 325 mg PO DAILY Qty: 30 0RF Invokana 100 mg tablet 100 mg PO DAILY amiodarone [Pacerone] 200 mg Tablet See Rx Instructions .ROUTE .COMPLEX 30 Days Qty: 60 0RF Rx Instructions: 400mg(2 tabs) once a day for 1 week, then go down to 1 tab daily insulin aspart U-100 [Novolog FlexPen U-100 Insulin] 100 unit/mL (3 mL) insulin pen See Rx Instructions .ROUTE .COMPLEX Qty: 15 0RF Rx Instructions: Inject, subcut, 3 times daily, after meals, based on sliding scale provided (DME) glucometer testing kit See Rx Instructions .Route .MEDSUPPLY Qty: 1 0RF Rx Instructions: Check blood sugars, 3 times daily, after meals, based on sliding scale provided pantoprazole 40 mg Tablet,Delayed Release (Dr/Ec) 40 mg PO BID Qty: 60 0RF Discharge Orders: Discharge ED (Routine); Ordered 08/19/24 Ordered By: Domenico Tom Referrals: Mildred Grewal MD [Primary Care Provider] - 1 week Patient Instructions: Leg Edema (ED) Activity Restrictions/Additional Instructions: Please start on a bumetanide 1 mg daily in addition to your Lasix 20 mg daily. Please keep a daily weight and watch her blood pressure. Please follow-up with your family practitioner within next 7 days for further evaluation and treatment. Coding Level of Care Code ED Racebook Writer for Devin Peoples
[2024-08-19 19:13] LABS: Troponin(5th) Baseline 49 ng/L (0-15)
[2024-08-19 19:22] LABS: Alanine Aminotransferase 18 U/L (0-41); Albumin Level 3.3 g/dL (3.5-5.2); Alkaline Phosphatase 180 U/L (40-130); Anion Gap 20.9 (5-19); Aspartate Amino Transferase 31 U/L (0-40); Blood Urea Nitrogen 50 mg/dL (8-23); Calcium 8.9 mg/dL (8.5-10.5); Carbon Dioxide 21 mmol/L (22-29); Chloride 91 mmol/L (98-107); Creatinine Clr Calc Pharmacy 33.8993; Glucose 223 mg/dL (65-115); NT Pro B Type Natriuretic Pept 3446 pg/mL (0-450); Osmolality Calculated 286 mOsm/kg (285-295); Potassium 4.9 mmol/L (3.5-5.1); Sodium 128 mmol/L (136-145); Total Bilirubin 4.7 mg/dL (0.15-1.2); Total Protein 7.3 g/dL (6.6-8.7)
--- NOTE | 2024-08-19 19:45 | ECG_ITS ---
[facility] Test Date: 2024-08-19 Pat Name: Taran Higuera Department: Room: Gender: Male Mail Manager: : 1950 Requested By: Shanique Hall Order Number: [id number] Bebe MD: CHARLINE CHAUDHRY Measurements Intervals [place] Rate: 76 P: 100 ID: [id number] QRS: 102 QRSD: 197 T: 5 QT: 514 QTc: 579 Interpretive Statements SINUS RHYTHM RIGHT AXIS DEVIATION [QRS AXIS > 100] RIGHT BUNDLE BRANCH BLOCK [120+ ms QRS DURATION, UPRIGHT V1, 40+ ms S IN I/aVL/V4/V5/V6] MODERATE T-WAVE ABNORMALITY, CONSIDER LATERAL ISCHEMIA [-0.1+ mV T-WAVE IN I/aVL/V5/V6] Compared to ECG 08/19/2024 18:44:13 Right-axis deviation now present Atrial fibrillation no longer present Myocardial infarct finding no longer present T-wave abnormality still present Possible ischemia still present Electronically Signed On 08-22-2024 23:22:29 FIREBRICK LAYER HELPER by CHARLINE CHAUDHRY [email or web address] elias
[2024-08-19 20:10] LABS: Reflex Lactate Order REFLEX LACTIC ORDERD
[2024-08-19 20:11] LABS: Magnesium 3.1 mg/dL (1.7-2.3)
[2024-08-19] MEDS: FUROsemide 10 mg/mL SDV 4mL 40 MG IVP (21:00)
[2024-08-19 21:24] LABS: Troponin 5 2HR 48.35 ng/L (0-15)
[2024-08-19 21:25] LABS: Lactic Acid level (Lactate) 3.5 mmol/L (0.5-2.2)
[2024-08-19 21:26] LABS: Troponin 5 2HR Delta -0.65 ABS# (0-10)
[2024-08-19 21:29] LABS: Bilirubin Urine Negative (Negative); Blood Urine Negative (Negative); Glucose Urine UA 3+ (Normal); Ketones Urine Negative (Negative); Leukocyte Esterase Urine Negative (Negative); Nitrate Urine Negative (Negative); Protein Urine Negative (Negative); Specific Gravity, Urine 1.014 (1.005-1.030); Urine Appearance Clear (CLEAR); Urine Color Yellow (Yellow)
[2024-08-19 21:34] LABS: Add Urine Microscopic? YES; Bacteria Urine None Seen /hpf; Hyaline Casts Urine 7.42 /lpf; RBC Urine 0-2 /hpf (0-2); Squamous Epithelial Cell Urine 0-5 /hpf (0-5); Universal Test for UA Present (0); WBC Urine 0-5 /hpf (0-5)
[2024-08-19] MEDS: midodrine 5 mg TABLET 10 MG PO (21:41)
[2024-08-19 21:57] LABS: Add Urine Culture? Yes; Sperm Urine 1+ /hpf
== END 2024-08-19 22:49 | disposition home or self-care (01) ==
PROVIDERS: Emergency Medicine; Emergency Provider Emergency Medicine; PCP Family Medicine
DX: R60.0 Localized edema (principal); Z79.4 Long term (current) use of insulin; Z87.891 Personal history of nicotine dependence; I11.0 Hypertensive heart disease with heart failure; I50.9 Heart failure, unspecified; I25.10 Atherosclerotic heart disease of native coronary artery without angina pectoris; E78.5 Hyperlipidemia, unspecified
CPT/HCPCS: 36415; 71045; 80053; 81001; 83605; 83735; 83880; 84484; 85025; 87040; 87077; 87086; 87186; 93005; 96374; 99285; J1940

== ENCOUNTER 2024-08-24 16:32 | Inpatient (IN) | payer MEDICARE, SELFPAY ==
[2024-08-24] VITALS (55 sets, daily range): BP systolic 78–116; BP diastolic 35–60; PULSE 49–78; RESP 0–28; TEMP 36.5–36.6; O2SAT 97–100; BMI 29.1
--- NOTE | 2024-08-24 16:35 | ECG_ITS ---
[facility] Test Date: 2024-08-24 Pat Name: Taran Higuera Department: Room: Gender: Male Nursery Manager: : 1950 Requested By: Zachary Hall Order Number: [id number] Bebe MD: Narinder Pinon M.D. Measurements Intervals [place] Rate: 55 P: 34 NM: 201 QRS: 107 QRSD: 209 T: 270 QT: 477 QTc: 459 Interpretive Statements SINUS BRADYCARDIA RIGHT AXIS DEVIATION [QRS AXIS > 100] RIGHT BUNDLE BRANCH BLOCK [120+ ms QRS DURATION, UPRIGHT V1, 40+ ms S IN I/aVL/V4/V5/V6] ST DEVIATION AND MODERATE T-WAVE ABNORMALITY, CONSIDER ANTEROLATERAL ISCHEMIA [-0.1+ mV T-WAVE IN V3-V6] INTERPRETATION BASED ON A DEFAULT AGE OF 40 YEARS Compared to ECG 08/19/2024 21:03:59 Sinus rhythm no longer present Possible ischemia still present Electronically Signed On 08-27-2024 23:12:45 CERTIFIED MORTICIAN by Narinder Pinon M.D. [email or web address] elias
--- NOTE | 2024-08-24 16:42 | XRR_ITS ---
PROCEDURE INFORMATION: Exam: XR Chest Exam date and time: 08/24/2024 4:53 PM Age: 74 years old Clinical indication: Dyspnea; Prior surgery; Surgery date: 6+ months; Surgery type: Open heart and stents; Additional info: Dyspnea/cough TECHNIQUE: Imaging protocol: Radiologic exam of the chest. Views: 1 view. COMPARISON: CR (CHEST, ) 08/19/2024 6:00 PM FINDINGS: Tubes, catheters and devices: Overlying monitor leads/pacer paddles. Lungs: No infiltrate or consolidation. No pulmonary edema. Pleural spaces: No pleural effusion or pneumothorax. Heart/Mediastinum: Mildly enlarged cardiomediastinal silhouette, unchanged or stable with prior exam. Vasculature: Arteriosclerosis thoracic aorta. Bones/joints: Postsurgical changes of sternotomy/CABG. Other findings: No significant change with prior exam. XR/XR chest 1V portable [id number] IMPRESSION: Postsurgical changes of sternotomy/CABG and mildly enlarged cardiomediastinal silhouette, stable with prior exam. No acute findings.
--- NOTE | 2024-08-24 16:45 | ED_ITS ---
Documented by User: Zachary Martinez DO 08/26/24 06:55 HPI - General Adult 2 General: Chief complaint: Chest Pain Stated complaint: STEMI Time Seen by Provider: 08/24/24 16:41 History of Present Illness: 74-year-old male presents to the emergen cy room with complaint of chest discomfort he has a known history of coronary artery disease he recently had a STEMI has had stents placed he presents emergency room today via EMS patient had intermittent chest pain at home and was given a nitro. He is hypotensive when he arrives here extremely weak he get about 150 mL normal saline and route as well as 324 of aspirin. He has recurrent chest pain. He has significant orthopnea. He has a history of liver cirrhosis in addition to this. He has had chronic and acute kidney injuries as well. He has been hospitalized multiple times recently. Associated symptoms: Reports chest pain, dyspnea and nausea; Deny rash or vomiting Related Data Home Medications Medication Instructions Recorded Confirmed acetaminophen 500 mg tablet 500 mg PO Q6H PRN Pain 09/25/20 08/25/24 ciprofloxacin HCl 250 mg tablet 250 mg PO BID 08/25/24 08/25/24 midodrine 10 mg tablet 10 mg PO Q6H 08/25/24 08/25/24 potassium chloride 10 mEq 10 meq PO BID 08/25/24 08/25/24 tablet,extended release Previous Rx's Medication Instructions Recorded Diabetic Shoes with 3 Pairs of #1 ea 11/19/22 Inserts blood-glucose meter (OneTouch #1 ea 02/27/23 Ultra2 Meter) nitroglycerin 0.4 mg sublingual See Rx Instructions .Route 03/24/24 tablet .COMPLEX #25 tabs blood sugar diagnostic (OneTouch #100 ea 03/29/24 Ultra Test strips) amiodarone 200 mg tablet (Pacerone) See Rx Instructions .Route 08/03/24 .COMPLEX 30 days #60 tabs glucometer testing kit #1 ea 08/03/24 insulin aspart U-100 100 unit/mL See Rx Instructions .Route 08/03/24 (3 mL) subcutaneous pen (Novolog .COMPLEX #15 mL FlexPen U-100 Insulin aspart) insulin glargine 100 unit/mL (3 10 unit (0.1 mL) SUBCUT DAILY #15 08/09/24 mL) subcutaneous pen (Lantus mL Solostar U-100 Insulin) lactulose 20 gram/30 mL oral 20 g (30 mL) PO Q12H #1,500 mL 08/09/24 solution furosemide 20 mg tablet 20 mg PO DAILY 30 days #60 tabs 08/11/24 ticagrelor 90 mg tablet (Brilinta) 90 mg PO BID 90 days #180 tabs 08/11/24 ferrous sulfate 325 mg (65 mg 325 mg PO DAILY #30 tabs 08/16/24 iron) tablet bumetanide 1 mg tablet 1 mg PO DAILY #30 tabs 08/19/24 canagliflozin 100 mg tablet 100 mg PO DAILY #90 tabs 08/22/24 (Invokana) evolocumab 140 mg/mL subcutaneous See Rx Instructions .Route 08/22/24 pen injector (Repatha SureClick) .COMPLEX #6 mL pantoprazole 40 mg tablet,delayed 40 mg PO BID #60 tabs 08/22/24 release Allergies Allergy/AdvReac Type Severity Reaction Status Date / Time albuterol Allergy Unknown Unknown Verified 08/16/24 13:19 atorvastatin [From Lipitor] Allergy Unknown Unknown Verified 08/16/24 13:19 diclofenac [From Arthrotec] Allergy Unknown Unknown Verified 08/16/24 13:19 misoprostol [From Arthrotec] Allergy Unknown Unknown Verified 08/16/24 13:19 pravastatin Allergy Unknown Unknown Verified 08/16/24 13:19 risedronate sodium Allergy Unknown Unknown Verified 08/16/24 13:19 [From Actonel] rosuvastatin [From Crestor] Allergy Unknown Unknown Verified 08/16/24 13:19 semaglutide [From Ozempic] Allergy Unknown Unknown Verified 08/16/24 13:19 fosinopril AdvReac Mild Cough Verified 08/16/24 13:19 lovastatin [From Mevacor] AdvReac Mild Myalgia Verified 08/16/24 13:19 Review of Systems 2 Const: Denies: fever(s) or chills Card: Reports: chest pain Resp: Reports: dyspnea GI: Reports: nausea; Denies: abdominal pain, vomiting or diarrhea : Denies: dysuria, urinary frequency or urinary urgency Musc: Denies: neck pain or back pain Skin/Breast: Denies: rash PFSH ED 2 PFSH: Medical History Cellulitis of right lower leg Aortic stenosis Neuropathy Bilateral lower extremity edema Hyperlipidemia Degenerative disc disease Statin intolerance Chronic anticoagulation Microalbuminuria due to type 2 diabetes mellitus Cardiac LV ejection fraction 30-35% Diabetes mellitus Atrial flutter Shortness of breath Atrial fibrillation CAD (coronary artery disease) HTN (hypertension) PVD (peripheral vascular disease) CHF (congestive heart failure) Surgical History S/P hernia repair S/P arterial stent (~2002) History of hand surgery (~2013) S/P CABG (coronary artery bypass graft) (~2000) Family History Father Cancer Sister Cancer Brother Cancer Lung CA Mother COPD (chronic obstructive pulmonary disease) Social History Smoking and tobacco/nicotine status: former use of tobacco/nicotine Alcohol intake: never Substance/Drug Use: never Lives independently: Yes Household members: spouse Marital status: Physical Exam 2 Const: GENERAL APPEARANCE: cooperative ORIENTATION/CONSCIOUSNESS: Yes awake, Yes oriented to person, Yes oriented to place and Yes oriented to time HENMT: COMMON NORMALS: normocephalic, atraumatic and hearing grossly normal bilaterally HEAD & SCALP: normocephalic and atraumatic Resp: AUSCULTATION: crackles and diminished lung sounds Cardio: COMMON NORMALS: No murmurs present (Cardio) RATE: bradycardic R HYTHM: abnormal rhythm irregularly irregular GI: COMMON NORMALS: Soft to palpation and No hepatosplenomegaly present A USCULTATION: Yes normoactive bowel sounds PALPATION: Yes Soft to palpation, No Tenderness to palpation present (GI), No Guarding due to palpation present (GI) and Yes No hepatosplenomegaly present Extremity: COMMON NORMALS: normal to inspection, capillary refill normal, no clubbing, cyanosis or edema, no calf tenderness and no pedal edema Neuro: SENSORIUM/ORIENTATION: Yes oriented to person, Yes oriented to place and Yes oriented to time Skin: COMMON NORMALS: no rashes or lesions noted GENERAL SKIN EXAM: no rashes or lesions noted Course 2 Vital Signs: Vital signs: Vital Signs Temperature 98.1 F 08/25/24 02:00 Pulse Rate 78 08/25/24 08:12 Respiratory Rate 17 08/26/24 05:39 Blood Pressure 94/41 08/25/24 07:30 Pulse Oximetry 96 08/25/24 08:12 Oxygen Delivery Me thod Room Air 08/25/24 08:12 MDM - General Adult Medical Decision Making Care signed out to Dr. Dumont at change of shift. See final notes for diagnosis and disposition. Medical Records I reviewed the patient's medical records. Lab Data I reviewed the patient's lab results. 08/25/24 04:11 08/25/24 10:26 Radiology Impressions Abdomen/Pelvis CT 08/24/24 18:00 IMPRESSION: 1. Basilar atelectasis with a component of pleural thickening and small amount of posterior basilar effusion. 2. Mild ascites within the abdomen and pelvis. Generalized hazy mesenteric appearance suggesting mesenteric edema. Soft tissue anasarca. Findings could be associated with hepatocellular disease/cirrhosis, CHF, or hypoproteinemia. 3. Fatty liver with lobular contour and consider hepatocellular disease. 4. Cholelithiasis. 5. Mild sigmoid colon diverticulosis without focal diverticulitis. Equivocal generalized colonic wall thickening, cannot exclude inflammation or colitis. 6. Ramires catheter within a suboptimally distended urinary bladder. Correlate with urinalysis otherwise. 7. Mild gastric distension and particularly proximal to mid stomach with suggestion of gastric contents. This could be associated with recent ingestion or indicate gastric stasis/poor gastric emptying. Abdomen Ultrasound 08/24/24 18:19 IMPRESSION: 1. Coarse hepatic echotexture with lobular contour suggesting hepatocellular disease/cirrhosis. 2. Associated [id number]-[id number] ascites around the liver and spleen. 3. Bidirectional portal venous and IVC flow and patent umbilical vein suggesting portal hypertension. 4. Cholelithiasis. Gallbladder wall thickening of 8 mm without pericholecystic fluid or reported tenderness (negative Jo sign). This could indicate chronic cholecystitis change. 5. No biliary ductal dilatation. ADDENDUM: 08/24/242118 Findings were discussed with Dr Vázquez at 8:48 p.m. PHOTO TUBE ASSEMBLER 08/24/2024. Chest X-Ray 08/25/24 07:37 Impression: Satisfactory placement right PICC line. Laboratory Results WBC 9.48 10^3/uL (3.29-11.43) 08/24/24 16:16 RBC 3.10 10^6/uL (3.85-5.65) L 08/24/24 16:16 Hgb 7.60 g/dL (11.27-16.99) L 08/24/24 16:16 Hct 25.0 % (37-53) L 08/24/24 16:16 MCV 80.6 fl (82-101) L 08/24/24 16:16 MCH 24.5 pg (27-33) L 08/24/24 16:16 MCHC 30.4 g/dL (30-55) 08/24/24 16:16 RDW 17.3 % (12.1-15.1) H 08/24/24 16:16 Plt Count 192 10^3/cmm (157-399) 08/24/24 16:16 MPV 11.7 fL (7.4-10.4) H 08/24/24 16:16 Neut % (Auto) 70.3 % 08/24/24 16:16 Lymph % (Auto) 10.9 % 08/24/24 16:16 [place] % (Auto) 17.7 % 08/24/24 16:16 Eos % (Auto) 0.4 % 08/24/24 16:16 Baso % (Auto) 0.3 % 08/24/24 16:16 Neut # (Auto) 6.66 10^3/uL (1.8-7.7) 08/24/24 16:16 Lymph # (Auto) 1.0 10^3/uL (0.8-4.8) 08/24/24 16:16 [place] # (Auto) 1.7 10^3/uL (0.2-0.9) H 08/24/24 16:16 Eos # (Auto) 0.0 10^3/uL (0.0-0.8) 08/24/24 16:16 Baso # (Auto) 0.0 10^3/uL (0.0-0.1) 08/24/24 16:16 Nucleated RBC % (auto) 0 % 08/24/24 16:16 Nucleated RBCs # 0.0 /100WBC 08/24/24 16:16 PT 20.00 SECONDS (12.1-14.9) H 08/24/24 16:16 INR 1.60 (0.8-1.2) H 08/24/24 16:16 Specimen Type Arterial 08/24/24 18:22 Sample Site Brachial, left 08/24/24 18:22 ABG pH 7.42 (7.35-7.45) 08/24/24 18:22 ABG pCO2 25.9 mmHg (35-45) L 08/24/24 18:22 ABG pO2 81.5 mmHg (80.0-100.0) 08/24/24 18:22 ABG PO2/FiO2 Ratio 388 08/24/24 18:22 ABG HCO3 16.6 mmol/L (22-26) L 08/24/24 18:22 ABG Base Excess -7.0 mmol/L (-2.0-2.0) L 08/24/24 18:22 Adonay Test N/a 08/24/24 18:22 Hematocrit 24.5 % (42-52) L 08/24/24 18:22 O2 Delivery Device Room air 08/24/24 18:22 FiO2 21.0 % 08/24/24 18:22 Specimen Drawn By [facility] 08/24/24 18:22 Buckler And Lacer ID [facility] 08/24/24 18:22 Sodium 127 mmol/L (136-145) L 08/24/24 16:16 Potassium 5.5 mmol/L (3.5-5.1) H 08/24/24 16:16 Chloride 87 mmol/L (98-107) L 08/24/24 16:16 Carbon Dioxide 17 mmol/L (22-29) L 08/24/24 16:16 Anion Gap 28.5 (5-19) H 08/24/24 16:16 BUN 69 mg/dL (8-23) H 08/24/24 16:16 Creatinine 3.1 mg/dL (0.7-1.2) H 08/24/24 16:16 GFR Calculation Not Reportable 08/24/24 16:16 Glucose 264 mg/dL (65-115) H 08/24/24 16:16 Estimat Average Glucose 148 08/24/24 16:16 Hemoglobin A1c 6.8 % (4.0-6.0) H 08/24/24 16:16 Calculated Osmolality 293 mOsm/kg (285-295) 08/24/24 16:16 Lactic Acid 7.6 mmol/L (0.5-2.2) H* 08/24/24 18:40 Calcium 9.0 mg/dL (8.5-10.5) 08/24/24 16:16 Magnesium 3.4 mg/dL (1.7-2.3) H 08/24/24 16:16 Total Bilirubin Cancelled 08/24/24 19:10 Direct Bilirubin Cancelled 08/24/24 19:10 Indirect Bilirubin Cancelled 08/24/24 19:10 GGT 179 U/L (8-61) H 08/24/24 16:16 AST 29 U/L (0-40) 08/24/24 16:16 ALT 18 U/L (0-41) 08/24/24 16:16 Alkaline Phosphatase 183 U/L (40-130) H 08/24/24 16:16 Ammonia 73 umol/L (16-60) H 08/24/24 18:45 Troponin T Baseline 59 ng/L (0-15) H 08/24/24 16:16 Troponin T 120 Minute 51.45 ng/L (0-15) H 08/24/24 19:10 Delta Troponin T -7.55 ABS# (0-10) L 08/24/24 19:10 C-Reactive Protein 6.6 mg/L (0.0-4.9) H 08/24/24 16:16 NT-Pro-B Natriuret Pep 4288 pg/mL (0-450) H 08/24/24 16:16 Total Protein 7.3 g/dL (6.6-8.7) 08/24/24 16:16 Albumin 3.4 g/dL (3.5-5.2) L 08/24/24 16:16 Globulin 3.9 g/dL (1.3-4.6) 08/24/24 16:16 Triglycerides 59 mg/dL (0-150) 08/24/24 16:16 Cholesterol 119 mg/dL (0-200) 08/24/24 16:16 LDL Cholesterol, Calc 76 mg/dL (50-129) 08/24/24 16:16 HDL Cholesterol 31 mg/dL (60-100) L 08/24/24 16:16 LDL/HDL Ratio 2.45 RATIO (0.00-3.22) 08/24/24 16:16 Cholesterol/HDL Ratio 3.84 mg/dL (1.0-5.00) 08/24/24 16:16 Lipase 55 U/L (13-60) 08/24/24 16:16 Procalcitonin 0.58 ng/mL (0-0.5) H 08/24/24 16:16 TSH 0.75 uIU/mL (0.27-4.20) 08/24/24 16:16 Urine Color Yellow (Yellow) 08/24/24 17:50 Urine Appearance Cloudy (CLEAR) A 08/24/24 17:50 Urine pH Not Reportable 08/24/24 17:50 Ur Specific [place] Not Reportable 08/24/24 17:50 Urine Protein Not Reportable 08/24/24 17:50 Urine Glucose (UA) Not Reportable 08/24/24 17:50 Urine Ketones Not Reportable 08/24/24 17:50 Urine Blood Not Reportable 08/24/24 17:50 Urine Nitrate Not Reportable 08/24/24 17:50 Urine Bilirubin Not Reportable 08/24/24 17:50 Urine Urobilinogen Not Reportable 08/24/24 17:50 Ur Leukocyte Esterase Not Reportable 08/24/24 17:50 Urine RBC 15-25 /hpf (0-2) H 08/24/24 17:50 Urine WBC 0-4 /hpf (0-5) H 08/24/24 17:50 Ur Squamous Epith Cells Rare /hpf (0-5) 08/24/24 17:50 Calcium Oxalate Crystal 0-4 /hpf H 08/24/24 17:50 Amorphous Sediment Not Reportable 08/24/24 17:50 Urine Bacteria 1+ /hpf (NONE) H 08/24/24 17:50 Urine Mucus None /hpf 08/24/24 17:50 Serum Ketones Negative (Negative) 08/24/24 16:16 Coronavirus (PCR) Negative (Negative) 08/24/24 17:50 Influenza A (PCR) Negative (Negative) 08/24/24 17:50 Influenza Type B (PCR) Negative (Negative) 08/24/24 17:50 RSV (PCR) Negative (Negative) 08/24/24 17:50 Discharge Plan Discharge Patient Disposition: Admitted As Inpatient Admit Provider: Gerardo Ennis Clinical Impression: Ischemic cardiomyopathy, Acute kidney injury superimposed on chronic kidney disease, Cirrhosis CHF (congestive heart failure) Qualifiers: Heart failure type: diastolic Heart failure chronicity: chronic Qualified Code(s): I50.32 - Chronic diastolic (congestive) heart failure CAD (coronary artery disease) Qualifiers: Coronary Disease-Associated Artery/Lesion type: bypass graft [place] vs. transplanted heart: [place] heart Associated angina: without angina Qualified Code(s): I25.810 - Atherosclerosis of coronary artery bypass graft(s) without angina pectoris Condition: Stable Coding Level of Care Code ED Kiln Worker for Chg Fwd Documented by User: Shanique Dumont MD 08/24/24 21:05 HPI - General Adult 2 General: Chief complaint: Chest Pain Stated complaint: STEMI Time Seen by Provider: 08/24/24 16:41 Related Data Home Medications Medication Instructions Recorded Confirmed acetaminophen 500 mg tablet 500 mg PO Q6H PRN Pain 09/25/20 08/25/24 ciprofloxacin HCl 250 mg tablet 250 mg PO BID 08/25/24 08/25/24 midodrine 10 mg tablet 10 mg PO Q6H 08/25/24 08/25/24 potassium chloride 10 mEq 10 meq PO BID 08/25/24 08/25/24 tablet,extended release Previous Rx's Medication Instructions Recorded Diabetic Shoes with 3 Pairs of #1 ea 11/19/22 Inserts blood-glucose meter (OneTouch #1 ea 02/27/23 Ultra2 Meter) nitroglycerin 0.4 mg sublingual See Rx Instructions .Route 03/24/24 tablet .COMPLEX #25 tabs blood sugar diagnostic (OneTouch #100 ea 03/29/24 Ultra Test strips) amiodarone 200 mg tablet (Pacerone) See Rx Instructions .Route 08/03/24 .COMPLEX 30 days #60 tabs glucometer testing kit #1 ea 08/03/24 insulin aspart U-100 100 unit/mL See Rx Instructions .Route 08/03/24 (3 mL) subcutaneous pen (Novolog .COMPLEX #15 mL FlexPen U-100 Insulin aspart) insulin glargine 100 unit/mL (3 10 unit (0.1 mL) SUBCUT DAILY #15 08/09/24 mL) subcutaneous pen (Lantus mL Solostar U-100 Insulin) lactulose 20 gram/30 mL oral 20 g (30 mL) PO Q12H #1,500 mL 08/09/24 solution furosemide 20 mg tablet 20 mg PO DAILY 30 days #60 tabs 08/11/24 ticagrelor 90 mg tablet (Brilinta) 90 mg PO BID 90 days #180 tabs 08/11/24 ferrous sulfate 325 mg (65 mg 325 mg PO DAILY #30 tabs 08/16/24 iron) tablet bumetanide 1 mg tablet 1 mg PO DAILY #30 tabs 08/19/24 canagliflozin 100 mg tablet 100 mg PO DAILY #90 tabs 08/22/24 (Invokana) evolocumab 140 mg/mL subcutaneous See Rx Instructions .Route 08/22/24 pen injector (Repatha [employer]) .COMPLEX #6 mL pantoprazole 40 mg tablet,delayed 40 mg PO BID #60 tabs 08/22/24 release Allergies Allergy/AdvReac Type Severity Reaction Status Date / Time albuterol Allergy Unknown Unknown Verified 08/16/24 13:19 atorvastatin [From Lipitor] Allergy Unknown Unknown Verified 08/16/24 13:19 diclofenac [From Arthrotec] Allergy Unknown Unknown Verified 08/16/24 13:19 misoprostol [From Arthrotec] Allergy Unknown Unknown Verified 08/16/24 13:19 pravastatin Allergy Unknown Unknown Verified 08/16/24 13:19 risedronate sodium Allergy Unknown Unknown Verified 08/16/24 13:19 [From Actonel] rosuvastatin [From Crestor] Allergy Unknown Unknown Verified 08/16/24 13:19 semaglutide [From Ozempic] Allergy Unknown Unknown Verified 08/16/24 13:19 fosinopril AdvReac Mild Cough Verified 08/16/24 13:19 lovastatin [From Mevacor] AdvReac Mild Myalgia Verified 08/16/24 13:19 PFSH ED 2 PFSH: Medical History Cellulitis of right lower leg Aortic stenosis Neuropathy Bilateral lower extremity edema Hyperlipidemia Degenerative disc disease Statin intolerance Chronic anticoagulation Microalbuminuria due to type 2 diabetes mellitus Cardiac LV ejection fraction 30-35% Diabetes mellitus Atrial flutter Shortness of breath Atrial fibrillation CAD (coronary artery disease) HTN (hypertension) PVD (peripheral vascular disease) CHF (congestive heart failure) Surgical History S/P hernia repair S/P arterial stent (~2002) History of hand surgery (~2013) S/P CABG (coronary artery bypass graft) (~2000) Family History Father Cancer Sister Cancer Brother Cancer Lung CA Mother COPD (chronic obstructive pulmonary disease) Social History Smoking and tobacco/nicotine status: former use of tobacco/nicotine Alcohol intake: never Substance/Drug Use: never Lives independently: Yes Household members: spouse Marital status: Course 2 Vital Signs: Vital signs: Vital Signs Temperature 98.1 F 08/25/24 02:00 Pulse Rate 78 08/25/24 08:12 Respiratory Rate 17 08/26/24 05:39 Blood Pressure 94/41 08/25/24 07:30 Pulse Oximetry 96 08/25/24 08:12 Oxygen Delivery In thod Room Air 08/25/24 08:12 MDM - General Adult Medical Decision Making Care signed out to Dr. Dumont at change of shift. See final notes for diagnosis and disposition. Patient care was transitioned to [place] at shift change. Patient has been evaluated by the hospice staff and there was some concern for cholangitis. CT scan and ultrasound were done and do not show evidence of cholangitis. It appears he has some liver dysfunction and his bilirubin has been progressively worsening over the last couple of months. He has some renal failure. He is anemic. He will not take blood products. I spoke with Dr. Vázquez who has now okayed the patient for admission to the ICU. Lab Data 08/25/24 04:11 08/25/24 10:26 Radiology Impressions Abdomen/Pelvis CT 08/24/24 18:00 IMPRESSION: 1. Basilar atelectasis with a component of pleural thickening and small amount of posterior basilar effusion. 2. Mild ascites within the abdomen and pelvis. Generalized hazy mesenteric appearance suggesting mesenteric edema. Soft tissue anasarca. Findings could be associated with hepatocellular disease/cirrhosis, CHF, or hypoproteinemia. 3. Fatty liver with lobular contour and consider hepatocellular disease. 4. Cholelithiasis. 5. Mild sigmoid colon diverticulosis without focal diverticulitis. Equivocal generalized colonic wall thickening, cannot exclude inflammation or colitis. 6. Ramires catheter within a suboptimally distended urinary bladder. Correlate with urinalysis otherwise. 7. Mild gastric distension and particularly proximal to mid stomach with suggestion of gastric contents. This could be associated with recent ingestion or indicate gastric stasis/poor gastric emptying. Abdomen Ultrasound 08/24/24 18:19 IMPRESSION: 1. Coarse hepatic echotexture with lobular contour suggesting hepatocellular disease/cirrhosis. 2. Associated eaoe-re-dlfsfotz ascites around the liver and spleen. 3. Bidirectional portal venous and IVC flow and patent umbilical vein suggesting portal hypertension. 4. Cholelithiasis. Gallbladder wall thickening of 8 mm without pericholecystic fluid or reported tenderness (negative Jo sign). This could indicate chronic cholecystitis change. 5. No biliary ductal dilatation. ADDENDUM: 08/24/242118 Findings were discussed with Dr Vázquez at 8:48 p.m. PHOTO TUBE ASSEMBLER 08/24/2024. Chest X-Ray 08/25/24 07:37 Impression: Satisfactory placement right PICC line. Laboratory Results WBC 9.48 10^3/uL (3.29-11.43) 08/24/24 16:16 RBC 3.10 10^6/uL (3.85-5.65) L 08/24/24 16:16 Hgb 7.60 g/dL (11.27-16.99) L 08/24/24 16:16 Hct 25.0 % (37-53) L 08/24/24 16:16 MCV 80.6 fl (82-101) L 08/24/24 16:16 MCH 24.5 pg (27-33) L 08/24/24 16:16 MCHC 30.4 g/dL (30-55) 08/24/24 16:16 RDW 17.3 % (12.1-15.1) H 08/24/24 16:16 Plt Count 192 10^3/cmm (157-399) 08/24/24 16:16 MPV 11.7 fL (7.4-10.4) H 08/24/24 16:16 Neut % (Auto) 70.3 % 08/24/24 16:16 Lymph % (Auto) 10.9 % 08/24/24 16:16 [place] % (Auto) 17.7 % 08/24/24 16:16 Eos % (Auto) 0.4 % 08/24/24 16:16 Baso % (Auto) 0.3 % 08/24/24 16:16 Neut # (Auto) 6.66 10^3/uL (1.8-7.7) 08/24/24 16:16 Lymph # (Auto) 1.0 10^3/uL (0.8-4.8) 08/24/24 16:16 [place] # (Auto) 1.7 10^3/uL (0.2-0.9) H 08/24/24 16:16 Eos # (Auto) 0.0 10^3/uL (0.0-0.8) 08/24/24 16:16 Baso # (Auto) 0.0 10^3/uL (0.0-0.1) 08/24/24 16:16 Nucleated RBC % (auto) 0 % 08/24/24 16:16 Nucleated RBCs # 0.0 /100WBC 08/24/24 16:16 PT 20.00 SECONDS (12.1-14.9) H 08/24/24 16:16 INR 1.60 (0.8-1.2) H 08/24/24 16:16 Specimen Type Arterial 08/24/24 18:22 Sample Site Brachial, left 08/24/24 18:22 ABG pH 7.42 (7.35-7.45) 08/24/24 18:22 ABG pCO2 25.9 mmHg (35-45) L 08/24/24 18:22 ABG pO2 81.5 mmHg (80.0-100.0) 08/24/24 18:22 ABG PO2/FiO2 Ratio 388 08/24/24 18:22 ABG HCO3 16.6 mmol/L (22-26) L 08/24/24 18:22 ABG Base Excess -7.0 mmol/L (-2.0-2.0) L 08/24/24 18:22 Adonay Test N/a 08/24/24 18:22 Hematocrit 24.5 % (42-52) L 08/24/24 18:22 O2 Delivery Device Room air 08/24/24 18:22 FiO2 21.0 % 08/24/24 18:22 Specimen Drawn By [facility] 08/24/24 18:22 Buckler And Lacer ID [facility] 08/24/24 18:22 Sodium 127 mmol/L (136-145) L 08/24/24 16:16 Potassium 5.5 mmol/L (3.5-5.1) H 08/24/24 16:16 Chloride 87 mmol/L (98-107) L 08/24/24 16:16 Carbon Dioxide 17 mmol/L (22-29) L 08/24/24 16:16 Anion Gap 28.5 (5-19) H 08/24/24 16:16 BUN 69 mg/dL (8-23) H 08/24/24 16:16 Creatinine 3.1 mg/dL (0.7-1.2) H 08/24/24 16:16 GFR Calculation Not Reportable 08/24/24 16:16 Glucose 264 mg/dL (65-115) H 08/24/24 16:16 Estimat Average Glucose 148 08/24/24 16:16 Hemoglobin A1c 6.8 % (4.0-6.0) H 08/24/24 16:16 Calculated Osmolality 293 mOsm/kg (285-295) 08/24/24 16:16 Lactic Acid 7.6 mmol/L (0.5-2.2) H* 08/24/24 18:40 Calcium 9.0 mg/dL (8.5-10.5) 08/24/24 16:16 Magnesium 3.4 mg/dL (1.7-2.3) H 08/24/24 16:16 Total Bilirubin Cancelled 08/24/24 19:10 Direct Bilirubin Cancelled 08/24/24 19:10 Indirect Bilirubin Cancelled 08/24/24 19:10 GGT 179 U/L (8-61) H 08/24/24 16:16 AST 29 U/L (0-40) 08/24/24 16:16 ALT 18 U/L (0-41) 08/24/24 16:16 Alkaline Phosphatase 183 U/L (40-130) H 08/24/24 16:16 Ammonia 73 umol/L (16-60) H 08/24/24 18:45 Troponin T Baseline 59 ng/L (0-15) H 08/24/24 16:16 Troponin T 120 Minute 51.45 ng/L (0-15) H 08/24/24 19:10 Delta Troponin T -7.55 ABS# (0-10) L 08/24/24 19:10 C-Reactive Protein 6.6 mg/L (0.0-4.9) H 08/24/24 16:16 NT-Pro-B Natriuret Pep 4288 pg/mL (0-450) H 08/24/24 16:16 Total Protein 7.3 g/dL (6.6-8.7) 08/24/24 16:16 Albumin 3.4 g/dL (3.5-5.2) L 08/24/24 16:16 Globulin 3.9 g/dL (1.3-4.6) 08/24/24 16:16 Triglycerides 59 mg/dL (0-150) 08/24/24 16:16 Cholesterol 119 mg/dL (0-200) 08/24/24 16:16 LDL Cholesterol, Calc 76 mg/dL (50-129) 08/24/24 16:16 HDL Cholesterol 31 mg/dL (60-100) L 08/24/24 16:16 LDL/HDL Ratio 2.45 RATIO (0.00-3.22) 08/24/24 16:16 Cholesterol/HDL Ratio 3.84 mg/dL (1.0-5.00) 08/24/24 16:16 Lipase 55 U/L (13-60) 08/24/24 16:16 Procalcitonin 0.58 ng/mL (0-0.5) H 08/24/24 16:16 TSH 0.75 uIU/mL (0.27-4.20) 08/24/24 16:16 Urine Color Yellow (Yellow) 08/24/24 17:50 Urine Appearance Cloudy (CLEAR) A 08/24/24 17:50 Urine pH Not Reportable 08/24/24 17:50 Ur Specific [place] Not Reportable 08/24/24 17:50 Urine Protein Not Reportable 08/24/24 17:50 Urine Glucose (UA) Not Reportable 08/24/24 17:50 Urine Ketones Not Reportable 08/24/24 17:50 Urine Blood Not Reportable 08/24/24 17:50 Urine Nitrate Not Reportable 08/24/24 17:50 Urine Bilirubin Not Reportable 08/24/24 17:50 Urine Urobilinogen Not Reportable 08/24/24 17:50 Ur Leukocyte Esterase Not Reportable 08/24/24 17:50 Urine RBC 15-25 /hpf (0-2) H 08/24/24 17:50 Urine WBC 0-4 /hpf (0-5) H 08/24/24 17:50 Ur Squamous Epith Cells Rare /hpf (0-5) 08/24/24 17:50 Calcium Oxalate Crystal 0-4 /hpf H 08/24/24 17:50 Amorphous Sediment Not Reportable 08/24/24 17:50 Urine Bacteria 1+ /hpf (NONE) H 08/24/24 17:50 Urine Mucus None /hpf 08/24/24 17:50 Serum Ketones Negative (Negative) 08/24/24 16:16 Coronavirus (PCR) Negative (Negative) 08/24/24 17:50 Influenza A (PCR) Negative (Negative) 08/24/24 17:50 Influenza Type B (PCR) Negative (Negative) 08/24/24 17:50 RSV (PCR) Negative (Negative) 08/24/24 17:50 All radiology interpretation(s) finalized by discharge Discharge Plan Discharge Patient Disposition: Admitted As Inpatient Admit Provider: Gerardo Ennis Clinical Impression: Ischemic cardiomyopathy, Acute kidney injury superimposed on chronic kidney disease, Cirrhosis CHF (congestive heart failure) Qualifiers: Heart failure type: diastolic Heart failure chronicity: chronic Qualified Code(s): I50.32 - Chronic diastolic (congestive) heart failure CAD (coronary artery disease) Qualifiers: Coronary Disease-Associated Artery/Lesion type: bypass graft [place] vs. transplanted heart: [place] heart Associated angina: without angina Qualified Code(s): I25.810 - Atherosclerosis of coronary artery bypass graft(s) without angina pectoris Condition: Stable Coding Level of Care Code ED Kiln Worker for Devin Peoples
[2024-08-24 16:55] LABS: Basophils % 0.3 %; Eosinophils % 0.4 %; Lymphocytes % 10.9 %; Mean Corpuscular HGB Conc 30.4 g/dL (30-55); Mean Corpuscular Hemoglobin 24.5 pg (27-33); Mean Corpuscular Volume 80.6 fl (82-101); Mean Platelet Volume 11.7 fL (7.4-10.4); Monocytes # 1.7 10^3/uL (0.2-0.9); Monocytes % 17.7 %; Neutrophils # 6.66 10^3/uL (1.8-7.7); Neutrophils % 70.3 %; Nucleated Red Blood Cells % 0 %; Platelet Count 192 10^3/cmm (157-399); Red Cell Distribution Width 17.3 % (12.1-15.1); White Blood Count 9.48 10^3/uL (3.29-11.43)
[2024-08-24] MEDS: sodium chloride 0.9% 500 ML 999 ML IV (17:04)
[2024-08-24 17:15] LABS: Troponin(5th) Baseline 59 ng/L (0-15)
--- NOTE | 2024-08-24 17:15 | PC.NURSE ---
pt placed in trendelenburg upon arrival d/t hypotension, ED provider aware. (@0199)
[2024-08-24 17:21] LABS: Alanine Aminotransferase 18 U/L (0-41); Albumin Level 3.4 g/dL (3.5-5.2); Alkaline Phosphatase 183 U/L (40-130); Anion Gap 28.5 (5-19); Aspartate Amino Transferase 29 U/L (0-40); Blood Urea Nitrogen 69 mg/dL (8-23); Carbon Dioxide 17 mmol/L (22-29); Chloride 87 mmol/L (98-107); Creatinine Clr Calc Pharmacy 23.1202; Globulin 3.9 g/dL (1.3-4.6); Glucose 264 mg/dL (65-115); Lipase 55 U/L (13-60); Magnesium 3.4 mg/dL (1.7-2.3); Osmolality Calculated 293 mOsm/kg (285-295); Potassium 5.5 mmol/L (3.5-5.1); Sodium 127 mmol/L (136-145); Total Protein 7.3 g/dL (6.6-8.7)
[2024-08-24 17:23] LABS: Total Bilirubin 7.1 mg/dL (0.15-1.2)
[2024-08-24] MEDS: DOPamine drip 400 MG/250 ML PREMIX 10.36 MG IV (17:31)
--- NOTE | 2024-08-24 18:00 | CTR_ITS ---
PROCEDURE INFORMATION: Exam: CT Abdomen And Pelvis Without Contrast Exam date and time: 08/24/2024 7:29 PM Age: 74 years old Clinical indication: Abdominal pain TECHNIQUE: Imaging protocol: Computed tomography of the abdomen and pelvis without contrast. Radiation optimization: All CT scans at this facility use at least one of these dose optimization techniques: automated exposure control; mA and/or kV adjustment per patient size (includes targeted exams where dose is matched to clinical indication); or iterative reconstruction. COMPARISON: [place] [id number] 07/25/2024 6:43 PM RADIATION DOSE METRICS: Total DLP (mGy-cm): 889.23 FINDINGS: Lungs: Left slightly greater than right bibasilar atelectasis along with component of pleural thickening and small amount of posterior basilar effusions. Liver: Liver demonstrates lobular contour and decreased Hounsfield unit density measurements in relation to the spleen suggesting fatty liver. Gallbladder and biliary ducts: Gallstones or cholelithiasis, as noted with prior exam. No significant biliary ductal dilatation. Pancreas: Pancreas shows no focal abnormality or ductal dilatation. Spleen: No significant splenomegaly. Spleen shows no focal abnormality. Adrenal glands: Normal. No mass. Kidneys and ureters: No urinary tract stone or obstructive uropathy. Nonspecific bilateral perinephric stranding, some component which may be associated with mesenteric edema. Stomach and bowel: Mild sigmoid colon diverticulosis. Equivocal generalized colonic wall thickening. No focal abnormality. Mild gastric distension and particularly proximal to mid stomach, could be associated with recent ingestion or indicate gastric stasis/poor gastric emptying. Moderate stool in the colon. Appendix: The appendix is visualized. No evidence of appendicitis. Intraperitoneal space: Mild ascites is seen within the abdomen and pelvis. Generalized hazy mesenteric appearance suggesting mesenteric edema. No free air. Mesenteric infiltration or edema is seen within the pelvis around the region of the urinary bladder rectosigmoid colon. Vasculature: Atherosclerotic vascular disease without significant aneurysmal dilatation of the abdominal aorta. Lymph nodes: Unremarkable. No enlarged lymph nodes. Urinary bladder: A Ramires catheter is seen within a suboptimally distended urinary bladder. Reproductive: Unremarkable as visualized. Bones/joints: Degenerative change lumbar spine, more prominent lumbosacral junction. Soft tissues: Soft tissue anasarca. Mild right inguinal hernia of fat. CT/CT abdomen pelvis wo con [id number] IMPRESSION: 1. Basilar atelectasis with a component of pleural thickening and small amount of posterior basilar effusion. 2. Mild ascites within the abdomen and pelvis. Generalized hazy mesenteric appearance suggesting mesenteric edema. Soft tissue anasarca. Findings could be associated with hepatocellular disease/cirrhosis, CHF, or hypoproteinemia. 3. Fatty liver with lobular contour and consider hepatocellular disease. 4. Cholelithiasis. 5. Mild sigmoid colon diverticulosis without focal diverticulitis. Equivocal generalized colonic wall thickening, cannot exclude inflammation or colitis. 6. Ramires catheter within a suboptimally distended urinary bladder. Correlate with urinalysis otherwise. 7. Mild gastric distension and particularly proximal to mid stomach with suggestion of gastric contents. This could be associated with recent ingestion or indicate gastric stasis/poor gastric emptying.
[2024-08-24 18:14] LABS: Urine Color Yellow (Yellow)
[2024-08-24 18:15] LABS: Add Urine Microscopic? YES; UA Manual Slide Review YES; UA Slide Review UA Slide Review Perf; Urine Appearance Cloudy (CLEAR)
[2024-08-24 18:17] LABS: Bacteria Urine 1+ /hpf; Calcium Oxalate Crystals Urine 0-4 /hpf; Squamous Epithelial Cell Urine RARE /hpf (0-5); WBC Urine 0-4 /hpf (0-5)
[2024-08-24 18:18] LABS: Add Urine Culture? Yes; RBC Urine 15-25 /hpf (0-2)
--- NOTE | 2024-08-24 18:19 | USR_ITS ---
PROCEDURE INFORMATION: Exam: US Abdomen Complete Exam date and time: 08/24/2024 6:56 PM Age: 74 years old Clinical indication: Nausea and vomiting and other: Elevated alkphos; Additional info: US liver and gallbladder TECHNIQUE: Imaging protocol: Real-time ultrasound of the abdomen with image documentation. Complete exam. COMPARISON: US abdomen limited [id number] 08/01/2024 3:48 PM FINDINGS: Liver: Liver demonstrates coarse echotexture with hyperechoic appearance and lobulated contour. Liver length is 12.2 cm. Surrounding ascites is seen. No focal mass. No dilated intrahepatic ducts. Gallbladder: Multiple echogenic shadowing mobile gallstones are seen within the gallbladder indicating cholelithiasis. Gallbladder wall measures 8 mm, which is thickened. No significant pericholecystic fluid. Reported negative Jo sign. Biliary ducts: Common bile duct measures 4 mm. Pancreas: Midline images of the pancreas show no focal abnormality. Right kidney: Right kidney measures 11.4 x 7.1 x 6.6 cm. No hydronephrosis or focal abnormality. Left kidney: Left kidney measures 10.9 x 6.3 x 7.2 cm. No hydronephrosis or focal abnormality. Spleen: Spleen measures 12.5 cm, upper limits. No focal abnormality. Intraperitoneal space: [id number]-[id number] ascites around the liver and spleen. Aorta: Aorta is unremarkable in caliber. Inferior vena cava: IVC demonstrates bidirectional flow with no respiratory variation. Portal venous: Pulsatile or bidirectional portal venous flow suggesting portal hypertension. Patent umbilical vein noted. US/US abdomen complete* [id number] IMPRESSION: 1. Coarse hepatic echotexture with lobular contour suggesting hepatocellular disease/cirrhosis. 2. Associated [id number] ascites around the liver and spleen. 3. Bidirectional portal venous and IVC flow and patent umbilical vein suggesting portal hypertension. 4. Cholelithiasis. Gallbladder wall thickening of 8 mm without pericholecystic fluid or reported tenderness (negative Jo sign). This could indicate chronic cholecystitis change. 5. No biliary ductal dilatation.
--- NOTE | 2024-08-24 18:21 | USCV_ITS ---
Taran Higuera Age: 74 Gender: M : 1950 Exam Date: 08/24/2024 19:50 Ordering Phys: Gerardo Ennis MD Technologist: KIP [place] [facility] [place]: chest pain, s/p CABG 2000 s/p cardiac stenting BP: 96 / 58 HR: 70 Rhythm: Sinus Technical Quality: Adequate MEASUREMENTS (Male / Female) Normal Values 2D ECHO LV Diastolic Diameter PLAX 5.2 cm 4.2 - 5.9 / 3.9 - 5.3 cm IVS Diastolic Thickness 0.9 cm 0.6 - 1.0 / 0.6 - 0.9 cm IVS Systolic Thickness 1.3 cm LVPW Diastolic Thickness 1.6 cm 0.6 - 1.0 / 0.6 - 0.9 cm LVPW Systolic Thickness 1.6 cm LVOT Diameter 2.5 cm LV Ejection Fraction 2D Teich 31.5 % LV Ejection Fraction MOD 4C 31.5 % LV Ejection Fraction MOD 2C 36.0 % LV Ejection Fraction 2C AL 36.5 % LA Diameter 5.4 cm Aorta at Sinotubular Diameter 2.8 cm IVC Diameter 2.8 cm M-MODE LA Ao Ratio MM 1.6 AV Cusp Separation MM 0.7 cm DOPPLER AV Peak Velocity 310.0 cm/s LVOT Peak Velocity 50.0 cm/s AV Area Cont Eq vti 0.8 cm squared AV Area Cont Eq pk 0.8 cm squared MV Peak Velocity 143.0 cm/s MV Area PHT 3.2 cm squared Mitral E to A Ratio 2.1 TV Peak Velocity 119.5 cm/s TR Peak Velocity 123.0 cm/s TR Peak Gradient 6.1 mmHg TV Peak E Velocity 90.0 cm/s PV Peak Velocity 72.0 cm/s FINDINGS Left Ventricle Moderately increased left ventricular cavity size. Severely decreased left ventricular systolic function. Left ventricular ejection fraction is estimated at 31%. Abnormal septal motion. Grade II/IV diastolic dysfunction, moderately elevated filling pressures. Global left ventricular hypokinesis. Right Ventricle Moderately increased right ventricular size. Right Atrium Moderately increased right atrial size. Left Atrium Moderately increased left atrial size. Mitral Valve Mild mitral annular calcification. Moderately thickened mitral valve. Mild-moderate mitral valve regurgitation. Aortic Valve Severe aortic valve calcification. Severe aortic valve stenosis, mean gradient 15.3 mmHg, STEVEN 0.85 cm squared. Trace aortic valve regurgitation. Tricuspid Valve Severe tricuspid valve regurgitation. Pulmonic Valve Structurally normal pulmonic valve without significant stenosis. There is no pulmonic regurgitation. Pericardium Normal pericardium without effusion. Aorta Normal ascending aorta dimension. IVC The inferior vena cava appears normal. CONCLUSIONS Moderately increased left ventricular cavity size. Severely decreased left ventricular systolic function. Left ventricular ejection fraction is estimated at 31%. Abnormal septal motion. Grade II/IV diastolic dysfunction, moderately elevated filling pressures. Global left ventricular hypokinesis. Moderately increased right ventricular size. Moderately increased left atrial size. Severe aortic valve calcification. Severe aortic valve stenosis, mean gradient 15.3 mmHg, STEVEN 0.85 cm squared. Trace aortic valve regurgitation. Severe tricuspid valve regurgitation. Mild mitral annular calcification. Moderately thickened mitral valve. Mild-moderate mitral valve regurgitation. There is no pericardial effusion. Right atrial pressure is around 20 mm of mercury. Anson Gambino MD (Electronically Signed) Final Date: 25 August 2024 09:33 S
--- NOTE | 2024-08-24 18:21 | ECG_ITS ---
[facility] Test Date: 2024-08-24 Pat Name: Taran Higuera Department: Room: Gender: Male [employer]: : 1950 Requested By: Zachary Hall Order Number: [id number] Bebe MD: Narinder Pinon M.D. Measurements Intervals [place] Rate: 75 P: 30 NH: 259 QRS: 87 QRSD: 163 T: -9 QT: 410 QTc: 460 Interpretive Statements SINUS RHYTHM WITH FIRST DEGREE AV BLOCK INTRAVENTRICULAR CONDUCTION DELAY [130+ ms QRS DURATION] POSSIBLE INFERIOR MYOCARDIAL INFARCTION , OF INDETERMINATE AGE [30 ms Q WAVE IN II/aVF] Compared to ECG 08/24/2024 16:35:11 First degree AV block now present Intraventricular conduction delay now present Myocardial infarct finding now present Sinus bradycardia no longer present Right-axis deviation no longer present T-wave abnormality no longer present Possible ischemia no longer present Electronically Signed On 08-27-2024 23:32:42 SUPPLEMENTAL NURSE by Narinder Pinon M.D. [email or web address]
--- NOTE | 2024-08-24 18:24 | PM.HP ---
Providers/Chief Complaint Primary Care Provider: Mildred Grewal MD Chief Complaint: STEMI History of Present Illness Taran Higuera is a 74 year old male with a past medical history of atrial flutter not on anticoagulation, due to history of acute on chronic anemia, history of stenting to distal LAD, history of CABG with only 204 bypass graft open, aortic stenosis, type 2 diabetes, hypertension, hyperlipidemia, systolic CHF, peripheral vascular disease, who presents [facility] due to fatigue, malaise, confusion, chest pain, shortness of breath. Currently patient is alert to person, to place, not to time but his responses are delayed but can answer all questions appropriately, but does have episodes of confusion. Currently patient is clinically jaundiced, has scleral icterus, currently in Trendelenburg, blood pressures 90s over 60s, MAP is 65, is on dopamine, currently in shock, likely multifactorial septic and cardiogenic shock. Patient's tells me that he has been using his midodrine for his chronic CHF/cardiogenic shock 4 times daily. Patient has not been feeling well recently, fatigue, malaise, difficulty walking, notes abdominal pain but does report anterior chest discomfort also pain in the epigastrium. No nausea, no vomiting, no diarrhea, but does feel lightheaded and dizzy. He also reports increased fluid retention, increased lower extreme edema and shortness of breath. He has been having chest discomfort, epigastric discomfort has taken nitroglycerin multiple times for chest pressure. -In the emergency room patient was noted to have a white blood cell count of 9.48 -Hemoglobin 7.6, which is on the lower end, he is a Rastafarian and does not accept blood products no bloody or black stools reported but during his last hospitalization there was concerns for slow GI bleed as his Hemoccult stools were positive -INR is 1.6 -Sodium 12 7, however blood sugars 264, corrected sodium 130 -He is bicarb is 17, anion gap is 28.5 -I have ordered a ketone, and ABG for possible evaluation of DKA -His creatinine is 3.1, BUN 69, acute renal failure -BUN is 69, with hemoglobin of 7.6 this does raise the possibility of anemia and GI bleed, however septic shock, renal failure certainly also possibility -His T. bili 7.1 I have ordered a fractionated bilirubin, GGT -AST ALT within normal limits alk phos is 183 -Chest x-ray no acute findings -His prior ultrasound abdomen from July showed cholelithiasis, normal CBD, evidence of portal hypertension, liver had a coarse hepatic echotexture suspicious for hepatocellular disease/cirrhosis -I had a detailed discussion with patient and family at bedside including patient's daughter and -Currently patient is in shock -Etiology of the shock could be multifactorial -He does have underlying systolic CHF, cardiogenic shock for which she is on midodrine this certainly could be playing a role -Discussed with family that given his chest pain complaint therapy could be concern for worsening of his cardiogenic shock, underlying cardiac event given that he only has 2 of 4 of his bypass grafts open, his elevated troponins could be from this, it is difficult to say currently EKG does show ST depressions in anterior leads, cardiology has been consulted, for now we will do an echo, medically manage anticoagulation will be a difficult issue given his acute anemia as above concerns for GI bleed, given he is a Rastafarian I do not have a good answer for this, except just continuing his home anticoagulant therapy and a trial of a heparin drip and monitoring his hemoglobin every 4 hours if his hemoglobin drops and we have done our best to try to anticoagulate him -My other concern is is that his shock could be a component of septic shock -He has a history of cholelithiasis with his significant bili elevation, his jaundice, his confusion is elevated creatinine he is having features of septic shock -My concern would be acute ascending cholangitis given his prior history -For this he would need to be transferred to tertiary level center for ERCP as antibiotics would not be a solution -I have started him on Vanco meropenem in the emergency room -I would advise against fluid resuscitation currently as he is a high risk of respiratory failure from fluid overload quite sensitive to fluids -Currently on dopamine at 5 maps are still hovering in the low 60s to 65 he is in Trendelenburg -Levophed is being added -Thus I have recommended ER provider to do a CT scan abdomen pelvis, and a stat ultrasound of the abdomen -If the CT scan abdomen pelvis and the ultrasound of the bowel gallbladder/liver or his CRP, Pro-Omid, lactic acid or fractionated bilirubin show evidence of acute ascending cholangitis I would strongly recommend for him to be transferred to tertiary level center -As he has a high risk morbidity and mortality without an ERCP -He also has evidence of acute renal failure, this could be multifactorial from underlying heart failure, septic shock, diuretics -In terms of his respiratory status, he is currently on room air, he has fine crackles in all lung lacey but does not appear to be in acute respiratory distress, he does have a high risk of acute respiratory failure, high risk of acute flash pulm edema and would avoid fluids -I had a discussion with Taran's daughter his about his goals of care -Discussed with Taran that if this is an acute ascending cholangitis he is in shock currently transfer does carry significant morbidity and mortality but without interventions it carries significant morbidity mortality, discussed with him would he want to be transferred to tertiary level center he is agreeable, his family were at bedside and confirmed the decision -I discussed his overall goals of care with all family members at bedside Taran said that he wants to be a full code wants all interventions - he is a Rastafarian and he would not want blood products -Currently patient situation is quite complicated, his status is critical, prognosis is guarded -T these are my recommendations to the emergency room I have started on vancomycin, meropenem, maintain MAP greater than 65 currently on dopamine, Levophed, PICC line placed -Stat CT scan abdomen pelvis and stat ultrasound of the abdomen/bladder liver, GGT, fractionated bilirubin, lactic acid -If there is any evidence of acute ascending cholangitis I would recommend for him to be transferred to tertiary level center -If there is no significant evidence of acute ascending cholangitis, he can be mated to the ICU -If there is moderate evidence of acute ascending cholangitis, he should undergo an MRCP urgently -I was upfront and honest with family if he indeed has acute ascending cholangitis without intervention such as ERCP procedure he has 100% morbidity and mortality Review of Systems Const: Reports: fatigue and malaise Card: Reports: chest pain Resp: Reports: dyspnea GI: Reports: abdominal pain; Denies: nausea, vomiting or diarrhea : Denies: flank pain Neuro: Denies: headache(s) Medications/Allergies Home Medications Medication Instructions Recorded Confirmed Last Taken Type acetaminophen 500 mg tablet 500 mg PO Q6H PRN Pain 09/25/20 08/16/24 07/06/24 02:00 History Diabetic Shoes with 3 Pairs of #1 ea 11/19/22 08/16/24 Unknown Rx Inserts blood-glucose meter (OneTouch #1 ea 02/27/23 08/16/24 Unknown Rx Ultra2 Meter) nitroglycerin 0.4 mg sublingual See Rx Instructions .Route 03/24/24 08/16/24 07/06/24 12:25 Rx tablet .COMPLEX #25 tabs blood sugar diagnostic (OneTouch #100 ea 03/29/24 08/16/24 Unknown Rx Ultra Test strips) amiodarone 200 mg tablet (Pacerone) See Rx Instructions .Route 08/03/24 08/16/24 Unknown Rx .COMPLEX 30 days #60 tabs glucometer testing kit #1 ea 08/03/24 08/16/24 Unknown Rx insulin aspart U-100 100 unit/mL See Rx Instructions .Route 08/03/24 08/16/24 Unknown Rx (3 mL) subcutaneous pen (Novolog .COMPLEX #15 mL FlexPen U-100 Insulin aspart) insulin glargine 100 unit/mL (3 10 unit (0.1 mL) SUBCUT DAILY #15 08/09/24 08/16/24 Unknown Rx mL) subcutaneous pen (Lantus mL Solostar U-100 Insulin) lactulose 20 gram/30 mL oral 20 g (30 mL) PO Q12H #1,500 mL 08/09/24 08/16/24 Unknown Rx solution furosemide 20 mg tablet 20 mg PO DAILY 30 days #60 tabs 08/11/24 08/16/24 Unknown Rx ticagrelor 90 mg tablet (Brilinta) 90 mg PO BID 90 days #180 tabs 08/11/24 08/16/24 Unknown Rx ferrous sulfate 325 mg (65 mg 325 mg PO DAILY #30 tabs 08/16/24 08/16/24 Unknown Rx iron) tablet bumetanide 1 mg tablet 1 mg PO DAILY #30 tabs 08/19/24 Unknown Rx canagliflozin 100 mg tablet 100 mg PO DAILY #90 tabs 08/22/24 Unknown Rx (Invokana) evolocumab 140 mg/mL subcutaneous See Rx Instructions .Route 08/22/24 Unknown Rx pen injector (Repatha SureClick) .COMPLEX #6 mL pantoprazole 40 mg tablet,delayed 40 mg PO BID #60 tabs 08/22/24 Unknown Rx release Allergies Allergy/AdvReac Type Severity Reaction Status Date / Time albuterol Allergy Unknown Unknown Verified 08/16/24 13:19 atorvastatin [From Lipitor] Allergy Unknown Unknown Verified 08/16/24 13:19 diclofenac [From Arthrotec] Allergy Unknown Unknown Verified 08/16/24 13:19 misoprostol [From Arthrotec] Allergy Unknown Unknown Verified 08/16/24 13:19 pravastatin Allergy Unknown Unknown Verified 08/16/24 13:19 risedronate sodium Allergy Unknown Unknown Verified 08/16/24 13:19 [From Actonel] rosuvastatin [From Crestor] Allergy Unknown Unknown Verified 08/16/24 13:19 semaglutide [From Ozempic] Allergy Unknown Unknown Verified 08/16/24 13:19 fosinopril AdvReac Mild Cough Verified 08/16/24 13:19 lovastatin [From Mevacor] AdvReac Mild Myalgia Verified 08/16/24 13:19 PFSH Acute PFSH: Medical History Cellulitis of right lower leg Aortic stenosis Neuropathy Bilateral lower extremity edema Hyperlipidemia Degenerative disc disease Statin intolerance Chronic anticoagulation Microalbuminuria due to type 2 diabetes mellitus Cardiac LV ejection fraction 30-35% Diabetes mellitus Atrial flutter Shortness of breath Atrial fibrillation CAD (coronary artery disease) HTN (hypertension) PVD (peripheral vascular disease) CHF (congestive heart failure) Surgical History S/P hernia repair S/P arterial stent (~2002) History of hand surgery (~2013) S/P CABG (coronary artery bypass graft) (~2000) Family History Father Cancer Sister Cancer Brother Cancer Lung CA Mother COPD (chronic obstructive pulmonary disease) Social History Smoking and tobacco/nicotine status: former use of tobacco/nicotine Alcohol intake: never Substance/Drug Use: never Lives independently: Yes Household members: spouse Marital status: Vitals/I&O/Wt Last Vital Signs Temp 97.8 F 08/24/24 16:34 Pulse 77 08/24/24 18:00 Resp 16 08/24/24 17:55 BP 79/48 08/24/24 17:55 Pulse Ox 97 08/24/24 18:00 O2 Del Method Room Air 08/24/24 17:15 08/24/24 08/24/24 08/24/24 06:59 14:59 22:59 Intake Total 501.899 / 501.899 Balance 501.899 / 501.899 Weight last 48 hrs Weight 92.079 kg Physical Exam Const: COMMON NORMALS: no acute distress and patient oriented x3 HENMT: COMMON NORMALS: normocephalic HEAD & SCALP: normocephalic Neck/C-Spine: COMMON NORMALS: no JVD Resp: COMMON NORMALS: normal respiratory effort, No retractions, No use of accessory muscles and clear to auscultation bilaterally AUSCULTATION: clear to auscultation bilaterally Cardio: COMMON NORMALS: regular rate, regular rhythm, S1 normal heart sound present and S2 normal heart sound present RATE: regular rate RHYTHM: regular rhythm HEART SOUNDS: S1 normal heart sound present and S2 normal heart sound present GI: COMMON NORMALS: Normal to inspection, nondistended, normoactive bowel sounds present, Soft to palpation and non-tender Extremity: COMMON NORMALS: no pedal edema Neuro: COMMON NORMALS: patient oriented x3 Psych: COMMON NORMALS: mental status grossly normal Urinary Catheter Management: Ramires: Cath Placed During This Visit: yes Reason for Continuing Indwelling Catheter: Accurate Measurement of Urinary Output in Critically Ill Patients Urinary Catheter Date of Insertion: 08/24/24 Urinary Catheter Time of Insertion: 18:01 Data 08/24/24 16:16 08/24/24 16:16 A&P Assessment and plan (1) Shock: (2) Aortic stenosis: Qualifiers: Cardiac valve disease etiology: nonrheumatic Qualified Code(s): I35.0 - Nonrheumatic aortic (valve) stenosis (3) CAD (coronary artery disease): Qualifiers: Coronary Disease-Associated Artery/Lesion type: bypass graft [place] vs. transplanted heart: [place] heart Associated angina: without angina Qualified Code(s): I25.810 - Atherosclerosis of coronary artery bypass graft(s) without angina pectoris (4) Hyperlipidemia: (5) Diabetes mellitus: (6) Cirrhosis: (7) Hyperbilirubinemia: (8) Ascending cholangitis: (9) Septic shock: (10) Acute renal failure: (11) Metabolic acidosis: Plan Shock -Multifactorial -Concerns for septic shock, source acute ascending cholangitis, given concern for hyperbilirubinemia 7.1, jaundice and appearing, epigastric discomfort elevated alk phos -Fractionated bilirubin, lactic acid, CRP, Pro-Omid, blood cultures, CT abdomen pelvis without contrast ordered, stat ultrasound abdomen ordered -Started on vancomycin, meropenem -If patient's above imaging shows any significant evidence of acute ascending cholangitis he should be transferred to tertiary level center for consideration ERCP and this is patient's wish after extensive goals of care discussion with patient and family at bedside -If there is inconclusive evidence of acute ascending cholangitis, but suspicion remains high, would recommend urgent MRCP while patient is in the emergency room, would recommend against patient being admitted until this is done due to high risk of clinical deterioration -If there is no significant evidence of acute ascending cholangitis he can be admitted to the ICU -Other factor behind shock could be cardiogenic shock given his chest pain complaints -Stat cardiac echo -Baseline troponin is 59, does have ST depressions in anterior leads -Serial EKGs, short troponins, telemetry monitoring -Continue his home Brilinta -Anticoagulation is quite controversial, given he is a Rastafarian he has had Hemoccult stool positive in the past, high risk of GI bleed -For now what I would recommend is to watch the troponin trend -If his troponin continues to elevate, he has EKG changes then I would say that the benefit would outweigh the risk and start him on a heparin drip -If the trend remains flat we can avoid complications such as a GI bleed with a heparin drip -Discussed with family in detail about this plan, they are in agreement they understand the underlying complexities given his Hemoccult positive stools, he is slowly worsening anemia over time, that he is a Rastafarian, his elevated BUN -Acute renal failure likely multifactorial from septic shock,, cardiogenic shock, maintain MAP greater than 65 -Shock, continue Levophed, dopamine, PICC line to be placed -Encephalopathy likely multifactorial from uremia, hyperbilirubinemia, liver failure, septic shock, current alert to person to to place, not to time does follow commands check ammonia levels, broad-spectrum diuretic therapy, Levophed -Metabolic acidosis, increased anion gap check ketones to ensure patient does not have DKA -Check blood cultures -Elevated INR 1.6 -Chest x-ray does not show significant pulm vascular congestion, he is on room air, continue to monitor will consider Lasix based on clinical progress as he is high risk of acute flash pulm edema -Is a Rastafarian does not accept blood products -Patient's status is critical, prognosis guarded Attestations Medical Necessity Statement*: Patient requires hospitalization possibly transferred for septic shock, cardiogenic shock, acute renal failure, acute encephalopathy, metabolic acidosis, acute ascending cholangitis, hyperbilirubinemia Coding Level of Care Code Critical Care >/= 30 minutes Critical care time (in minutes): 45 The high probability of a clinically significant, sudden or life threatening deterioration, as referenced in this documentation, required my full and direct attention, intervention and personal management. The critical care time shown is in addition to time spent performing any reported separately billable procedures and includes the following: [x] Data and vital sign review and interpretation [x] Patient assessment, examination and intervention [x] Medication orders and management [x] Patient/Family updates as able [x] Care Coordination and Documentation. Diagnoses Shock R57.9 Nonrheumatic aortic valve stenosis I35.0 Cardiac valve disease etiology: nonrheumatic Coronary artery disease involving coronary bypass graft of [place] heart without angina pectoris I25.810 Coronary Disease-Associated Artery/Lesion type: bypass graft [place] vs. transplanted heart: [place] heart Associated angina: without angina Hyperlipidemia E78.5 Diabetes mellitus E11.9 Cirrhosis K74.60 Hyperbilirubinemia E80.6 Ascending cholangitis K83.09 Septic shock A41.9; R65.21 Acute renal failure N17.9 Metabolic acidosis E87.20
--- NOTE | 2024-08-24 18:27 | PC.NURSE ---
antibiotics delayed @1830 delayed d/t blood cultures not being obtained yet
--- NOTE | 2024-08-24 18:27 | PHA.VACGOAL ---
Vancomycin Goal - Goal Vancomycin Goal:: 15-20 mg/L Vancomycin Indication:: Pneumonia - Therapy Day of therpy:: Day []of [] . Actual body weight (kg): 203 lb - Data Labs: WBC 9.48 10^3/uL (3.29-11.43) 08/24/24 16:16 RBC 3.10 10^6/uL (3.85-5.65) L 08/24/24 16:16 Hgb 7.60 g/dL (11.27-16.99) L 08/24/24 16:16 Hct 25.0 % (37-53) L 08/24/24 16:16 MCV 80.6 fl (82-101) L 08/24/24 16:16 MCH 24.5 pg (27-33) L 08/24/24 16:16 MCHC 30.4 g/dL (30-55) 08/24/24 16:16 RDW 17.3 % (12.1-15.1) H 08/24/24 16:16 Sodium 127 mmol/L (136-145) L 08/24/24 16:16 Potassium 5.5 mmol/L (3.5-5.1) H 08/24/24 16:16 Chloride 87 mmol/L (98-107) L 08/24/24 16:16 Carbon Dioxide 17 mmol/L (22-29) L 08/24/24 16:16 Anion Gap 28.5 (5-19) H 08/24/24 16:16 BUN 69 mg/dL (8-23) H 08/24/24 16:16 Creatinine 3.1 mg/dL (0.7-1.2) H 08/24/24 16:16 GFR Calculation Not Reportable 08/24/24 16:16 Treatment plan:: new consult Regimen:: PT HISTORY OF KIDNEY DISEASE 1500 MG LOADING DOSE PULSE DOSING PROTOCOL, TROUGH SCHEDULED 08/25 @ 1700 NEXT DOSE TBD FOLLOWING LAB RESULTS
[2024-08-24 18:33] LABS: Blood Gas Sample Site Brachial, left; Blood Gas Sample Type Arterial; Oxygen Device ROOM AIR
[2024-08-24] MEDS: pantoprazole 40 mg SDV IVP (18:35)
[2024-08-24 18:49] LABS: Covid PCR NEGATIVE (Negative); Influenza A NEGATIVE (Negative); Influenza B NEGATIVE (Negative); Respiratory Syncytial Virus Ce NEGATIVE (Negative)
[2024-08-24 18:50] LABS: Ketone (Acetest) Serum Negative (Negative)
[2024-08-24 19:20] LABS: Ammonia 73 umol/L (16-60)
[2024-08-24 19:21] LABS: Lactic Sepsis W/Reflex 7.6 mmol/L (0.5-2.2)
[2024-08-24 19:29] LABS: ABG PCO2 25.9 mmHg (35-45); ABG PH Result 7.42 (7.35-7.45); Arterial Blood Gas Hematocrit 24.5 % (42-52); HCO3 ABG 16.6 mmol/L (22-26); PO2 ABG 81.5 mmHg (80.0-100.0); PO2 FiO2 Ratio Arterial Blood 388
[2024-08-24] MEDS: meropenem 500 mg SDV IVP (19:39)
[2024-08-24] MEDS: vancomycin 1,500 MG/300 ML PIGGYBACK 200 MG IV (19:40)
[2024-08-24] MEDS: ticagrelor 90 mg Tablet PO (19:40)
[2024-08-24 19:43] LABS: Troponin 5 2HR 51.45 ng/L (0-15); Troponin 5 2HR Delta -7.55 ABS# (0-10)
[2024-08-24 20:27] LABS: NT Pro B Type Natriuretic Pept 4288 pg/mL (0-450); Procalcitonin 0.58 ng/mL (0-0.5); Thyroid Stimulating Hormone 0.75 uIU/mL (0.27-4.20)
[2024-08-24 20:35] LABS: Reflex Lactate Order REFLEX LACTIC ORDERD
[2024-08-24 20:38] LABS: C Reactive Protein 6.6 mg/L (0.0-4.9); Chol HDL Ratio 3.84 mg/dL (1.0-5.00); Cholesterol 119 mg/dL (0-200); Gamma Glutamyl Transferase 179 U/L (8-61); HDL Cholesterol 31 mg/dL (60-100); LDL Cholesterol Calculated 76 mg/dL (50-129); LDL HDL Ratio 2.45 RATIO (0.00-3.22); Triglycerides 59 mg/dL (0-150)
[2024-08-24 21:26] LABS: Estmated Average Glucose 148; Hemoglobin A1C 6.8 % (4.0-6.0)
[2024-08-24 22:33] LABS: Glucose Point of Care 265 mg/dL (70-110)
[2024-08-24 23:18] LABS: Troponin 5 6HR 75.94 ng/L (0-15)
--- NOTE | 2024-08-24 23:18 | PM.CONSULT ---
Providers/Reason For Consult Consulting Physician/Specialty*: Narinder Pinon MD/ Cardiology Reason for Consult*: EKG changes Requesting Physician: Dr Martinez Attending Physician: Gerardo Ennis MD Primary Care Provider: Mildred Grewal MD History of Present Illness History of Present Illness Taran Higuera is a 74 year old male with significant CAD history, congestive heart failure, anemia. We were consulted as EMS activated a STEMI alert from field. Patient had intermittent chest discomfort with shortness of breath. Main complaint is feeling weak. EKG is showing ST depressions but no ST elevation. He is short of breath. On room air. Review of Systems Const: Denies: fever(s) or chills Card: Reports: chest pain Resp: Reports: dyspnea GI: Reports: nausea; Denies: abdominal pain, vomiting or diarrhea : Denies: dysuria, urinary frequency or urinary urgency Musc: Denies: neck pain or back pain Skin/Breast: Denies: rash Medications/Allergies Home Medications Medication Instructions Recorded Confirmed Last Taken Type acetaminophen 500 mg tablet 500 mg PO Q6H PRN Pain 09/25/20 08/25/24 07/06/24 02:00 History Diabetic Shoes with 3 Pairs of #1 ea 11/19/22 08/25/24 Unknown Rx Inserts blood-glucose meter (OneTouch #1 ea 02/27/23 08/25/24 Unknown Rx Ultra2 Meter) nitroglycerin 0.4 mg sublingual See Rx Instructions .Route 03/24/24 08/25/24 07/06/24 12:25 Rx tablet .COMPLEX #25 tabs blood sugar diagnostic (OneTouch #100 ea 03/29/24 08/25/24 Unknown Rx Ultra Test strips) amiodarone 200 mg tablet (Pacerone) See Rx Instructions .Route 08/03/24 08/25/24 Unknown Rx .COMPLEX 30 days #60 tabs glucometer testing kit #1 ea 08/03/24 08/25/24 Unknown Rx insulin aspart U-100 100 unit/mL See Rx Instructions .Route 08/03/24 08/25/24 Unknown Rx (3 mL) subcutaneous pen (Novolog .COMPLEX #15 mL FlexPen U-100 Insulin aspart) insulin glargine 100 unit/mL (3 10 unit (0.1 mL) SUBCUT DAILY #15 08/09/24 08/25/24 Unknown Rx mL) subcutaneous pen (Lantus mL Solostar U-100 Insulin) lactulose 20 gram/30 mL oral 20 g (30 mL) PO Q12H #1,500 mL 08/09/24 08/25/24 Unknown Rx solution furosemide 20 mg tablet 20 mg PO DAILY 30 days #60 tabs 08/11/24 08/25/24 Unknown Rx ticagrelor 90 mg tablet (Brilinta) 90 mg PO BID 90 days #180 tabs 08/11/24 08/25/24 Unknown Rx ferrous sulfate 325 mg (65 mg 325 mg PO DAILY #30 tabs 08/16/24 08/25/24 Unknown Rx iron) tablet bumetanide 1 mg tablet 1 mg PO DAILY #30 tabs 08/19/24 08/25/24 Unknown Rx canagliflozin 100 mg tablet 100 mg PO DAILY #90 tabs 08/22/24 08/25/24 Unknown Rx (Invokana) evolocumab 140 mg/mL subcutaneous See Rx Instructions .Route 08/22/24 08/25/24 Unknown Rx pen injector (Mare Boogie) .COMPLEX #6 mL pantoprazole 40 mg tablet,delayed 40 mg PO BID #60 tabs 08/22/24 08/25/24 Unknown Rx release ciprofloxacin HCl 250 mg tablet 250 mg PO BID 08/25/24 08/25/24 Unknown History midodrine 10 mg tablet 10 mg PO Q6H 08/25/24 08/25/24 Unknown History potassium chloride 10 mEq 10 meq PO BID 08/25/24 08/25/24 Unknown History tablet,extended release Allergies Allergy/AdvReac Type Severity Reaction Status Date / Time albuterol Allergy Unknown Unknown Verified 08/16/24 13:19 atorvastatin [From Lipitor] Allergy Unknown Unknown Verified 08/16/24 13:19 diclofenac [From Arthrotec] Allergy Unknown Unknown Verified 08/16/24 13:19 misoprostol [From Arthrotec] Allergy Unknown Unknown Verified 08/16/24 13:19 pravastatin Allergy Unknown Unknown Verified 08/16/24 13:19 risedronate sodium Allergy Unknown Unknown Verified 08/16/24 13:19 [From Actonel] rosuvastatin [From Crestor] Allergy Unknown Unknown Verified 08/16/24 13:19 semaglutide [From Ozempic] Allergy Unknown Unknown Verified 08/16/24 13:19 fosinopril AdvReac Mild Cough Verified 08/16/24 13:19 lovastatin [From Mevacor] AdvReac Mild Myalgia Verified 08/16/24 13:19 Current Medications Generic Name Dose Route Start Last Admin Trade Name Freq PRN Reason Stop Dose Admin Dopamine HCl/Dextrose 400 mg in 250 mls @ 10.359 mls/hr 08/24/24 17:30 08/24/24 17:42 Intropin Drip IV 5 mcg/kg/min CONT [place] 17.27 mls/hr Titration Protocol 3 MCG/KG/MIN Meropenem 500 mg 08/24/24 19:00 08/24/24 19:39 Meropenem 500 Mg Sdv IVP 500 mg Q12H [place] Administration Protocol Pantoprazole Sodium 40 mg 08/24/24 18:30 08/24/24 18:35 Pantoprazole 40 Mg Sdv IVP 40 mg Q12H [place] Administration Ticagrelor 90 mg 08/24/24 19:00 08/24/24 19:40 Ticagrelor 90 Mg Tablet PO 90 mg BID [place] Administration PFSH Acute PFSH: Medical History Cellulitis of right lower leg Aortic stenosis Neuropathy Bilateral lower extremity edema Hyperlipidemia Degenerative disc disease Statin intolerance Chronic anticoagulation Microalbuminuria due to type 2 diabetes mellitus Cardiac LV ejection fraction 30-35% Diabetes mellitus Atrial flutter Shortness of breath Atrial fibrillation CAD (coronary artery disease) HTN (hypertension) PVD (peripheral vascular disease) CHF (congestive heart failure) Surgical History S/P hernia repair S/P arterial stent (~2002) History of hand surgery (~2013) S/P CABG (coronary artery bypass graft) (~2000) Family History Father Cancer Sister Cancer Brother Cancer Lung CA Mother COPD (chronic obstructive pulmonary disease) Social History Smoking and tobacco/nicotine status: former use of tobacco/nicotine Alcohol intake: never Substance/Drug Use: never Lives independently: Yes Household members: spouse Marital status: Vitals/I&O/Wt Last Vital Signs Temp 97.8 F 08/24/24 16:34 Pulse 70 08/24/24 21:28 Resp 18 08/24/24 21:28 BP 105/52 08/24/24 21:28 Pulse Ox 99 08/24/24 21:28 O2 Del Method Room Air 08/24/24 17:15 08/24/24 08/24/24 08/25/24 14:59 22:59 06:59 Intake Total 801.899 / 801.899 Balance 801.899 / 801.899 Weight last 48 hrs Weight 203 lb Physical Exam Narrative: GENERAL: Patient is alert NECK: No jugular vein distension. [] HEENT: No cyanosis. No icterus. No pallor. [] HEART: Regular S1 and S2. Grade 3 systolic murmur LUNGS: Diminished air entry CENTRAL NERVOUS SYSTEM: Grossly nonfocal. [] EXTREMITIES: Lower extremities with 1+ edema bilaterally. Urinary Catheter Management: Ramires: Cath Placed During This Visit: yes Reason for Continuing Indwelling Catheter: Accurate Measurement of Urinary Output in Critically Ill Patients Urinary Catheter Date of Insertion: 08/24/24 Urinary Catheter Time of Insertion: 18:01 Data 08/25/24 04:11 08/25/24 10:26 Micro: Microbiology 08/24/24 18:40 Blood Culture - Preliminary Blood SPECIMEN COLLECTED 08/24/24 18:36 Blood Culture - Preliminary Blood SPECIMEN COLLECTED A&P Assessment and plan (1) CHF (congestive heart failure): Qualifiers: Heart failure type: diastolic Heart failure chronicity: chronic Qualified Code(s): I50.32 - Chronic diastolic (congestive) heart failure (2) CAD (coronary artery disease): Qualifiers: Coronary Disease-Associated Artery/Lesion type: bypass graft [place] vs. transplanted heart: [place] heart Associated angina: without angina Qualified Code(s): I25.810 - Atherosclerosis of coronary artery bypass graft(s) without angina pectoris (3) HTN (hypertension): Qualifiers: Hypertension type: essential hypertension Qualified Code(s): I10 - Essential (primary) hypertension (4) Aortic stenosis: Qualifiers: Cardiac valve disease etiology: nonrheumatic Qualified Code(s): I35.0 - Nonrheumatic aortic (valve) stenosis (5) Hyperlipidemia: (6) Ischemic cardiomyopathy: (7) Acute exacerbation of CHF (congestive heart failure): Plan Patient is a chest pain is atypical. Likely exacerbation of CHF. He will need further workup. No STEMI. No immediate indication for taking patient to cardiac [employer]. Trend troponins. Obtain echocardiogram. Patient has multiple admissions to hospital Thank you for involving us with care of this patient. We will continue to follow. please call with questions. Consult Attestations Medical Necessity Statement: Care expected to cross 2 midnights. Coding Level of Care Code Acute Code for [facility] Fwd Diagnoses Chronic diastolic congestive heart failure I50.32 Heart failure type: diastolic Heart failure chronicity: chronic Coronary artery disease involving coronary bypass graft of [place] heart without angina pectoris I25.810 Coronary Disease-Associated Artery/Lesion type: bypass graft [place] vs. transplanted heart: [place] heart Associated angina: without angina Essential hypertension I10 Hypertension type: essential hypertension Nonrheumatic aortic valve stenosis I35.0 Cardiac valve disease etiology: nonrheumatic Hyperlipidemia E78.5 Ischemic cardiomyopathy I25.5 Acute exacerbation of CHF (congestive heart failure) I50.9
[2024-08-24 23:26] LABS: Troponin 5 6HR Delta 16.94 ng/L (0-12)
[2024-08-24 23:28] LABS: Lactic Acid level (Lactate) 8.5 mmol/L (0.5-2.2)
[2024-08-24 23:55] LABS: Total Bilirubin 7.9 mg/dL (0.15-1.2)
[2024-08-25] VITALS (74 sets, daily range): BP systolic 93–109; BP diastolic 40–54; PULSE 64–78; RESP 8–21; TEMP 36.3–36.7; O2SAT 96–100
[2024-08-25] MEDS: enoxaparin 30 mg/0.3 mL Syringe SUBCUT (01:04)
[2024-08-25] MEDS: sodium chloride 0.9% 500 ML 999 ML IV (01:04)
[2024-08-25 04:38] LABS: Basophils % 0.3 %; Eosinophils % 0.2 %; Hematocrit 24.9 % (37-53); Lymphocytes # 0.5 10^3/uL (0.8-4.8); Lymphocytes % 4.4 %; Mean Corpuscular HGB Conc 30.1 g/dL (30-55); Mean Corpuscular Hemoglobin 24.8 pg (27-33); Mean Corpuscular Volume 82.2 fl (82-101); Mean Platelet Volume 11.8 fL (7.4-10.4); Monocytes # 3.3 10^3/uL (0.2-0.9); Monocytes % 27.5 %; Neutrophils # 8.13 10^3/uL (1.8-7.7); Neutrophils % 67.1 %; Nucleated Red Blood Cells % 0.2 %; Platelet Count 205 10^3/cmm (157-399); Red Blood Count 3.03 10^6/uL (3.85-5.65); Red Cell Distribution Width 17.2 % (12.1-15.1); White Blood Count 12.11 10^3/uL (3.29-11.43)
[2024-08-25 04:52] LABS: INR 1.91 (0.8-1.2)
[2024-08-25 04:54] LABS: Partial Thromboplastin Time 43.6 SECONDS (23.9-36.7)
[2024-08-25 04:57] LABS: Alanine Aminotransferase 18 U/L (0-41); Albumin Level 3.2 g/dL (3.5-5.2); Alkaline Phosphatase 176 U/L (40-130); Anion Gap 28.3 (5-19); Aspartate Amino Transferase 29 U/L (0-40); Blood Urea Nitrogen 74 mg/dL (8-23); Calcium 9.1 mg/dL (8.5-10.5); Carbon Dioxide 17 mmol/L (22-29); Chloride 87 mmol/L (98-107); Creatinine Clr Calc Pharmacy 20.7238; Globulin 4.1 g/dL (1.3-4.6); Glucose 219 mg/dL (65-115); Magnesium 3.3 mg/dL (1.7-2.3); Osmolality Calculated 291 mOsm/kg (285-295); Phosphorus 7.4 mg/dL (2.5-4.5); Potassium 6.3 mmol/L (3.5-5.1); Sodium 126 mmol/L (136-145); Total Protein 7.3 g/dL (6.6-8.7)
[2024-08-25 05:16] LABS: Total Bilirubin 8.4 mg/dL (0.15-1.2)
[2024-08-25 06:08] LABS: Lactate (Lactic Acid level) 8.1 mmol/L (0.5-2.2)
[2024-08-25] MEDS: meropenem 500 mg SDV IVP (07:05)
[2024-08-25] MEDS: pantoprazole 40 mg SDV IVP (07:05)
[2024-08-25] MEDS: sodium bicarbonate 8.4% 1 mEq/mL 50mL Syr 100 MEQ IVP (07:20)
[2024-08-25 07:29] LABS: Glucose Point of Care 247 mg/dL (70-110)
[2024-08-25] MEDS: insulin lispro 100 unit/1 mL SUBCUT (07:32)
--- NOTE | 2024-08-25 07:37 | XR_ITS ---
WS: [id number] Portable AP upright chest, 08/25/2024 Clinical Data: Post PICC insertion Comparison: Portable chest, 08/24/2024 Findings: The right PICC line ends in the superior vena cava. No pneumothorax is seen. The heart show s enlargement. There is minimal basilar opacity which could represent atelectasis, fluid and/or less likely acute pneumonia. XR/XR chest 1V portable [id number] Impression: Satisfactory placement right PICC line.
[2024-08-25] MEDS: sodium bicarbonate 50 MEQ in sodium chloride 0.45% 1,000 ML 75 MEQ IV (07:48)
--- NOTE | 2024-08-25 08:01 | P.CONIM_ITS ---
Providers/Reason For Consult 2 Consulting Physician/Specialty*: kommana/Nephrology Reason for Consult*: JAN Attending Physician: Gerardo Ennis MD Primary Care Provider: Mildred Grewal MD History of Present Illness History of Present Illness Taran Higuera is a 74 year old male Patient is a 74-year-old male with multiple medical problems including atrial flutter, aortic stenosis, diabetes hypertension dyslipidemia CHF peripheral vascular disease, coronary artery disease and prior CABG admitted to the hospital due to generalized weakness confusion chest pain and shortness of breath. He was noted to be jaundiced blood pressures were low in the ED and lab data significant forAnd creatinine of 3.1 with a baseline creatinine in the mid 1 range.Labor significant for also has elevated potassium this morning up to 6.3. Has metabolic acidosis with a bicarb of 17.Creatine of 3.1 with a baseline creatinine in the mid one range.Also has elevated potassium this morning up to 6.3. Has metabolic acidosis with a bicarb of 17. Chest x-ray with no acute findings. Noted elevated lactic acid levelNoted lactic acid level total bilirubin is at 8.4 this morningTotal bilirubin is at 8.4 this morning also has elevated troponin. And cardiology was consulted.Also has elevated troponin pe is currently on dopamine drip, Ramires catheter placed. On room air.riod and cardiology was consulted.Currently on dopamine drip. Only had 100 cc of urine output since admission. Review of Systems 2 Narrative: cannot obtaIn full ROS Medications/Allergies Home Medications Medication Instructions Recorded Confirmed Last Taken Type acetaminophen 500 mg tablet 500 mg PO Q6H PRN Pain 09/25/20 08/25/24 07/06/24 02:00 History Diabetic Shoes with 3 Pairs of #1 ea 11/19/22 08/25/24 Unknown Rx Inserts blood-glucose meter (OneTouch #1 ea 02/27/23 08/25/24 Unknown Rx Ultra2 Meter) nitroglycerin 0.4 mg sublingual See Rx Instructions .Route 03/24/24 08/25/24 07/06/24 12:25 Rx tablet .COMPLEX #25 tabs blood sugar diagnostic (OneTouch #100 ea 03/29/24 08/25/24 Unknown Rx Ultra Test strips) amiodarone 200 mg tablet (Pacerone) See Rx Instructions .Route 08/03/24 08/25/24 Unknown Rx .COMPLEX 30 days #60 tabs glucometer testing kit #1 ea 08/03/24 08/25/24 Unknown Rx insulin aspart U-100 100 unit/mL See Rx Instructions .Route 08/03/24 08/25/24 Unknown Rx (3 mL) subcutaneous pen (Novolog .COMPLEX #15 mL FlexPen U-100 Insulin aspart) insulin glargine 100 unit/mL (3 10 unit (0.1 mL) SUBCUT DAILY #15 08/09/24 08/25/24 Unknown Rx mL) subcutaneous pen (Lantus mL Solostar U-100 Insulin) lactulose 20 gram/30 mL oral 20 g (30 mL) PO Q12H #1,500 mL 08/09/24 08/25/24 Unknown Rx solution furosemide 20 mg tablet 20 mg PO DAILY 30 days #60 tabs 08/11/24 08/25/24 Unknown Rx ticagrelor 90 mg tablet (Brilinta) 90 mg PO BID 90 days #180 tabs 08/11/24 08/25/24 Unknown Rx ferrous sulfate 325 mg (65 mg 325 mg PO DAILY #30 tabs 08/16/24 08/25/24 Unknown Rx iron) tablet bumetanide 1 mg tablet 1 mg PO DAILY #30 tabs 08/19/24 08/25/24 Unknown Rx canagliflozin 100 mg tablet 100 mg PO DAILY #90 tabs 08/22/24 08/25/24 Unknown Rx (Invokana) evolocumab 140 mg/mL subcutaneous See Rx Instructions .Route 08/22/24 08/25/24 Unknown Rx pen injector (Mare Boogie) .COMPLEX #6 mL pantoprazole 40 mg tablet,delayed 40 mg PO BID #60 tabs 08/22/24 08/25/24 Unknown Rx release ciprofloxacin HCl 250 mg tablet 250 mg PO BID 08/25/24 08/25/24 Unknown History midodrine 10 mg tablet 10 mg PO Q6H 08/25/24 08/25/24 Unknown History potassium chloride 10 mEq 10 meq PO BID 08/25/24 08/25/24 Unknown History tablet,extended release Allergies Allergy/AdvReac Type Severity Reaction Status Date / Time albuterol Allergy Unknown Unknown Verified 08/16/24 13:19 atorvastatin [From Lipitor] Allergy Unknown Unknown Verified 08/16/24 13:19 diclofenac [From Arthrotec] Allergy Unknown Unknown Verified 08/16/24 13:19 misoprostol [From Arthrotec] Allergy Unknown Unknown Verified 08/16/24 13:19 pravastatin Allergy Unknown Unknown Verified 08/16/24 13:19 risedronate sodium Allergy Unknown Unknown Verified 08/16/24 13:19 [From Actonel] rosuvastatin [From Crestor] Allergy Unknown Unknown Verified 08/16/24 13:19 semaglutide [From Ozempic] Allergy Unknown Unknown Verified 08/16/24 13:19 fosinopril AdvReac Mild Cough Verified 08/16/24 13:19 lovastatin [From Mevacor] AdvReac Mild Myalgia Verified 08/16/24 13:19 Current Medications Generic Name Dose Route Start Last Admin Trade Name Freq PRN Reason Stop Dose Admin Enoxaparin Sodium 30 mg 08/24/24 22:45 08/25/24 01:04 Enoxaparin 30 Mg/0.3 Ml Syringe SUBCUT 30 mg Q24H [place] Administration Dopamine HCl/Dextrose 400 mg in 250 mls @ 10.359 mls/hr 08/24/24 17:30 08/24/24 17:42 Intropin Drip IV 5 mcg/kg/min CONT [place] 17.27 mls/hr Titration Protocol 3 MCG/KG/MIN Sodium Bicarbonate 50 meq/ 1,050 mls @ 75 mls/hr 08/25/24 07:15 08/25/24 07:48 Sodium Chloride IV 75 mls/hr .Q14H [place] Administration Insulin Human Lispro 0 unit 08/25/24 08:00 08/25/24 07:32 Insulin Lispro 100 Unit/1 Ml SUBCUT 6 unit TIDWM [place] Administration Protocol Meropenem 500 mg 08/24/24 19:00 08/25/24 07:05 Meropenem 500 Mg Sdv IVP 500 mg Q12H [place] Administration Protocol Pantoprazole Sodium 40 mg 08/24/24 18:30 08/25/24 07:05 Pantoprazole 40 Mg Sdv IVP 40 mg Q12H [place] Administration Pantoprazole Sodium 40 mg 08/25/24 07:00 08/25/24 07:04 Pantoprazole 40 Mg Sdv IVP Not Given ACBREAKFAST [place] Ticagrelor 90 mg 08/24/24 19:00 08/24/24 19:40 Ticagrelor 90 Mg Tablet PO 90 mg BID [place] Administration PFSH Acute 2 PFSH: Medical History Cellulitis of right lower leg Aortic stenosis Neuropathy Bilateral lower extremity edema Hyperlipidemia Degenerative disc disease Statin intolerance Chronic anticoagulation Microalbuminuria due to type 2 diabetes mellitus Cardiac LV ejection fraction 30-35% Diabetes mellitus Atrial flutter Shortness of breath Atrial fibrillation CAD (coronary artery disease) HTN (hypertension) PVD (peripheral vascular disease) CHF (congestive heart failure) Surgical History S/P hernia repair S/P arterial stent (~2002) History of hand surgery (~2013) S/P CABG (coronary artery bypass graft) (~2000) Family History Father Cancer Sister Cancer Brother Cancer Lung CA Mother COPD (chronic obstructive pulmonary disease) Social History Smoking and tobacco/nicotine status: former use of tobacco/nicotine Alcohol intake: never Substance/Drug Use: never Lives independently: Yes Household members: spouse Marital status: Vitals/I&O/Wt Last Vital Signs Temp 98.1 F 08/25/24 02:00 Pulse 65 08/25/24 06:00 Resp 15 08/25/24 05:35 BP 99/47 08/25/24 05:35 Pulse Ox 99 08/25/24 05:35 O2 Del Method Room Air 08/24/24 22:01 08/24/24 08/25/24 08/25/24 22:59 06:59 14:59 Intake Total 801.899 / 801.899 Balance 801.899 / 801.899 Weight last 48 hrs Weight 94.347 kg Weight 94.5 kg Weight 92.079 kg Physical Exam 2 Narrative: AWAKE , ALERT ., ON ROOM AIR peerla S1S2 RRRR per report lungs clear per report + LE edema Urinary Catheter Management: Ramires: Cath Placed During This Visit: yes Reason for Continuing Indwelling Catheter: Accurate Measurement of Urinary Output in Critically Ill Patients Urinary Catheter Date of Insertion: 08/24/24 Urinary Catheter Time of Insertion: 18:01 Data 08/25/24 04:11 08/25/24 04:11 Micro: Microbiology 08/24/24 18:40 Blood Culture - Preliminary Blood SPECIMEN COLLECTED 08/24/24 18:36 Blood Culture - Preliminary Blood SPECIMEN COLLECTED A&P Assessment and plan (1) Acute renal failure: 1. Acute on chronic kidney disease stage III: Baseline creatinine seems to be in the mid 1 range now has JAN with a creatinine of 3.5 associated with metabolic acidosis and hyperkalemia. Patient currently is oliguric and in shock. Patient on dopamine drip and also placed on bicarbonate drip .await repeat labs and monitor urine output--> if no improvement will request temporary cath again we will consider CRRT versus HD with low BFR 2. Hyperkalemia, medical management for now and repeat labs 3. Metabolic acidosis in the setting of shock with hypotension and lactic acidosis 4. Shock: Question cardIogenic versus septic shock, workup in process, on broad-spectrum antibiotic. 5. History of coronary artery disease, prior CABG 6. History of atrial flutter Consult Attestations 2 Medical Necessity Statement: per [place] Coding Level of Care Code Acute Code for [facility] Fwd Diagnoses Acute renal failure N17.9
[2024-08-25] MEDS: DOPamine drip 400 MG/250 ML PREMIX 17.27 MG IV (08:12)
--- NOTE | 2024-08-25 08:15 | PICC.NOTE ---
Triple lumen PICC placed to right brachial vein. Referred to vascular access nurse for PICC placement due to multiple IV meds including vasopressor. Risks and benefits discussed and informed consent obtained from pt. Right arm assessed with right brtachial vein measuring 3.5 mm, straight, and apparent best choice for placement. Using sterile technique and MST, right brachial vein accessed x 1 stick. Mid-arm circumference measured 10 cm from right AC 27 cm. Trimmed cath 43 cm with 0 cm external length noted. CXR shows tip in distal SVC, in good position for use per radiologist. Line secured with stat-lock. Insertion site covered with Secureport IV and TSM. Report given to bedside nurse, VINEET, RN.
[2024-08-25] MEDS: dextrose 10% 125 ML 750 ML IV (08:33)
[2024-08-25] MEDS: FUROsemide 10 mg/mL SDV 10mL 60 MG IVP (08:34)
[2024-08-25] MEDS: calcium gluconate 0.9% NaCL 1 GM/50 ML PREMIX IV (08:34)
[2024-08-25] MEDS: insulin regular-human 100 units/1 mL 10 UNIT IVP (08:44)
--- NOTE | 2024-08-25 09:07 | PC.NURSE ---
doctor in talked with pt at length about multifunction organ failure and status , will call family and update on status frequent oral care done
[2024-08-25] MEDS: metOLazone 5 MG Tablet 10 MG PO (09:43)
[2024-08-25] MEDS: ticagrelor 90 mg Tablet PO (09:44)
[2024-08-25 10:54] LABS: Anion Gap 26.6 (5-19); Blood Urea Nitrogen 75 mg/dL (8-23); Carbon Dioxide 18 mmol/L (22-29); Chloride 88 mmol/L (98-107); Glucose 219 mg/dL (65-115); Osmolality Calculated 293 mOsm/kg (285-295); Potassium 5.6 mmol/L (3.5-5.1); Sodium 127 mmol/L (136-145)
[2024-08-25] MEDS: ondansetron 2 mg/ML SDV 2 mL 4 MG IVP (11:12)
[2024-08-25 11:23] LABS: Glucose Point of Care 250 mg/dL (70-110)
--- NOTE | 2024-08-25 11:39 | P.PNCC_ITS ---
Critical Care Event Note The high probability of a clinically significant, sudden or life threatening deterioration of the patient's [] system(s) required my full and direct attention, intervention and personal management. The critical care time is as shown. This time is in addition to time spent performing any reported procedures but includes the following: [x] Data and vital sign review and interpretation [x] Patient assessment, examination and intervention [x] Documentation [x] Medication orders and management Coding Level of Care Code Acute Code for [facility]le
--- NOTE | 2024-08-25 12:48 | PM.PN ---
Subjective Subjective: - Patient was examined multiple times throughout the morning with a family meeting later on that morning -Events overnight, patient is currently on 5 of dopamine, maps around 60-65, he is alert oriented x 3, following all commands, jaundiced appearing, on room air, but does complain of shortness of breath, he is also on dopamine drip he has had no significant urine output overnight, afebrile overnight -He denies any abdominal pain, no nausea, no vomiting -Currently denies any chest pain -I had a detailed discussion with him about his CT abdomen and pelvis and his ultrasound abdomen findings FINDINGS: Liver: Liver demonstrates coarse echotexture with hyperechoic appearance and lobulated contour. Liver length is 12.2 cm. Surrounding ascites is seen. No focal mass. No dilated intrahepatic ducts. Gallbladder: Multiple echogenic shadowing mobile gallstones are seen within the gallbladder indicating cholelithiasis. Gallbladder wall measures 8 mm, which is thickened. No significant pericholecystic fluid. Reported negative Jo sign. Biliary ducts: Common bile duct measures 4 mm. Pancreas: Midline images of the pancreas show no focal abnormality. Right kidney: Right kidney measures 11.4 x 7.1 x 6.6 cm. No hydronephrosis or focal abnormality. Left kidney: Left kidney measures 10.9 x 6.3 x 7.2 cm. No hydronephrosis or focal abnormality. Spleen: Spleen measures 12.5 cm, upper limits. No focal abnormality. Intraperitoneal space: [id number] ascites around the liver and spleen. Aorta: Aorta is unremarkable in caliber. Inferior vena cava: IVC demonstrates bidirectional flow with no respiratory variation. Portal venous: Pulsatile or bidirectional portal venous flow suggesting portal hypertension. Patent umbilical vein noted. US/US abdomen complete* [id number] IMPRESSION: 1. Coarse hepatic echotexture with lobular contour suggesting hepatocellular disease/cirrhosis. 2. Associated befs-[id number]-[id number] ascites around the liver and spleen. 3. Bidirectional portal venous and IVC flow and patent umbilical vein suggesting portal hypertension. 4. Cholelithiasis. Gallbladder wall thickening of 8 mm without pericholecystic fluid or reported tenderness (negative Jo sign). This could indicate chronic cholecystitis change. 5. No biliary ductal dilatation. Gallbladder ultrasound US/US abdomen complete* [id number] IMPRESSION: 1. Coarse hepatic echotexture with lobular contour suggesting hepatocellular disease/cirrhosis. 2. Associated sghm-ax-ryuppfog ascites around the liver and spleen. 3. Bidirectional portal venous and IVC flow and patent umbilical vein suggesting portal hypertension. 4. Cholelithiasis. Gallbladder wall thickening of 8 mm without pericholecystic fluid or reported tenderness (negative Jo sign). This could indicate chronic cholecystitis change. 5. No biliary ductal dilatation. -Discussed currently the CT scan does not show any significant intra or extrahepatic biliary dilatation, CBD is 4 mm, he denies any abdominal pain his T. bili is 8.4, direct bili is 5.6, GGT 179 AST and ALT within normal limits, alk phos is 176 ammonia level 73, he is currently in acute liver failure -Discussed his lactic acid is going up to 8.5, despite pressor therapy, antibiotic therapy -Blood no abdominal pain, no nausea, no vomiting he is alert oriented x 3, following all commands -Because of acute liver failure likely combination of his acute on chronic heart failure -The question is is that could he have a component of acute ascending cholangitis as a CT scan does not show any significant evidence of this, I feel it is fairly unlikely but certainly we could proceed with an MRCP currently is currently too unstable to proceed with an MRCP but we can see how he progresses -Discussed the possible MRCP but currently currently too unstable to proceed with MRCP, I am worried that moving him would worsen his shock, high risk of morbidity mortality in the MRI machine -Certainly could be a component of the gallbladder being infected he is on broad-spectrum antibiotic therapy will discuss the case with general surgery, but currently he is in no state for any gallbladder surgery which would carry significant over the dermatology -Pro-Omid 0.58 CRP 6.6 -Discussed his shock, his lactic acid is 8.1, he is in multifactorial shock likely component of acute heart failure, hepatorenal syndrome, there is also concern for septic shock, given concerns for his gallbladder as above, certainly cholangitis could be a role although I do not see any CT evidence of it, nonetheless he is on broad-spectrum antibiotic therapy, dopamine, there is also concern for NSTEMI, acute worsening of his heart failure, echocardiogram is pending, will discuss the case with cardiology shortly worsening of his cardiogenic shock is also a component -Discussed patient's acute renal failure, likely multifactorial from shock, septic shock, hepatorenal syndrome, currently his urine output is lackluster he is developing metabolic acidosis, nephrology has been consulted if his urine output does not improve with a sodium bicarb, and Lasix therapy, we will have to strongly consider dialysis or CRRT, as he has a high likelihood of acute flash pulmonary edema due to morbidity mortality associated, dialysis would also help with his metabolic acidosis and his shock -Discussed his overall goals of care, he has underlying heart failure, underlying CAD CABG, with history of 2/4 bypass grafts probably occluded,RITCHIE to the LAD and radial artery graft to the OM was found to be patent. Venous graft to the obtuse marginal and intermedius arteries fair for to be totally occluded. He had a PCI of the high-grade lesion in the distal LAD, distal to the anastomosis. -His EF is 35% -He does have a moderate to severe aortic stenosis -Overall deconditioned state -With chronic cardiogenic shock, requiring midodrine, blood pressure support -Now with acute renal failure, with acute liver failure, multifactorial shock, discussed his overall goals of care overall his prognosis is poor, -He is also Restorationism, does not want blood products, his hemoglobin is 7.5 it slowly been drifting downwards he has had Hemoccult positive stools, this is also going to be an issue in terms of anticoagulating him, any further surgeries, any significant interventions -Status is critical prognosis is poor -Discussed all options available to him continue medical interventions, giving him time possibly doing a trial of dialysis, he has a high risk of anemia, high risk of respiratory failure, high risk of further clinical deterioration, high risk of further hospitalization, he might even benefit from transfer to tertiary level center currently unstable for that but certainly that is a possibility -The other option would be understanding that he has multiple core morbidities, multiorgan failure, emphasizing his comfort, easing his pain easing his suffering allowing him to be comfortable, and transitioning to comfort care -Taran tells me that he just does not want to be in pain, he wants to be comfortable, he does not want to have aggressive interventions, does not want to have dialysis, does not want to have any more aggressive interventions, however he wants to me to talk to family, and have a family meeting -Spoke to cardiology, patient's echocardiogram shows EF down to 31%, severe aortic stenosis, discussed NSTEMI, EKG changes, as patient was a STEMI alert last night, concerns for underlying cardiac etiology, certainly a possibility however as his troponin trend has not been 6-hour troponin 75.94 but does have a positive delta troponin. But is certainly his shock could be a component of cardiogenic shock, given his chronic cardiovascular disease, with his complicated cardiovascular history above, anticoagulating him will be complicated given his acute anemia 7.5 he is a Restorationism, his stools are positive for blood, recommended hospice would be reasonable -Spoke to general surgery, reviewed images, no acute evidence of acute ascending cholangitis, no significant evidence of stones and biliary tract, there is calcified stones in the gallbladder, patient could be candidate for cholecystectomy and intraoperative cholangiogram if he could be performed, however given his multiple core morbidities, it would be a very high risk procedure, MRCP also would be reasonable, if he was stable enough -I had a family meeting with patient's daughter, patient's son, patient's family members at bedside patient's -Discussed all above findings -Currently patient is in multiorgan failure, multifactorial shock, with underlying cardiovascular disease, acutely he is on dopamine drip, for multifactorial shock, discussed dialysis as a possibility, he remains a full code, discussed his poor prognosis, critical status, -Discussed acute liver failure, acute renal failure, they likely are interrelated, possibly hepatorenal syndrome, with underlying right-sided heart failure on echocardiogram, his chronic history of liver cirrhosis likely congestive hepatopathy, now acutely worse certainly cholangitis is a possibility if he was stable enough to perform an MRCP we could do this, however given his CT imaging findings and gallbladder ultrasound findings I think is fairly unlikely certainly he does have a component of septic shock this certainly could be coming from the gallbladder UTI -But overall given his multiorgan failure discussed his overall poor prognosis, discussed all interventions continuing medical interventions versus hospice/comfort care -After discussing all options, patient and family voiced understanding, all questions answered -Taran says that he just wants to be comfortable, he does not want to be in pain, he does not want to have dialysis, does not want to have aggressive interventions, does not want to be transferred, he just wants to be kept comfortable and be with his family -After discussing the risks and benefits of comfort care, patient and family voiced understanding, all questions answered, agreed to proceed with comfort care Vitals/I&O/Wt Last Vital Signs Temp 98.1 F 08/25/24 02:00 Pulse 78 08/25/24 08:12 Resp 13 08/25/24 08:00 BP 94/41 08/25/24 07:30 Pulse Ox 96 08/25/24 08:12 O2 Del Method Room Air 08/25/24 08:12 08/24/24 08/25/24 08/25/24 22:59 06:59 14:59 Intake Total 801.899 / 801.899 923.101 / 923.101 Balance 801.899 / 801.899 923.101 / 923.101 Weight last 48 hrs Weight 94.347 kg Weight 94.5 kg Weight 92.079 kg Physical Exam Const: COMMON NORMALS: no acute distress ORIENTATION/CONSCIOUSNESS: Yes awake, Yes oriented to person, Yes oriented to place and Yes oriented to time OTHER: Jaundiced appearing, scleral icterus Resp: COMMON NORMALS: normal respiratory effort, No retractions and No use of accessory muscles AUSCULTATION: crackles and wheezes Cardio: COMMON NORMALS: regular rate, regular rhythm, S1 normal heart sound present and S2 normal heart sound present RATE: regular rate RHYTHM: regular rhythm HEART SOUNDS: S1 normal heart sound present and S2 normal heart sound present GI: COMMON NORMALS: Normal to inspection, nondistended, normoactive bowel sounds present and non-tender Extremity: OTHER: 2+ edema Neuro: SENSORIUM/ORIENTATION: Yes oriented to person, Yes oriented to place and Yes oriented to time Psych: COMMON NORMALS: mental status grossly normal Urinary Catheter Management: Ramiers: Cath Placed During This Visit: yes Reason for Continuing Indwelling Catheter: Accurate Measurement of Urinary Output in Critically Ill Patients Urinary Catheter Date of Insertion: 08/24/24 Urinary Catheter Time of Insertion: 18:01 Data 08/25/24 04:11 08/25/24 10:26 Micro: Microbiology 08/24/24 18:40 Blood Culture - Preliminary Blood SPECIMEN COLLECTED 08/24/24 18:36 Blood Culture - Preliminary Blood SPECIMEN COLLECTED A&P Assessment and plan (1) Shock: (2) Aortic stenosis: Qualifiers: Cardiac valve disease etiology: nonrheumatic Qualified Code(s): I35.0 - Nonrheumatic aortic (valve) stenosis (3) CAD (coronary artery disease): Qualifiers: Associated angina: without angina Coronary Disease-Associated Artery/Lesion type: bypass graft [place] vs. transplanted heart: resighini heart Qualified Code(s): I25.810 - Atherosclerosis of coronary artery bypass graft(s) without angina pectoris (4) Hyperlipidemia: (5) Diabetes mellitus: (6) Cirrhosis: (7) Hyperbilirubinemia: (8) Ascending cholangitis: (9) Septic shock: (10) Acute renal failure: (11) Metabolic acidosis: Plan This is a 74-year-old male with history of CABG 2/4 bypass graft down, aortic stenosis, CHF EF 31%, history of GI bleeds, history of anemia, history of low blood pressures chronic cardiogenic shock on midodrine, history of cardiac cirrhosis, congestive hepatopathy, deconditioned state, who presents [facility] for fatigue, malaise, found to have multifactorial shock, septic, cardiogenic, acute renal failure, hepatorenal syndrome, acute liver failure, metabolic acidosis, lactic acidosis proceeding with comfort care, start comfort care order set, stOP dopamine drip Attestations Medical Necessity Statement*: Patient requires hospitalization for comfort care, multifactorial shock, septic shock, cardiogenic shock, multiorgan failure, acute renal failure, acute liver failure, metabolic acidosis Coding Level of Care Code Critical Care >/= 30 minutes Critical care time (in minutes): 60 The high probability of a clinically significant, sudden or life threatening deterioration, as referenced in this documentation, required my full and direct attention, intervention and personal management. The critical care time shown is in addition to time spent performing any reported separately billable procedures and includes the following: [x] Data and vital sign review and interpretation [x] Patient assessment, examination and intervention [x] Medication orders and management [x] Patient/Family updates as able [x] Care Coordination and Documentation. Diagnoses Shock R57.9 Nonrheumatic aortic valve stenosis I35.0 Cardiac valve disease etiology: nonrheumatic Coronary artery disease involving coronary bypass graft of [place] heart without angina pectoris I25.810 Associated angina: without angina Coronary Disease-Associated Artery/Lesion type: bypass graft [place] vs. transplanted heart: resighini heart Hyperlipidemia E78.5 Diabetes mellitus E11.9 Cirrhosis K74.60 Hyperbilirubinemia E80.6 Ascending cholangitis K83.09 Septic shock A41.9; R65.21 Acute renal failure N17.9 Metabolic acidosis E87.20
--- NOTE | 2024-08-25 16:25 | PC.NURSE ---
report called and transferred to room 275 family at bedside
[2024-08-25] MEDS: LORazepam 2 mg/mL INJ 1 mL IVP ×2 (16:41→18:33)
[2024-08-25] MEDS: morphine 4 mg/mL SDV 1 mL IVP (22:38)
[2024-08-26 05:39] VITALS: RESP 17
[2024-08-26] MEDS: morphine 4 mg/mL SDV 1 mL IVP ×3 (05:39→11:40)
[2024-08-26] MEDS: LORazepam 2 mg/mL INJ 1 mL IVP (10:56)
[2024-08-26 10:57] VITALS: RESP 18
[2024-08-26 11:40] VITALS: RESP 18
[2024-08-26 12:20] VITALS: BP 0/0; PULSE 0; RESP 0; TEMP -17.7; TEMP 0; O2SAT 0
--- NOTE | 2024-08-26 12:48 | P.PN_ITS ---
Subjective 2 Subjective: Seen this morning, he is nonresponsive, tachypneic, tachycardic, appears short of breath, does have episodes of agitation, family members are at bedside, family members are worried about his suffering discussed optimizing his pain control, to decrease his pain, suffering, agitation, shortness of breath Vitals/I&O/Wt Last Vital Signs Temp 98.1 F 08/25/24 02:00 Pulse 78 08/25/24 08:12 Resp 18 08/26/24 11:40 BP 94/41 08/25/24 07:30 Pulse Ox 96 08/25/24 08:12 O2 Del Method Room Air 08/25/24 08:12 08/25/24 08/26/24 08/26/24 22:59 06:59 14:59 Intake Total 1050 / 1973.101 250 / 2223.101 Output Total 600 / 600 Balance 450 / 1373.101 250 / 1623.101 Weight last 48 hrs Weight 94.347 kg Weight 94.5 kg Weight 92.079 kg Physical Exam 2 Const: COMMON NORMALS: no acute distress EXAM LIMITATIONS: altered mental status GENERAL APPEARANCE: in distress ORIENTATION/CONSCIOUSNESS: not awake, not oriented to person, not oriented to place and not oriented to time Resp: EFFORT & INSPECTION: Yes tachypneic and Yes respiratory distress Cardio: COMMON NORMALS: regular rhythm, S1 normal heart sound present and S2 normal heart sound present RATE: tachycardic RHYTHM: regular rhythm H EART SOUNDS: S1 normal heart sound present and S2 normal heart sound present Neuro: SENSORIUM/ORIENTATION: No oriented to person, No oriented to place and No oriented to time Urinary Catheter Management: Ramires: Cath Placed During This Visit: yes Reason for Continuing Indwelling Catheter: Accurate Measurement of Urinary Output in Critically Ill Patients Urinary Catheter Date of Insertion: 08/24/24 Urinary Catheter Time of Insertion: 18:01 Data 08/25/24 04:11 08/25/24 10:26 Micro: Microbiology 08/24/24 17:50 Urine Culture - Final Urine,Clean Catch 08/24/24 18:40 Blood Culture - Preliminary Blood NEGATIVE TO DATE 08/24/24 18:36 Blood Culture - Preliminary Blood NEGATIVE TO DATE A&P Assessment and plan (1) Need for comfort care: Plan Comfort care protocol -Will discuss with nursing staff Attestations 2 Medical Necessity Statement*: Patient requires hospitalization for comfort care Diagnoses Need for comfort care
--- NOTE | 2024-08-26 13:35 | PM.DDS ---
Discharge Providers DDS Date of Admission: 08/24/24 20:54 Date Summary Completed: 08/28/24 Attending Provider at Admission: Gerardo Ennis MD Time of : 12:20 Attending Provider at Discharge: Gerardo Ennis MD Primary Care Provider: Mildred Grewal MD DS Diagnoses Hospital Diagnoses (1) Need for comfort care: Reason for Visit Reason for Visit STEMI Summary Date and Time of Date of : 08/26/24 Time of : 12:20 Summary Summary: Taran Higuera is a 74 year old male with a past medical history of atrial flutter not on anticoagulation, due to history of acute on chronic anemia, history of stenting to distal LAD, history of CABG with only 204 bypass graft open, aortic stenosis, type 2 diabetes, hypertension, hyperlipidemia, systolic CHF, peripheral vascular disease, who presents [facility] due to fatigue, malaise, confusion, chest pain, shortness of breath. This is a 74-year-old male with history of CABG 2/4 bypass graft down, aortic stenosis, CHF EF 31%, history of GI bleeds, history of anemia, history of low blood pressures chronic cardiogenic shock on midodrine, history of cardiac cirrhosis, congestive hepatopathy, deconditioned state, who presents [facility] for fatigue, malaise, found to have multifactorial shock, septic, cardiogenic, acute renal failure, hepatorenal syndrome, acute liver failure, metabolic acidosis, lactic acidosis, NSTEMI. Patient was admitted to the ICU, placed on dopamine drip, medically managed. After goals of care discussion with patient and family, patient wanted to proceed with comfort care, patient was transition to comfort care, time of 08/26/2024 at 12:20 PM Additional Data Confirmation of as documented by pronouncing clinician: no pulse, no respirations, no heart sounds and pupils fixed and dilated Family: at bedside Additional persons at bedside: nursing staff Attending/PCP notified?: I am attending Was code activated?: No Autopsy requested?: No Advance directives?: No Discharge Plan Discharge Patient Disposition: Condition: Stable DS Attestations Time Spent in /Discharge Care*: greater than 30 min Quality - AMI: AMI present?: No Quality - Stroke: CVA present?: No Quality - VTE: VTE present?: No Coding Level of Care Code 88824 Total time (in minutes) for Discharge: 45 Diagnoses Need for comfort care
--- NOTE | 2024-08-26 14:13 | PC.NURSE ---
Patient at 1220. Charge nurse notified Dr. Ennis.
--- NOTE | 2024-08-26 17:56 | PC.NURSE ---
CONTACTED [facility] TIMES TWO, LAST TIME BEING 1753. [facility] STATES THEY ARE WAITING ON FAMILY TO ANSWER PHONE. 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
== END 2024-08-26 15:35 | disposition home or self-care (01) | DRG 871 ==
LOC: ER 21:05 → ICU 21:27 → MEDSURG 08-25 16:25
PROVIDERS: Family Medicine; Hospitalist; Internal Medicine; Admitting Provider Family Medicine; Emergency Provider Emergency Medicine; PCP Family Medicine; Visit Provider Family Medicine
DX: A41.9 Sepsis, unspecified organism (principal); G93.41 Metabolic encephalopathy; I21.4 Non-ST elevation (NSTEMI) myocardial infarction; R65.21 Severe sepsis with septic shock; R57.0 Cardiogenic shock; K76.7 Hepatorenal syndrome; K72.00 Acute and subacute hepatic failure without coma; I50.23 Acute on chronic systolic (congestive) heart failure; I13.0 Hypertensive heart and chronic kidney disease with heart failure and stage 1 through stage 4 chronic kidney disease, or unspecified chronic kidney disease; N17.9 Acute kidney failure, unspecified; E87.20 Acidosis, unspecified; K83.09 Other cholangitis; I48.92 Unspecified atrial flutter; K76.6 Portal hypertension; Z51.5 Encounter for palliative care; I25.10 Atherosclerotic heart disease of native coronary artery without angina pectoris; Z95.1 Presence of aortocoronary bypass graft; Z95.5 Presence of coronary angioplasty implant and graft; I35.0 Nonrheumatic aortic (valve) stenosis; E11.51 Type 2 diabetes mellitus with diabetic peripheral angiopathy without gangrene; E11.40 Type 2 diabetes mellitus with diabetic neuropathy, unspecified; N18.30 Chronic kidney disease, stage 3 unspecified; E11.22 Type 2 diabetes mellitus with diabetic chronic kidney disease; E78.5 Hyperlipidemia, unspecified; K76.1 Chronic passive congestion of liver; I25.5 Ischemic cardiomyopathy; Z79.4 Long term (current) use of insulin
CPT/HCPCS: 36415; 36416; 36573; 36600; 51702; 71045; 74176; 76700; 80048; 80053; 80061; 81001; 82009; 82140; 82247; 82248; 82803; 82962; 82977; 83036; 83605; 83690; 83735; 83880; 84100; 84145; 84443; 84484; 85025; 85610; 85730; 86140; 87040; 87086; 87637; 93005; 93306; 94664; 96365; 96366; 96367; 96372; 96375; 96376; 99291; C1751; J0612; J1265; J1650; J1815; J1940; J2060; J2185; J2270; J2405; J2470; J3370; J7040; J7799; Q3014